=== PATIENT | male | born 1960 | race Caucasian/White ===

== ENCOUNTER → 2017-04-14 15:12 | Outpatient (CLI) | payer MEDICAID, SELFPAY ==
[2017-04-14 13:52] VITALS: BP 152/78; BMI 27.4
[2017-04-14 17:00] LABS: Anion Gap 9 (5-15); BUN 19 mg/dL (7-18); BUN/Creat Ratio 16.4 RATIO (10-20); Calcium,Total 8.6 mg/dL (8.5-10.1); Chloride 103 mmol/L (98-107); Creatinine, Serum 1.16 mg/dL (0.70-1.30); EST Glomerular Filtration Rate 69 mL/min (>60); Est Glom Filt Rate - Afr Amer 84 mL/min (>60); Glucose 238 mg/dL (74-106); Potassium 4.1 mmol/L (3.5-5.1); Sodium Level 140 mmol/L (136-145)
== END ==
PROVIDERS: Family Provider Internal Medicine; PCP Internal Medicine; Visit Provider Internal Medicine
DX: I10 Essential (primary) hypertension (principal)
CPT/HCPCS: 36415; 80048

== ENCOUNTER 2017-05-07 15:32 | Emergency (ER) | payer MEDICAID, SELFPAY ==
[2017-05-07 15:32] VITALS: BP 161/95; PULSE 122; RESP 16; TEMP 36.9; O2SAT 97; BMI 27.3
--- NOTE | 2017-05-07 16:54 | ED.DCSUM_ITS ---
- ER Visit Summary Date of Service: 05/07/17 Chief Complaint: Alcohol intoxication, once detox History of Present Illness: The patient is a 57 M who presents intoxicated. He states he has been drinking for the past week. He had a birthday earlier this week and started drinking that day and has not stopped. His girlfriend did not show up and that is why he started drinking. He is a previous alcoholic and has been sober for a couple of months but recently started drinking again. He states between last night and this morning he drank a bottle of vodka. He denies any withdrawal symptoms currently. Physical Examination: Vital signs reviewed. HEENT exam unremarkable. Heart is regular rate and rhythm without murmurs. Lungs are clear to auscultation. Abdomen is soft and nontender. Extremities reveal no edema. Skin exam normal. Neurologic exam normal. Patient is intoxicated but no other neurologic deficits Test Results: Laboratory studies unremarkable except for an alcohol level of 121 and glucose of 206 Emergency Department Course and Treatment: Patient states he has been here long enough and wants to go home. He does not want to wait for any counseling services or to be admitted for detox. He will go home and do it as an outpatient. He is not suicidal. I do not feel he needs to be pink slipped. He will follow-up Treatment Plan: [] Disposition: Discharge Impression: Alcohol intoxication This note was generated with [employer] dictation software. It may contain incorrect words, spelling, and punctuation that were not noted in review of the chart prior to signing ED Disposition - Plan for ED Patient: Chief Complaint: ETOH Intox Referrals: Elijah Plascencia MD [Primary Care Provider] -
[2017-05-07 17:35] LABS: Absolute Lymphocyte Count 2.03 X10^3/ul (0.83-4.51); Absolute Neutrophil Count 3.5 X10^3/uL (2.0-7.7); Basophil# 0.05 X10^3/uL; Basophil% 0.8 % (0-1); Eosinophils% 1.6 % (0-5); Hemoglobin 14.8 g/dl (13.0-16.5); Lymphocyte # 2.03 X10^3/ul (4.0); Mean Corp Hgb Conc 33.6 g/gl (32-36); Mean Corpuscular Hgb 28.5 pg (27.0-32.0); Mean Corpuscular Volume 84.8 fL (80-94); Mean Platelet Vol. 8.7 fl (6.2-12.0); Monocyte# 0.43 X10^3/uL; Neutrophil # 3.53 X10^3/uL (2.7-7.7); Neutrophil % 57.3 % (47-70); POSITIVE COUNT NO; POSITIVE DIFFERENTIAL NO; POSITIVE MORPHOLOGY NO; Platelet Count 196 K/mm3 (150-450); RBC Distribution Width CV 14.3 % (11.6-14.6); Red Blood Count 5.19 M/mm3 (4.6-6.2); White Blood Count 6.2 K/mm3 (4.4-11.0)
[2017-05-07 17:54] LABS: Anion Gap 13 (5-15); BUN 14 mg/dL (7-18); BUN/Creat Ratio 16.3 RATIO (10-20); Chloride 100 mmol/L (98-107); Creatinine, Serum 0.86 mg/dL (0.70-1.30); EST Glomerular Filtration Rate 98 mL/min (>60); Est Glom Filt Rate - Afr Amer 119 mL/min (>60); Estimated Creatinine Clearance 95.91 ml/min; Glucose 206 mg/dL (74-106); Potassium 4.4 mmol/L (3.5-5.1); Sodium Level 139 mmol/L (136-145)
[2017-05-07 18:14] LABS: Amphetamine Urine VISTA NEGATIVE (<1000 ng/mL); Barbiturate Urine VISTA NEGATIVE (< 200 ng/mL); Benzodiazepine Urine VISTA NEGATIVE (< 200 ng/mL); Cocaine Urine VISTA NEGATIVE (< 300 ng/mL); Ecstacy Urine VISTA NEGATIVE (< 500 ng/mL); Methadone Urine VISTA NEGATIVE (< 300 ng/mL); PCP Urine VISTA NEGATIVE (< 25 ng/mL); THC Urine VISTA NEGATIVE (< 50 ng/mL); Vista UDS pH Range 5
[2017-05-07 18:33] VITALS: BP 182/90; PULSE 87; RESP 20; O2SAT 100
--- NOTE | 2017-05-07 18:51 | NURSING ---
CRISIS NOTIFIED AND CECI WILL BE IN SHORTLY
--- NOTE | 2017-05-07 18:58 | ED.DEP ---
ED Disposition - Plan for ED Patient: Disposition: Home or Assisted Living Chief Complaint: ETOH Intox Instructions: ED Alcohol Intoxication Referrals: Elijah Plascencia MD [Primary Care Provider] -
[2017-05-07 19:05] VITALS: BP 181/94; PULSE 92; RESP 20; O2SAT 96
== END 2017-05-07 19:05 | disposition home or self-care (01) ==
PROVIDERS: Emergency Provider Emergency Medicine; Family Provider Internal Medicine; PCP Internal Medicine
DX: F10.229 Alcohol dependence with intoxication, unspecified (principal); Y90.6 Blood alcohol level of 120-199 mg/100 ml; E11.9 Type 2 diabetes mellitus without complications; I10 Essential (primary) hypertension; Z79.82 Long term (current) use of aspirin; Z79.4 Long term (current) use of insulin; Z79.899 Other long term (current) drug therapy; I25.2 Old myocardial infarction
CPT/HCPCS: 80048; 80307; 80320; 85025; 99282; G0480

== ENCOUNTER → 2017-10-16 13:14 | Outpatient (CLI) | payer MEDICAID, SELFPAY | PROVIDERS: Family Provider Internal Medicine; PCP Internal Medicine; Visit Provider Internal Medicine Cardiovascular Disease | DX: R07.9 Chest pain, unspecified (principal); I25.10 Atherosclerotic heart disease of native coronary artery without angina pectoris | CPT/HCPCS: 93017; 93350; J7030; Q9957; A4216; C8928 ==

== ENCOUNTER → 2017-10-20 11:39 | Outpatient (CLI) | payer MEDICAID, SELFPAY ==
[2017-10-20 12:28] LABS: Hematocrit 46.4 % (40-54); Hemoglobin 15.9 g/dl (13.0-16.5); Mean Corp Hgb Conc 34.3 g/gl (32-36); Mean Corpuscular Hgb 28.3 pg (27.0-32.0); Mean Corpuscular Volume 82.7 fL (80-94); Mean Platelet Vol. 8.8 fl (6.2-12.0); Platelet Count 270 K/mm3 (150-450); RBC Distribution Width CV 13.2 % (11.6-14.6); RBC Distribution Width SD 40.2 fl (35.1-43.9); Red Blood Count 5.61 M/mm3 (4.6-6.2); White Blood Count 8.2 K/mm3 (4.4-11.0)
[2017-10-20 12:33] LABS: Scan Indicated on CBC? Y/N NO
[2017-10-20 12:47] LABS: Anion Gap 10 (5-15); BUN 18 mg/dL (7-18); BUN/Creat Ratio 14.9 RATIO (10-20); Calcium,Total 9.3 mg/dL (8.5-10.1); Chloride 98 mmol/L (98-107); Cholesterol 182 mg/dL (200); Creatinine, Serum 1.21 mg/dL (0.70-1.30); EST Glomerular Filtration Rate 66 mL/min (>60); Est Glom Filt Rate - Afr Amer 80 mL/min (>60); Glucose 273 mg/dL (74-106); High Density Lipoprotein 78 mg/dL; Potassium 4.5 mmol/L (3.5-5.1); Sodium Level 135 mmol/L (136-145); Triglycerides 147 mg/dL; Very Low Density Lipoprotein 29 mg/dL (5-40)
[2017-10-20 12:51] LABS: Hemoglobin A1c 9.8 % (4.2-6.3)
[2017-10-20 13:23] LABS: Microalbumin:Creatinine Ratio 798.9 mg/g CRE (<30 mg/g CRE)
== END ==
PROVIDERS: Family Provider Internal Medicine; PCP Internal Medicine; Visit Provider Nurse Practitioner Family
DX: I10 Essential (primary) hypertension (principal); E11.65 Type 2 diabetes mellitus with hyperglycemia; E78.5 Hyperlipidemia, unspecified
CPT/HCPCS: 36415; 80048; 80061; 82043; 82570; 83036; 85027

== ENCOUNTER 2017-12-28 08:48 | Outpatient (RCR) | payer MEDICAID, SELFPAY | END 2018-01-03 23:59 | LOC: DC 08:48 | PROVIDERS: Family Provider Internal Medicine; PCP Internal Medicine; Visit Provider Podiatrist | DX: E11.42 Type 2 diabetes mellitus with diabetic polyneuropathy (principal); Z71.3 Dietary counseling and surveillance ==

== ENCOUNTER → 2018-04-23 08:32 | Outpatient (CLI) | payer MEDICAID, SELFPAY ==
[2018-04-13 14:23] VITALS: BMI 27.4
[2018-04-23 12:40] LABS: Absolute Neutrophil Count 4.8 X10^3/uL (2.0-7.7); Basophil# 0.02 X10^3/uL; Basophil% 0.3 % (0-1); Eosinophil# 0.01 X10^3/uL; Eosinophils% 0.1 % (0-5); Hematocrit 48.9 % (40-54); Hemoglobin 16.8 g/dl (13.0-16.5); Lymphocyte % 27.6 % (19-41); Mean Corp Hgb Conc 34.4 g/gl (32-36); Mean Corpuscular Hgb 29.5 pg (27.0-32.0); Mean Corpuscular Volume 85.9 fL (80-94); Mean Platelet Vol. 9.9 fl (6.2-12.0); Monocyte# 0.86 X10^3/uL; Monocyte% 10.8 % (0-10); Neutrophil # 4.84 X10^3/uL (2.7-7.7); Neutrophil % 60.7 % (47-70); Platelet Count 254 K/mm3 (150-450); RBC Distribution Width CV 14.4 % (11.6-14.6); RBC Distribution Width SD 45.2 fl (35.1-43.9); Red Blood Count 5.69 M/mm3 (4.6-6.2)
[2018-04-23 12:44] LABS: POSITIVE DIFFERENTIAL NO; POSITIVE MORPHOLOGY NO
[2018-04-23 12:52] LABS: ALB/GLOB Ratio 1.1 RATIO (0.9-2.4); AST(SGOT) 23 U/L (15-37); Alanine Aminotransfer ALT/SGPT 80 U/L (16-61); Alkaline Phosphatase 121 U/L (45-117); Anion Gap 11 (5-15); BUN 18 mg/dL (7-18); BUN/Creat Ratio 15.5 RATIO (10-20); Calcium,Total 9.2 mg/dL (8.5-10.1); Chloride 99 mmol/L (98-107); Creatinine, Serum 1.16 mg/dL (0.70-1.30); EST Glomerular Filtration Rate 69 mL/min (>60); Est Glom Filt Rate - Afr Amer 84 mL/min (>60); Globulin 3.8 g/dL (2.2-4.2); Glucose 296 mg/dL (74-106); Potassium 3.9 mmol/L (3.5-5.1); Protein, Total 7.8 g/dL (6.4-8.2); Sodium Level 136 mmol/L (136-145)
[2018-04-23 13:00] LABS: Cholesterol 119 mg/dL (200); High Density Lipoprotein 64 mg/dL; Triglycerides 100 mg/dL; Very Low Density Lipoprotein 20 mg/dL (5-40)
[2018-04-23 13:19] LABS: Microalbumin:Creatinine Ratio 272.8 mg/g CRE (<30 mg/g CRE)
[2018-04-23 13:25] LABS: Hemoglobin A1c 9.2 % (4.2-6.3)
== END ==
PROVIDERS: Nurse Practitioner Family; Family Provider Internal Medicine; PCP Internal Medicine; Visit Provider Internal Medicine
DX: E11.65 Type 2 diabetes mellitus with hyperglycemia (principal); I10 Essential (primary) hypertension; F10.10 Alcohol abuse, uncomplicated
CPT/HCPCS: 36415; 80053; 80061; 82043; 82570; 83036; 85025

== ENCOUNTER → 2018-11-30 16:06 | Outpatient (CLI) | payer MEDICAID, SELFPAY ==
[2018-11-30 15:29] VITALS: BMI 26.1
[2018-12-05 15:18] LABS: Testosterone, Free 6.81 ng/dL (5.00-21.00)
[2018-12-05 15:26] LABS: Testosterone, % Free 2.38 % (1.50-4.20); Testosterone, Total 286 ng/dL (264-916)
== END ==
PROVIDERS: Family Provider Internal Medicine; PCP Internal Medicine; Referring Provider Internal Medicine; Visit Provider Internal Medicine
DX: N52.9 Male erectile dysfunction, unspecified (principal)
CPT/HCPCS: 36415; 84402; 84403

== ENCOUNTER 2018-12-28 18:24 | Observation (INO) | payer MEDICAID, SELFPAY ==
[2018-11-30 15:29] VITALS: BMI 26.1
[2018-12-28] VITALS (10 sets, daily range): BP systolic 123–183; BP diastolic 66–102; PULSE 104–116; RESP 15–23; TEMP 36.9; O2SAT 93–98; BMI 26.6; BMI 26.4
--- NOTE | 2018-12-28 18:32 | EKG12_ITS ---
Test Reason : MENTAL HEALTH Blood Pressure : / mmHG Vent. Rate : 103 BPM Atrial Rate : 103 BPM P-R Int : 212 ms QRS Dur : 070 ms QT Int : 334 ms P-R-T Axes : 065 022 037 degrees QTc Int : 437 ms Sinus tachycardia with 1st degree A-V block Borderline ECG Confirmed by ANA MARIA CLARK, ALVERTO ([id number]), city editor GOLDIE REDMAN ([id number]) on 01/01/2019 11:27:43 AM Referred By: Alan Mandujano Confirmed By:ALVERTO RODGERS MD
--- NOTE | 2018-12-28 18:33 | ED.DCSUM_ITS ---
History of Present Illness Chief Complaint: Suicidal Informant: Patient, [employer] Design[employer] Limited by: Intoxicated Onset: Today Narrative: Patient is a 58-year-old male with history of insulin-dependent diabetes mellitus and alcohol abuse presenting with suicidal attempt. Per police report, patient was arguing with his ex- and she refused to get back with him. Patient then attempted to kill himself by taking an extra 80 units of his insulin 70/30. Patient states he normally takes as a sliding scale. He told EMS that he was going to take another 40 units as well. Patient was drinking heavily today. He states he had at least a 12 pack of beer. He denies any liquor or illicit drug use. Patient states he just wants to and be with his parents. He denies any physical complaints at this time. Patient states he does have a history of overdose by taking extra medications. Past Medical History - Allergies and Home Meds Allergies/Adverse Reactions: Allergies No Known Allergies Allergy (Verified 11/30/18 15:28) Past Medical History: - - Depression, insulin-dependent diabetes mellitus, erectile dysfunction, hypertension, coronary artery disease Smoking Status: Current every day smoker - Family History Maternal Family History: Family History (Last Reviewed 12/29/18 @ 00:41 by Alan Mandujano MD) Aunt Diabetes Father Alcoholism Aunt Diabetes Father Alcoholism Review of Systems All systems negative except as indicated Psych: Reports: Depression, Suicidal thoughts, Suicidal ideations Physical Exam Vital Signs/Narrative: Vital Signs Temp Pulse Resp BP Pulse Ox 12/28/18 18:27 98.4 F 104 H 15 158/78 H 98 Inital Vital Signs reviewed: Yes General: Well nourished, Well developed, No Acute Distress Head: Normocephalic, Atraumatic Eyes: Perrl, EOMI ENT: Moist mucous membranes, No rhinorrhea Neck: Supple, Nontender Cardiovascular: Regular rhythm, No murmurs, Tachycardia Respiratory: No distress, Chest nontender Abdomen: Soft, Nontender, Nondistended, Normal bowel sounds Back: Nontender, Normal Inspection Extremities: Nontender, No edema Skin: Normal color, No rash Neurological: Alert, Oriented x3, Cranial nerves II-XII grossly intact, Normal Strength, Normal Sensation, - - Mildly slurred speech, patient appears clinically intoxicated, no focal neurologic deficits Psychological: Depressed - Admits to suicide attempt by taking extra insulin, Tearful Diagnostic/Tx/Re-eval Laboratory Data 12/28/18 12/28/18 12/28/18 18:33 18:33 18:33 WBC 6.4 RBC 5.48 Hgb 16.0 Hct 47.1 MCV 85.9 MCH 29.2 MCHC 34.0 RDW Std Deviation 41.2 RDW Coeff of Kaye 13.3 Plt Count 331 MPV 8.1 Immature Gran % (Auto) 1.600 H Neut % (Auto) 43.0 L Lymph % (Auto) 45.7 H [place] % (Auto) 8.7 Eos % (Auto) 0.2 Baso % (Auto) 0.8 Absolute Neuts (auto) 2.8 Absolute Lymphs (auto) 2.93 Nucleated RBC % 0 Sodium 138 Potassium 3.6 Chloride 101 Carbon Dioxide 26.0 Anion Gap 11 BUN 10 Creatinine 0.98 Estim Creat Clear Calc 80.46 Est GFR (MDRD) Af Amer 101 Est GFR (MDRD) Non-Af 83 BUN/Creatinine Ratio 10.2 Glucose 213 H Calcium 9.5 Urine Color Urine Clarity Urine pH Ur Specific [place] Urine Protein Urine Glucose (UA) Urine Ketones Urine Occult Blood Urine Nitrite Urine Bilirubin Urine Urobilinogen Ur Leukocyte Esterase Urine RBC Urine WBC Ur Squamous Epith Cells Urine Bacteria Urine Mucus Urine Opiates Screen Urine Methadone Screen Ur Barbiturates Screen Ur Phencyclidine Scrn Ur Amphetamines Screen U Methamphetamin-MDMA U Benzodiazepines Scrn Urine Cocaine Screen U Cannabinoids Screen Ur Drug Screen Comment Ethyl Alcohol 231.0 POC Glucose 12/28/18 12/28/18 12/28/18 18:33 18:48 18:48 WBC RBC Hgb Hct MCV MCH MCHC RDW Std Deviation RDW Coeff of Kaye Plt Count MPV Immature Gran % (Auto) Neut % (Auto) Lymph % (Auto) [place] % (Auto) Eos % (Auto) Baso % (Auto) Absolute Neuts (auto) Absolute Lymphs (auto) Nucleated RBC % Sodium Potassium Chloride Carbon Dioxide Anion Gap BUN Creatinine Estim Creat Clear Calc Est GFR (MDRD) Af Amer Est GFR (MDRD) Non-Af BUN/Creatinine Ratio Glucose Calcium Urine Color Yellow Urine Clarity Clear Urine pH 5.0 Ur Specific [place] 1.015 Urine Protein 100 H Urine Glucose (UA) 250 H Urine Ketones Negative Urine Occult Blood Negative Urine Nitrite Negative Urine Bilirubin Negative Urine Urobilinogen Normal Ur Leukocyte Esterase Negative Urine RBC 0 SEEN Urine WBC 0 SEEN Ur Squamous Epith Cells 0 SEEN Urine Bacteria 0 SEEN Urine Mucus 0 SEEN Urine Opiates Screen NEGATIVE Urine Methadone Screen NEGATIVE Ur Barbiturates Screen POSITIVE H Ur Phencyclidine Scrn NEGATIVE Ur Amphetamines Screen NEGATIVE U Methamphetamin-MDMA NEGATIVE U Benzodiazepines Scrn NEGATIVE Urine Cocaine Screen NEGATIVE U Cannabinoids Screen NEGATIVE Ur Drug Screen Comment Ethyl Alcohol POC Glucose 209 H 12/28/18 20:09 WBC RBC Hgb Hct MCV MCH MCHC RDW Std Deviation RDW Coeff of Kaye Plt Count MPV Immature Gran % (Auto) Neut % (Auto) Lymph % (Auto) [place] % (Auto) Eos % (Auto) Baso % (Auto) Absolute Neuts (auto) Absolute Lymphs (auto) Nucleated RBC % Sodium Potassium Chloride Carbon Dioxide Anion Gap BUN Creatinine Estim Creat Clear Calc Est GFR (MDRD) Af Amer Est GFR (MDRD) Non-Af BUN/Creatinine Ratio Glucose Calcium Urine Color Urine Clarity Urine pH Ur Specific [place] Urine Protein Urine Glucose (UA) Urine Ketones Urine Occult Blood Urine Nitrite Urine Bilirubin Urine Urobilinogen Ur Leukocyte Esterase Urine RBC Urine WBC Ur Squamous Epith Cells Urine Bacteria Urine Mucus Urine Opiates Screen Urine Methadone Screen Ur Barbiturates Screen Ur Phencyclidine Scrn Ur Amphetamines Screen U Methamphetamin-MDMA U Benzodiazepines Scrn Urine Cocaine Screen U Cannabinoids Screen Ur Drug Screen Comment Ethyl Alcohol POC Glucose 139 H - Rhythm Strip Rhythm Strip: Sinus Tach Rate: 103 Ectopy: None - EKG Initial EKG Interpretation: Sinus Tachycardia, - - Sinus tachycardia at a rate of 103 First- degree AV block Normal intervals Normal ST segments Normal axis - Medical Decision Making Patient is evaluated for suicide attempt. Patient injected 80 units of insulin 70/30 prior to arrival. Patient is slightly hyperglycemic upon arrival. He was also drinking heavily tonight. Alcohol level is elevated. Patient repeatedly states that he wants to and be with his parents. Patient was pink slipped to the hospital by local police. Patient is given some IV fluids. Medical work-up is largely unremarkable. Because of the amount of insulin patient took, he will be admitted for further glucose monitoring. Patient was initially accepted to the PCU however repeat blood sugar shows that his blood glucose has dropped 100 points within an hour. Because of this, medicine request that he be admitted to the ICU and he is also started on D5 half-normal saline at 75 cc an hour. Patient does have an anxiety attack by the emergency room and does require 0.5 mg of IV Ativan. He is otherwise stable for the ICU at time of disposition. ED Disposition - Plan for ED Patient: Disposition: Acute Care Hospital [facility] Diagnosis: Overdose of insulin, Suicidal ideation, Alcohol abuse
[2018-12-28 18:45] LABS: Absolute Lymphocyte Count 2.93 X10^3/uL (0.83-4.51); Absolute Neutrophil Count 2.8 X10^3/uL (2.0-7.7); Basophil# 0.05 X10^3/uL; Basophil% 0.8 % (0-1); Eosinophil# 0.01 X10^3/uL; Eosinophils% 0.2 % (0-5); Hematocrit 47.1 % (40-54); Lymphocyte # 2.93 X10^3/ul (4.0); Lymphocyte % 45.7 % (19-41); Mean Corpuscular Hgb 29.2 pg (27.0-32.0); Mean Corpuscular Volume 85.9 fL (80-94); Mean Platelet Vol. 8.1 fl (6.2-12.0); Monocyte# 0.56 X10^3/uL; Monocyte% 8.7 % (0-10); NRBC Flagged by Analyzer 0 % (0-5); Neutrophil # 2.76 X10^3/uL (2.7-7.7); Platelet Count 331 K/mm3 (150-450); RBC Distribution Width CV 13.3 % (11.6-14.6); RBC Distribution Width SD 41.2 fl (35.1-43.9); Red Blood Count 5.48 M/mm3 (4.6-6.2); White Blood Count 6.4 K/mm3 (4.4-11.0)
[2018-12-28 18:55] LABS: Bacteria 0 SEEN /hpf (None Seen); Mucous, Urine 0 SEEN /hpf (<or=2+); Red Blood Cells-Urine 0 SEEN /hpf (0-5); Squamous Epithelial Cells - UA 0 SEEN /hpf (0-5); White Blood Cells 0 SEEN /hpf (0-5)
[2018-12-28 18:55] LABS: Anion Gap 11 (5-15); BUN 10 mg/dL (7-18); BUN/Creat Ratio 10.2 RATIO (10-20); Calcium,Total 9.5 mg/dL (8.5-10.1); Chloride 101 mmol/L (98-107); Creatinine, Serum 0.98 mg/dL (0.70-1.30); EST Glomerular Filtration Rate 83 mL/min (>60); Est Glom Filt Rate - Afr Amer 101 mL/min (>60); Estimated Creatinine Clearance 80.46 ml/min; Glucose 213 mg/dL (74-106); Potassium 3.6 mmol/L (3.5-5.1); Sodium Level 138 mmol/L (136-145)
[2018-12-28 19:13] LABS: Color, Urine Yellow (Yellow); Glucose, Dipstick 250 mg/dl (Normal); Ketone-Dipstick Negative (Negative); Leukocyte Esterase-Dipstick Negative /ul (Negative); Nitrite-Dipstick Negative (Negative); Occult Blood-Urine Negative /ul (Negative); Protein-Dipstick 100 mg/dl (Negative); Specific Gravity, Urine 1.015 (1.002-1.030); Urine Bilirubin Dipstick Negative (Negative); Urine Clarity Clear (Clear); Urine Urobilinogen Normal (Normal)
[2018-12-28 19:19] LABS: Amphetamine Urine VISTA NEGATIVE (<1000 ng/mL); Barbiturate Urine VISTA POSITIVE (< 200 ng/mL); Benzodiazepine Urine VISTA NEGATIVE (< 200 ng/mL); Cocaine Urine VISTA NEGATIVE (< 300 ng/mL); Ecstacy Urine VISTA NEGATIVE (< 500 ng/mL); Methadone Urine VISTA NEGATIVE (< 300 ng/mL); PCP Urine VISTA NEGATIVE (< 25 ng/mL); THC Urine VISTA NEGATIVE (< 50 ng/mL); Vista UDS pH Range 5
--- NOTE | 2018-12-28 19:51 | PCM.HP.STD ---
Problem List (1) Type 2 diabetes mellitus Status: Chronic (2) Hypertension Status: Chronic (3) Depression Status: Chronic (4) Suicidal ideation Status: Acute (5) Overdose of insulin Status: Acute (6) Suicide attempt Status: Acute History of Present Illness Date of Admission: 12/28/18 Chief Complaint: insulin overdose for suicidal attempt The patient is a 58 year old M with a significant history of alcoholism; depression; erectile dysfunction; hypertension who presented to emergency department with suicidal attempt. Patient took 80 units of his 70/30 insulin at one time in an attempt to kill himself.. Typically he takes 30 units twice daily of his 70/30 insulin.. He was about to take more insulin but was prevented from doing so. He attempted to commit suicide because his girlfriend was leaving him. He reported that he wants to and be with his parents were radiated. Also reported that one of the reasons why he wants to is that he has erectile dysfunction and is unable to afford treatment since his insurance will not pay. Also on the day of presentation patient drank about 8-9 beers. Patient is on alcoholic who came up from a detox facility at [place] a day before presentation. Reportedly from April 19, 2018 to September 20 he was at the [facility]. He reported that he has as sponsor who reportedly is trying to date his girlfriend; although the girlfriend is not interested. The patient is a 58 year old M with a significant history of alcoholism; depression; erectile dysfunction; ; hypertension who presented to emergency department with suicidal attempt from insulin overdose and also with excessive alcohol use. Suicidal attempt with insulin overdose. Initial blood glucose in the emergency department was 209. However his blood glucose daily declined to 114. Discussed emergency department doctor will start the patient on D5W at the emergency department; continued. Will check Accu-Chek every 1 hour. Crisis consult at the emergency department. Alcoholism with risk of withdrawal. At the emergency department patient was given Ativan. Will put patient on CIWA protocol with Ativan; multivitamin and thiamine. Counseled. Viral abuse Consult DVT prophylaxis Subcutaneous Lovenox. Past Medical History Past Medical History (Chronic Problems): Chronic Problems (Last Reviewed 12/29/18 @ 06:38 by Alan Mandujano MD) Type 2 diabetes mellitus (Chronic) Hypertension (Chronic) Non-ST elevation (NSTEMI) myocardial infarction (Chronic) Atherosclerosis of coronary artery of [place] heart without angina pectoris (Chronic) [facility] 09/2016 @ [facility] H/O right coronary artery stent placement (Chronic ~09/08/16) [facility] Erectile dysfunction (Chronic) Diabetes type 2, uncontrolled (Chronic) Depression (Chronic) Medical History: Medical History (Last Reviewed 12/29/18 @ 06:38 by Alan Mandujano MD) Fracture of wrist (Inactive) S62.109A Rt wrist Non-ST elevation (NSTEMI) myocardial infarction (Chronic) I21.4 Atherosclerosis of coronary artery of [place] heart without angina pectoris (Chronic) I25.10 [facility] 09/2016 @ [facility] Hypertension, uncontrolled (Inactive) I10 Erectile dysfunction (Chronic) N52.9 Diabetes type 2, uncontrolled (Chronic) E11.65 Depression (Chronic) F32.9 Alcoholism F10.20 Anxiety F41.9 Depression F32.9 Neuropathy G62.9 NSVT (nonsustained ventricular tachycardia) I47.2 Allergies No Known Allergies Allergy (Verified 11/30/18 15:28) Home Medications: Ambulatory Orders Medication Instructions Recorded aspirin 81 mg tablet,delayed 81 mg PO QDAY #90 tab 02/07/18 release tramadol 50 mg tablet 50 mg PO Q6H 04/04/18 hydrochlorothiazide 25 mg tablet 25 mg PO QDAY #90 tab 04/12/18 metformin 1,000 mg tablet 1,000 mg PO BIDCM #180 tab 04/12/18 metoprolol tartrate 25 mg tablet 25 mg PO BID #180 tab 04/12/18 fexofenadine 60 mg tablet 60 mg PO BID PRN #30 tab 07/12/18 venlafaxine ER 225 mg 225 mg PO QDAY #90 tab 07/13/18 tablet,extended release 24 hr insulin NPH-regular 70-30 U-100 See Rx Instructions SC BID #15 ml 08/28/18 insulin 100 unit/mL subcutaneous pen lisinopril 40 mg tablet 40 mg PO QDAY #90 tab 09/03/18 atorvastatin 40 mg tablet 40 mg PO QHS #90 tab 09/28/18 folic acid 1 mg tablet 1 mg PO QDAY #90 tab 09/28/18 gabapentin 100 mg capsule 200 mg PO DAILY #180 cap 09/28/18 thiamine HCl (vitamin B1) 100 mg 100 mg PO DAILY #90 tab 09/28/18 tablet blood sugar diagnostic strips See Dose Instructions .ROUTE 11/23/18 .MEDSUPPLY #150 ea blood-glucose meter See Dose Instructions .ROUTE 11/23/18 .MEDSUPPLY #1 ea buspirone 15 mg tablet 15 mg PO BID #60 tab 11/23/18 lancets 28 gauge See Dose Instructions .ROUTE 11/23/18 .MEDSUPPLY #200 ea pen needle, diabetic 31 gauge x See Rx Instructions .ROUTE 11/23/18/ .COMPLEX #100 each ticagrelor 90 mg tablet 90 mg PO BID #60 tab 11/23/18 mirtazapine 15 mg tablet 15 mg PO QHS #90 tab 12/21/18 Surgical History: Surgical History (Last Reviewed 12/29/18 @ 06:38 by Alan Mandujano MD) H/O right coronary artery stent placement (Chronic) Onset Date: ~09/08/16 Z95.5 [facility] @ [facility] History of left cataract extraction Z98.42 11/21/18 Psychiatric History: Anxiety, Depression Lives: Alone Smoking Status: Current every day smoker Tobacco Use: Cigarettes Drugs: Marijuana - *Family History Maternal Family History: Family History (Last Reviewed 12/29/18 @ 06:38 by Alan Mandujano MD) Aunt Diabetes Father Alcoholism Aunt Diabetes Father Alcoholism Review of Systems Constitutional: Denies: Chills, Fever, Weight Change HEENT: Denies: Head Aches, Sinus Congestion, Sinus Drainage Cardiovascular: Denies: Chest Pain, Palpitations Respiratory: Denies: Cough, Shortness of breath at rest, Sputum production Gastrointestinal: Denies: Abdominal Pain, Nausea, Vomiting Genitourinary: Denies: Dysuria Musculoskeletal: Denies: Joint Pain, Joint Tenderness Skin: Denies: Rash, Wounds Neurological: Denies: Numbness, Tingling, Focal weakness Psychiatric: Reports: Anxiety, Depression, Suicidal Ideations. Denies: Homicidal Ideations Hematologic/ Lymphatic: Denies: Easy Bruising, Easy Bleeding VTE Information - Inpt Only VTE Present on Admission: No VTE Mechan Device Prophylaxis: SCD's VTE Pharm Prophylaxis ordered?: Yes Patient Problems: Active and Suspected Problems (Last Reviewed 12/29/18 @ 06:38 by Alan Mandujano MD) Suicidal ideation (Acute) Overdose of insulin (Acute) Alcohol abuse (Acute) Suicide attempt (Acute) - Physical Exam Vitals/I&O's: Vital Signs Temp Pulse Resp BP Pulse Ox 98.4 F 104 H 15 158/78 H 98 12/28/18 18:27 12/28/18 18:27 12/28/18 18:27 12/28/18 18:27 12/28/18 18:27 Oxygen Delivery Method Room Air Weight: 79.379 kg Body Mass Index (BMI) 26.6 Finger Stick Blood Glucose 209 General: Alert, Oriented x3, Cooperative HEENT: Atraumatic, PERRLA, EOMI, Normocephalic Neck: Supple, No JVD, Negative Carotid Bruits Lungs: Clear to auscultation, Normal air movement Cardiovascular: Regular rate, No murmurs Abdomen: Bowel Sounds Present, Soft, Non Tender Extremities: No edema, Capillary Refill Less than 3 Seconds Skin: No rashes, No breakdown, - - Flushed Musculoskeletal: No Tenderness to Palpation of Joints or Extremities Neurological: Cranial nerves II-XII grossly intact Psych/Mental Status: - - [place] Laboratory Results 12/28/18 18:33: WBC 6.4, RBC 5.48, Hgb 16.0, Hct 47.1, MCV 85.9, MCH 29.2, MCHC 34.0, RDW Std Deviation 41.2, RDW Coeff of Kaye 13.3, Plt Count 331, MPV 8.1, Immature Gran % (Auto) 1.600 H, Neut % (Auto) 43.0 L, Lymph % (Auto) 45.7 H, [place] % (Auto) 8.7, Eos % (Auto) 0.2, Baso % (Auto) 0.8, Absolute Neuts (auto) 2.8, Absolute Lymphs (auto) 2.93, Nucleated RBC % 0 12/28/18 18:33: Sodium 138, Potassium 3.6, Chloride 101, Carbon Dioxide 26.0, Anion Gap 11, BUN 10, Creatinine 0.98, Estim Creat Clear Calc 80.46, Est GFR (MDRD) Af Amer 101, Est GFR (MDRD) Non-Af 83, BUN/Creatinine Ratio 10.2, Glucose 213 H, Calcium 9.5 12/28/18 18:33: Ethyl Alcohol 231.0 12/28/18 18:48: Urine Opiates Screen NEGATIVE, Urine Methadone Screen NEGATIVE, Ur Barbiturates Screen POSITIVE H, Ur Phencyclidine Scrn NEGATIVE, Ur Amphetamines Screen NEGATIVE, U Methamphetamin-MDMA NEGATIVE, U Benzodiazepines Scrn NEGATIVE, Urine Cocaine Screen NEGATIVE, U Cannabinoids Screen NEGATIVE, Ur Drug Screen Comment 12/28/18 18:48: Urine Color Yellow, Urine Clarity Clear, Urine pH 5.0, Ur Specific [place] 1.015, Urine Protein 100 H, Urine Glucose (UA) 250 H, Urine Ketones Negative, Urine Occult Blood Negative, Urine Nitrite Negative, Urine Bilirubin Negative, Urine Urobilinogen Normal, Ur Leukocyte Esterase Negative, Urine RBC 0 SEEN, Urine WBC 0 SEEN, Ur Squamous Epith Cells 0 SEEN, Urine Bacteria 0 SEEN, Urine Mucus 0 SEEN Current Medications Sodium Chloride () 1,000 mls @ 999 mls/hr IV .Q1H1M ONE Stop: 12/28/18 20:35 Assessment/Plan All Active Problems (Last Reviewed 12/29/18 @ 06:38 by Alan Mandujano MD) Suicidal ideation (Acute) Overdose of insulin (Acute) Alcohol abuse (Acute) Suicide attempt (Acute) The patient is a 58 year old M with a significant history of alcoholism; depression; erectile dysfunction; ; hypertension who presented to emergency department with suicidal attempt from insulin overdose and also with excessive alcohol use. Suicidal attempt with insulin overdose. Initial blood glucose in the emergency department was 209. However his blood glucose daily declined to 114. Discussed emergency department doctor will start the patient on D5W at the emergency department; continued. Later notified that patient's blood glucose dropped to 68 and was given D50. Infusion rate of D5W 0.2 NS was subsequently increased. Will check Accu-Chek every 1 hour. Crisis consult at the emergency department. Alcoholism with risk of withdrawal. At the emergency department patient was given Ativan. Will put patient on CIWA protocol with Ativan; multivitamin and thiamine. Counseled. Hypertension On presentation his blood pressure was not within goal Metoprolol and lisinopril continued Trend blood pressure and adjust blood pressure medication. DVT prophylaxis Subcutaneous Lovenox. Code Visit OBSV E&M: [id number] Initial observation care L3
[2018-12-28] MEDS: 0.9% Normal Saline 1,000 ML 999 ML IV (19:54)
[2018-12-28 20:16] LABS: Bedside Glucose 209 mg/dL (70-110)
[2018-12-28 20:16] LABS: Bedside Glucose 139 mg/dL (70-110)
[2018-12-28] MEDS: Dextrose 5%-0.2% NS 1,000 ML 75 ML IV (20:53)
--- NOTE | 2018-12-28 20:56 | ED.RN ---
PT STATED TO THIS NURSE, I DON'T WANT TO BE HERE ANYMORE. I DON'T KNOW WHY YOU WON'T JUST LET ME GO. I WANT TO GO AND BE WITH MY MOM AND DAD. MY DAD WHEN I WAS LITTLE AND MY MOM 3 YEARS AGO. I JUST WANT TO BE WITH THEM. THE PT IS TEARFUL BUT COOPERATIVE.
[2018-12-28] MEDS: LORazepam 2 MG/ML Syringe 0.5 MG IV (21:16)
[2018-12-28] MEDS: LORazepam 2 MG/ML Syringe IV (22:20)
[2018-12-28 22:30] LABS: Bedside Glucose 114 mg/dL (70-110)
[2018-12-29] VITALS (16 sets, daily range): BP systolic 112–155; BP diastolic 63–97; PULSE 81–118; RESP 15–21; TEMP 36.1–36.9; O2SAT 94–100
[2018-12-29 03:01] LABS: Bedside Glucose 68 mg/dL (70-110)
[2018-12-29] MEDS: Dextrose 50%-Water 25 GM/50 ML DISP.SYRIN IV (04:07)
[2018-12-29 04:15] LABS: Bedside Glucose 63 mg/dL (70-110)
[2018-12-29 04:30] LABS: Bedside Glucose 125 mg/dL (70-110)
[2018-12-29 05:15] LABS: Bedside Glucose 74 mg/dL (70-110)
[2018-12-29 06:10] LABS: Bedside Glucose 111 mg/dL (70-110)
[2018-12-29 07:10] LABS: Bedside Glucose 74 mg/dL (70-110)
--- NOTE | 2018-12-29 07:12 | PCM.CON.CC ---
Reason for Consult Date of Consultation: 12/29/18 Reason for Consultation: Suicide attempt History of Present Illness: The patient is a 58-year-old male, with a history as outlined below, who presented to the emergency department on December 28 following an intentional overdose of insulin. The patient apparently had gotten into an argument with his ex- and subsequently took 80 units of 70/30 insulin in an attempt to end his life. The patient is currently followed by Dr. Plascencia on an outpatient basis. He was last seen in the office of his primary care provider 1 month ago, at which time, the patient was noted to be high risk for obstructive sleep apnea, based upon a STOP-BANG score of 5. A split-night sleep study was subsequently ordered. The patient has a history of alcohol and tobacco abuse. He reports to me that he recently came out of alcohol rehab several days ago. He does report that he drank approximately 8 beers yesterday. In addition, he does report having taken medications in the past in an attempt to end his life, but is unable to tell me when he last attempted suicide. On presentation to the emergency department, the patient was noted to be afebrile and hemodynamically stable. He was maintaining appropriate oxygen saturations on room air. Laboratory evaluation revealed no evidence of a leukocytosis or anemia. Chemistry profile was largely unremarkable. Urinalysis was unrevealing. Toxicology screen was positive for barbiturates. Alcohol level was noted to be 231. Glucose was noted to be 209. The patient was subsequently started on dextrose containing supplemental IV fluids and admitted to the medical intensive care unit for further management. Overnight, the patient's blood glucose levels have remained stable on D5 normal saline at 100 mL's per hour. Past Medical History Past Medical History (Chronic Problems): Chronic Problems (Last Reviewed 12/29/18 @ 06:38 by Alan Mandujano MD) Type 2 diabetes mellitus (Chronic) Hypertension (Chronic) Non-ST elevation (NSTEMI) myocardial infarction (Chronic) Atherosclerosis of coronary artery of [place] heart without angina pectoris (Chronic) [facility] RCA 09/2016 @ [facility] H/O right coronary artery stent placement (Chronic ~09/08/16) [facility] @ [facility] Erectile dysfunction (Chronic) Diabetes type 2, uncontrolled (Chronic) Depression (Chronic) Medical History: Medical History (Last Reviewed 12/29/18 @ 06:38 by Alan Mandujano MD) Fracture of wrist (Inactive) S62.109A Rt wrist Non-ST elevation (NSTEMI) myocardial infarction (Chronic) I21.4 Atherosclerosis of coronary artery of [place] heart without angina pectoris (Chronic) I25.10 [facility] RCA 09/2016 @ [facility] Hypertension, uncontrolled (Inactive) I10 Erectile dysfunction (Chronic) N52.9 Diabetes type 2, uncontrolled (Chronic) E11.65 Depression (Chronic) F32.9 Alcoholism F10.20 Anxiety F41.9 Depression F32.9 Neuropathy G62.9 NSVT (nonsustained ventricular tachycardia) I47.2 Allergies No Known Allergies Allergy (Verified 11/30/18 15:28) Home Medications: Ambulatory Orders Medication Instructions Recorded aspirin 81 mg tablet,delayed 81 mg PO QDAY #90 tab 02/07/18 release tramadol 50 mg tablet 50 mg PO Q6H 04/04/18 hydrochlorothiazide 25 mg tablet 25 mg PO QDAY #90 tab 04/12/18 metformin 1,000 mg tablet 1,000 mg PO BIDCM #180 tab 04/12/18 metoprolol tartrate 25 mg tablet 25 mg PO BID #180 tab 04/12/18 fexofenadine 60 mg tablet 60 mg PO BID PRN #30 tab 07/12/18 venlafaxine ER 225 mg 225 mg PO QDAY #90 tab 07/13/18 tablet,extended release 24 hr insulin NPH-regular 70-30 U-100 See Rx Instructions SC BID #15 ml 08/28/18 insulin 100 unit/mL subcutaneous pen lisinopril 40 mg tablet 40 mg PO QDAY #90 tab 09/03/18 atorvastatin 40 mg tablet 40 mg PO QHS #90 tab 09/28/18 folic acid 1 mg tablet 1 mg PO QDAY #90 tab 09/28/18 gabapentin 100 mg capsule 200 mg PO DAILY #180 cap 09/28/18 thiamine HCl (vitamin B1) 100 mg 100 mg PO DAILY #90 tab 09/28/18 tablet blood sugar diagnostic strips See Dose Instructions .ROUTE 11/23/18 .MEDSUPPLY #150 ea blood-glucose meter See Dose Instructions .ROUTE 11/23/18 .MEDSUPPLY #1 ea buspirone 15 mg tablet 15 mg PO BID #60 tab 11/23/18 lancets 28 gauge See Dose Instructions .ROUTE 11/23/18 .MEDSUPPLY #200 ea pen needle, diabetic 31 gauge x See Rx Instructions .ROUTE 11/23/18 1/4 .COMPLEX #100 each ticagrelor 90 mg tablet 90 mg PO BID #60 tab 11/23/18 mirtazapine 15 mg tablet 15 mg PO QHS #90 tab 12/21/18 Surgical History: Surgical History (Last Reviewed 12/29/18 @ 06:38 by Alan Mandujano MD) H/O right coronary artery stent placement (Chronic) Onset Date: ~09/08/16 Z95.5 [facility] RCA @ [facility] History of left cataract extraction Z98.42 11/21/18 Psychiatric History: Anxiety, Depression Lives: Alone Smoking Status: Current every day smoker Tobacco Use: Cigarettes Drugs: Marijuana - *Family History Maternal Family History: Family History (Last Reviewed 12/29/18 @ 06:38 by Alan Mandujano MD) Aunt Diabetes Father Alcoholism Aunt Diabetes Father Alcoholism Review of Systems Constitutional: Denies: Chills, Fever, Weight Change HEENT: Denies: Head Aches, Sinus Congestion, Sinus Drainage Cardiovascular: Denies: Chest Pain, Palpitations Respiratory: Denies: Cough, Shortness of breath at rest, Sputum production Gastrointestinal: Denies: Abdominal Pain, Nausea, Vomiting Genitourinary: Denies: Dysuria Musculoskeletal: Denies: Joint Pain, Joint Tenderness Skin: Denies: Rash, Wounds Neurological: Denies: Numbness, Tingling, Focal weakness Psychiatric: Reports: Suicidal Ideations Hematologic/ Lymphatic: Denies: Easy Bruising, Easy Bleeding Objective: The patient's most recent lab work, culture data and imaging studies have all been personally reviewed. - Physical Exam Vitals/I&O's: Vital Signs Temp Pulse Resp BP Pulse Ox 97.0 F L 87 15 113/65 96 12/29/18 04:00 12/29/18 06:00 12/29/18 06:00 12/29/18 06:00 12/29/18 06:00 Oxygen Delivery Method Room Air Weight: 178 lb 12.718 oz Body Mass Index (BMI) 26.4 Finger Stick Blood Glucose 139 Intake and Output for Last 24 Hours 12/27/18 12/28/18 12/29/18 23:59 23:59 23:59 Intake Total 1000 / 1000 720 / 720 Output Total 800 / 800 Balance 1000 / 550 -80 / -80 General: Alert, Cooperative, No apparent distress HEENT: Atraumatic, PERRLA, Normocephalic Oral: No Gingival or Mucosal Lesions/ Ulcerations Neck: Supple, No Nodes, Trachea Midline Lungs: No rhonchi, No wheeze, No rales, Diminished Cardiovascular: Regular rate, Regular Rhythm, Normal S1, Normal S2 Abdomen: Bowel Sounds Present, Soft, Non Tender Extremities: No clubbing, No cyanosis, No edema Skin: No breakdown Musculoskeletal: No Tenderness to Palpation of Joints or Extremities Lymphatic: No Cervical, Supraclavicular, or Inguinal Adenopathy Neurological: Cranial nerves II-XII grossly intact, Neuro grossly intact Psych/Mental Status: Normal Affect, Appropriate Laboratory Results 12/28/18 18:33: WBC 6.4, RBC 5.48, Hgb 16.0, Hct 47.1, MCV 85.9, MCH 29.2, MCHC 34.0, RDW Std Deviation 41.2, RDW Coeff of Kaye 13.3, Plt Count 331, MPV 8.1, Immature Gran % (Auto) 1.600 H, Neut % (Auto) 43.0 L, Lymph % (Auto) 45.7 H, [place] % (Auto) 8.7, Eos % (Auto) 0.2, Baso % (Auto) 0.8, Absolute Neuts (auto) 2.8, Absolute Lymphs (auto) 2.93, Nucleated RBC % 0 12/28/18 18:33: Sodium 138, Potassium 3.6, Chloride 101, Carbon Dioxide 26.0, Anion Gap 11, BUN 10, Creatinine 0.98, Estim Creat Clear Calc 80.46, Est GFR (MDRD) Af Amer 101, Est GFR (MDRD) Non-Af 83, BUN/Creatinine Ratio 10.2, Glucose 213 H, Calcium 9.5 12/28/18 18:33: Ethyl Alcohol 231.0 12/28/18 18:33: POC Glucose 209 H 12/28/18 18:48: Urine Opiates Screen NEGATIVE, Urine Methadone Screen NEGATIVE, Ur Barbiturates Screen POSITIVE H, Ur Phencyclidine Scrn NEGATIVE, Ur Amphetamines Screen NEGATIVE, U Methamphetamin-MDMA NEGATIVE, U Benzodiazepines Scrn NEGATIVE, Urine Cocaine Screen NEGATIVE, U Cannabinoids Screen NEGATIVE, Ur Drug Screen Comment 12/28/18 18:48: Urine Color Yellow, Urine Clarity Clear, Urine pH 5.0, Ur Specific [place] 1.015, Urine Protein 100 H, Urine Glucose (UA) 250 H, Urine Ketones Negative, Urine Occult Blood Negative, Urine Nitrite Negative, Urine Bilirubin Negative, Urine Urobilinogen Normal, Ur Leukocyte Esterase Negative, Urine RBC 0 SEEN, Urine WBC 0 SEEN, Ur Squamous Epith Cells 0 SEEN, Urine Bacteria 0 SEEN, Urine Mucus 0 SEEN 12/28/18 20:09: POC Glucose 139 H 12/28/18 21:53: POC Glucose 114 H 12/29/18 02:56: POC Glucose 68 L 12/29/18 04:03: POC Glucose 63 L 12/29/18 04:25: POC Glucose 125 H 12/29/18 05:10: POC Glucose 74 12/29/18 06:06: POC Glucose 111 H 12/29/18 07:06: POC Glucose 74 Current Medications Acetaminophen (Tylenol) 650 mg PO Q6H PRN PRN PRN Reason: Pain Score 1-3/Temp > 100.7 F Dextrose (D50w Syringe) 0 gm IV X1 PRN; Protocol PRN Reason: Hypoglycemia Last Admin: 12/29/18 04:07 Dose: 12.5 gm Documented by: Folic Acid (Folic Acid) 1 mg PO DAILY@0800 [facility] Stop: 12/31/18 08:01 Glucagon () 1 mg IM .X1 PRN PRN Reason: Hypoglycemia Dextrose/Sodium Chloride () 1,000 mls @ 100 mls/hr IV .Q10H [facility] Stop: 12/29/18 16:39 Last Admin: 12/28/18 20:53 Dose: 75 mls/hr Documented by: Sodium Chloride () 250 mls @ 15 mls/hr IV .[id number] PRN PRN Reason: Saline Flush Lisinopril (Zestril) 40 mg PO DAILY [facility] Lorazepam (Ativan) 2 mg PO Q2H PRN PRN; Protocol PRN Reason: CIWA score > 8 but <15 Lorazepam (Ativan) 2 mg PO UD PRN; Protocol PRN Reason: CIWA score >/=15. Lorazepam (Ativan) 2 mg IV Q2H PRN PRN; Protocol PRN Reason: CIWA score > 8 but <15 Lorazepam (Ativan) 2 mg IV UD PRN; Protocol PRN Reason: CIWA score >/=15. Last Admin: 12/28/18 22:20 Dose: 2 mg Documented by: Metoprolol Tartrate (Lopressor (Beta Ana)) 25 mg PO BID [facility] Multivitamins/Minerals (Multivitamin With Minerals) 1 tablet PO DAILYCM [facility] Nutritional Formula (Lactose Free) (Glucerna Shake) 120 ml PO TIDCM [facility] Sodium Chloride () 10 - 40 ml IV UD PRN PRN Reason: SALINE FLUSH Thiamine HCl (Vitamin B1) 100 mg PO BIDCM [facility] Stop: 12/31/18 17:01 Assessment/Plan RECOMMENDATIONS: 1. Dextrose containing supplemental IV fluids can likely be discontinued. 2. Continue to monitor blood glucose levels every 4 hours. 3. Crisis evaluation. 4. Empiric BiPAP therapy can be utilized while the patient is admitted to the hospital while sleeping. 5. Recommend outpatient completion of split-night sleep study, as ordered by PCP. 6. As the patient has no current ICU or pulmonary needs, will sign off. IMPRESSIONS: 1. Intentional Overdose/Suicide Attempt The patient apparently took 80 units of 70/30 insulin in an attempt to overdose. It does not appear that the patient was ever significantly hypoglycemic. He has been maintained on dextrose containing supplemental IV fluids at a low rate overnight. His mentation and glucoses remain within normal limits. Fluids can likely be discontinued from my perspective. Recommend continuing to monitor blood glucose levels every 4 hours. The patient will require crisis evaluation. 2. History of Alcohol Dependency The patient does have a long-standing history of alcohol dependency with his last alcohol consumption occurring yesterday. Continue current supportive measures with CIWA protocol, thiamine and folate. If the patient is to remain admitted to the hospital, consider initiation of Librium taper. 3. Concern for sleep disordered breathing The patient's primary care provider recently placed an order for a split-night sleep study. The patient can be placed empirically on nocturnal BiPAP therapy while admitted to the hospital. Recommend completing outpatient diagnostic polysomnogram. This note was generated with QMedication software. It may contain incorrect words, spelling, and punctuation that were not noted in checking the note before signing. Code Visit Inpatient E&M: 67154 Init Hosp L3
[2018-12-29] MEDS: Dextrose 5%-0.2% NS 1,000 ML 100 ML IV (09:18)
[2018-12-29] MEDS: Metoprolol Tartrate 25 MG Tablet PO (09:39)
[2018-12-29] MEDS: Folic Acid 1 MG Tablet PO (09:39)
[2018-12-29] MEDS: Lisinopril 40 MG Tablet PO (09:40)
[2018-12-29] MEDS: Thiamine Hydrochloride 100 MG Tablet PO (10:53)
[2018-12-29] MEDS: Multivitamins,Ther W-Minerals Tablet 1 TABLET PO (10:53)
[2018-12-29] MEDS: LORazepam 2 MG/ML Syringe IV (12:01)
[2018-12-29 12:35] LABS: Bedside Glucose 213 mg/dL (70-110)
[2018-12-29] MEDS: ALPRAZolam 0.5 MG Tablet 1 MG PO (14:57)
--- NOTE | 2018-12-29 18:27 | DS.PCM_ITS ---
Discharge Date and Diagnosis Date of Admission: 12/28/18 Date of Discharge: 12/29/18 - Primary Discharge Diagnosis #1 suicide attempt with intentional insulin overdose #2 alcohol intoxication #3 chronic alcoholism #4 type 2 diabetes #5 coronary artery disease #6 major depression #7 recent barbiturate usage by prescription for alcohol detox - Secondary Discharge Diagnosis Chronic Problems (Last Reviewed 12/29/18 @ 06:38 by Alan Mandujano MD) Type 2 diabetes mellitus (Chronic) Hypertension (Chronic) Non-ST elevation (NSTEMI) myocardial infarction (Chronic) Atherosclerosis of coronary artery of [place] heart without angina pectoris (Chronic) [facility] RCA 09/2016 @ [facility] H/O right coronary artery stent placement (Chronic ~09/08/16) [facility] R[facility] @ [facility] Erectile dysfunction (Chronic) Diabetes type 2, uncontrolled (Chronic) Depression (Chronic) Hospital Course and Treatment Consultations 12/29/18 08:57 Consult: Mental Health/Crisis Routine Reason for consult?: Intentional insulin overdose Date Notified:: 12/29/18 Time notified:: 08:57 Operations: None Procedures: None Summary of Care Provided: The patient is a 58 year old M was seen in the emergency room at [facility] for evaluation after attempting a suicide attempt with an overdose of insulin. Patient an argument with his ex- and he took extra insulin and an attempt to kill himself. Patient had been drinking heavily that day, he recently underwent inpatient detox at a facility and had been placed on phenobarbital. Evaluation in the ER showed the patient not to be hypoglycemic, his blood alcohol level was elevated and he was positive for barbiturates on his tox screen. Patient was placed in observation status in ICU, blood sugars were monitored they did dip slightly but he was not in danger from the hypoglycemia. Patient was given oral benzodiazepines for anxiety, he was seen in consultation by crisis intervention and felt appropriate for transfer to a psych facility for inpatient treatment. Patient was pink slipped-he refused to go voluntarily. On 12/29/2018, patient was seen and examined: On examination he appeared in good health and spirits. Vital signs as documented. Skin warm and dry and without overt rashes. Neck without JVD. Lungs clear. Heart exam notable for regular rhythm, normal sounds and absence of murmurs, rubs or gallops. Abdomen unremarkable and without evidence of organomegaly, masses, or abdominal aortic enlargement. Extremities nonedematous. Neuro: Cranial nerves II through XII are grossly intact, no focal motor deficits were noted, sensation to light touch and pinprick intact. Psych: Patient is alert, he appears mildly anxious On 12/29/2018, patient was seen and examined and felt to be in stable condition for transfer to an inpatient psych facility for further care. - Physical Exam Vitals/I&O's: Vital Signs Temp Pulse Resp BP Pulse Ox 98.0 F 85 20 H 139/63 H 98 12/29/18 16:10 12/29/18 16:10 12/29/18 16:10 12/29/18 16:10 12/29/18 16:10 Oxygen Flow Rate (L/min) 2 Oxygen Delivery Method Room Air Weight: 81.1 kg Body Mass Index (BMI) 26.4 Finger Stick Blood Glucose 139 Intake and Output for Last 24 Hours 12/27/18 12/28/18 12/29/18 23:59 23:59 23:59 Intake Total 1000 / 1000 2216.67 / 2216.67 Output Total 800 / 800 Balance 1000 / 550 1416.67 / 1416.67 Laboratory Results 12/28/18 18:33: WBC 6.4, RBC 5.48, Hgb 16.0, Hct 47.1, MCV 85.9, MCH 29.2, MCHC 34.0, RDW Std Deviation 41.2, RDW Coeff of Kaye 13.3, Plt Count 331, MPV 8.1, Immature Gran % (Auto) 1.600 H, Neut % (Auto) 43.0 L, Lymph % (Auto) 45.7 H, [place] % (Auto) 8.7, Eos % (Auto) 0.2, Baso % (Auto) 0.8, Absolute Neuts (auto) 2.8, Absolute Lymphs (auto) 2.93, Nucleated RBC % 0 12/28/18 18:33: Sodium 138, Potassium 3.6, Chloride 101, Carbon Dioxide 26.0, Anion Gap 11, BUN 10, Creatinine 0.98, Estim Creat Clear Calc 80.46, Est GFR (MDRD) Af Amer 101, Est GFR (MDRD) Non-Af 83, BUN/Creatinine Ratio 10.2, Glucose 213 H, Calcium 9.5 12/28/18 18:33: Ethyl Alcohol 231.0 12/28/18 18:33: POC Glucose 209 H 12/28/18 18:48: Urine Opiates Screen NEGATIVE, Urine Methadone Screen NEGATIVE, Ur Barbiturates Screen POSITIVE H, Ur Phencyclidine Scrn NEGATIVE, Ur Amphetamines Screen NEGATIVE, U Methamphetamin-MDMA NEGATIVE, U Benzodiazepines Scrn NEGATIVE, Urine Cocaine Screen NEGATIVE, U Cannabinoids Screen NEGATIVE, Ur Drug Screen Comment 12/28/18 18:48: Urine Color Yellow, Urine Clarity Clear, Urine pH 5.0, Ur Specific [place] 1.015, Urine Protein 100 H, Urine Glucose (UA) 250 H, Urine Ketones Negative, Urine Occult Blood Negative, Urine Nitrite Negative, Urine Bilirubin Negative, Urine Urobilinogen Normal, Ur Leukocyte Esterase Negative, Urine RBC 0 SEEN, Urine WBC 0 SEEN, Ur Squamous Epith Cells 0 SEEN, Urine Bacteria 0 SEEN, Urine Mucus 0 SEEN 12/28/18 20:09: POC Glucose 139 H 12/28/18 21:53: POC Glucose 114 H 12/29/18 02:56: POC Glucose 68 L 12/29/18 04:03: POC Glucose 63 L 12/29/18 04:25: POC Glucose 125 H 12/29/18 05:10: POC Glucose 74 12/29/18 06:06: POC Glucose 111 H 12/29/18 07:06: POC Glucose 74 12/29/18 12:14: POC Glucose 213 H 12/29/18 13:43: Ethyl Alcohol 4.0 Home Medications: Medications to take at Discharge aspirin 81 mg tablet,delayed release 81 mg PO QDAY #90 tab 02/07/18 tramadol 50 mg tablet 50 mg PO Q6H 04/04/18 hydrochlorothiazide 25 mg tablet 25 mg PO QDAY #90 tab 04/12/18 metformin 1,000 mg tablet 1,000 mg PO BIDCM #180 tab 04/12/18 metoprolol tartrate 25 mg tablet 25 mg PO BID #180 tab 04/12/18 fexofenadine 60 mg tablet 60 mg PO BID PRN #30 tab 07/12/18 venlafaxine ER 225 mg tablet,extended release 24 hr 225 mg PO QDAY #90 tab 07/13/18 insulin NPH-regular 70-30 U-100 insulin 100 unit/mL subcutaneous pen See Rx Instructions SC BID #15 ml 08/28/18 lisinopril 40 mg tablet 40 mg PO QDAY #90 tab 09/03/18 atorvastatin 40 mg tablet 40 mg PO QHS #90 tab 09/28/18 folic acid 1 mg tablet 1 mg PO QDAY #90 tab 09/28/18 gabapentin 100 mg capsule 200 mg PO DAILY #180 cap 09/28/18 thiamine HCl (vitamin B1) 100 mg tablet 100 mg PO DAILY #90 tab 09/28/18 blood sugar diagnostic strips See Dose Instructions .ROUTE .MEDSUPPLY #150 ea 11/23/18 blood-glucose meter See Dose Instructions .ROUTE .MEDSUPPLY #1 ea 11/23/18 buspirone 15 mg tablet 15 mg PO BID #60 tab 11/23/18 lancets 28 gauge See Dose Instructions .ROUTE .MEDSUPPLY #200 ea 11/23/18 pen needle, diabetic 31 gauge x 1/4 See Rx Instructions .ROUTE .COMPLEX #100 each 11/23/18 ticagrelor 90 mg tablet 90 mg PO BID #60 tab 11/23/18 mirtazapine 15 mg tablet 15 mg PO QHS #90 tab 12/21/18 Primary Care Physician: Elijah Plascencia MD [Primary Care Provider] - Disposition: Psych Hospital or Unit Minutes spent on discharge:: 32 Patient Condition:: Stable Medical Necessity - Tobacco Use Smoking Status: Current every day smoker Tobacco Use: Cigarettes Meaningful Use Info Meaningful Use Diagnoses (Choose all that apply): None applicable Code Visit OBSV E&M: 57081 Observation care discharge
== END 2018-12-29 16:10 ==
LOC: ED 19:01 → ICU 22:35
PROVIDERS: Admitting Provider Hospitalist; Emergency Provider Emergency Medicine; Family Provider Internal Medicine; PCP Internal Medicine; Referring Provider Hospitalist; Visit Provider Internal Medicine
DX: F32.9 Major depressive disorder, single episode, unspecified (principal); T38.3X2A Poisoning by insulin and oral hypoglycemic [antidiabetic] drugs, intentional self-harm, initial encounter; Y92.9 Unspecified place or not applicable; E11.65 Type 2 diabetes mellitus with hyperglycemia; E11.40 Type 2 diabetes mellitus with diabetic neuropathy, unspecified; Y90.7 Blood alcohol level of 200-239 mg/100 ml; I25.10 Atherosclerotic heart disease of native coronary artery without angina pectoris; I10 Essential (primary) hypertension; I44.0 Atrioventricular block, first degree; F41.9 Anxiety disorder, unspecified; F10.229 Alcohol dependence with intoxication, unspecified; N52.9 Male erectile dysfunction, unspecified; I25.2 Old myocardial infarction; Z79.899 Other long term (current) drug therapy; Z79.82 Long term (current) use of aspirin; Z79.4 Long term (current) use of insulin; F17.210 Nicotine dependence, cigarettes, uncomplicated
CPT/HCPCS: 80048; 80307; 80320; 81001; 82962; 85025; 93005; 96361; 96374; 96375; 96376; 99218; 99285; J7030; A4216; G0378; G0480

== ENCOUNTER 2019-02-24 15:59 | Inpatient (IN) | payer MEDICARE, MEDICAID, SELFPAY ==
[2019-02-07 14:03] VITALS: BMI 24.6
[2019-02-24] VITALS (14 sets, daily range): BP systolic 97–174; BP diastolic 54–80; PULSE 99–116; RESP 17–24; TEMP 36.5–36.6; O2SAT 96–99; BMI 23.9; BMI 22.6; BMI 22.7
[2019-02-24] MEDS: Ondansetron 4 MG/2 ML Vial IV (16:29)
[2019-02-24] MEDS: 0.9% Normal Saline 1,000 ML 1000 ML IV (16:29)
[2019-02-24 16:38] LABS: Absolute Lymphocyte Count 0.75 X10^3/uL (0.83-4.51); Absolute Neutrophil Count 14.8 X10^3/uL (2.0-7.7); Basophil# 0.08 X10^3/uL; Basophil% 0.5 % (0-1); Hemoglobin 16.1 g/dL (13.0-16.5); Lymphocyte # 0.75 X10^3/ul (4.0); Lymphocyte % 4.5 % (19-41); Mean Corp Hgb Conc 34.3 g/dL (32-36); Mean Corpuscular Hgb 28.7 pg (27.0-32.0); Mean Corpuscular Volume 83.8 fL (80-94); Mean Platelet Vol. 9.3 fl (6.2-12.0); Monocyte# 0.96 X10^3/uL; Monocyte% 5.7 % (0-10); NRBC Flagged by Analyzer 0 % (0-5); Neutrophil # 14.84 X10^3/uL (2.7-7.7); Neutrophil % 88.9 % (47-70); POSITIVE MORPHOLOGY YES; Platelet Count 334 K/mm3 (150-450); RBC Distribution Width CV 13.8 % (11.6-14.6); RBC Distribution Width SD 42.1 fl (35.1-43.9); Red Blood Count 5.61 M/mm3 (4.6-6.2); White Blood Count 16.7 K/mm3 (4.4-11.0)
[2019-02-24 16:41] LABS: Differential Indicated SCAN CRITERIA MET
[2019-02-24 16:59] LABS: ALB/GLOB Ratio 1.1 RATIO (0.9-2.4); AST(SGOT) 7 U/L (15-37); Alanine Aminotransfer ALT/SGPT 21 U/L (16-61); Albumin, Serum 4.2 g/dL (3.2-5.0); Alkaline Phosphatase 170 U/L (45-117); Anion Gap 34 (5-15); BUN 38 mg/dL (7-18); Calcium,Total 9.6 mg/dL (8.5-10.1); Chloride 74 mmol/L (98-107); Creatinine, Serum 2.37 mg/dL (0.70-1.30); EST Glomerular Filtration Rate 30 mL/min (>60); Est Glom Filt Rate - Afr Amer 37 mL/min (>60); Estimated Creatinine Clearance 34.39 ml/min; Globulin 3.9 g/dL (2.2-4.2); Glucose 929 mg/dL (74-106); Potassium 4.3 mmol/L (3.5-5.1); Protein, Total 8.1 g/dL (6.4-8.2); Sodium Level 125 mmol/L (136-145)
[2019-02-24 17:08] LABS: Differential Comment SCANNED
--- NOTE | 2019-02-24 17:15 | ED.RN ---
glucose 929 acetone large and chloride [address] the lab. dr fuchs aware
--- NOTE | 2019-02-24 17:27 | ED.VISSUMM ---
- ER Visit Summary Date of Service: 02/24/19 Chief Complaint: Vomiting and diarrhea History of Present Illness: The patient is a [address] Plascencia. He reports that he has vomiting and diarrhea that began 2 days ago. He states that the day before that he ate shrimp and oysters at a restaurant. He denies any abdominal pain. He reports he is vomited 10-15 times. No blood in his emesis. Has had 4-5 episodes of diarrhea. No blood in his stools or black tarry stools. He is supposed to be on insulin and metformin reports he has not been taking this. Patient reports that he has had chills. He denies any fever, sore throat, chest pain, shortness of breath, or other complaints. Physical Examination: Vitals: Stable. Afebrile. General: Well-nourished and well-developed. Head: Normocephalic atraumatic. Neck: Supple, no lymphadenopathy. No JVD. Nontender. Cardiovascular: Tachycardic regular rhythm. No murmurs. Respiratory: No respiratory distress. Clear to auscultation bilaterally. Abdominal: Soft, nontender, nondistended, normal bowel sounds. No guarding, rebound, or peritoneal signs. Back: Nontender. Extremities: Nontender, no edema. Skin: Normal color, no rash. Neurologic: Alert and oriented ?3. Cranial nerves II through XII are intact. Normal strength and sensation. Psych: Normal affect. Test Results: CBC shows a white count of 16.7 with segmented neutrophils 89 lymphocytes of 5. Chem-7 shows a sodium of 125 which is corrected to 138 for a glucose of 929. Chloride is 74, CO2 is 17, BUN is 38, creatinine is 2.37. Baseline creatinine is 0.9. He does have large serum ketones. LFTs show an alk phos of 170 and AST of 7. Emergency Department Course and Treatment: Patient was given 2 L of normal saline. He was given Zofran IV, Pepcid IV, started on an insulin drip. He was given a GI cocktail p.o. He is resting more comfortably. Treatment Plan: The patient was discussed with Dr. Macdonald. He will be admitted to the hospital for further evaluation and treatment. Disposition: Admitted in improved condition. Impression: 1. Vomiting/diarrhea. 2. Acute kidney injury. 3. Hyperglycemia. 4. History of cgm-[id number]-hugskobmi diabetes mellitus. 5. Critical care time 33 minutes. This note was generated with Ansira dictation software. It may contain incorrect words, spelling, and punctuation that were not noted in review of the chart prior to signing ED Disposition - Plan for ED Patient: Referrals: Elijah Plascencia MD [Primary Care Provider] -
--- NOTE | 2019-02-24 17:28 | NURSING ---
ICU SEMENTI HYPERGLYCEMIA, ALEJANDRO
[2019-02-24] MEDS: Mag Hydrox/Al Hydrox/Simeth 30 ML UDC PO (17:32)
--- NOTE | 2019-02-24 17:32 | EKG12_ITS ---
Test Reason : HYPERGLYCEMIA Blood Pressure : / mmHG Vent. Rate : 108 BPM Atrial Rate : 108 BPM P-R Int : 198 ms QRS Dur : 074 ms QT Int : 316 ms P-R-T Axes : 075 054 057 degrees QTc Int : 423 ms Sinus tachycardia Otherwise normal ECG Confirmed by ANA MARIA CLARK, ALVERTO ([id number]), video effects editor VIRAJ COLE ([id number]) on 02/28/2019 8:50:26 AM Referred By: Emily Macdonald Confirmed By:ALVERTO RODGERS MD
--- NOTE | 2019-02-24 17:33 | NURSING ---
ICU 2
--- NOTE | 2019-02-24 17:55 | HP.PCM_ITS ---
Problem List (1) DKA, type 2 Status: Acute Qualifiers: Diabetes mellitus marine oil terminal superintendent insulin use: with marine oil terminal superintendent use Diabetes mellitus complication detail: without coma Qualified Code(s): E11.10 - Type 2 diabetes mellitus with ketoacidosis without coma; Z79.4 - terminal computer operator (current) use of insulin (2) Hyponatremia Status: Acute (3) Acute renal failure Status: Acute (4) Dehydration Status: Acute (5) GERD (gastroesophageal reflux disease) Status: Acute (6) Alcohol abuse, in remission Status: Chronic Comment: has not had a drink since Nov 2018 (7) Tobacco dependence Status: Chronic Comment: 1 PPD since 5-6 YOA (8) Stented coronary artery Status: Chronic Comment: RCA - 09/08/16 (9) Severe major depression Status: Chronic (10) Suicidal ideation Status: Resolved (11) Overdose of insulin Status: Resolved (12) Alcohol abuse Status: Resolved (13) Suicide attempt Status: Chronic Comment: December 2018 - insulin OD (14) Type 2 diabetes mellitus Status: Chronic Qualifiers: Diabetes mellitus marine oil terminal superintendent insulin use: with marine oil terminal superintendent use Diabetes mellitus complication status: with circulatory complication Diabetes mellitus complication detail: with other circulatory complications Qualified Code(s): E11.59 - Type 2 diabetes mellitus with other circulatory complications; Z79.4 - care home (current) use of insulin (15) Hypertension Status: Chronic Qualifiers: Hypertension type: essential hypertension Qualified Code(s): I10 - Essential (primary) hypertension (16) Anxiety Status: Chronic (17) Depression Status: Chronic Qualifiers: Depression Type: major depressive disorder (18) Neuropathy Status: Chronic (19) Non-ST elevation (NSTEMI) myocardial infarction Status: Resolved (20) Atherosclerosis of coronary artery of barrow heart without angina pectoris Status: Chronic Qualifiers: Coronary Disease-Associated Artery/Lesion type: barrow artery Qualified Code(s): I25.10 - Atherosclerotic heart disease of barrow coronary artery without angina pectoris Comment: WALLACE-Mid RCA 09/2016 @ [place] (21) Erectile dysfunction Status: Chronic (22) Diabetes type 2, uncontrolled Status: Chronic History of Present Illness Date of Admission: 02/24/19 Chief Complaint: Nausea and vomiting since 02/22/19 The patient is a 58 year old M with a past medical history of hypertension, diabetes mellitus type II/uncontrolled, coronary artery disease, WALLACE to RCA in September 2016 at [place], tobacco dependence, alcohol dependence and remission (no alcohol since November 2018), major depression, anxiety, neuropathy and ED who presented to the ED at [facility] on 02/24/19 c/o nausea and vomiting that started on 02/22/19. Vital signs at presentation to the emergency room were temperature 97.7, pulse rate 116, blood pressure 163/70, respiratory rate 20 and he was 99% saturated on room air. CBC was remarkable for an elevated white blood cell count at 16.7 with 89% neutrophils. Sodium was low at 125 and the chloride was 74. Serum bicarb is 17 with an elevated anion gap at 34. The BUN was 38 and the creatinine was elevated at 2.37, up from 0.98 in December 2018. Random blood sugar was 929. LFTs were unremarkable. Troponin was less than 0.015. Acetone level was large. He c/o epigastric burning but , denies CP or SOB. No dysuria and no diarrhea. No cough. He is being admitted to the ICU with a dx of DKA with ARF due to severe dehydration. HGBA1C in January was 11.5%. No obvious infection present. He does not appear toxic. Past Medical History Past Medical History (Chronic Problems): Chronic Problems (Last Reviewed 02/24/19 @ 18:13 by Emily Macdonald DO) Alcohol abuse, in remission (Chronic) has not had a drink since Nov 2018 Tobacco dependence (Chronic) 1 PPD since 5-6 YOA Stented coronary artery (Chronic) RCA - 09/08/16 Severe major depression (Chronic) Suicide attempt (Chronic) December 2018 - insulin OD Type 2 diabetes mellitus (Chronic) Hypertension (Chronic) Anxiety (Chronic) Depression (Chronic) Neuropathy (Chronic) Atherosclerosis of coronary artery of barrow heart without angina pectoris (Chronic) WALLACE-Mid RCA 09/2016 @ [place] Erectile dysfunction (Chronic) Diabetes type 2, uncontrolled (Chronic) Medical History: Medical History (Last Reviewed 02/24/19 @ 18:13 by Emily Macdonald DO) Suicide attempt (Resolved) T14.91XA Fracture of wrist (Inactive) S62.109A Rt wrist NSVT (nonsustained ventricular tachycardia) (Resolved) I47.2 Anxiety (Chronic) F41.9 Depression (Chronic) F32.9 Neuropathy (Chronic) G62.9 Atherosclerosis of coronary artery of barrow heart without angina pectoris (Chronic) I25.10 WALLACE-Mid RCA 09/2016 @ [place] Hypertension, uncontrolled (Inactive) I10 Erectile dysfunction (Chronic) N52.9 Diabetes type 2, uncontrolled (Chronic) E11.65 Non-ST elevation (NSTEMI) myocardial infarction (Resolved) I21.4 Allergies No Known Allergies Allergy (Verified 02/07/19 13:58) Home Medications: Ambulatory Orders Medication Instructions Recorded aspirin 81 mg tablet,delayed 81 mg PO QDAY #90 tab 02/07/18 release tramadol 50 mg tablet 50 mg PO Q6H 04/04/18 hydrochlorothiazide 25 mg tablet 25 mg PO QDAY #90 tab 04/12/18 metformin 1,000 mg tablet 1,000 mg PO BIDCM #180 tab 04/12/18 fexofenadine 60 mg tablet 60 mg PO BID PRN #30 tab 07/12/18 insulin NPH-regular 70-30 U-100 See Rx Instructions SC BID #15 ml 08/28/18 insulin 100 unit/mL subcutaneous pen atorvastatin 40 mg tablet 40 mg PO QHS #90 tab 09/28/18 folic acid 1 mg tablet 1 mg PO QDAY #90 tab 09/28/18 thiamine HCl (vitamin B1) 100 mg 100 mg PO DAILY #90 tab 09/28/18 tablet blood sugar diagnostic See Dose Instructions .ROUTE 11/23/18 .MEDSUPPLY #150 ea blood-glucose meter See Dose Instructions .ROUTE 11/23/18 .MEDSUPPLY #1 ea lancets 28 gauge See Dose Instructions .ROUTE 11/23/18 .MEDSUPPLY #200 ea pen needle, diabetic 31 gauge x See Rx Instructions .ROUTE 11/23/1803/09 .COMPLEX #100 ea venlafaxine 225 mg tablet,extended 225 mg PO QDAY #90 tab 01/30/19 release 24 hr buspirone 15 mg tablet 15 mg PO BID #60 tab 02/04/19 gabapentin 100 mg capsule 200 mg PO DAILY #180 cap 02/04/19 mirtazapine 15 mg tablet 15 mg PO QHS #90 tab 02/04/19 lisinopril 40 mg tablet 40 mg PO QDAY #90 tab 02/19/19 metoprolol tartrate 25 mg tablet 25 mg PO BID #180 tab 02/20/19 ticagrelor 90 mg tablet 90 mg PO BID #60 tab 02/20/19 Surgical History: Surgical History (Last Reviewed 02/24/19 @ 18:15 by Emily Macdonald DO) History of left cataract extraction Z98.42 11/21/18 H/O right coronary artery stent placement Onset Date: ~09/08/16 Z95.5 WALLACE-Mid RCA @ [place] Psychiatric History: Anxiety, Depression, Prior suicide attempt Lives: Alone Smoking Status: Current every day smoker - 1 PPD since 5-6 YOA Tobacco Use: Cigarettes Alcohol: None Drugs: None - *Family History Paternal Family History: Family History (Last Reviewed 02/24/19 @ 18:16 by Emily Macdonald DO) Aunt Diabetes Father Alcoholism Aunt Diabetes Father Alcoholism Review of Systems Constitutional: Reports: Anorexia, Malaise, Weakness. Denies: Chills, Fever, Weight Change HEENT: Denies: Ear Pain, Head Aches, Sinus Congestion, Sinus Drainage, Sore Throat Cardiovascular: Reports: Light Headedness. Denies: Chest Pain, Edema, Heaviness, Orthopnea, Palpitations, Paroxysmal Noc. Dyspnea, Syncope Respiratory: Denies: Cough, Shortness of Breath, Shortness of breath at rest, Shortness of breath upon exertion, Sputum production, Wheezing Gastrointestinal: Reports: Abdominal Pain - epigastric, Dyspepsia, Nausea, Vomiting. Denies: Diarrhea, Hematemesis, Hematochezia Genitourinary: Denies: Dysuria Musculoskeletal: Denies: Joint Pain, Joint Tenderness Skin: Denies: Jaundice, Rash, Wounds Neurological: Denies: Slurred speech, Confusion, Focal weakness, Numbness, Tingling, Seizures Psychiatric: Reports: Anxiety, Depression. Denies: Homicidal Ideations, Suicidal Ideations Endocrine: Denies: Hx of Thyroiditis Hematologic/ Lymphatic: Denies: Easy Bruising, Easy Bleeding, Hx of blood clot VTE Information - Inpt Only VTE Present on Admission: No VTE Mechan Device Prophylaxis: None VTE Pharm Prophylaxis ordered?: Yes Patient Problems: Active and Suspected Problems (Last Reviewed 02/24/19 @ 18:13 by Emily Macdonald DO) DKA, type 2 (Acute) Hyponatremia (Acute) Acute renal failure (Acute) Dehydration (Acute) GERD (gastroesophageal reflux disease) (Acute) - Physical Exam Vitals/I&O's: Vital Signs Temp Pulse Resp BP Pulse Ox 97.7 F L 109 H 20 H 151/74 H 99 02/24/19 16:00 02/24/19 17:42 02/24/19 17:42 02/24/19 17:42 02/24/19 17:42 Oxygen Delivery Method Room Air Weight: 162 lb 4.163 oz Body Mass Index (BMI) 23.9 Finger Stick Blood Glucose 139 General: Alert, Oriented x3, Cooperative, Well developed, Well nourished, - - smells strongly of vomit. Does not appear toxic. HEENT: Atraumatic, PERRLA, EOMI, Normocephalic Oral: Dry Mucosa Neck: Supple, No JVD, Negative Carotid Bruits, No Nodes, Trachea Midline Lungs: Clear to auscultation, Normal air movement, No rhonchi, No wheeze, No rales, - - He is not tachypneic, has no conversational dyspnea and there is no accessory muscle use. Cardiovascular: Regular Rhythm, Normal S1, Normal S2, No murmurs, No Ectopic Activity, No rub noted, No Gallop, Tachycardic Abdomen: Bowel Sounds Present, Soft, Non-Distended, Tender - In the midepigastric region with no guarding with palpation Extremities: No clubbing, No cyanosis, No edema, Capillary Refill Less than 3 Seconds, No Calf Tenderness, Peripheral Pulses Normal Skin: No rashes, No breakdown Musculoskeletal: No Tenderness to Palpation of Joints or Extremities Neurological: Cranial nerves II-XII grossly intact, Neuro grossly intact Psych/Mental Status: Normal Affect, Appropriate Laboratory Results 02/24/19 16:20: WBC 16.7 H, RBC 5.61, Hgb 16.1, Hct 47.0, MCV 83.8, MCH 28.7, MCHC 34.3, RDW Std Deviation 42.1, RDW Coeff of Kaye 13.8, Plt Count 334, MPV 9.3, Immature Gran % (Auto) 0.400, Neut % (Auto) 88.9 H, Lymph % (Auto) 4.5 L, [place] % (Auto) 5.7, Eos % (Auto) 0.0, Baso % (Auto) 0.5, Absolute Neuts (auto) 14.8 H, Absolute Lymphs (auto) 0.75 L, Nucleated RBC % 0, Differential Comment SCANNED 12/22/19 16:20: Sodium 125 L, Potassium 4.3, Chloride 74 L*, Carbon Dioxide 17.0 L, Anion Gap 34 H, BUN 38 H, Creatinine 2.37 H, Estim Creat Clear Calc 34.39, Est GFR (MDRD) Af Amer 37 L, Est GFR (MDRD) Non-Af 30 L, BUN/Creatinine Ratio 16.0, Glucose 929 H*, Calcium 9.6, Total Bilirubin 1.00, AST 7 L, ALT 21, Alkaline Phosphatase 170 H, Total Protein 8.1, Albumin 4.2, Globulin 3.9, Albumin/Globulin Ratio 1.1 02/24/19 16:20: Acetone Level LARGE H 02/24/19 16:20: Troponin I Pending Current Medications Dextrose (D50w Syringe) 0 gm IV X1 PRN; Protocol PRN Reason: Hypoglycemia Protocol Sodium Chloride () 1,000 mls @ 999 mls/hr IV .Q1H1M ONE Stop: 02/24/19 18:17 Insulin Human Lispro 100 unit/ (Sodium Chloride) 100 mls @ 7.36 mls/hr IV .[id number] NIMA; Protocol Assessment/Plan All Active Problems (Last Reviewed 02/24/19 @ 18:13 by Emily Macdonald DO) DKA, type 2 (Acute) Hyponatremia (Acute) Acute renal failure (Acute) Dehydration (Acute) GERD (gastroesophageal reflux disease) (Acute) Suicide attempt (Resolved) NSVT (nonsustained ventricular tachycardia) (Resolved) Alcohol abuse (Resolved) Non-ST elevation (NSTEMI) myocardial infarction (Resolved) Overdose of insulin (Resolved) Suicidal ideation (Resolved) Impressions 1. DKA with an AG of 34 vs acidosis due to ARF and starvation ketosis. 2. Acute renal failure secondary to dehydration 3. Hyponatremia/hypochloremia 4. Severe dehydration 5. Uncontrolled diabetes mellitus type 2 on long-term insulin 6. Leukocytosis secondary to stress with no obvious infection. Patient does not appear toxic. 7. major depression/HTN/diabetic neuropathy/alcohol dependence in remission/ tobacco dependence/CAD/WALLACE to the RCA in September 2016 at [place], hx of suicide attempt in December 2018 with OD of insulin Admitted to the ICU DKA protocol initiated MAG and Phos and Lipase ordered DVT prophylaxis with Heparin 5,000 units SC Q 12H GI prophylaxis with Pepcid 20 mg IV Q 12H Hold all oral meds until the nausea and vomiting resolves Restart ASA as soon as he is able to tolerate Recheck Lab in the AM Code Visit Inpatient E&M: 28031 Init Hosp L3
[2019-02-24] MEDS: Famotidine 200 MG/20 ML MDV 20 MG in 0.9% Normal Saline (Pres. free 8 ML 300 MG IV (18:09)
[2019-02-24] MEDS: 0.9% Normal Saline 1,000 ML 999 ML IV ×2 (18:50→20:07)
[2019-02-24 18:59] LABS: Lipase 111 U/L (73-393); Magnesium 2.7 mg/dL (1.6-2.6); Phosphorus 6.6 mg/dL (2.5-4.9)
[2019-02-24 19:14] LABS: Hemoglobin A1c 11.8 % (4.2-6.3)
[2019-02-24 19:31] LABS: Bedside Glucose > 500 mg/dL (70-110)
[2019-02-24] MEDS: Metoprolol Tartrate 5 MG/5 ML Vial IV (20:07)
[2019-02-24 20:11] LABS: Blood Gas Specimen Type VEN; O2 Delivery Device Room Air; SITE OTHER; VBG BASE EXCESS -4 mmol/L (-1.0-3.5); VBG Bicarbonate 21 mmol/L (22-26); VBG Oxygen Content 22 mmol/L (23-33); VBG PO2 53 mmHg (25-40); VBG SO2 86 % (50-70); VBG pH 7.38 (7.32-7.42)
[2019-02-24 20:17] LABS: Anion Gap 25 (5-15); BUN 38 mg/dL (7-18); BUN/Creat Ratio 18.4 RATIO (10-20); Calcium,Total 9.3 mg/dL (8.5-10.1); Chloride 92 mmol/L (98-107); Creatinine, Serum 2.06 mg/dL (0.70-1.30); EST Glomerular Filtration Rate 36 mL/min (>60); Est Glom Filt Rate - Afr Amer 43 mL/min (>60); Glucose 599 mg/dL (74-106); Potassium 3.5 mmol/L (3.5-5.1); Sodium Level 137 mmol/L (136-145)
[2019-02-24 20:41] LABS: Bedside Glucose 436 mg/dL (70-110)
[2019-02-24] MEDS: 0.9% Normal Saline 1,000 ML 500 ML IV (21:10)
[2019-02-24 21:16] LABS: Bedside Glucose 356 mg/dL (70-110)
[2019-02-24] MEDS: Heparin Injection (Vial) 5,000 UNIT/ML VIAL 5000 UNIT SC (22:14)
[2019-02-24 22:15] LABS: Bedside Glucose 311 mg/dL (70-110)
[2019-02-24 22:54] LABS: Bacteria 0 SEEN /hpf (None Seen); Mucous, Urine 0 SEEN /hpf (<or=2+); Red Blood Cells-Urine 0 SEEN /hpf (0-5); Squamous Epithelial Cells - UA 0 SEEN /hpf (0-5); White Blood Cells 0 SEEN /hpf (0-5)
[2019-02-24 23:01] LABS: Color, Urine Yellow (Yellow); Glucose, Dipstick 1000 mg/dl (Normal); Leukocyte Esterase-Dipstick Negative /ul (Negative); Nitrite-Dipstick Negative (Negative); Occult Blood-Urine Negative /ul (Negative); Protein-Dipstick 30 mg/dl (Negative); Urine Bilirubin Dipstick Negative (Negative); Urine Clarity Sl. Cloudy (Clear); Urine Urobilinogen Normal (Normal)
[2019-02-24 23:02] LABS: Ketone-Dipstick 150 mg/dl (Negative)
[2019-02-24 23:03] LABS: Urine Sodium 33 mmol/L (Not Establ.)
[2019-02-24] MEDS: 0.9% Normal Saline 1,000 ML 250 ML IV (23:07)
[2019-02-24 23:16] LABS: Bedside Glucose 270 mg/dL (70-110)
[2019-02-24 23:34] LABS: Anion Gap 13 (5-15); BUN 34 mg/dL (7-18); BUN/Creat Ratio 19.8 RATIO (10-20); Calcium,Total 8.8 mg/dL (8.5-10.1); Chloride 104 mmol/L (98-107); Creatinine, Serum 1.72 mg/dL (0.70-1.30); EST Glomerular Filtration Rate 44 mL/min (>60); Est Glom Filt Rate - Afr Amer 53 mL/min (>60); Estimated Creatinine Clearance 46.71 ml/min; Glucose 297 mg/dL (74-106); Potassium 3.5 mmol/L (3.5-5.1); Sodium Level 142 mmol/L (136-145)
[2019-02-25] VITALS (19 sets, daily range): BP systolic 117–156; BP diastolic 57–91; PULSE 68–105; RESP 9–23; TEMP 36.3–36.9; O2SAT 94–98
[2019-02-25] LABS: Bedside Glucose 232 mg/dL (70-110)
[2019-02-25] MEDS: Metoprolol Tartrate 5 MG/5 ML Vial IV ×4 (01:04→16:53)
[2019-02-25 01:11] LABS: Bedside Glucose 208 mg/dL (70-110)
[2019-02-25 01:56] LABS: Bedside Glucose 193 mg/dL (70-110)
[2019-02-25 03:35] LABS: Bedside Glucose 170 mg/dL (70-110)
[2019-02-25 03:40] LABS: Hematocrit 40.1 % (40-54); Hemoglobin 13.8 g/dL (13.0-16.5); Mean Corp Hgb Conc 34.4 g/dL (32-36); Mean Corpuscular Hgb 28.3 pg (27.0-32.0); Mean Corpuscular Volume 82.3 fL (80-94); Mean Platelet Vol. 9.3 fl (6.2-12.0); Platelet Count 258 K/mm3 (150-450); RBC Distribution Width CV 13.7 % (11.6-14.6); RBC Distribution Width SD 40.9 fl (35.1-43.9); Red Blood Count 4.87 M/mm3 (4.6-6.2); White Blood Count 13.9 K/mm3 (4.4-11.0)
[2019-02-25 03:43] LABS: Anion Gap 8 (5-15); BUN 26 mg/dL (7-18); BUN/Creat Ratio 16.6 RATIO (10-20); Calcium,Total 8.3 mg/dL (8.5-10.1); Chloride 104 mmol/L (98-107); Cholesterol 138 mg/dL (200); Creatinine, Serum 1.57 mg/dL (0.70-1.30); EST Glomerular Filtration Rate 49 mL/min (>60); Est Glom Filt Rate - Afr Amer 59 mL/min (>60); Estimated Creatinine Clearance 51.18 ml/min; Glucose 171 mg/dL (74-106); High Density Lipoprotein 82 mg/dL; Magnesium 2.3 mg/dL (1.6-2.6); Phosphorus 2.1 mg/dL (2.5-4.9); Potassium 3.5 mmol/L (3.5-5.1); Sodium Level 141 mmol/L (136-145); Triglycerides 112 mg/dL; Very Low Density Lipoprotein 22 mg/dL (5-40)
[2019-02-25] MEDS: Potassium Chloride 10mEq/100mL 10 MEQ/100 ML IV.SOLN. 100 MEQ IV BOLUS ×2 (04:40→05:45)
[2019-02-25] MEDS: Dext 5%-0.45% NS 1,000 ML 150 ML IV ×3 (04:41→10:35)
[2019-02-25 04:45] LABS: Bedside Glucose 94 mg/dL (70-110)
[2019-02-25 05:51] LABS: Bedside Glucose 87 mg/dL (70-110)
[2019-02-25 06:55] LABS: Bedside Glucose 105 mg/dL (70-110)
--- NOTE | 2019-02-25 08:52 | PCM.PN.HOSP ---
Patient Problems: Active and Suspected Problems (Last Reviewed 02/24/19 @ 18:13 by Emily Macdonald DO) DKA, type 2 (Acute) Hyponatremia (Acute) Acute renal failure (Acute) Dehydration (Acute) GERD (gastroesophageal reflux disease) (Acute) Reason for Visit: Follow-up on DKA. Subjective: Patient was seen and examined. He complains of epigastric discomfort and nausea. No vomiting or diarrhea. He states that he had some nausea vomiting diarrhea that lasted for 1 day and he was unable to take his medications for 3 days because he was not feeling well. No more diarrhea today. Vitals/I&O's: Vital Signs Temp Pulse Resp BP Pulse Ox 98.2 F 76 9 L 133/81 H 95 02/25/19 00:00 02/25/19 07:00 02/25/19 07:00 02/25/19 07:00 02/25/19 07:00 Oxygen Delivery Method Room Air Weight: 70.4 kg Body Mass Index (BMI) 22.6 Finger Stick Blood Glucose 104 Intake and Output for Last 24 Hours 02/23/19 02/24/19 02/25/19 23:59 23:59 23:59 Intake Total 4036.09 / 4036.09 2435.66 / 2435.66 Output Total 700 / 700 300 / 300 Balance 3336.09 / 3336.09 2135.66 / 2135.66 General: Alert, Oriented x3, Cooperative, - - Looks unwell, chronically ill, unkempt, not pale, not jaundiced HEENT: Atraumatic, PERRLA, EOMI, Normocephalic Oral: Dry Mucosa Neck: Supple Lungs: Clear to auscultation Cardiovascular: Regular rate, Regular Rhythm, Normal S1, Normal S2, No murmurs Abdomen: Bowel Sounds Present, Soft, Non-Distended, No Hepato-splenomegaly, Tender - epigastric region Extremities: No edema Skin: No rashes, No breakdown Musculoskeletal: No Tenderness to Palpation of Joints or Extremities Lymphatic: No Cervical, Supraclavicular, or Inguinal Adenopathy Neurological: Cranial nerves II-XII grossly intact, Neuro grossly intact Psych/Mental Status: Normal Affect, Appropriate Laboratory Results 02/24/19 16:20: WBC 16.7 H, RBC 5.61, Hgb 16.1, Hct 47.0, MCV 83.8, MCH 28.7, MCHC 34.3, RDW Std Deviation 42.1, RDW Coeff of Kaye 13.8, Plt Count 334, MPV 9.3, Immature Gran % (Auto) 0.400, Neut % (Auto) 88.9 H, Lymph % (Auto) 4.5 L, [place] % (Auto) 5.7, Eos % (Auto) 0.0, Baso % (Auto) 0.5, Absolute Neuts (auto) 14.8 H, Absolute Lymphs (auto) 0.75 L, Nucleated RBC % 0, Differential Comment SCANNED 02/24/19 16:20: Sodium 125 L, Potassium 4.3, Chloride 74 L*, Carbon Dioxide 17.0 L, Anion Gap 34 H, BUN 38 H, Creatinine 2.37 H, Estim Creat Clear Calc 34.39, Est GFR (MDRD) Af Amer 37 L, Est GFR (MDRD) Non-Af 30 L, BUN/Creatinine Ratio 16.0, Glucose 929 H*, Calcium 9.6, Total Bilirubin 1.00, AST 7 L, ALT 21, Alkaline Phosphatase 170 H, Total Protein 8.1, Albumin 4.2, Globulin 3.9, Albumin/Globulin Ratio 1.1 02/24/19 16:20: Acetone Level LARGE H 02/24/19 16:20: Troponin I < 0.015 02/24/19 16:20: Phosphorus 6.6 H, Magnesium 2.7 H, Lipase 111 02/24/19 16:20: Hemoglobin A1c 11.8 H 02/24/19 19:24: POC Glucose > 500 H* 02/24/19 19:45: Sodium 137, Potassium 3.5, Chloride 92 L, Carbon Dioxide 20.0 L, Anion Gap 25 H, BUN 38 H, Creatinine 2.06 H, Estim Creat Clear Calc 39.00, Est GFR (MDRD) Af Amer 43 L, Est GFR (MDRD) Non-Af 36 L, BUN/Creatinine Ratio 18.4, Glucose 599 H*, Calcium 9.3 02/24/19 20:06: Specimen Type MARIO, Sample Site OTHER, VBG pH 7.38, VBG pO2 53 H, VBG O2 Sat (Calc) 86 H, VBG O2 Content 22 L, VBG Base Excess -4 L, POC Mix VBG pCO2 Pt Tmp 35.0 L, O2 Delivery Device Room Air, Blood Gas Notified Whom HOSP 02/24/19 20:34: POC Glucose 436 H 02/24/19 21:09: POC Glucose 356 H 02/24/19 22:09: POC Glucose 311 H 02/24/19 22:45: Urine Creatinine 43.80 02/24/19 22:45: Urine Color Yellow, Urine Clarity Sl. Cloudy, Urine pH 5.0, Ur Specific [place] 1.020, Urine Protein 30 H, Urine Glucose (UA) 1000 H, Urine Ketones 150 H, Urine Occult Blood Negative, Urine Nitrite Negative, Urine Bilirubin Negative, Urine Urobilinogen Normal, Ur Leukocyte Esterase Negative, Urine RBC 0 SEEN, Urine WBC 0 SEEN, Ur Squamous Epith Cells 0 SEEN, Urine Bacteria 0 SEEN, Urine Mucus 0 SEEN 02/24/19 22:45: Ur Random Sodium 33 02/24/19 23:05: POC Glucose 270 H 02/24/19 23:10: Sodium 142, Potassium 3.5, Chloride 104, Carbon Dioxide 25.0, Anion Gap 13, BUN 34 H, Creatinine 1.72 H, Estim Creat Clear Calc 46.71, Est GFR (MDRD) Af Amer 53 L, Est GFR (MDRD) Non-Af 44 L, BUN/Creatinine Ratio 19.8, Glucose 297 H, Calcium 8.8 02/24/19 23:54: POC Glucose 232 H 02/25/19 01:02: POC Glucose 208 H 02/25/19 01:52: POC Glucose 193 H 02/25/19 02:54: POC Glucose 170 H 02/25/19 03:00: WBC 13.9 H, RBC 4.87, Hgb 13.8, Hct 40.1, MCV 82.3, MCH 28.3, MCHC 34.4, RDW Std Deviation 40.9, RDW Coeff of Kaye 13.7, Plt Count 258, MPV 9.3 02/25/19 03:00: Sodium 141, Potassium 3.5, Chloride 104, Carbon Dioxide 29.0, Anion Gap 8, BUN 26 H, Creatinine 1.57 H, Estim Creat Clear Calc 51.18, Est GFR (MDRD) Af Amer 59 L, Est GFR (MDRD) Non-Af 49 L, BUN/Creatinine Ratio 16.6, Glucose 171 H, Calcium 8.3 L, Phosphorus 2.1 L, Magnesium 2.3, Triglycerides 112, Cholesterol 138, LDL Cholesterol 34, VLDL Cholesterol 22, HDL Cholesterol 82 02/25/19 04:35: POC Glucose 94 02/25/19 05:43: POC Glucose 87 02/25/19 06:44: POC Glucose 105 Current Medications Albuterol Sulfate (Ventolin Aerosols) 2.5 mg INHALATION Q2H PRN PRN PRN Reason: SOB/Wheezing Bisacodyl (Dulcolax) 5 mg PO DAILY PRN PRN PRN Reason: Constipation Glucagon () 1 mg IM .X1 PRN PRN Reason: Hypoglycemia Heparin Sodium (Porcine) (Heparin Na) 5,000 unit SC Q12 [facility] Last Admin: 02/24/19 22:14 Dose: 5,000 unit Documented by: Famotidine 20 mg/ Sodium (Chloride) 10 mls @ 300 mls/hr IV DAILY NIMA Sodium Chloride () 250 mls @ 15 mls/hr IV .[id number] PRN PRN Reason: Saline Flush Sodium Chloride () 250 mls @ 15 mls/hr IV .[id number] PRN PRN Reason: Additional IVPB Infusion Dextrose (Dextrose 10%-Water) 250 mls @ 999 mls/hr IV .Q16M PRN; Protocol PRN Reason: HYPOGLYCEMIA Dextrose/Sodium Chloride () 1,000 mls @ 150 mls/hr IV .Q6H40M NIMA Last Infusion: 02/25/19 07:47 Dose: 150 mls/hr Documented by: Potassium Phosphate 30 mm/ (Sodium Chloride) 260 mls @ 42 mls/hr IV X1 ONE Stop: 02/25/19 12:30 Last Infusion: 02/25/19 07:47 Dose: 42 mls/hr Documented by: Insulin Glargine (Lantus (Bkc)) 15 units SC BID [facility] Last Admin: 02/25/19 06:48 Dose: 15 u Documented by: Insulin Human Lispro (Humalog Kwikpen (Bkc)) 0 unit SC ACHS [facility]; Protocol Last Admin: 02/25/19 07:23 Dose: Not Given Documented by: Metoprolol Tartrate (Lopressor (Beta Ana)) 5 mg IV Q6 [facility] Last Admin: 02/25/19 05:45 Dose: 5 mg Documented by: Morphine Sulfate () 2 mg IV Q3H PRN PRN PRN Reason: Pain Score 6-10/10 Nitroglycerin (Nitrostat) 0.4 mg SUBLINGUAL Q5M PRN PRN Reason: CARDIAC/CHEST PAIN Ondansetron HCl (Zofran) 4 mg IV Q8H PRN PRN PRN Reason: NAUSEA/VOMITING Prochlorperazine Edisylate (Compazine Iv) 5 mg IV Q4H PRN PRN PRN Reason: Breakthrough Nausea/Vomiting Sodium Chloride () 10 - 40 ml IV UD PRN PRN Reason: SALINE FLUSH STROKE Vital Signs/Narrative: Vital Signs Pulse Resp BP BP Pulse Ox 02/25/19 07:00 76 9 L 133/81 H 95 02/25/19 06:00 80 17 126/79 H 96 02/25/19 05:45 92 122/67 H 02/25/19 05:00 95 17 122/67 H 97 Medical Necessity - Tobacco Use Smoking Status: Current every day smoker - 1 PPD since 5-6 YOA Tobacco Use: Cigarettes Assessment/Plan All Active Problems (Last Reviewed 02/24/19 @ 18:13 by Emily Macdonald DO) DKA, type 2 (Acute) Hyponatremia (Acute) Acute renal failure (Acute) Dehydration (Acute) GERD (gastroesophageal reflux disease) (Acute) Suicide attempt (Resolved) NSVT (nonsustained ventricular tachycardia) (Resolved) Alcohol abuse (Resolved) Non-ST elevation (NSTEMI) myocardial infarction (Resolved) Overdose of insulin (Resolved) Suicidal ideation (Resolved) 58-year-old male with past medical history of type II DM, on insulin, hypertension, severe major depression, history of suicidal attempts comes in with acute nausea and vomiting. 1. Acute DKA secondary to medication noncompliance, anion gap is closed, Patient with uncontrolled diabetes, hyperglycemia, HbA1c is 11.8 Patient has been started on Lantus 15 units, with insulin sliding scale. Insulin drip shut off. We will continue to monitor on insulin, transfer to [facility] floor, BMP in a.m. Continue with D5 normal saline at 150 mils per hour for now until patient is really eating and IV fluids may be decreased or short of 2. Acute kidney injury, prerenal secondary to severe dehydration, Creatinine improved from 2.37 to 1.57 Will continue on IVF, repeat blood work in am 3. Leukocytosis, likely reactive, no signs of sepsis 4. Recent gastroenteritis, resolved. 5. Hyponatremia/hypochloremia secondary to dehydration/DKA, resolved 6. Hypophosphatemia, replaced, recheck in am 7. DVT PPx- Heparin SC 8. GI PPx - on famotidine Code Visit Inpatient E&M: 37954 Subs Hosp L2
--- NOTE | 2019-02-25 09:30 | CASEMGMT ---
SW reviewed chart and noted patient's history of Depression and suicide attempt on Dec. SW will check in with patient when able. Charito MELENDREZ MSW
[2019-02-25] MEDS: Famotidine 200 MG/20 ML MDV 20 MG in 0.9% Normal Saline (Pres. free 8 ML 300 MG IV ×2 (10:15→22:30)
[2019-02-25] MEDS: Heparin Injection (Vial) 5,000 UNIT/ML VIAL 5000 UNIT SC ×2 (10:15→22:11)
--- NOTE | 2019-02-25 10:20 | CASEMGMT ---
RN CM Assessment Introduced role of RN CM to patient, patient was resting and easily aroused. ? Patient is alert, oriented and able?to participate in RN CM Assessment. ?Patient appeared to be slightly ILIAMNA and needing questions spoken up and repeated, additionally closing eyes at times and needing re-asking of questions. Appeared slightly withdrawn to answering questions and answering in short responses. Care providers, pharmacy, and demographics verified. Presentation: N/V. H/o Diabetes, on Insulin Admit Dx: DKA, ARF, Hyponatremia, Intractable N/V Re-Admit: No. Was Admitted 12/28-12/29/18 for Insulin overdose-Suicidal Attempt, +Etoh. Dc'd to [facility] [place]. Barriers/Issues: Patient appears withdrawn to answering assessment questions. States transportation issues- tries to find a ride, has tried too use [facility] transport in the past but states that they are either late or don't show up and are not reliable therefore cannot count on them. This pattern chart writer provided alternative Transportation resources. Patient states has Insulin at home and denies any issues with medication, states has a Glucometer and strips at home. States PCP manages his diabetes and denies having an Double [employer]. PCP: Elijah Plascencia Specialists: None Preferred Pharmacy: [facility] Insurance: [facility] dual HMO, [facility] Rx Benefit:?Yes ?LNOK: Friend Yessica Diaz LW/HPOA: None and denies wanting to complete on this admission, given advanced directive information, made aware can return as an outpatient to complete with dept. Living Arrangements:? Lives alone in a ground level apartment, 2 steps to enter ADL?s: Independent with ambulation and ADLs Transportation: See above note DME: Glucometer, denies any other DME HHC: Past, cannot recall agency SNF: None Goal: Home and does not think will have any needs. Denies any concerns, issues, or questions with DC planning at this time. Aware CM remains available for any emerging needs. DC PLAN: Home with no anticipated needs identified at this time. MARY Alvarez
[2019-02-25] MEDS: Insulin Lispro 100 UNIT/ML INSULN.PEN SC ×3 (11:11→22:14)
[2019-02-25] MEDS: 0.9% Saline Lock 10 ML Syringe IV ×3 (11:12→22:29)
[2019-02-25] MEDS: 0.9% Normal Saline 1,000 ML 125 ML IV ×2 (11:20→18:31)
[2019-02-25 11:21] LABS: Bedside Glucose 307 mg/dL (70-110)
[2019-02-25 16:51] LABS: Bedside Glucose 249 mg/dL (70-110)
[2019-02-25] MEDS: Morphine 2 MG/ML Syringe IV (16:54)
--- NOTE | 2019-02-25 17:53 | CASEMGMT ---
Social Work Consult: History of depression, history of SI attempt in 2018 Informant: Self Referral Completed Chart review. Marital/Social History: Currently in a dating relationship with Yessica Diaz. Patient defined relationship as unsteady. Living Situation: Lives alone Support/Resources: [facility], , and Peer support through [facility]. Patient stating to have friends that patient checks in with daily. Education/Employment: Completed high school. Disability due to medical and mental health. Mental health Treatment/History: Patient stating to be diagnosed with depression, anxiety, and PTSD. Patient stating to have used counseling in the past through [facility] to manage mental health but to have had a bad experience with the counseling center. Patient stating to now manage mental health on own through support at . Patient stating to have had an inpatient psychiatric stay in 2018 at [facility]. Patient had a suicide attempt by overdosing on insulin. Substance Abuse Hx: Patient stating I am an alcoholic. Patient stating that last drink was in prior to admission to the psychiatric facility. Patient stating to have admitted self to [facility] for detox prior to of this year. Patient stating to have gone through the [facility] program at [facility] and to have been able to stay sober until when patient stated to have been unhappy and to have had life stressors. Patient stating to have returned to using alcohol and to have been down on self and this led to patient's suicidal thoughts and then attempt. Patient stating to smoke tobacco daily with intentions to quit. Patient denies any other current substance abuse. Patient stating that prior to the age of 31 that I used hard drugs. Risk to Self/Others: Patient stating to now have a positive outlook on life and denies any other suicidal thoughts since 2018. Assessment: Met with patient in room. Introduced self as well as social work role. Patient agreeable to meeting with this drug abuse social worker. Patient presenting with a positive and engaged affect. Patient stating that life is good. Patient stating to currently not be in any counseling and to attend for support. Patient recognizing the value of continuing with counseling to maintain patient mental health. This drug abuse social worker encouraging patient to set up continued counseling services. Patient verbally agreeing to this and stating intentions of setting up counseling with [facility] again. Patient stating also intention of following up with peer supporter that this was helpful. Active listening and support provided. Patient thanking this drug abuse social worker for support. Patient stating to be aware of crisis hotline if this would ever be needed in the future. PLAN: Discharge to home with continued support through AA and plan to follow up with [facility] for continued counseling services. Bebeto JULIAN, ANEESH
[2019-02-25 22:31] LABS: Bedside Glucose 293 mg/dL (70-110)
[2019-02-26] VITALS (12 sets, daily range): BP systolic 140–159; BP diastolic 75–92; PULSE 65–95; RESP 18; TEMP 36.5–36.8; O2SAT 98
[2019-02-26] MEDS: Metoprolol Tartrate 5 MG/5 ML Vial IV ×4 (00:27→17:13)
[2019-02-26] MEDS: 0.9% Saline Lock 10 ML Syringe IV ×3 (00:31→14:32)
[2019-02-26] MEDS: 0.9% Normal Saline 1,000 ML 125 ML IV ×3 (02:01→17:12)
[2019-02-26 05:54] LABS: Absolute Lymphocyte Count 1.54 X10^3/uL (0.83-4.51); Absolute Neutrophil Count 4.8 X10^3/uL (2.0-7.7); Basophil# 0.03 X10^3/uL; Basophil% 0.4 % (0-1); Eosinophil# 0.01 X10^3/uL; Eosinophils% 0.1 % (0-5); Hematocrit 37.8 % (40-54); Hemoglobin 12.4 g/dL (13.0-16.5); Lymphocyte # 1.54 X10^3/ul (4.0); Lymphocyte % 22.5 % (19-41); Mean Corp Hgb Conc 32.8 g/dL (32-36); Mean Corpuscular Hgb 28.2 pg (27.0-32.0); Mean Corpuscular Volume 85.9 fL (80-94); Mean Platelet Vol. 9.2 fl (6.2-12.0); Monocyte# 0.45 X10^3/uL; Monocyte% 6.6 % (0-10); NRBC Flagged by Analyzer 0 % (0-5); Neutrophil # 4.78 X10^3/uL (2.7-7.7); Platelet Count 171 K/mm3 (150-450); RBC Distribution Width CV 13.8 % (11.6-14.6); White Blood Count 6.8 K/mm3 (4.4-11.0)
[2019-02-26 06:04] LABS: ALB/GLOB Ratio 0.8 RATIO (0.9-2.4); AST(SGOT) 13 U/L (15-37); Alanine Aminotransfer ALT/SGPT 19 U/L (16-61); Albumin, Serum 2.7 g/dL (3.2-5.0); Alkaline Phosphatase 113 U/L (45-117); Anion Gap 5 (5-15); BUN 13 mg/dL (7-18); BUN/Creat Ratio 12.1 RATIO (10-20); Calcium,Total 7.9 mg/dL (8.5-10.1); Chloride 101 mmol/L (98-107); Creatinine, Serum 1.07 mg/dL (0.70-1.30); EST Glomerular Filtration Rate 76 mL/min (>60); Est Glom Filt Rate - Afr Amer 91 mL/min (>60); Estimated Creatinine Clearance 75.85 ml/min; Globulin 3.2 g/dL (2.2-4.2); Glucose 251 mg/dL (74-106); Phosphorus 1.7 mg/dL (2.5-4.9); Potassium 4.6 mmol/L (3.5-5.1); Protein, Total 5.9 g/dL (6.4-8.2); Sodium Level 136 mmol/L (136-145)
[2019-02-26 06:40] LABS: Bedside Glucose 249 mg/dL (70-110)
[2019-02-26] MEDS: Insulin Lispro 100 UNIT/ML INSULN.PEN SC ×4 (06:40→17:12)
[2019-02-26] MEDS: Heparin Injection (Vial) 5,000 UNIT/ML VIAL 5000 UNIT SC (09:11)
[2019-02-26] MEDS: Famotidine 200 MG/20 ML MDV 20 MG in 0.9% Normal Saline (Pres. free 8 ML 330 MG IV (09:11)
--- NOTE | 2019-02-26 12:47 | CASEMGMT ---
Addendum entered by Beto Wilde 02/26/19 13:18: Lantus and tips and scripts will cost $6.05. RN HARDEEP asked pt if he has $ to pay for insulin on dc. Pt became very angry and states I told them I don't have any money, and why are you bothering me. They told me they would be in at 2. (referring to rounds). MARIETTA MEIER attempted to explain to patient that RN HARDEEP is only asking if he had $ to pay for scripts. Pt became angry. Pharmacy cost for medications covered by staff, and retail pharmacy will deliver to patient's room. Original Note: MARIETTA MEIER Note: concerns re: pt's insulin. Pt states he does not know if it is covered. call to [facility]-pt had insulin filled there 6 months ago only, no other prescriptions filled since then. Pt states he uses [facility]. Attempted call to [facility], they are closed now until after . -Pt does not have current insurance card in the file, MARIETTA MEIER not able to verify prescriptions being filled. -Dr. Walker updated and is calling [facility] Retail pharmacy to escript insulin to [facility] Retail pharmacy to check Lantus coverage. Charles GRAHAMN RN ACM
[2019-02-26] MEDS: Na Biphos/Potassium Phosphate PACKET 1 PACKET PO ×2 (13:47→17:13)
[2019-02-26] MEDS: Ondansetron 4 MG/2 ML Vial IV (13:51)
[2019-02-26 13:55] LABS: Bedside Glucose 320 mg/dL (70-110)
--- NOTE | 2019-02-26 14:16 | CASEMGMT ---
RN CM Note: Intro role of CM to patient and discussed CCN referral. Pt is agreeable. Order for referral placed, and message left with Angel. Charles GRAHAMN RN ACM
[2019-02-26] MEDS: proCHLORPERazine 10 MG/2 ML Vial 5 MG IV (14:32)
--- NOTE | 2019-02-26 17:03 | DCINST_ITS ---
- Discharge Diagnoses Current Active Problems: Current Active and Chronic Problems (Last Reviewed 02/24/19 @ 18:15 by Emily Macdonald DO) DKA, type 2 (Acute) Hyponatremia (Acute) Acute renal failure (Acute) Dehydration (Acute) GERD (gastroesophageal reflux disease) (Acute) Alcohol abuse, in remission (Chronic) has not had a drink since Nov 2018 Tobacco dependence (Chronic) 1 PPD since 5-6 YOA Stented coronary artery (Chronic) RCA - 09/08/16 Reason(s) for Visit for Discharge Instructions: Acute DKA You will use the following diet at home:: Calorie/Carbohydrate Controlled (specify 1200, 1400, etc), Cardiac Your food should be the consistency of: Regular Your liquids should be the consistency of: Regular/Thin Discharge Activity: Return to Normal Activity Additional Instructions: Continue to take all your medications as prescribed. Continue to follow a low carb diet. Check your blood sugars 3 times a day. Follow-up with your primary care doctor within 1-2 weeks. You are strongly advised to follow-up with [facility], AA and peer support. Allergies/Adverse Reactions: Allergies No Known Allergies Allergy (Verified 02/07/19 13:58) Medications to take at Discharge Famotidine 20 mg PO BID #60 tab 02/26/19 Gabapentin [Neurontin] 200 mg PO DAILY #30 cap 02/26/19 Insulin Glargine [Lantus SoloStar Pen] 20 units SUBCUT BID #1 pen 02/26/19 Insulin Glargine [Lantus SoloStar Pen] 25 units SC BID pen 02/26/19 Lisinopril 40 mg PO QDAY #30 tab 02/26/19 Metoprolol Tartrate 25 mg PO BID #60 tab 02/26/19 Mirtazapine 15 mg PO QHS #30 tab 02/26/19 Ticagrelor [Brilinta] 90 mg PO BID #60 tab 02/26/19 Venlafaxine HCl [Venlafaxine HCl ER] 225 mg PO QDAY #30 tab 02/26/19 busPIRone [Buspar] 15 mg PO BID #60 tab 02/26/19 metFORMIN HCl [Glucophage] 1,000 mg PO BIDCM #60 tab 02/26/19 The following prescriptions were given: Ticagrelor [Brilinta] 90 mg PO BID #60 tab Transmission Status: Received by [facility] [place] - [id number] busPIRone [Buspar] 15 mg PO BID #60 tab Transmission Status: Received by [place] [id number] Famotidine 20 mg PO BID #60 tab Transmission Status: Received by [facility] metFORMIN HCl [Glucophage] 1,000 mg PO BIDCM #60 tab Transmission Status: Received by [facility] Insulin Glargine [Lantus SoloStar Pen] 20 units SUBCUT BID #1 pen Transmission Status: Received by [facility] Lisinopril 40 mg PO QDAY #30 tab Transmission Status: Received by [place] [id number] Metoprolol Tartrate 25 mg PO BID #60 tab Transmission Status: Received by [place] [address] Mirtazapine 15 mg PO QHS #30 tab Transmission Status: Received by [place] [address] Gabapentin [Neurontin] 200 mg PO DAILY #30 cap Transmission Status: Received by [place] [id number] Venlafaxine HCl [Venlafaxine HCl ER] 225 mg PO QDAY #30 tab Transmission Status: Received by [place] [id number] Primary Care Physician: Elijah Plascencia MD [Primary Care Provider] - Please follow up with your Primary Care Physician in: within 1-2 weeks Test Results: Test results from this visit will be discussed in further detail at your follow- up appointment, if applicable. Proposed Discharge Date: 02/26/19
--- NOTE | 2019-02-26 17:08 | PCM.DC.SUM ---
Discharge Date and Diagnosis - Problem List Patient Problems: Active and Suspected Problems (Last Reviewed 02/24/19 @ 18:13 by Emily Macdonald DO) DKA, type 2 (Acute) Hyponatremia (Acute) Acute renal failure (Acute) Dehydration (Acute) GERD (gastroesophageal reflux disease) (Acute) Date of Admission: 02/24/19 Date of Discharge: 02/26/19 - Primary Discharge Diagnosis Active and Suspected Problems (Last Reviewed 02/24/19 @ 18:13 by Emily Macdonald DO) DKA, type 2 (Acute) Acute renal failure (Acute) GERD (gastroesophageal reflux disease) Leucocytosis Hyponatremia Hypochloremia Hypophosphatemia - Secondary Discharge Diagnosis Chronic Problems (Last Reviewed 02/24/19 @ 18:13 by Emily Macdonald DO) Alcohol abuse, in remission (Chronic) has not had a drink since Nov 2018 Tobacco dependence (Chronic) 1 PPD since 5-6 YOA Stented coronary artery (Chronic) RCA - 09/08/16 Severe major depression (Chronic) Suicide attempt (Chronic) December 2018 - insulin OD Type 2 diabetes mellitus (Chronic) Hypertension (Chronic) Anxiety (Chronic) Depression (Chronic) Neuropathy (Chronic) Atherosclerosis of coronary artery of [place] heart without angina pectoris (Chronic) [facility] RCA 09/2016 @ [facility] Erectile dysfunction (Chronic) Diabetes type 2, uncontrolled (Chronic) Hospital Course and Treatment None Operations: None Procedures: None Summary of Care Provided: 58-year-old male with past medical history of type II DM, on insulin, hypertension, severe major depression, history of suicidal attempts comes in with acute nausea and vomiting. Patient has been managed as acute DKA secondary to medication noncompliance. His HbA1c 11.8. Was managed initially in ICU on insulin drip. His gap was subsequently closed. He was continued on Lantus. He had acute kidney injury secondary dehydration which improved with IV fluids. His creatinine was almost resolved at discharge. protective services case worker and case management team were consulted for medication assistance as patient gave inconsistent history about running out of his medications versus not taking his medications because he was not feeling well in the last few days. He got his medication refilled in the hospital. I am concerned that this patient is at high risk for readmissions on count of his persistent severe major depression and underlying psych. He was recently admitted a couple of months ago in a psych facility and discharged. He has history of noncompliance as well as suicidal attempts and last overdose on insulin in the last admission. Patient will be followed by the [facility] team. He had electrolyte imbalances which were replaced during this hospital stay. Patient Problems: Active and Suspected Problems (Last Reviewed 02/24/19 @ 18:13 by Emily Macdonald DO) DKA, type 2 (Acute) Hyponatremia (Acute) Acute renal failure (Acute) Dehydration (Acute) GERD (gastroesophageal reflux disease) (Acute) Subjective: The day of discharge, patient was seen and examined. He complains of feeling tired. He was seen by physical and patient had therapy and was able to walk with them with no complaints. Objective: Physical exam: General: Alert, Oriented x3, Cooperative, - - Looks unwell, chronically ill, unkempt, not pale, not jaundiced HEENT: Atraumatic, PERRLA, EOMI, Normocephalic Oral: Dry Mucosa Neck: Supple Lungs: Clear to auscultation Cardiovascular: Regular rate, Regular Rhythm, Normal S1, Normal S2, No murmurs Abdomen: Bowel Sounds Present, Soft, Non-Distended, No Hepato-splenomegaly, Tender - epigastric region Extremities: No edema Skin: No rashes, No breakdown Musculoskeletal: No Tenderness to Palpation of Joints or Extremities Lymphatic: No Cervical, Supraclavicular, or Inguinal Adenopathy Neurological: Cranial nerves II-XII grossly intact, Neuro grossly intact Psych/Mental Status: Flat Affect, Appropriate - Physical Exam Vitals/I&O's: Vital Signs Temp Pulse Resp BP Pulse Ox 97.7 F L 65 18 143/76 H 98 02/26/19 11:09 02/26/19 14:48 02/26/19 11:09 02/26/19 11:20 02/26/19 11:09 Oxygen Delivery Method Room Air Weight: 77.1 kg Body Mass Index (BMI) 22.6 Finger Stick Blood Glucose 104 Intake and Output for Last 24 Hours 02/24/19 02/25/19 02/26/19 23:59 23:59 23:59 Intake Total 4036.09 / 4036.09 4414.08 / 4714.08 2983.33 / 2983.33 Output Total 700 / 700 1350 / 1900 2049 Balance 3336.09 / 3336.09 3064.08 / 2814.08 933.33 / 933.33 Laboratory Results 02/25/19 22:09: POC Glucose 293 H 02/26/19 05:20: WBC 6.8, RBC 4.40 L, Hgb 12.4 L, Hct 37.8 L, MCV 85.9, MCH 28.2, MCHC 32.8, RDW Std Deviation 43.0, RDW Coeff of Kaye 13.8, Plt Count 171, MPV 9.2, Immature Gran % (Auto) 0.400, Neut % (Auto) 70.0, Lymph % (Auto) 22.5, [place] % (Auto) 6.6, Eos % (Auto) 0.1, Baso % (Auto) 0.4, Absolute Neuts (auto) 4.8, Absolute Lymphs (auto) 1.54, Nucleated RBC % 0 02/26/19 05:20: Sodium 136, Potassium 4.6, Chloride 101, Carbon Dioxide 30.0, Anion Gap 5, BUN 13, Creatinine 1.07, Estim Creat Clear Calc 75.85, Est GFR (MDRD) Af Amer 91, Est GFR (MDRD) Non-Af 76, BUN/Creatinine Ratio 12.1, Glucose 251 H, Calcium 7.9 L, Phosphorus 1.7 L, Total Bilirubin 0.50, AST 13 L, ALT 19, Alkaline Phosphatase 113, Total Protein 5.9 L, Albumin 2.7 L, Globulin 3.2, Albumin/Globulin Ratio 0.8 L 02/26/19 06:32: POC Glucose 249 H 02/26/19 11:19: POC Glucose 320 H Current Medications Albuterol Sulfate (Ventolin Aerosols) 2.5 mg INHALATION Q2H PRN PRN PRN Reason: SOB/Wheezing Bisacodyl (Dulcolax) 5 mg PO DAILY PRN PRN PRN Reason: Constipation Glucagon () 1 mg IM .X1 PRN PRN Reason: Hypoglycemia Heparin Sodium (Porcine) (Heparin Na) 5,000 unit SC Q12 NIMA Last Admin: 02/26/19 09:11 Dose: 5,000 unit Documented by: Sodium Chloride () 250 mls @ 15 mls/hr IV .[id number] PRN PRN Reason: Saline Flush Sodium Chloride () 250 mls @ 15 mls/hr IV .[id number] PRN PRN Reason: Additional IVPB Infusion Dextrose (Dextrose 10%-Water) 250 mls @ 999 mls/hr IV .Q16M PRN; Protocol PRN Reason: HYPOGLYCEMIA Famotidine 20 mg/ Sodium (Chloride) 10 mls @ 300 mls/hr IV BID [facility] Last Infusion: 02/26/19 09:42 Dose: Infused Documented by: Sodium Chloride () 1,000 mls @ 125 mls/hr IV .Q8H NIMA Last Admin: 02/26/19 09:11 Dose: 125 mls/hr Documented by: Insulin Glargine (Lantus (Bkc)) 25 units SC BID [facility] Insulin Human Lispro (Humalog Kwikpen (Bk)) 0 unit SC ACHS [facility]; Protocol Last Admin: 02/26/19 11:21 Dose: 6 units Documented by: Metoprolol Tartrate (Lopressor (Beta Ana)) 5 mg IV Q6 [facility] Last Admin: 02/26/19 11:20 Dose: 5 mg Documented by: Morphine Sulfate () 2 mg IV Q3H PRN PRN PRN Reason: Pain Score 6-10/10 Last Admin: 02/25/19 16:54 Dose: 2 mg Documented by: Nitroglycerin (Nitrostat) 0.4 mg SUBLINGUAL Q5M PRN PRN Reason: CARDIAC/CHEST PAIN Nutritional Formula (Lactose Free) (Glucerna Shake) 120 ml PO 4X/DAY [facility] Ondansetron HCl (Zofran) 4 mg IV Q8H PRN PRN PRN Reason: NAUSEA/VOMITING Last Admin: 02/26/19 13:51 Dose: 4 mg Documented by: Potassium Phos/Sodium Phos (Neutra-Phos Packet) 1 packet PO 4X/DAY [facility] Last Admin: 02/26/19 13:47 Dose: 1 packet Documented by: Prochlorperazine Edisylate (Compazine Iv) 5 mg IV Q4H PRN PRN PRN Reason: Breakthrough Nausea/Vomiting Last Admin: 02/26/19 14:32 Dose: 5 mg Documented by: Sodium Chloride () 10 - 40 ml IV UD PRN PRN Reason: SALINE FLUSH Last Admin: 02/26/19 14:32 Dose: 10 ml Documented by: Discharge Diet: Low fat/ Low Cholesterol, 2000 mg Sodium Diet, Carb Control Diet Discharge Activity: Return to Normal Activity Home Medications: Medications to take at Discharge Famotidine 20 mg PO BID #60 tab 02/26/19 Gabapentin [Neurontin] 200 mg PO DAILY #30 cap 02/26/19 Insulin Glargine [Lantus SoloStar Pen] 20 units SUBCUT BID #1 pen 02/26/19 Insulin Glargine [Lantus SoloStar Pen] 25 units SC BID pen 02/26/19 Lisinopril 40 mg PO QDAY #30 tab 02/26/19 Metoprolol Tartrate 25 mg PO BID #60 tab 02/26/19 Mirtazapine 15 mg PO QHS #30 tab 02/26/19 Ticagrelor [Brilinta] 90 mg PO BID #60 tab 02/26/19 Venlafaxine HCl [Venlafaxine HCl ER] 225 mg PO QDAY #30 tab 02/26/19 busPIRone [Buspar] 15 mg PO BID #60 tab 02/26/19 metFORMIN HCl [Glucophage] 1,000 mg PO BIDCM #60 tab 02/26/19 Following Prescrptions Were Given to Patient: Ticagrelor [Brilinta] 90 mg PO BID #60 tab Transmission Status: Received by [place] [id number] busPIRone [Buspar] 15 mg PO BID #60 tab Transmission Status: Received by [place] [address] Famotidine 20 mg PO BID #60 tab Transmission Status: Received by [facility] metFORMIN HCl [Glucophage] 1,000 mg PO BIDCM #60 tab Transmission Status: Received by [facility] Insulin Glargine [Lantus SoloStar Pen] 20 units SUBCUT BID #1 pen Transmission Status: Received by [facility] Lisinopril 40 mg PO QDAY #30 tab Transmission Status: Received by [place] [address] Metoprolol Tartrate 25 mg PO BID #60 tab Transmission Status: Received by [place] [address] Mirtazapine 15 mg PO QHS #30 tab Transmission Status: Received by [place] [address] Gabapentin [Neurontin] 200 mg PO DAILY #30 cap Transmission Status: Received by [place] [address] Venlafaxine HCl [Venlafaxine HCl ER] 225 mg PO QDAY #30 tab Transmission Status: [facility] [place] [facility] [id number] Primary Care Physician: Elijah Plascencia MD [Primary Care Provider] - Please follow up with your Primary Care Physician in: within 1-2 weeks Disposition: Home Minutes spent on discharge:: 40 Medical Necessity - Tobacco Use Smoking Status: Current every day smoker Tobacco Use: Cigarettes Meaningful Use Info Meaningful Use Diagnoses (Choose all that apply): None applicable Code Visit Inpatient E&M: 44812 Disch Hosp
[2019-02-26 18:51] LABS: Bedside Glucose 207 mg/dL (70-110)
--- NOTE | 2019-02-28 16:06 | CASEMGMT ---
MARIETTA MEIER F/U Phone Call LACE: 10 Strata: 3 Discharge date: 02/26/19 Call date: 02/28/19 Call time: [phone] Admission dx: DKA, hyponatremia, ARF, intractable N/V Pt states has been 'doing ok' since discharge. Pt states no questions regarding discharge instructions/medications at this time. Pt states 'I have been doing everything like I am supposed to.' Pt states has F/U appts scheduled and plans to keep them. Pt states no suggestions for [facility] at this time and states 'everything was alright all in all.' Pt voices no further questions/concerns/needs at this time. SStaten MARIETTA MEIER
--- NOTE | 2019-03-04 09:23 | CCN.REFER ---
No answer or vm after multiple phone calls. CCN to continue to reach out over the next week.
--- NOTE | 2019-03-11 10:13 | CCN.REFER ---
Multiple voicemails left on patient's line with no returned call. T/C to patient's friend Jaun Zora w/ no returned call. CCN referral will be placed on hold if and when patient returns call.
== END 2019-02-26 18:50 | disposition home or self-care (01) | DRG 638 ==
LOC: ED 17:06 → ICU 18:37 → PCU 02-25 11:02
PROVIDERS: Admitting Provider Internal Medicine; Emergency Provider Emergency Medicine; Family Provider Internal Medicine; PCP Internal Medicine; Referring Provider Internal Medicine; Visit Provider Internal Medicine
DX: E11.10 Type 2 diabetes mellitus with ketoacidosis without coma (principal); N17.9 Acute kidney failure, unspecified; E87.1 Hypo-osmolality and hyponatremia; F32.2 Major depressive disorder, single episode, severe without psychotic features; I10 Essential (primary) hypertension; I25.10 Atherosclerotic heart disease of native coronary artery without angina pectoris; E87.8 Other disorders of electrolyte and fluid balance, not elsewhere classified; E86.0 Dehydration; E11.40 Type 2 diabetes mellitus with diabetic neuropathy, unspecified; F10.21 Alcohol dependence, in remission; Z79.4 Long term (current) use of insulin; Z91.5 Personal history of self-harm; F17.210 Nicotine dependence, cigarettes, uncomplicated; Z95.5 Presence of coronary angioplasty implant and graft; E83.39 Other disorders of phosphorus metabolism; K21.9 Gastro-esophageal reflux disease without esophagitis; D72.829 Elevated white blood cell count, unspecified; F41.9 Anxiety disorder, unspecified; N52.9 Male erectile dysfunction, unspecified; Z91.14 Patient's other noncompliance with medication regimen
CPT/HCPCS: 36415; 80048; 80053; 80061; 81001; 82009; 82570; 82803; 82962; 83036; 83690; 83735; 84100; 84300; 84484; 85025; 85027; 93005; 97162; 97802; 99251; 99285; J7030; J7050; A4216; G0463; J2405; J3490; J7799

== ENCOUNTER 2019-04-02 20:06 | Emergency (ER) | payer MEDICARE, MEDICAID, SELFPAY ==
[2019-02-24 18:15] VITALS: BMI 22.6
[2019-04-02 20:06] VITALS: BP 150/84; PULSE 120; RESP 22; TEMP 36.1; O2SAT 100; BMI 22.8
--- NOTE | 2019-04-02 20:33 | EKG12_ITS ---
Test Reason : MHC Blood Pressure : / mmHG Vent. Rate : 092 BPM Atrial Rate : 092 BPM P-R Int : 216 ms QRS Dur : 078 ms QT Int : 378 ms P-R-T Axes : 061 041 064 degrees QTc Int : 467 ms Sinus rhythm with 1st degree A-V block Otherwise normal ECG Confirmed by MARYAN LOPEZ ([id number]), photography editor KESHIA BLANCO ([id number]) on 04/04/2019 10:33:00 AM Referred By: KARAN Confirmed By:MARYAN LOPEZ
--- NOTE | 2019-04-02 20:33 | ED.VISSUMM ---
- ER Visit Summary Date of Service: 04/02/19 Chief Complaint: Suicidal ideation History of Present Illness: The patient is a [address] Plascencia. Patient is uncooperative, but has told multiple people that he does not want to be alive. He is also told people that he has been drinking for the past 2 days. He reports that he has been suicidal since his mom 5 years ago. He will not state whether this has gotten worse lately. He just reports I do not want to be alive. He is not cooperative with any further history or review of systems. Physical Examination: Vitals: Stable. Afebrile. General: Well-nourished and well-developed. Head: Normocephalic atraumatic. Neck: Supple, no lymphadenopathy. No JVD. Nontender. Cardiovascular: Regular rate and rhythm. No murmurs. Respiratory: No respiratory distress. Clear to auscultation bilaterally. Abdominal: Soft, nontender, nondistended, normal bowel sounds. No guarding, rebound, or peritoneal signs. Back: Nontender. Extremities: Nontender, no edema. Skin: Normal color, no rash. Neurologic: Alert and oriented ?3. Cranial nerves II through XII are intact. Normal strength and sensation. Mental status exam: Patient appears their stated age. Good posture and grooming. Good eye contact. Normal rate, volume, and latency of speech. No homicidal ideation. No auditory or visual hallucinations. Flow of thought is logical. Insight and judgment is fair.. Test Results: EKG is sinus at 92 with no acute changes. CBC shows a hemoglobin of 17.0. Chem-7 shows a glucose of 308. He has a normal anion gap and bicarb. Talk screen shows marijuana. Blood alcohol level is 274. Emergency Department Course and Treatment: Patient had an IV placed. He was given a liter normal saline. He was given Geodon IM as he is aggressive with staff. He would not stay in bed. He was given Haldol and Benadryl IV. He is now resting more comfortably. Treatment Plan: Patient will be turned over to the care of the oncoming doctor. He will need a repeat alcohol level at 6 AM. He will also need to be seen by the counseling center. Disposition: Pending Impression: 1. Suicidal ideation. 2. Alcohol intoxication. This note was generated with [employer] dictation software. It may contain incorrect words, spelling, and punctuation that were not noted in review of the chart prior to signing ED Disposition - Plan for ED Patient: Referrals: Elijah Plascencia MD [Primary Care Provider] -
[2019-04-02 20:46] LABS: Bedside Glucose 323 mg/dL (70-110)
[2019-04-02] MEDS: Ziprasidone IM 20 MG/ML VIAL IM (21:00)
[2019-04-02] MEDS: 0.9% Normal Saline 1,000 ML 1000 ML IV (21:02)
[2019-04-02 21:06] LABS: Amphetamine Urine VISTA NEGATIVE (<1000 ng/mL); Barbiturate Urine VISTA NEGATIVE (< 200 ng/mL); Benzodiazepine Urine VISTA NEGATIVE (< 200 ng/mL); Cocaine Urine VISTA NEGATIVE (< 300 ng/mL); Ecstacy Urine VISTA NEGATIVE (< 500 ng/mL); Methadone Urine VISTA NEGATIVE (< 300 ng/mL); PCP Urine VISTA NEGATIVE (< 25 ng/mL); THC Urine VISTA POSITIVE (< 50 ng/mL); Vista UDS pH Range 6
--- NOTE | 2019-04-02 21:08 | ED.RN ---
pt has hearing aid in right ear. states the left is broken. pt talked with police mechanical supervisor, very angry at police. calm and cooperative with nursing staff.
[2019-04-02 21:14] LABS: Absolute Lymphocyte Count 2.48 X10^3/uL (0.83-4.51); Absolute Neutrophil Count 3.7 X10^3/uL (2.0-7.7); Basophil# 0.05 X10^3/uL; Basophil% 0.7 % (0-1); Eosinophil# 0.03 X10^3/uL; Eosinophils% 0.4 % (0-5); Hematocrit 50.9 % (40-54); Lymphocyte # 2.48 X10^3/ul (4.0); Mean Corp Hgb Conc 33.4 g/dL (32-36); Mean Corpuscular Hgb 28.1 pg (27.0-32.0); Mean Corpuscular Volume 84.1 fL (80-94); Monocyte# 0.44 X10^3/uL; Monocyte% 6.6 % (0-10); NRBC Flagged by Analyzer 0 % (0-5); Neutrophil # 3.67 X10^3/uL (2.7-7.7); Neutrophil % 54.7 % (47-70); Platelet Count 270 K/mm3 (150-450); RBC Distribution Width CV 13.8 % (11.6-14.6); RBC Distribution Width SD 41.5 fl (35.1-43.9); Red Blood Count 6.05 M/mm3 (4.6-6.2); White Blood Count 6.7 K/mm3 (4.4-11.0)
--- NOTE | 2019-04-02 21:47 | ED.RN ---
pt wanting to get his clothes on and go home. RNs x 2 and lalita bush MD to bedside. More medication ordered.
[2019-04-02] MEDS: DiphenhydrAMINE 50 MG/ML Syringe 25 MG IV ×2 (21:48→22:23)
[2019-04-02] MEDS: Haloperidol Lactate 5 MG/ML Vial 2 MG IV (21:48)
[2019-04-02 21:52] LABS: Anion Gap 11 (5-15); BUN 7 mg/dL (7-18); BUN/Creat Ratio 6.5 RATIO (10-20); Calcium,Total 8.8 mg/dL (8.5-10.1); Chloride 105 mmol/L (98-107); Creatinine, Serum 1.07 mg/dL (0.70-1.30); EST Glomerular Filtration Rate 76 mL/min (>60); Est Glom Filt Rate - Afr Amer 91 mL/min (>60); Estimated Creatinine Clearance 75.75 ml/min; Glucose 308 mg/dL (74-106); Potassium 4.5 mmol/L (3.5-5.1); Sodium Level 138 mmol/L (136-145)
[2019-04-02 22:21] VITALS: RESP 16
--- NOTE | 2019-04-02 22:23 | ED.RN ---
PT GETTING OUT OF BED. PT STATES I'M LEAVING. THIS NURSE AND DR SAMUELS EXPLAINED TO THE PT THAT HE IS PINK SLIPPED AND HE IS NOT PERMITTED TO LEAVE. PT ASSISTED BACK INTO BED.
[2019-04-02] MEDS: Haloperidol Lactate 5 MG/ML Vial 3 MG IV (22:24)
[2019-04-02 23:03] VITALS: RESP 18
--- NOTE | 2019-04-02 23:18 | ED.RN ---
PT C/O STERNAL CHEST PAIN. DR SAMUELS NOTIFIED. EKG ORDERED. MEDICATION ORDERED
--- NOTE | 2019-04-02 23:22 | EKG12_ITS ---
Test Reason : CP Blood Pressure : / mmHG Vent. Rate : 109 BPM Atrial Rate : 109 BPM P-R Int : 210 ms QRS Dur : 068 ms QT Int : 322 ms P-R-T Axes : 076 054 069 degrees QTc Int : 433 ms Sinus tachycardia with 1st degree A-V block Otherwise normal ECG Confirmed by MARYAN LOPEZ ([id number]), editorial project manager KESHIA BLANCO ([id number]) on 04/04/2019 10:34:24 AM Referred By: KARNA Confirmed By:MARYAN LOPEZ
[2019-04-02 23:34] VITALS: BP 198/102; PULSE 107; RESP 22; O2SAT 98
[2019-04-02] MEDS: LORazepam 2 MG/ML Syringe IV (23:35)
[2019-04-02] MEDS: metFORMIN HCl 1,000 MG Tablet 1000 MG PO (23:44)
[2019-04-02] MEDS: busPIRone 15 MG TABLET PO (23:44)
[2019-04-02] MEDS: Mirtazapine 15 MG Tablet PO (23:44)
[2019-04-03] VITALS (12 sets, daily range): BP systolic 144–169; BP diastolic 68–100; PULSE 83–103; RESP 15–22; O2SAT 96–98
[2019-04-03] MEDS: TICAGRELOR 90 MG TABLET PO ×2 (00:01→11:18)
--- NOTE | 2019-04-03 03:39 | ED.RN ---
SEE DOWNTIME DOCUMENTATION FROM [id number]
[2019-04-03 07:01] LABS: Alcohol, Blood (Medical)-Serum < 3.0 mg/dL
--- NOTE | 2019-04-03 08:52 | ED.RN ---
CALLED CRISIS AND SOMEONE WILL BE OVER SOON TO EVALUATE PT. PER RAVI
--- NOTE | 2019-04-03 10:00 | ED.RN ---
[facility]ISIS REFERRAL TO [facility]
[2019-04-03] MEDS: Lisinopril 40 MG Tablet PO (10:59)
[2019-04-03] MEDS: metFORMIN HCl 1,000 MG Tablet 1000 MG PO (10:59)
[2019-04-03] MEDS: Venlafaxine XR 75 MG Capsule 225 MG PO (11:00)
[2019-04-03] MEDS: Metoprolol Tartrate 25 MG Tablet PO (11:00)
[2019-04-03] MEDS: busPIRone 15 MG TABLET PO (11:00)
[2019-04-03] MEDS: Gabapentin 100 MG Capsule 200 MG PO (11:00)
[2019-04-03] MEDS: Famotidine 20 MG Tablet PO (11:18)
[2019-04-03] MEDS: LORazepam 2 MG/ML Syringe 1 MG IV (11:25)
--- NOTE | 2019-04-03 13:52 | ED.RN ---
ACCEPTANCE AT [facility], REPORT CALLED TO MARIETTA SAINI BY THIS NURSE. AWAITING TRANSPORTATION AT THIS TIME. PT UPDATED WITH PLAN TO TRANSFER. PT CONVEYS UNDERSTANDING AND DENIES FURTHER NEEDS AT THIS TIME.
== END 2019-04-03 16:01 ==
PROVIDERS: Emergency Medicine; Emergency Provider Emergency Medicine; PCP Internal Medicine
DX: R45.851 Suicidal ideations (principal); F10.129 Alcohol abuse with intoxication, unspecified; Y90.8 Blood alcohol level of 240 mg/100 ml or more; E11.9 Type 2 diabetes mellitus without complications; I10 Essential (primary) hypertension; K21.9 Gastro-esophageal reflux disease without esophagitis; F32.9 Major depressive disorder, single episode, unspecified; F41.9 Anxiety disorder, unspecified; Z72.0 Tobacco use; Z79.02 Long term (current) use of antithrombotics/antiplatelets; Z79.4 Long term (current) use of insulin; Z79.899 Other long term (current) drug therapy; Z95.5 Presence of coronary angioplasty implant and graft
CPT/HCPCS: 36415; 80048; 80307; 80320; 82962; 85025; 93005; 96361; 96372; 96374; 96375; 96376; 99285; J7030; A4216; G0480; J3486

== ENCOUNTER 2019-04-14 10:19 | Inpatient (IN) | payer MEDICARE, MEDICAID, SELFPAY ==
[2019-04-14] VITALS (16 sets, daily range): BP systolic 154–202; BP diastolic 71–94; PULSE 94–129; RESP 10–22; TEMP 36.9–37; O2SAT 96–100; BMI 23.3; BMI 22.6
--- NOTE | 2019-04-14 10:35 | EKG12_ITS ---
Test Reason : ETOH Blood Pressure : / mmHG Vent. Rate : 117 BPM Atrial Rate : 117 BPM P-R Int : 184 ms QRS Dur : 072 ms QT Int : 328 ms P-R-T Axes : 072 053 064 degrees QTc Int : 457 ms Sinus tachycardia Otherwise normal ECG Confirmed by ANA MARIA CLARK, ALVERTO ([id number]), manuscript editor KESHIA BLANCO ([id number]) on 04/16/2019 8:02:14 AM Referred By: BIPIN Confirmed By:ALVERTO RODGERS MD
[2019-04-14 10:58] LABS: Absolute Lymphocyte Count 1.94 X10^3/uL (0.83-4.51); Absolute Neutrophil Count 7.5 X10^3/uL (2.0-7.7); Basophil# 0.07 X10^3/uL; Basophil% 0.7 % (0-1); Eosinophil# 0.01 X10^3/uL; Eosinophils% 0.1 % (0-5); Hematocrit 48.9 % (40-54); Hemoglobin 16.3 g/dL (13.0-16.5); Lymphocyte # 1.94 X10^3/ul (4.0); Lymphocyte % 18.7 % (19-41); Mean Corp Hgb Conc 33.3 g/dL (32-36); Mean Corpuscular Hgb 28.4 pg (27.0-32.0); Mean Corpuscular Volume 85.2 fL (80-94); Mean Platelet Vol. 8.3 fl (6.2-12.0); Monocyte# 0.81 X10^3/uL; Monocyte% 7.8 % (0-10); NRBC Flagged by Analyzer 0 % (0-5); Neutrophil % 72.2 % (47-70); Platelet Count 357 K/mm3 (150-450); RBC Distribution Width CV 13.7 % (11.6-14.6); RBC Distribution Width SD 42.3 fl (35.1-43.9); Red Blood Count 5.74 M/mm3 (4.6-6.2); White Blood Count 10.4 K/mm3 (4.4-11.0)
[2019-04-14 11:07] LABS: International Normalized Ratio 0.9; Prothrombin Time (Protime)PT. 12.1 SECONDS (11.7-14.9)
--- NOTE | 2019-04-14 11:07 | ED.VIS.GEN ---
History of Present Illness Chief Complaint: ETOH Intox Detail of Chief Complaint: I am an alcoholic and I need help Informant: Patient Limited by: - - Patient needs redirected. Concern he is going through withdrawal Onset: Month(s) Context: Sudden Onset Timing: Intermittent, Waxes and wanes Quality: Tachycardia, jitters, not feeling well. Location: Generalized Current Severity: Moderate Maximum Severity: Severe Worsened by: Abstinence Relieved by: Can of beer this morning Associated Symptoms: Jitteriness, palpitations, nausea, not feeling well pallor to fingers Narrative: Is a middle-age male with history of tobacco use, alcoholism. He states he drinks approximately 1 pint of vodka a day. He is been to a detox program twice. The most recent was April 2018 to August 2018. Prior to that he was seen at [facility]. He denies dark-colored urine or light-colored stool. He denies black or maroon-colored stool. He does report orthostatic symptoms. He states he feels uneasy. He does report palpitations and nausea. He denies vomiting. He states he does not feel well. He denies headache. He denies visual, ocular auditory symptoms. No trouble speech or swallowing. He denies chest pressure or heaviness. He denies shortness of breath. He denies abdominal pain. He does report weight loss. He states he has had his fingers turn white in the cold. He denies history of autoimmune disorder. Prior similar symptoms: Yes Recent Illness/Hospitalization: No - Past Medical History (1) Acute renal failure Status: Acute (2) GERD (gastroesophageal reflux disease) Status: Acute (3) Anxiety Status: Chronic (4) Atherosclerosis of coronary artery of [place] heart without angina pectoris Status: Chronic Comment: [facility]2016 @ [place] (5) Hypertension Status: Chronic (6) Neuropathy Status: Chronic (7) Severe major depression Status: Chronic (8) Type 2 diabetes mellitus Status: Chronic (9) NSVT (nonsustained ventricular tachycardia) Status: Resolved (10) Suicide attempt Status: Resolved Past Medical History - Allergies and Home Meds Allergies/Adverse Reactions: Allergies No Known Allergies Allergy (Verified 04/14/19 10:21) Primary Care Physician: Elijah Plascencia MD [Primary Care Provider] - Prior records reviewed: Yes - Did admission to psychiatric facility Lives: Alone Smoking Status: Current every day smoker Alcohol: Heavy Drugs: Marijuana - Occasionally Review of Systems General: Reports: Malaise, Weight loss. Denies: Chills, Fever, Subjective, Sweats Eyes: Denies: Visual changes - bilaterally, Blurred Vision - bilaterally Cardiovascular: Reports: Palpitations, Heart racing. Denies: Chest pain Respiratory: Reports: Dyspnea. Denies: Cough, Sputum, Dyspnea on exertion Gastrointestinal: Reports: Nausea. Denies: Abdominal pain, Vomiting, Diarrhea, Melena, Hematochezia Genitourinary: Denies: Dysuria, Hematuria, Frequency Musculoskeletal: Denies: Myalgias, Arthralgias, Neck pain, Back pain, Swelling, Extremity Pain, -, - Skin: Denies: Rash, Wounds Neurological: Reports: Weakness. Denies: Headache, Parasthesia Psych: Reports: Depression, Anxiety. Denies: Suicidal thoughts, Suicidal ideations Endocrine: Denies: Polyuria, Polydipsia Hematologic: Denies: Easy bruising, Easy bleeding Allergy: Denies: Uticaria, Swelling of the mouth, Swelling of the tongue Physical Exam Vital Signs/Narrative: Vital Signs Temp Pulse Resp BP Pulse Ox 04/14/19 10:20 98.5 F 129 H 18 202/79 H 99 Inital Vital Signs reviewed: Yes General: Well nourished, Well developed, Acute Distress, - - Skin appears jaundiced. He has mottling of his skin with delayed capillary refill. He does not look well. Head: Normocephalic, Atraumatic. Negative for: Trauma, Tenderness Eyes: Perrl, EOMI, Scleral icterus. Negative for: Pale conjunctiva ENT: No rhinorrhea, TM's clear. Negative for: Nasal congestion, Sinus tenderness Neck: Supple, Nontender, No lymphadenopathy, No JVD Cardiovascular: Regular rhythm, No murmurs, Normal S1, Normal S2, Tachycardia Respiratory: No distress, CTA bilaterally, Chest nontender Abdomen: Soft, Nontender, Nondistended, Normal bowel sounds, No masses Rectal: Deferred Back: Negative for: Nontender, Normal Inspection Extremities: Nontender, No edema. Negative for: Tenderness Skin: No rash - Lenticular rash. Pallor to digits. Coolness to extremities with delayed capillary refill, Jaundice, No Trauma. Negative for: Normal color, Pallor, Trauma Neurological: Alert, Oriented x3, Cranial nerves II-XII grossly intact, Normal Strength, Normal Sensation. Negative for: Normal DTR - Patient is hyperreflexic with 3-4 beats of clonus at the ankle. There is no Babinski sign. Gait was not assessed. Psychological: Depressed Diagnostic/Tx/Re-eval Laboratory Results 04/14/19 04/14/19 04/14/19 10:50 10:50 10:50 WBC 10.4 RBC 5.74 Hgb 16.3 Hct 48.9 MCV 85.2 MCH 28.4 MCHC 33.3 RDW Std Deviation 42.3 RDW Coeff of Kaye 13.7 Plt Count 357 MPV 8.3 Immature Gran % (Auto) 0.500 Neut % (Auto) 72.2 H Lymph % (Auto) 18.7 L [place] % (Auto) 7.8 Eos % (Auto) 0.1 Baso % (Auto) 0.7 Absolute Neuts (auto) 7.5 Absolute Lymphs (auto) 1.94 Nucleated RBC % 0 PT 12.1 INR 0.9 Sodium 134 L Potassium 4.0 Chloride 92 L Carbon Dioxide 20.0 L Anion Gap 22 H BUN 14 Creatinine 1.16 Estim Creat Clear Calc 70.26 Est GFR (MDRD) Af Amer 83 Est GFR (MDRD) Non-Af 69 BUN/Creatinine Ratio 12.1 Glucose 290 H Lactic Acid Calcium 9.1 Total Bilirubin 0.40 AST 32 ALT 40 Alkaline Phosphatase 121 H Total Protein 7.8 Albumin 4.1 Globulin 3.7 Albumin/Globulin Ratio 1.1 Ethyl Alcohol 04/14/19 04/14/19 10:50 10:50 WBC RBC Hgb Hct MCV MCH MCHC RDW Std Deviation RDW Coeff of Kaye Plt Count MPV Immature Gran % (Auto) Neut % (Auto) Lymph % (Auto) [place] % (Auto) Eos % (Auto) Baso % (Auto) Absolute Neuts (auto) Absolute Lymphs (auto) Nucleated RBC % PT INR Sodium Potassium Chloride Carbon Dioxide Anion Gap BUN Creatinine Estim Creat Clear Calc Est GFR (MDRD) Af Amer Est GFR (MDRD) Non-Af BUN/Creatinine Ratio Glucose Lactic Acid 13.4 H* Calcium Total Bilirubin AST ALT Alkaline Phosphatase Total Protein Albumin Globulin Albumin/Globulin Ratio Ethyl Alcohol 166.0 Lactate is markedly elevated. Patient is not on metformin. This may be secondary to alcoholism and or diabetes. Patient did improve after IV phenobarb. He is still tachycardic. Will page hospitalist for admission. Alcohol level is 166. Legally he is intoxicated. Clinically he is not intoxicated. Suspect he has a much higher level based on the amount of alcohol he he admits to consuming, 1/5 of vodka per day. INR is normal which indicates normal liver function. - Medical Decision Making With pallor to digits and concern patient may have rainouts phenomena. With delayed capillary refill lenticular rash concern patient is not perfusing well. Since he is tachycardic hyperreflexic concerned he has symptoms of alcohol withdrawal. He does give symptoms of improvement after consuming 1 can of beer. He states he drank only 1 cane because at all he has left in his house. He is presently on disability for psychiatric reasons. He states he is not compliant with his psychiatric meds. As previously documented he was recently admitted for depression. - Critical Care Time Critical care time (excluding procedures): 30-74 minutes - Patient has a markedly elevated lactate level which has a poor prognosis. Clinically he was in shock and at time of presentation with poor perfusion and lenticular rash. He did improve after IV phenobarb. Since he is still tachycardic will administer another dose of phenobarbital., Discussing w/Patient &/or Family/Adult Basic Education Instructor, Discussing w/Consultants, Arranging Admission or Transfer ED Disposition - Plan for ED Patient: Disposition: Acute Care Hospital [facility] Diagnosis: Alcohol withdrawal seizure with complication, Lactic acidosis, Sinus tachycardia by electrocardiography, Hyperglycemia due to type 1 diabetes mellitus Referrals: Elijha Plascencia MD [Primary Care Provider] -
[2019-04-14 11:13] LABS: ALB/GLOB Ratio 1.1 RATIO (0.9-2.4); AST(SGOT) 32 U/L (15-37); Alanine Aminotransfer ALT/SGPT 40 U/L (16-61); Albumin, Serum 4.1 g/dL (3.2-5.0); Alkaline Phosphatase 121 U/L (45-117); Anion Gap 22 (5-15); BUN 14 mg/dL (7-18); BUN/Creat Ratio 12.1 RATIO (10-20); Calcium,Total 9.1 mg/dL (8.5-10.1); Chloride 92 mmol/L (98-107); Creatinine, Serum 1.16 mg/dL (0.70-1.30); EST Glomerular Filtration Rate 69 mL/min (>60); Est Glom Filt Rate - Afr Amer 83 mL/min (>60); Estimated Creatinine Clearance 70.26 ml/min; Globulin 3.7 g/dL (2.2-4.2); Glucose 290 mg/dL (74-106); Protein, Total 7.8 g/dL (6.4-8.2); Sodium Level 134 mmol/L (136-145)
[2019-04-14] MEDS: Phenobarbital Sodium 130 MG/ML Vial 100 MG IV ×2 (11:28→13:26)
[2019-04-14 11:29] LABS: Lactic Acid 13.4 mmol/L (0.4-1.9)
--- NOTE | 2019-04-14 12:57 | NURSING ---
PCU ALCOHOL WITHDRAWAL, LACTIC ACIDOSIS TAYLOR
--- NOTE | 2019-04-14 13:50 | HP.PCM_ITS ---
History of Present Illness Date of Admission: 04/14/19 Chief Complaint: Alcohol withdrawal The patient is a 58 year old M with a PMH as below presents to the hospital to undergo detox. He has been an alcoholic for quite a few years and last April was in a rehab facility. He states that he normally drinks about 1/5 of vodka every day and this morning he woke up and was shaking and had a can of beer, but decided to come in for withdrawal-like symptoms and to undergo alcohol detox. He denies any fevers or chills. He has not been around anybody sick. He denies any shortness of breath or chest pain. He states that aside from the alcohol withdrawal symptoms, he feels fine. In the ER he was found to be tachycardic with an elevated blood pressure and a mean arterial pressure of 120. His lactic acid was elevated to 13.4 which is likely a false elevation secondary to no significant cause and his bicarb was normal at 20. No signs of infection anywhere, there is no IV fluids given in the ER but he was given 2 doses of phenobarbital and admitted for detox. He states it is been about a week since he is taken any of his diabetic medications, and he has not been eating or drinking very well. Past Medical History Past Medical History (Chronic Problems): Chronic Problems (Last Reviewed 02/24/19 @ 18:13 by Emily Macdonald DO) Alcohol abuse, in remission (Chronic) has not had a drink since Nov 2018 Tobacco dependence (Chronic) 1 PPD since 5-6 YOA Stented coronary artery (Chronic) RCA - 09/08/16 Severe major depression (Chronic) Suicide attempt (Chronic) December 2018 - insulin OD Type 2 diabetes mellitus (Chronic) Hypertension (Chronic) Anxiety (Chronic) Depression (Chronic) Neuropathy (Chronic) Atherosclerosis of coronary artery of [place] heart without angina pectoris (Chronic) [facility] 09/2016 @ [place] Erectile dysfunction (Chronic) Diabetes type 2, uncontrolled (Chronic) Medical History: Medical History (Last Reviewed 02/24/19 @ 18:13 by Emily Macdonald DO) Suicide attempt (Resolved) T14.91XA Fracture of wrist (Inactive) S62.109A Rt wrist NSVT (nonsustained ventricular tachycardia) (Resolved) I47.2 Anxiety (Chronic) F41.9 Depression (Chronic) F32.9 Neuropathy (Chronic) G62.9 Atherosclerosis of coronary artery of [place] heart without angina pectoris (Chronic) I25.10 [facility] 09/2016 @ [place] Hypertension, uncontrolled (Inactive) I10 Erectile dysfunction (Chronic) N52.9 Diabetes type 2, uncontrolled (Chronic) E11.65 Non-ST elevation (NSTEMI) myocardial infarction (Resolved) I21.4 Allergies No Known Allergies Allergy (Verified 04/14/19 10:21) Home Medications: Ambulatory Orders Medication Instructions Recorded Famotidine 20 mg PO BID #60 tab 02/26/19 Gabapentin [Neurontin] 200 mg PO DAILY #30 cap 02/26/19 Insulin Glargine [Lantus SoloStar 20 units SUBCUT BID #1 pen 02/26/19 Pen] Insulin Glargine [Lantus SoloStar 25 units SUBCUT BID pen 02/26/19 Pen] Lisinopril 40 mg PO QDAY #30 tab 02/26/19 Metoprolol Tartrate 25 mg PO BID #60 tab 02/26/19 Mirtazapine 15 mg PO QHS #30 tab 02/26/19 Ticagrelor [Brilinta] 90 mg PO BID #60 tab 02/26/19 Venlafaxine HCl [Venlafaxine HCl 225 mg PO QDAY #30 tab 02/26/19 ER] busPIRone [Buspar] 15 mg PO BID #60 tab 02/26/19 atorvastatin 40 mg tablet 40 mg PO QHS #90 tab 04/02/19 folic acid 1 mg tablet 1 mg PO DAILY #90 tab 04/02/19 insulin NPH-regular 70-30 U-100 See Rx Instructions SC .COMPLEX 04/02/19 insulin 100 unit/mL subcutaneous #15 ml pen metformin 1,000 mg tablet 1,000 mg PO BIDCM #60 tab 04/04/19 thiamine HCl (vitamin B1) 100 mg 100 mg PO DAILY #90 tab 04/04/19 tablet Surgical History: Surgical History (Last Reviewed 02/24/19 @ 18:15 by Emily Macdonald DO) History of left cataract extraction Z98.42 11/21/18 H/O right coronary artery stent placement Onset Date: ~09/08/16 Z95.5 [facility] @ [place] Psychiatric History: Anxiety, Depression, Prior suicide attempt Lives: Alone Smoking Status: Current every day smoker Tobacco Use: Cigarettes Alcohol: Heavy Drugs: Marijuana - Occasionally Review of Systems Constitutional: Reports: Malaise. Denies: Chills, Fever HEENT: Denies: Head Aches, Sinus Congestion, Sinus Drainage Cardiovascular: Reports: Palpitations. Denies: Chest Pain Respiratory: Denies: Cough, Shortness of breath at rest, Sputum production Gastrointestinal: Denies: Abdominal Pain, Nausea, Vomiting Genitourinary: Denies: Dysuria Musculoskeletal: Denies: Joint Pain, Joint Tenderness Skin: Denies: Rash, Wounds Neurological: Reports: Tremor. Denies: Focal weakness, Numbness, Tingling Psychiatric: Reports: Anxiety. Denies: Depression Hematologic/ Lymphatic: Denies: Easy Bruising, Easy Bleeding VTE Information - Inpt Only VTE Present on Admission: No Patient Problems: Active and Suspected Problems (Last Reviewed 02/24/19 @ 18:13 by Emily Macdonald DO) Alcohol withdrawal seizure with complication (Acute) Lactic acidosis (Acute) Sinus tachycardia by electrocardiography (Acute) Hyperglycemia due to type 1 diabetes mellitus (Acute) - Physical Exam Vitals/I&O's: Vital Signs Temp Pulse Resp BP Pulse Ox 98.5 F 120 H 20 H 168/75 H 96 04/14/19 10:20 04/14/19 13:05 04/14/19 13:05 04/14/19 13:05 04/14/19 13:05 Oxygen Delivery Method Room Air Weight: 153 lb 3.54 oz Body Mass Index (BMI) 22.6 Finger Stick Blood Glucose 324 General: Alert, Oriented x3, Cooperative, - - Appears anxious HEENT: Atraumatic, PERRLA, EOMI, Normocephalic Oral: Dry Mucosa Neck: Supple, No JVD Lungs: Clear to auscultation, Normal air movement, No rhonchi, No wheeze, No rales Cardiovascular: Regular Rhythm, Normal S1, Normal S2, No murmurs, Tachycardic Abdomen: Soft, Non Tender, Non-Distended, No Hepato-splenomegaly Extremities: No edema, Capillary Refill Less than 3 Seconds, - - Extremities are warm to the touch Skin: No rashes, No breakdown Neurological: Neuro grossly intact, Sensory exam intact to light touch and pain Psych/Mental Status: Anxious, Restless Laboratory Results 04/14/19 10:50: WBC 10.4, RBC 5.74, Hgb 16.3, Hct 48.9, MCV 85.2, MCH 28.4, MCHC 33.3, RDW Std Deviation 42.3, RDW Coeff of Kaye 13.7, Plt Count 357, MPV 8.3, Immature Gran % (Auto) 0.500, Neut % (Auto) 72.2 H, Lymph % (Auto) 18.7 L, [place] % (Auto) 7.8, Eos % (Auto) 0.1, Baso % (Auto) 0.7, Absolute Neuts (auto) 7.5, Absolute Lymphs (auto) 1.94, Nucleated RBC % 0 04/14/19 10:50: PT 12.1, INR 0.9 04/14/19 10:50: Sodium 134 L, Potassium 4.0, Chloride 92 L, Carbon Dioxide 20.0 L, Anion Gap 22 H, BUN 14, Creatinine 1.16, Estim Creat Clear Calc 70.26, Est GFR (MDRD) Af Amer 83, Est GFR (MDRD) Non-Af 69, BUN/Creatinine Ratio 12.1, Glucose 290 H, Calcium 9.1, Total Bilirubin 0.40, AST 32, ALT 40, Alkaline Phosphatase 121 H, Total Protein 7.8, Albumin 4.1, Globulin 3.7, Albumin/Globulin Ratio 1.1 04/14/19 10:50: Ethyl Alcohol 166.0 04/14/19 10:50: Lactic Acid 13.4 H* Current Medications Chlordiazepoxide (Librium) 0 mg PO UD NIMA; Taper Stop: 04/17/19 15:14 Dextrose (D50w Syringe) 0 gm IV X1 PRN; Protocol PRN Reason: Hypoglycemia Dicyclomine HCl (Bentyl) 20 mg PO Q6H PRN PRN PRN Reason: abdominal discomfort Enoxaparin Sodium (Lovenox) 40 mg SC DAILY [facility] Folic Acid (Folic Acid) 1 mg PO DAILY NIMA Stop: 04/17/19 08:01 Glucagon () 1 mg IM .X1 PRN PRN Reason: Hypoglycemia Hydroxyzine Pamoate (Vistaril Pamoate Capsule) 50 mg PO Q6H PRN PRN PRN Reason: Mild Anxiety (score 1/3) Sodium Chloride () 1,000 mls @ 150 mls/hr IV .Q6H40M NIMA Insulin Human Lispro (Humalog [place] (Bkc)) 0 unit SC ACHS NIMA; Protocol Lorazepam (Ativan) 2 mg IV Q2H PRN PRN PRN Reason: Severe Anxiety Lorazepam (Ativan) 2 mg IV X1 PRN PRN Reason: Seizure Methocarbamol (Methocarbamol) 750 mg PO Q6H PRN PRN PRN Reason: Muscle Aches Multivitamins (Multivitamin) 1 tablet PO DAILYCM NIMA Ondansetron HCl (Zofran) 4 mg IV Q8H PRN PRN PRN Reason: NAUSEA/VOMITING Thiamine HCl (Vitamin B1) 100 mg PO DAILYCM [facility] Stop: 04/17/19 08:01 Assessment/Plan All Active Problems (Last Reviewed 02/24/19 @ 18:13 by Emily Macdonald DO) DKA, type 2 (Acute) Hyponatremia (Acute) Acute renal failure (Acute) Dehydration (Acute) GERD (gastroesophageal reflux disease) (Acute) Alcohol withdrawal seizure with complication (Acute) Lactic acidosis (Acute) Sinus tachycardia by electrocardiography (Acute) Hyperglycemia due to type 1 diabetes mellitus (Acute) Suicide attempt (Resolved) NSVT (nonsustained ventricular tachycardia) (Resolved) Alcohol abuse (Resolved) Non-ST elevation (NSTEMI) myocardial infarction (Resolved) Overdose of insulin (Resolved) Suicidal ideation (Resolved) 1. Alcohol withdrawal/anxiety/depression -We will continue with Ativan as well as Librium -We will continue with alcohol withdrawal protocol -We will have a low threshold for transfer to the ICU on a Precedex drip -Continue with his BuSpar, Remeron, Effexor -Alcohol level on admission was 166, and there is no jaundice since his total bilirubin is only 0.4 2. Metabolic anion gap acidosis/lactic acidosis -His lactic acid is 13.4, there is no signs of infection and he is not having a fever -He has no sirs criteria and given the fact that he is alert and oriented and his bicarb is 20 I feel like his lactic acid is falsely elevated -We will still place him on IV fluids given the fact that he has not had anything to eat or drink and his blood sugar is 290 -We will continue to monitor however at the moment I feel like these readings are false readings 3. DM 2 -States that he has not taken anything in over a week, will hold his metformin -We will continue him on sliding scale insulin as well as his home long-acting insulin 4. CAD status post stents/HTN/HLD -We will continue with his lisinopril, metoprolol, Brilinta, Lipitor -Blood pressure is elevated but this is likely secondary to the agitation and the fact that he has not taken any of his meds for a while, therefore we will manage this with Ativan and restarting his home meds DVT: Lovenox Code Visit Inpatient E&M: 10395 Init Hosp L3
[2019-04-14] MEDS: 0.9% Normal Saline 1,000 ML 150 ML IV ×2 (14:10→19:39)
[2019-04-14] MEDS: LORazepam 2 MG/ML Syringe IV ×2 (14:12→16:47)
[2019-04-14] MEDS: chlordiazePOXIDE 25 MG Capsule PO ×2 (14:12→19:38)
[2019-04-14 14:55] LABS: Reflex Lactate? Y
[2019-04-14 14:56] LABS: Bedside Glucose 234 mg/dL (70-110)
[2019-04-14] MEDS: Insulin Lispro 100 UNIT/ML INSULN.PEN SC ×3 (15:03→21:10)
[2019-04-14] MEDS: 0.9% Saline Lock 10 ML Syringe IV (15:04)
[2019-04-14 15:58] LABS: Lactic Acid 4.5 mmol/L (0.4-1.9)
[2019-04-14 16:56] LABS: Bedside Glucose 309 mg/dL (70-110)
[2019-04-14 21:21] LABS: Bedside Glucose 282 mg/dL (70-110)
--- NOTE | 2019-04-14 22:17 | NURSING ---
Pt is cooperative at this time. No reports of hallucinations. C/O not being able to sleep. Nurse has entered room numerous times, and pt resting in bed with eyes closed with snoring respirations. Becomes alert to verbal stimulus but readily closes eyes and starts snoring respirations when not being addressed.
[2019-04-15] VITALS (15 sets, daily range): BP systolic 138–162; BP diastolic 61–90; PULSE 88–93; RESP 15–22; TEMP 36.1–36.8; O2SAT 96–100
[2019-04-15] MEDS: chlordiazePOXIDE 25 MG Capsule PO ×4 (01:57→23:00)
[2019-04-15] MEDS: 0.9% Normal Saline 1,000 ML 150 ML IV ×2 (01:58→08:35)
--- NOTE | 2019-04-15 05:16 | NURSING ---
Pt has decreased through night in CIWA score. Has been cooperative and A&Ox3. Pt status down graded from Stepdown to Tele pt, per general science teacher Angie.
[2019-04-15 06:00] LABS: Absolute Neutrophil Count 5.6 X10^3/uL (2.0-7.7); Basophil# 0.04 X10^3/uL; Basophil% 0.5 % (0-1); Eosinophil# 0.02 X10^3/uL; Eosinophils% 0.2 % (0-5); Hematocrit 44.1 % (40-54); Hemoglobin 14.8 g/dL (13.0-16.5); Lymphocyte % 22.9 % (19-41); Mean Corp Hgb Conc 33.6 g/dL (32-36); Mean Corpuscular Hgb 28.6 pg (27.0-32.0); Mean Corpuscular Volume 85.3 fL (80-94); Mean Platelet Vol. 8.3 fl (6.2-12.0); Monocyte# 0.69 X10^3/uL; Monocyte% 8.3 % (0-10); NRBC Flagged by Analyzer 0 % (0-5); Neutrophil % 67.7 % (47-70); Platelet Count 227 K/mm3 (150-450); RBC Distribution Width CV 13.3 % (11.6-14.6); RBC Distribution Width SD 41.5 fl (35.1-43.9); Red Blood Count 5.17 M/mm3 (4.6-6.2); White Blood Count 8.3 K/mm3 (4.4-11.0)
[2019-04-15] MEDS: Methocarbamol 750 MG Tablet PO ×3 (06:05→19:21)
[2019-04-15 06:13] LABS: Anion Gap 5 (5-15); BUN 13 mg/dL (7-18); BUN/Creat Ratio 17.1 RATIO (10-20); Calcium,Total 8.2 mg/dL (8.5-10.1); Chloride 100 mmol/L (98-107); Creatinine, Serum 0.76 mg/dL (0.70-1.30); EST Glomerular Filtration Rate 112 mL/min (>60); Est Glom Filt Rate - Afr Amer 135 mL/min (>60); Estimated Creatinine Clearance 105.42 ml/min; Glucose 147 mg/dL (74-106); Potassium 3.6 mmol/L (3.5-5.1); Sodium Level 135 mmol/L (136-145)
[2019-04-15] MEDS: Insulin Lispro 100 UNIT/ML INSULN.PEN SC ×4 (08:39→22:55)
[2019-04-15] MEDS: Folic Acid 1 MG Tablet PO (08:40)
[2019-04-15] MEDS: Multivitamins,Therapeutic Tablet 1 TABLET PO (08:41)
[2019-04-15] MEDS: Thiamine Hydrochloride 100 MG Tablet PO (08:41)
[2019-04-15] MEDS: Enoxaparin 40 MG/0.4 ML Syringe SC (08:41)
[2019-04-15 08:56] LABS: Bedside Glucose 305 mg/dL (70-110)
[2019-04-15] MEDS: hydrOXYzine PAM 25 MG Capsule 50 MG PO ×2 (09:43→20:21)
--- NOTE | 2019-04-15 10:29 | CASEMGMT ---
SW will talk with patient once he is awake and feeling better. He is currently going through alcohol withdrawal. He was just given medicine for anxiety. SW will follow to discuss patient's plan at d/c. Charito JULIAN
--- NOTE | 2019-04-15 11:16 | PN_ITS ---
Patient Problems: Active and Suspected Problems (Last Reviewed 02/24/19 @ 18:13 by Emily Macdonald DO) Alcohol withdrawal seizure with complication (Acute) Lactic acidosis (Acute) Sinus tachycardia by electrocardiography (Acute) Hyperglycemia due to type 1 diabetes mellitus (Acute) Subjective: Complains of having some anxiety as well as tremors. He is little bit sleepy today. Vitals/I&O's: Vital Signs Temp Pulse Resp BP Pulse Ox 97.8 F 88 16 145/78 H 97 04/15/19 09:30 04/15/19 10:48 04/15/19 09:30 04/15/19 09:30 04/15/19 09:30 Oxygen Delivery Method Room Air Weight: 153 lb 3.54 oz Body Mass Index (BMI) 22.6 Finger Stick Blood Glucose 324 Intake and Output for Last 24 Hours 04/13/19 04/14/19 04/15/19 23:59 23:59 23:59 Intake Total 2147.5 / 2147.5 1665.0 / 1665.0 Output Total 875 / 875 850 / 850 Balance 1272.5 / 1272.5 815.0 / 815.0 General: Alert, Oriented x3, Cooperative, - - Appears anxious HEENT: Atraumatic, PERRLA, EOMI, Normocephalic Oral: Dry Mucosa Neck: Supple, No JVD Lungs: Clear to auscultation, Normal air movement, No rhonchi, No wheeze, No rales Cardiovascular: Regular Rhythm, Normal S1, Normal S2, No murmurs, Tachycardic Abdomen: Soft, Non Tender, Non-Distended, No Hepato-splenomegaly Extremities: No edema, Capillary Refill Less than 3 Seconds, - - Extremities are warm to the touch Skin: No rashes, No breakdown Neurological: Neuro grossly intact, Sensory exam intact to light touch and pain Psych/Mental Status: Anxious, Restless Laboratory Results 04/14/19 10:50: Ethyl Alcohol 166.0 04/14/19 10:50: Lactic Acid 13.4 H* 04/14/19 14:50: POC Glucose 234 H 04/14/19 14:55: Lactic Acid 4.5 H* 04/14/19 16:42: POC Glucose 309 H 04/14/19 21:09: POC Glucose 282 H 04/15/19 05:30: WBC 8.3, RBC 5.17, Hgb 14.8, Hct 44.1, MCV 85.3, MCH 28.6, MCHC 33.6, RDW Std Deviation 41.5, RDW Coeff of Kaye 13.3, Plt Count 227, MPV 8.3, Immature Gran % (Auto) 0.400, Neut % (Auto) 67.7, Lymph % (Auto) 22.9, [place] % (Auto) 8.3, Eos % (Auto) 0.2, Baso % (Auto) 0.5, Absolute Neuts (auto) 5.6, Absolute Lymphs (auto) 1.90, Nucleated RBC % 0 04/15/19 05:30: Sodium 135 L, Potassium 3.6, Chloride 100, Carbon Dioxide 30.0, Anion Gap 5, BUN 13, Creatinine 0.76, Estim Creat Clear Calc 105.42, Est GFR (MDRD) Af Amer 135, Est GFR (MDRD) Non-Af 112, BUN/Creatinine Ratio 17.1, Glucose 147 H, Calcium 8.2 L 04/15/19 08:30: POC Glucose 305 H Current Medications Chlordiazepoxide (Librium) 50 mg PO Q8H [facility]; Taper Stop: 04/17/19 15:59 Last Admin: 04/15/19 08:40 Dose: 50 mg Documented by: Dicyclomine HCl (Bentyl) 20 mg PO Q6H PRN PRN PRN Reason: abdominal discomfort Enoxaparin Sodium (Lovenox) 40 mg SC DAILY [facility] Last Admin: 04/15/19 08:41 Dose: 40 mg Documented by: Folic Acid (Folic Acid) 1 [facility] Stop: 04/17/19 08:01 Last Admin: 04/15/19 08:40 Dose: 1 mg Documented by: Glucagon () 1 mg IM .X1 PRN PRN Reason: Hypoglycemia Hydroxyzine Pamoate (Vistaril Pamoate Capsule) 50 mg PO Q6H PRN PRN PRN Reason: Mild Anxiety (score 1/3) Last Admin: 04/15/19 09:43 Dose: 50 mg Documented by: Sodium Chloride () 1,000 mls @ 150 mls/hr IV .Q6H40M [facility] Last Admin: 04/15/19 08:35 Dose: 150 mls/hr Documented by: Dextrose (Dextrose 10%-Water) 250 mls @ 999 mls/hr IV .Q16M PRN; Protocol PRN Reason: HYPOGLYCEMIA Insulin Glargine (Lantus (Bk)) 15 units SC BID [facility] Last Admin: 04/15/19 08:33 Dose: 15 units Documented by: Insulin Human Lispro (Humalog Kwikpen (Bk)) 0 unit SC ACHS [facility]; Protocol Last Admin: 04/15/19 08:39 Dose: 6 units Documented by: Lorazepam (Ativan) 2 mg IV Q2H PRN PRN PRN Reason: Severe Anxiety Last Admin: 04/14/19 16:47 Dose: 2 mg Documented by: Lorazepam (Ativan) 2 mg IV X1 PRN PRN Reason: Seizure Methocarbamol (Methocarbamol) 750 mg PO Q6H PRN PRN PRN Reason: Muscle Aches Last Admin: 04/15/19 06:05 Dose: 750 mg Documented by: Multivitamins (Multivitamin) 1 tablet PO DAILY[facility] Last Admin: 04/15/19 08:41 Dose: 1 tablet Documented by: Nutritional Formula (Lactose Free) (Ensure Enlive) 120 ml PO TID [facility] Last Admin: 04/15/19 05:28 Dose: 120 ml Documented by: Ondansetron HCl (Zofran) 4 mg IV Q8H PRN PRN PRN Reason: NAUSEA/VOMITING Sodium Chloride () 10 - 40 ml IV UD PRN PRN Reason: SALINE FLUSH Last Admin: 04/14/19 15:04 Dose: 10 ml Documented by: Thiamine HCl (Vitamin B1) 100 mg PO DAILY[facility] Stop: 04/17/19 08:01 Last Admin: 04/15/19 08:41 Dose: 100 mg Documented by: STROKE Vital Signs/Narrative: Vital Signs Temp Pulse Resp BP Pulse Ox 04/15/19 10:48 88 04/15/19 09:30 97.8 F 89 16 145/78 H 97 04/15/19 07:18 92 Medical Necessity - Tobacco Use Smoking Status: Current every day smoker Tobacco Use: Cigarettes Assessment/Plan All Active Problems (Last Reviewed 02/24/19 @ 18:13 by Emily Macdonald DO) DKA, type 2 (Acute) Hyponatremia (Acute) Acute renal failure (Acute) Dehydration (Acute) GERD (gastroesophageal reflux disease) (Acute) Alcohol withdrawal seizure with complication (Acute) Lactic acidosis (Acute) Sinus tachycardia by electrocardiography (Acute) Hyperglycemia due to type 1 diabetes mellitus (Acute) Suicide attempt (Resolved) NSVT (nonsustained ventricular tachycardia) (Resolved) Alcohol abuse (Resolved) Non-ST elevation (NSTEMI) myocardial infarction (Resolved) Overdose of insulin (Resolved) Suicidal ideation (Resolved) 1. Alcohol withdrawal/anxiety/depression -We will continue with Ativan as well as Librium -We will continue with alcohol withdrawal protocol -We will have a low threshold for transfer to the ICU on a Precedex drip -Continue with his BuSpar, Remeron, Effexor -Alcohol level on admission was 166, and there is no jaundice since his total bilirubin is only 0.4 2. Metabolic anion gap acidosis/lactic acidosis -His lactic acid is 13.4 on admission however decreased to 4.5 and his anion gap completely resolved -He has no sirs criteria and given the fact that he is alert and oriented and his bicarb is 20 I feel like his lactic acid is falsely elevated -We will still place him on IV fluids given the fact that he has not had anything to eat or drink and his blood sugar is 29 on admission -His lactic acidosis and his metabolic anion gap I think were falsely elevated and not real, could be secondary to having a prolonged tourniquet during blood draws. 3. DM 2 -States that he has not taken anything in over a week, will hold his metformin -We will continue him on sliding scale insulin as well as his home long-acting insulin 4. CAD status post stents/HTN/HLD -We will continue with his lisinopril, metoprolol, Brilinta, Lipitor -Blood pressure is elevated but this is likely secondary to the agitation and the fact that he has not taken any of his meds for a while, therefore we will manage this with Ativan and restarting his home meds DVT: Lovenox Code Visit Inpatient E&M: 56654 Subs Hosp L2
[2019-04-15 11:20] LABS: Bedside Glucose 176 mg/dL (70-110)
--- NOTE | 2019-04-15 12:07 | CASEMGMT ---
Addendum entered by Charito Adames 04/15/19 12:21: SW did call the technology solutions architect and he will come talk with patient. Charito JULIAN Original Note: SW spoke with patient, introduced self and role at [facility]. Patient was sitting up in bed eating his lunch. He was okay with talking to SW. Patient said he can't quit drinking. SW asked abou this supports and he said he doesn't have any. He hasn't been going to AA meetings, because he has been drinking. He said he was in [facility] a couple of weeks ago as he felt suicidal. SW asked him if he felt suicidal or homicidal now and he said, No. He said he just feels scared and all alone. SW told him he is in a safe place right now. SW asked if he would like the technology solutions architect to come and say a prayer with him and he said he would like that. SW asked him if he would like SW to call [facility] to make an appt for him. He said he did not know. SW asked him if he would like SW to check back tomorrow regarding what he would like to do at d/c. He said he would like SW to check back. SW to follow. Charito JULIAN
--- NOTE | 2019-04-15 14:52 | CHAPLAIN ---
Type of Pastoral Visit _x__ Initial Visit ___ Follow-up Visit ___ On-call Visit ___ General Patient Visit ___ Spiritual Assessment ___ Family Conference ___ Bereavement ___ Rapid Response ___ Code Blue ___ Other (describe below) Pastoral Care Referral From _x__ Patient ___ Family _x__ Nurse ___ Physician _x__ Thrill Performer ___ Electric Transfer Operator ___ Other (describe below) Sacrament/Intervention _x__ Active listening ___ Anointing ___ Evangelical ___ Bereavement ___ Communion ___ Eloise exploration ___ ___ Life review _x__ Prayer ___ Reconciliation ___ Sacrament of Sick ___ Supportive presence ___ Wedding ___ Other (describe below) Pastoral Comments patient desired for spiritual support from surface plate inspector; pt however kept falling asleep; offer made to return another time which was acceptable to pt
[2019-04-15 16:10] LABS: Bedside Glucose 210 mg/dL (70-110)
--- NOTE | 2019-04-15 16:15 | NURSING ---
This RN taking over care at this time
--- NOTE | 2019-04-15 17:00 | CHAPLAIN ---
Type of Pastoral Visit ___ Initial Visit _x__ Follow-up Visit ___ On-call Visit ___ General Patient Visit ___ Spiritual Assessment ___ Family Conference ___ Bereavement ___ Rapid Response ___ Code Blue ___ Other (describe below) Pastoral Care Referral From _x__ Patient ___ Family ___ Nurse ___ Physician ___ Irradiated Fuel Handler ___ Special Events Manager ___ Other (describe below) Sacrament/Intervention _x__ Active listening ___ Anointing ___ Amish ___ Bereavement ___ Communion _x__ Eloise exploration ___ _x__ Life review _x__ Prayer ___ Reconciliation ___ Sacrament of Sick _x__ Supportive presence ___ Wedding ___ Other (describe below) Pastoral Comments on this second visit of the day the patient was alert and able to focus; pt was sharing much about his life history and his fears about his future; pt is seeking spiritual support and intervention; pt and clerical grader discuss biblical understanding and forgiveness; pt states that he had attempted suicide two weeks ago but that today I want to live more than ever; upon further questioning pt states that he does not have any suicidal thoughts and has no plans for suicide attempts at this time; pt says that he has no family and my only sister disowned me a long time ago and that a girlfriend is off and on; pt says that he sits alone in his apartment all day; pt is open to alcohol support groups and eloise based groups for recovery
[2019-04-15] MEDS: 0.9% Normal Saline 1,000 ML 100 ML IV (17:18)
[2019-04-15 23:11] LABS: Bedside Glucose 197 mg/dL (70-110)
[2019-04-16] VITALS (11 sets, daily range): BP systolic 131–151; BP diastolic 62–84; PULSE 75–90; RESP 16–18; TEMP 36.3–36.8; O2SAT 96–99
[2019-04-16] MEDS: 0.9% Normal Saline 1,000 ML 100 ML IV ×3 (03:46→23:18)
[2019-04-16] MEDS: hydrOXYzine PAM 25 MG Capsule 50 MG PO ×2 (03:53→13:19)
[2019-04-16] MEDS: Insulin Lispro 100 UNIT/ML INSULN.PEN SC ×3 (06:42→16:58)
--- NOTE | 2019-04-16 06:47 | NURSING ---
pt request to be d/c today. Pt stated he can do this at home. Pt is willing to wait to see md today before leaving
[2019-04-16 06:50] LABS: Bedside Glucose 231 mg/dL (70-110)
[2019-04-16 07:16] LABS: Bedside Glucose 237 mg/dL (70-110)
[2019-04-16 07:16] LABS: Bedside Glucose 214 mg/dL (70-110)
[2019-04-16] MEDS: chlordiazePOXIDE 25 MG Capsule PO ×2 (08:38→16:58)
[2019-04-16] MEDS: Multivitamins,Therapeutic Tablet 1 TABLET PO (10:03)
[2019-04-16] MEDS: Folic Acid 1 MG Tablet PO (10:03)
[2019-04-16] MEDS: Enoxaparin 40 MG/0.4 ML Syringe SC (10:03)
[2019-04-16] MEDS: TICAGRELOR 90 MG TABLET PO ×2 (10:05→21:36)
[2019-04-16] MEDS: Lisinopril 40 MG Tablet PO (10:05)
[2019-04-16] MEDS: Metoprolol Tartrate 25 MG Tablet PO ×2 (10:05→21:39)
[2019-04-16] MEDS: Thiamine Hydrochloride 100 MG Tablet PO (10:05)
--- NOTE | 2019-04-16 10:47 | PN_ITS ---
Patient Problems: Active and Suspected Problems (Last Reviewed 02/24/19 @ 18:13 by Emily Macdonald DO) Alcohol withdrawal seizure with complication (Acute) Lactic acidosis (Acute) Sinus tachycardia by electrocardiography (Acute) Hyperglycemia due to type 1 diabetes mellitus (Acute) Subjective: So that he was sweating a lot last night, still with some anxiety and tremors, CIWA this morning around 8 AM was 7 Vitals/I&O's: Vital Signs Temp Pulse Resp BP Pulse Ox 98 F 90 16 137/65 H 96 04/16/19 09:40 04/16/19 10:05 04/16/19 09:40 04/16/19 09:40 04/16/19 09:40 Oxygen Delivery Method Room Air Weight: 153 lb 3.54 oz Body Mass Index (BMI) 22.6 Finger Stick Blood Glucose 324 Intake and Output for Last 24 Hours 04/14/19 04/15/19 04/16/19 23:59 23:59 23:59 Intake Total 2147.5 / 2147.5 4618.33 / 4618.33 1240 / 1240 Output Total 875 / 875 2450 / 2450 Balance 1272.5 / 1272.5 2168.33 / 2168.33 1240 / 1240 General: Alert, Oriented x3, Cooperative, - - Appears anxious HEENT: Atraumatic, PERRLA, EOMI, Normocephalic Oral: Moist Mucosa Neck: Supple, No JVD Lungs: Clear to auscultation, Normal air movement, No rhonchi, No wheeze, No rales Cardiovascular: Regular Rate and Rhythm, Normal S1, Normal S2, No murmurs Abdomen: Soft, Non Tender, Non-Distended, No Hepato-splenomegaly Extremities: No edema, Capillary Refill Less than 3 Seconds, - - Extremities are warm to the touch Skin: No rashes, No breakdown Neurological: Neuro grossly intact, Sensory exam intact to light touch and pain Psych/Mental Status: Anxious, Restless Laboratory Results 04/15/19 06:28: POC Glucose 237 H 04/15/19 06:29: POC Glucose 214 H 04/15/19 11:14: POC Glucose 176 H 04/15/19 15:48: POC Glucose 210 H 04/15/19 22:54: POC Glucose 197 H 04/16/19 06:41: POC Glucose 231 H Current Medications Atorvastatin Calcium (Lipitor) 40 mg PO QHS [facility] Buspirone HCl (Buspar) 15 mg PO BID [facility] Chlordiazepoxide (Librium) 50 mg PO Q8H [facility]; Taper Stop: 04/17/19 15:59 Last Admin: 04/16/19 08:38 Dose: 50 mg Documented by: Dicyclomine HCl (Bentyl) 20 mg PO Q6H PRN PRN PRN Reason: abdominal discomfort Enoxaparin Sodium (Lovenox) 40 mg SC DAILY [facility] Last Admin: 04/16/19 10:03 Dose: 40 mg Documented by: Folic Acid (Folic Acid) [facility] Stop: 04/17/19 08:01 Last Admin: 04/16/19 10:03 Dose: 1 mg Documented by: Glucagon () 1 mg IM .X1 PRN PRN Reason: Hypoglycemia Hydroxyzine Pamoate (Vistaril Pamoate Capsule) 50 mg PO Q6H PRN PRN PRN Reason: Mild Anxiety (score 1/3) Last Admin: 04/16/19 03:53 Dose: 50 mg Documented by: Sodium Chloride () 1,000 mls @ 100 mls/hr IV .Q10H [facility] Last Admin: 04/16/19 03:46 Dose: 100 mls/hr Documented by: Dextrose (Dextrose 10%-Water) 250 mls @ 999 mls/hr IV .Q16M PRN; Protocol PRN Reason: HYPOGLYCEMIA Insulin Human Lispro (Humalog Kwikpen (Bkc)) 0 unit SC ACHS [facility]; Protocol Last Admin: 04/16/19 06:42 Dose: 4 units Documented by: Insulin Lispro Protam/Lispro Human (Humalog Mix 75-25 Kwikpen (Bkc)) 20 unit SC BREAKFAST [facility] Insulin Lispro Protam/Lispro Human (Humalog Mix 75-25 Kwikpen (Bkc)) 25 unit SC DINNER [facility] Lisinopril (Zestril) 40 mg PO DAILY [facility] Last Admin: 04/16/19 10:05 Dose: 40 mg Documented by: Lorazepam (Ativan) 2 mg IV Q2H PRN PRN PRN Reason: Severe Anxiety Last Admin: 04/14/19 16:47 Dose: 2 mg Documented by: Lorazepam (Ativan) 2 mg IV X1 PRN PRN Reason: Seizure Methocarbamol (Methocarbamol) 750 mg PO Q6H PRN PRN PRN Reason: Muscle Aches Last Admin: 04/15/19 19:21 Dose: 750 mg Documented by: Metoprolol Tartrate (Lopressor (Beta Ana)) 25 mg PO BID [facility] Last Admin: 04/16/19 10:05 Dose: 25 mg Documented by: Mirtazapine (Remeron) 15 mg PO QHS [facility] Multivitamins (Multivitamin) [facility] Last Admin: 04/16/19 10:03 Dose: 1 tablet Documented by: Nutritional Formula (Lactose Free) (Ensure Enlive) 120 ml PO TID [facility] Last Admin: 04/16/19 06:38 Dose: 120 ml Documented by: Ondansetron HCl (Zofran) 4 mg IV Q8H PRN PRN PRN Reason: NAUSEA/VOMITING Sodium Chloride () 10 - 40 ml IV UD PRN PRN Reason: SALINE FLUSH Last Admin: 04/14/19 15:04 Dose: 10 ml Documented by: Thiamine HCl (Vitamin B1) [facility] Stop: 04/17/19 08:01 Last Admin: 04/16/19 10:05 Dose: 100 mg Documented by: Ticagrelor (Brilinta) 90 mg PO BID [facility] Last Admin: 04/16/19 10:05 Dose: 90 mg Documented by: Venlafaxine HCl (Effexor Xr) 225 mg PO DAILY [facility] STROKE Vital Signs/Narrative: Vital Signs Temp Pulse Resp BP Pulse Ox 04/16/19 10:05 90 04/16/19 09:40 98 F 90 16 137/65 H 96 04/16/19 06:59 85 Medical Necessity - Tobacco Use Smoking Status: Current every day smoker Tobacco Use: Cigarettes Assessment/Plan All Active Problems (Last Reviewed 02/24/19 @ 18:13 by Emily Macdonald DO) DKA, type 2 (Acute) Hyponatremia (Acute) Acute renal failure (Acute) Dehydration (Acute) GERD (gastroesophageal reflux disease) (Acute) Alcohol withdrawal seizure with complication (Acute) Lactic acidosis (Acute) Sinus tachycardia by electrocardiography (Acute) Hyperglycemia due to type 1 diabetes mellitus (Acute) Suicide attempt (Resolved) NSVT (nonsustained ventricular tachycardia) (Resolved) Alcohol abuse (Resolved) Non-ST elevation (NSTEMI) myocardial infarction (Resolved) Overdose of insulin (Resolved) Suicidal ideation (Resolved) 1. Alcohol withdrawal/anxiety/depression -We will continue with Ativan as well as Librium -We will continue with alcohol withdrawal protocol -We will have a low threshold for transfer to the ICU on a Precedex drip -Continue with his BuSpar, Remeron, Effexor -Alcohol level on admission was 166, and there is no jaundice since his total bilirubin is only 0.4 2. Metabolic anion gap acidosis/lactic acidosis-resolved -His lactic acid is 13.4 on admission however decreased to 4.5 and his anion gap completely resolved -He has no sirs criteria and given the fact that he is alert and oriented and his bicarb is 20 I feel like his lactic acid is falsely elevated -We will still place him on IV fluids given the fact that he has not had anything to eat or drink and his blood sugar is 29 on admission -His lactic acidosis and his metabolic anion gap I think were falsely elevated and not real, could be secondary to having a prolonged tourniquet during blood draws. 3. DM 2 -States that he has not taken anything in over a week, will hold his metformin -Continue with sliding scale insulin and resume his home insulin dosing 4. CAD status post stents/HTN/HLD -We will continue with his lisinopril, metoprolol, Brilinta, Lipitor -Blood pressure is elevated but this is likely secondary to the agitation and the fact that he has not taken any of his meds for a while, therefore we will manage this with Ativan and restarting his home meds DVT: Lovenox Code Visit Inpatient E&M: 99485 Subs Hosp L2
[2019-04-16] MEDS: Venlafaxine XR 75 MG Capsule 225 MG PO (10:48)
[2019-04-16] MEDS: busPIRone 15 MG TABLET PO ×2 (10:48→21:37)
[2019-04-16 11:46] LABS: Bedside Glucose 305 mg/dL (70-110)
--- NOTE | 2019-04-16 13:32 | CASEMGMT ---
SW spoke with patient and asked if he has decided what he would like to do at d/c for treatment. He said he plans on going home. SW asked if he would like SW to make an appt for him at [facility]. He said that would be fine. SW called [facility] and patient's counselor is Josefa Guy. WILLY scheduled an appt for patient with Josefa for 04-18 at 11am. SW will write this down and give it to patient. Plan: Home with follow up appt at [facility] with his counselor Josefa Guy. Charito MELENDREZ MSW
--- NOTE | 2019-04-16 16:28 | CHAPLAIN ---
Type of Pastoral Visit ___ Initial Visit _x__ Follow-up Visit ___ On-call Visit ___ General Patient Visit ___ Spiritual Assessment ___ Family Conference ___ Bereavement ___ Rapid Response ___ Code Blue ___ Other (describe below) Pastoral Care Referral From _x__ Patient ___ Family _x__ Nurse ___ Physician ___ Granite Setter ___ Head Of Acquisitions ___ Other (describe below) Sacrament/Intervention _x__ Active listening ___ Anointing ___ Presybeterian ___ Bereavement ___ Communion _x__ Eloise exploration ___ _x__ Life review _x__ Prayer ___ Reconciliation ___ Sacrament of Sick _x__ Supportive presence ___ Wedding ___ Other (describe below) Pastoral Comments a good visit with more life history shared with insights into spiritual matters; pt seeks support for sobriety; pt desires spiritual help to overcome his fears
[2019-04-16] MEDS: Insulin Human 75/25 Kwickpen 25 UNIT SC (17:01)
[2019-04-16 17:26] LABS: Bedside Glucose 217 mg/dL (70-110)
[2019-04-16 20:46] LABS: Bedside Glucose 47 mg/dL (70-110)
[2019-04-16 20:46] LABS: Bedside Glucose 70 mg/dL (70-110)
[2019-04-16] MEDS: Atorvastatin Calcium 40 MG Tablet PO (21:38)
[2019-04-16] MEDS: Mirtazapine 15 MG Tablet PO (21:39)
[2019-04-16 22:06] LABS: Bedside Glucose 149 mg/dL (70-110)
[2019-04-16 23:00] LABS: Bedside Glucose 192 mg/dL (70-110)
[2019-04-17] MEDS: Methocarbamol 750 MG Tablet PO (00:41)
[2019-04-17] MEDS: hydrOXYzine PAM 25 MG Capsule 50 MG PO (00:41)
[2019-04-17 03:00] VITALS: BP 137/84; PULSE 76; RESP 16; TEMP 36.8; O2SAT 96
[2019-04-17] MEDS: chlordiazePOXIDE 25 MG Capsule PO (03:54)
[2019-04-17] MEDS: Insulin Lispro 100 UNIT/ML INSULN.PEN SC (06:30)
[2019-04-17 06:41] LABS: Bedside Glucose 198 mg/dL (70-110)
[2019-04-17 07:00] VITALS: PULSE 69
[2019-04-17] MEDS: Folic Acid 1 MG Tablet PO (08:57)
[2019-04-17] MEDS: Multivitamins,Therapeutic Tablet 1 TABLET PO (08:57)
[2019-04-17] MEDS: Thiamine Hydrochloride 100 MG Tablet PO (08:57)
[2019-04-17] MEDS: 0.9% Normal Saline 1,000 ML 100 ML IV (08:59)
[2019-04-17 09:00] VITALS: BP 159/85; PULSE 72; RESP 18; TEMP 36.2; O2SAT 99
[2019-04-17] MEDS: TICAGRELOR 90 MG TABLET PO (09:05)
[2019-04-17] MEDS: Venlafaxine XR 75 MG Capsule 225 MG PO (09:07)
[2019-04-17] MEDS: busPIRone 15 MG TABLET PO (09:07)
[2019-04-17 09:08] VITALS: BP 159/85; PULSE 69
[2019-04-17] MEDS: Metoprolol Tartrate 25 MG Tablet PO (09:08)
[2019-04-17] MEDS: Lisinopril 40 MG Tablet PO (09:12)
[2019-04-17] MEDS: Enoxaparin 40 MG/0.4 ML Syringe SC (09:14)
[2019-04-17] MEDS: Insulin Human 75/25 Kwickpen 20 UNIT SC (10:21)
--- NOTE | 2019-04-17 11:00 | DCINST_ITS ---
- Discharge Diagnoses Current Active Problems: Current Active and Chronic Problems (Last Reviewed 02/24/19 @ 18:13 by Emily Macdonlad DO) Alcohol withdrawal seizure with complication (Acute) Lactic acidosis (Acute) Sinus tachycardia by electrocardiography (Acute) Hyperglycemia due to type 1 diabetes mellitus (Acute) You will use the following diet at home:: Cardiac Your food should be the consistency of: Regular Your liquids should be the consistency of: Regular/Thin Discharge Activity: Return to Normal Activity Call your doctor if you observe: Fever of 101 or Higher, Shortness of breath, Dizziness, Fainting spells, Swelling in the ankles, Chest pain Allergies/Adverse Reactions: Allergies No Known Allergies Allergy (Verified 04/14/19 10:21) Medications to take at Discharge Atorvastatin Calcium [Lipitor] 40 mg PO QHS 04/15/19 Folic Acid 1 mg PO DAILY 04/15/19 Gabapentin [Neurontin] 200 mg PO DAILY 04/15/19 Insulin NPH Hum/Reg Insulin Hm [Humulin 70-30 Vial] 20 unit SQ BREAKFAST 04/15/19 Insulin NPH Hum/Reg Insulin Hm [Humulin 70-30 Vial] 25 unit SQ DINNER 04/15/19 Lisinopril 40 mg PO QDAY 04/15/19 Metformin HCl 1,000 mg PO BIDCM 04/15/19 Metoprolol Tartrate 25 mg PO BID 04/15/19 Mirtazapine 15 mg PO QHS 04/15/19 Thiamine HCl [Vitamin B-1] 100 mg PO DAILY 04/15/19 Ticagrelor [Brilinta] 90 mg PO BID 04/15/19 Venlafaxine HCl [Venlafaxine HCl ER] 225 mg PO QDAY 04/15/19 busPIRone [Buspar] 15 mg PO BID 04/15/19 Primary Care Physician: Elijah Plascencia MD [Primary Care Provider] - Please follow up with your Primary Care Physician in: 3-5 days Test Results: Test results from this visit will be discussed in further detail at your follow- up appointment, if applicable. Please Follow Up With: Elijah Plascencia MD Please Follow Up With: [facility] When: Tomorrow
--- NOTE | 2019-04-17 11:11 | PHA.DC.MR ---
Pharmacy Service has performed discharge medication reconciliation for this patient. The patient's discharge medication list was reviewed for discrepancies and discrepancies were resolved. Home Medications Atorvastatin Calcium [Lipitor] 40 mg PO QHS 04/15/19 Folic Acid 1 mg PO DAILY 04/15/19 Gabapentin [Neurontin] 200 mg PO DAILY 04/15/19 Insulin NPH Hum/Reg Insulin Hm [Humulin 70-30 Vial] 20 unit SQ BREAKFAST 04/15/19 Insulin NPH Hum/Reg Insulin Hm [Humulin 70-30 Vial] 25 unit SQ DINNER 04/15/19 Lisinopril 40 mg PO QDAY 04/15/19 Metformin HCl 1,000 mg PO BIDCM 04/15/19 Metoprolol Tartrate 25 mg PO BID 04/15/19 Mirtazapine 15 mg PO QHS 04/15/19 Thiamine HCl [Vitamin B-1] 100 mg PO DAILY 04/15/19 Ticagrelor [Brilinta] 90 mg PO BID 04/15/19 Venlafaxine HCl [Venlafaxine HCl ER] 225 mg PO QDAY 04/15/19 busPIRone [Buspar] 15 mg PO BID 04/15/19
[2019-04-17 11:24] VITALS: BP 159/85; PULSE 72; RESP 18; TEMP 36.2; O2SAT 99
[2019-04-17 12:01] LABS: Bedside Glucose 215 mg/dL (70-110)
--- NOTE | 2019-04-17 13:28 | DS.PCM_ITS ---
Discharge Date and Diagnosis Date of Admission: 04/14/19 Date of Discharge: 04/17/19 - Secondary Discharge Diagnosis Chronic Problems (Last Reviewed 02/24/19 @ 18:13 by Emily Macdonald DO) Alcohol abuse, in remission (Chronic) has not had a drink since Nov 2018 Tobacco dependence (Chronic) 1 PPD since 5-6 YOA Stented coronary artery (Chronic) RCA - 09/08/16 Severe major depression (Chronic) Suicide attempt (Chronic) December 2018 - insulin OD Type 2 diabetes mellitus (Chronic) Hypertension (Chronic) Anxiety (Chronic) Depression (Chronic) Neuropathy (Chronic) Atherosclerosis of coronary artery of [place] heart without angina pectoris (Chronic) [facility] RCA 09/2016 @ [place] Erectile dysfunction (Chronic) Diabetes type 2, uncontrolled (Chronic) Hospital Course and Treatment Imaging Results: None Consults: None Operations: None Procedures: None Summary of Care Provided: Per HPI: The patient is a 58 year old M with a PMH as below presents to the hospital to undergo detox. He has been an alcoholic for quite a few years and last April was in a rehab facility. He states that he normally drinks about 1/5 of vodka every day and this morning he woke up and was shaking and had a can of beer, but decided to come in for withdrawal-like symptoms and to undergo alcohol detox. He denies any fevers or chills. He has not been around anybody sick. He denies any shortness of breath or chest pain. He states that aside from the alcohol withdrawal symptoms, he feels fine. In the ER he was found to be tachycardic with an elevated blood pressure and a mean arterial pressure of 120. His lactic acid was elevated to 13.4 which is likely a false elevation secondary to no significant cause and his bicarb was normal at 20. No signs of infection anywhere, there is no IV fluids given in the ER but he was given 2 doses of phenobarbital and admitted for detox. He states it is been about a week since he is taken any of his diabetic medications, and he has not been eating or drinking very well. Hospital Course: 1. Alcohol withdrawal/anxiety/[id number]-old male who underwent detox about a year ago presents once again wanting to undergo detox. He had an alcohol level of 166 at admission. He was started on the alcohol withdrawal pro tocol and seem to tolerate it pretty well. Today he said that he felt better and he wanted to get out of here. He says he was up the street from [facility] and will be able to go there on his own. He does have an appointment I think for tomorrow. He at the time of his admission did not know what medications he took therefore pharmacy was contacted and he was restarted on his BuSpar, Remeron, and Effexor. I discussed discharge planning with him, he expressed understanding of the risks and benefits of going home and demanded to go home today. 2. Metabolic anion gap acidosis/lactic acidosis-on admission his lactic acid was 13.4 however his bicarb was 20 and he had almost complete resolution of his numbers by the next day with some IV fluid administration. I believe that these labs were in error as a possibility that the tourniquet was left on too long when they are obtaining his lab work. I do recommend that he follow-up with his primary care doctor in 3 to 5 days. 3. CAD status post stent/HTN/HLD-this morning he was irritated about of the food choices that he had available to him, I tried to explain to him that he has a history of stents and that is why he was given turkey george instead of regular george however he said that he was in a child and that he could choose whatever he wanted to eat. I reminded him that he has to be on medications to prevent another heart attack at the very least to prevent the necessity of another stent. He was on lisinopril, metoprolol, Brilinta, Lipitor, all of which were continued during this admission. He stated that he has been taking it about a week prior to admission. I explained to him that it is necessary to take all medications as prescribed by his doctors. 4. His other medical diagnoses were evaluated and his home medications were continued where appropriate - Physical Exam Vitals/I&O's: Vital Signs Temp Pulse Resp BP Pulse Ox 97.2 F L 72 18 159/85 H 99 04/17/19 11:24 04/17/19 11:24 04/17/19 11:24 04/17/19 11:24 04/17/19 11:24 Oxygen Delivery Method Room Air Weight: 153 lb 3.54 oz Body Mass Index (BMI) 22.6 Finger Stick Blood Glucose 324 Intake and Output for Last 24 Hours 04/15/19 04/16/19 04/17/19 23:59 23:59 23:59 Intake Total 4618.33 / 4618.33 4173.33 / 4713.33 2548.33 / 2548.33 Output Total 2450 / 2450 1475 / 1835 1660 / 1660 Balance 2168.33 / 2168.33 2698.33 / 2878.33 888.33 / 888.33 General: Alert, Oriented x3, Cooperative, - - Appears anxious HEENT: Atraumatic, PERRLA, EOMI, Normocephalic Oral: Moist Mucosa Neck: Supple, No JVD Lungs: Clear to auscultation, Normal air movement, No rhonchi, No wheeze, No rales Cardiovascular: Regular Rate and Rhythm, Normal S1, Normal S2, No murmurs Abdomen: Soft, Non Tender, Non-Distended, No Hepato-splenomegaly Extremities: No edema, Capillary Refill Less than 3 Seconds, - - Extremities are warm to the touch Skin: No rashes, No breakdown Neurological: Neuro grossly intact, Sensory exam intact to light touch and pain Psych/Mental Status: Anxious, Restless Laboratory Results 04/16/19 16:53: POC Glucose 217 H 04/16/19 20:18: POC Glucose 47 L 04/16/19 20:43: POC Glucose 70 04/16/19 21:35: POC Glucose 149 H 04/16/19 22:33: POC Glucose 192 H 04/17/19 06:28: POC Glucose 198 H 04/17/19 09:04: POC Glucose 215 H Discharge Activity: Return to Normal Activity Call your doctor if you observe: Fever of 101 or Higher, Shortness of breath, Dizziness, Fainting spells, Swelling in the ankles, Chest pain Home Medications: Medications to take at Discharge Atorvastatin Calcium [Lipitor] 40 mg PO QHS 04/15/19 Folic Acid 1 mg PO DAILY 04/15/19 Gabapentin [Neurontin] 200 mg PO DAILY 04/15/19 Insulin NPH Hum/Reg Insulin Hm [Humulin 70-30 Vial] 20 unit SQ BREAKFAST 04/15/19 Insulin NPH Hum/Reg Insulin Hm [Humulin 70-30 Vial] 25 unit SQ DINNER 04/15/19 Lisinopril 40 mg PO QDAY 04/15/19 Metformin HCl 1,000 mg PO BIDCM 04/15/19 Metoprolol Tartrate 25 mg PO BID 04/15/19 Mirtazapine 15 mg PO QHS 04/15/19 Thiamine HCl [Vitamin B-1] 100 mg PO DAILY 04/15/19 Ticagrelor [Brilinta] 90 mg PO BID 04/15/19 Venlafaxine HCl [Venlafaxine HCl ER] 225 mg PO QDAY 04/15/19 busPIRone [Buspar] 15 mg PO BID 04/15/19 Primary Care Physician: Elijah Plascencia MD [Primary Care Provider] - Please follow up with your Primary Care Physician in: 3-5 days Please Follow Up With: Elijah Plascencia MD Please Follow Up With: [facility] When: Tomorrow Disposition: Home Minutes spent on discharge:: 35 Patient Condition:: Stable Medical Necessity - Tobacco Use Smoking Status: Current every day smoker Tobacco Use: Cigarettes Meaningful Use Info Meaningful Use Diagnoses (Choose all that apply): None applicable Code Visit Inpatient E&M: 73896 Disch Hosp
--- NOTE | 2019-04-18 16:27 | CASEMGMT ---
[facility] CM Discharge Follow-Up Phone Call. Lace: 13 Strata: 3 Discharge Date: 04/17/19 Adm Dx: ETOW w/d Attempted discharge follow-up phone call. No answer and message came on stating VM is full--unable to leave message. Daryl GRAHAMN [facility] CM
== END 2019-04-17 11:51 | disposition home or self-care (01) | DRG 897 ==
LOC: ED 12:21 → PCU 13:22
PROVIDERS: Admitting Provider Family Medicine; Emergency Provider Emergency Medicine; PCP Internal Medicine; Visit Provider Family Medicine
DX: F10.239 Alcohol dependence with withdrawal, unspecified (principal); Y90.6 Blood alcohol level of 120-199 mg/100 ml; E87.2 Acidosis; I25.10 Atherosclerotic heart disease of native coronary artery without angina pectoris; E11.40 Type 2 diabetes mellitus with diabetic neuropathy, unspecified; I10 Essential (primary) hypertension; E78.5 Hyperlipidemia, unspecified; K21.9 Gastro-esophageal reflux disease without esophagitis; F32.9 Major depressive disorder, single episode, unspecified; F41.9 Anxiety disorder, unspecified; F17.210 Nicotine dependence, cigarettes, uncomplicated; Z79.4 Long term (current) use of insulin; Z79.02 Long term (current) use of antithrombotics/antiplatelets; Z79.899 Other long term (current) drug therapy; I25.2 Old myocardial infarction; Z95.5 Presence of coronary angioplasty implant and graft
CPT/HCPCS: 36415; 80048; 80053; 80320; 82962; 83605; 85025; 85610; 93005; 97802; 99285; 99406; J7030; A4216; G0480

== ENCOUNTER 2019-05-07 08:57 | Emergency (ER) | payer MEDICARE, MEDICAID, SELFPAY ==
[2019-04-14 13:46] VITALS: BMI 22.6
[2019-05-07 08:58] VITALS: BP 188/84; PULSE 117; RESP 20; TEMP 36.8; O2SAT 100; BMI 24.1
--- NOTE | 2019-05-07 09:26 | ED.DCSUM_ITS ---
- ER Visit Summary Date of Service: 05/07/19 Chief Complaint: Alcohol intoxication History of Present Illness: The patient is a 59 M who presents with alcohol intoxication for the past 5 days. Patient states he was recently discharged from an alcohol treatment center and went home and started drinking again. Patient states he drinks half a gallon of 42 proof vodka daily. Patient states he cannot stop drinking. Patient denies any suicidal or homicidal ideations. Patient does admit to using marijuana and methamphetamine. Physical Examination: Vital signs are stable except for a slightly elevated blood pressure 188/84 and a mild tachycardia of 117. Patient is afebrile. Florence ent is in no acute distress. Patient is intoxicated. Oral mucosa is pink and moist. Neck is supple. Trachea is midline. There is no JVD. Heart was regular and tachycardic. Lungs are clear and equal bilaterally. Abdomen is soft. Bowel sounds are normal. There is no tenderness. Cranial nerves II through XII are intact. There are no focal motor or sensory deficits noted. Test Results: CBC showed a mild leukocytosis of 11.6 and a mild thrombocytosis of 468. Comprehensive metabolic profile showed a slightly elevated anion gap of 17 but was otherwise within normal limits. Alk phos was slightly elevated at 188. Urine tox was positive for barbiturates, benzodiazepines, and cannabinoids. Serum alcohol level was 155. Emergency Department Course and Treatment: Initially, the patient was requesting detox. I discussed with the hospitalist the possibility of admission. Since the patient is not in active withdrawal at this time we will observe the patient in the emergency department. After a few minutes of observation in the emergency department the patient change his mind and wants to go home. Patient was instructed to follow-up with his primary care physician as well as his detox program. Patient is understandable of the plan. Disposition: Discharge home Impression: 1. Alcohol intoxication This note was generated with [employer] software. It may contain incorrect words, spelling, and punctuation that were not noted in review of the chart prior to signing ED Disposition - Plan for ED Patient: Disposition: Home or Assisted Living Diagnosis: Alcohol intoxication Instructions: Alcohol Intoxication, Alcohol Abuse Referrals: Elijah Plascencia MD [Primary Care Provider] - 3-5 Days
[2019-05-07 09:40] LABS: Absolute Lymphocyte Count 3.12 X10^3/uL (0.83-4.51); Absolute Neutrophil Count 7.5 X10^3/uL (2.0-7.7); Basophil# 0.09 X10^3/uL; Basophil% 0.8 % (0-1); Eosinophil# 0.03 X10^3/uL; Eosinophils% 0.3 % (0-5); Hematocrit 44.4 % (40-54); Hemoglobin 15.6 g/dL (13.0-16.5); Lymphocyte # 3.12 X10^3/ul (4.0); Lymphocyte % 26.8 % (19-41); Mean Corp Hgb Conc 35.1 g/dL (32-36); Mean Corpuscular Hgb 30.3 pg (27.0-32.0); Mean Corpuscular Volume 86.2 fL (80-94); Mean Platelet Vol. 8.2 fl (6.2-12.0); Monocyte# 0.82 X10^3/uL; NRBC Flagged by Analyzer 0 % (0-5); Neutrophil # 7.49 X10^3/uL (2.7-7.7); Neutrophil % 64.3 % (47-70); Platelet Count 468 K/mm3 (150-450); RBC Distribution Width CV 14.6 % (11.6-14.6); RBC Distribution Width SD 44.9 fl (35.1-43.9); Red Blood Count 5.15 M/mm3 (4.6-6.2); White Blood Count 11.6 K/mm3 (4.4-11.0)
[2019-05-07 09:55] LABS: ALB/GLOB Ratio 0.8 RATIO (0.9-2.4); AST(SGOT) 26 U/L (15-37); Alanine Aminotransfer ALT/SGPT 32 U/L (16-61); Albumin, Serum 3.7 g/dL (3.2-5.0); Alkaline Phosphatase 188 U/L (45-117); Anion Gap 17 (5-15); BUN 15 mg/dL (7-18); BUN/Creat Ratio 13.8 RATIO (10-20); Calcium,Total 8.9 mg/dL (8.5-10.1); Chloride 98 mmol/L (98-107); Creatinine, Serum 1.09 mg/dL (0.70-1.30); EST Glomerular Filtration Rate 74 mL/min (>60); Est Glom Filt Rate - Afr Amer 89 mL/min (>60); Estimated Creatinine Clearance 73.87 ml/min; Globulin 4.6 g/dL (2.2-4.2); Glucose 195 mg/dL (74-106); Potassium 3.7 mmol/L (3.5-5.1); Protein, Total 8.3 g/dL (6.4-8.2); Sodium Level 136 mmol/L (136-145)
[2019-05-07 09:57] LABS: Amphetamine Urine VISTA NEGATIVE (<1000 ng/mL); Barbiturate Urine VISTA POSITIVE (< 200 ng/mL); Benzodiazepine Urine VISTA POSITIVE (< 200 ng/mL); Cocaine Urine VISTA NEGATIVE (< 300 ng/mL); Ecstacy Urine VISTA NEGATIVE (< 500 ng/mL); Methadone Urine VISTA NEGATIVE (< 300 ng/mL); PCP Urine VISTA NEGATIVE (< 25 ng/mL); THC Urine VISTA POSITIVE (< 50 ng/mL); Vista UDS pH Range 6
[2019-05-07 11:13] VITALS: BP 186/89; PULSE 108; RESP 18; O2SAT 99
[2019-05-07 12:22] VITALS: PULSE 118; RESP 18; O2SAT 99
== END 2019-05-07 12:23 | disposition home or self-care (01) ==
PROVIDERS: Emergency Provider Emergency Medicine; PCP Internal Medicine
DX: F10.129 Alcohol abuse with intoxication, unspecified (principal); Y90.6 Blood alcohol level of 120-199 mg/100 ml; R74.8 Abnormal levels of other serum enzymes; E11.9 Type 2 diabetes mellitus without complications; R03.0 Elevated blood-pressure reading, without diagnosis of hypertension; R00.0 Tachycardia, unspecified; Z72.0 Tobacco use; Z79.02 Long term (current) use of antithrombotics/antiplatelets; Z79.4 Long term (current) use of insulin; Z79.899 Other long term (current) drug therapy; Z95.5 Presence of coronary angioplasty implant and graft
CPT/HCPCS: 80053; 80307; 80320; 85025; 99285; J7030; A4216; G0480

== ENCOUNTER 2019-05-08 18:12 | Inpatient (IN) | payer MEDICARE, MEDICAID, SELFPAY ==
[2019-05-07 08:58] VITALS: BMI 24.1
[2019-05-08] VITALS (8 sets, daily range): BP systolic 156–161; BP diastolic 90–103; PULSE 114–115; RESP 16–18; TEMP 36.1–36.9; O2SAT 97–100; BMI 22.8; BMI 23.5
--- NOTE | 2019-05-08 19:34 | EKG12_ITS ---
Test Reason : SUBSTANCE ABUSE Blood Pressure : / mmHG Vent. Rate : 105 BPM Atrial Rate : 105 BPM P-R Int : 190 ms QRS Dur : 070 ms QT Int : 336 ms P-R-T Axes : 071 041 049 degrees QTc Int : 444 ms Sinus tachycardia Possible Left atrial enlargement Borderline ECG Confirmed by JARON CLARK, WESTLEY ([id number]), non linear editor GOLDIE REDMAN ([id number]) on 05/10/2019 8:09:45 AM Referred By: ABRIL Confirmed By:MENA SALMERON MD
[2019-05-08] MEDS: 0.9% Normal Saline 1,000 ML 1000 ML IV (19:40)
[2019-05-08 19:55] LABS: Absolute Lymphocyte Count 3.03 X10^3/uL (0.83-4.51); Basophil# 0.12 X10^3/uL; Basophil% 1.2 % (0-1); Eosinophil# 0.04 X10^3/uL; Eosinophils% 0.4 % (0-5); Hematocrit 47.7 % (40-54); Hemoglobin 15.8 g/dL (13.0-16.5); Lymphocyte # 3.03 X10^3/ul (4.0); Lymphocyte % 30.1 % (19-41); Mean Corp Hgb Conc 33.1 g/dL (32-36); Mean Corpuscular Hgb 27.8 pg (27.0-32.0); Mean Corpuscular Volume 83.8 fL (80-94); Monocyte# 0.85 X10^3/uL; Monocyte% 8.4 % (0-10); NRBC Flagged by Analyzer 0 % (0-5); Neutrophil # 5.97 X10^3/uL (2.7-7.7); Neutrophil % 59.3 % (47-70); Platelet Count 457 K/mm3 (150-450); RBC Distribution Width CV 14.7 % (11.6-14.6); RBC Distribution Width SD 44.5 fl (35.1-43.9); Red Blood Count 5.69 M/mm3 (4.6-6.2); White Blood Count 10.1 K/mm3 (4.4-11.0)
[2019-05-08 20:16] LABS: Amphetamine Urine VISTA NEGATIVE (<1000 ng/mL); Barbiturate Urine VISTA POSITIVE (< 200 ng/mL); Benzodiazepine Urine VISTA POSITIVE (< 200 ng/mL); Cocaine Urine VISTA NEGATIVE (< 300 ng/mL); Ecstacy Urine VISTA NEGATIVE (< 500 ng/mL); Methadone Urine VISTA NEGATIVE (< 300 ng/mL); PCP Urine VISTA NEGATIVE (< 25 ng/mL); THC Urine VISTA POSITIVE (< 50 ng/mL); Vista UDS pH Range 7
[2019-05-08 20:18] LABS: ALB/GLOB Ratio 0.8 RATIO (0.9-2.4); AST(SGOT) 26 U/L (15-37); Alanine Aminotransfer ALT/SGPT 33 U/L (16-61); Albumin, Serum 3.6 g/dL (3.2-5.0); Alkaline Phosphatase 213 U/L (45-117); Anion Gap 9 (5-15); BUN 8 mg/dL (7-18); BUN/Creat Ratio 8.7 RATIO (10-20); Calcium,Total 8.7 mg/dL (8.5-10.1); Chloride 101 mmol/L (98-107); Creatinine, Serum 0.92 mg/dL (0.70-1.30); EST Glomerular Filtration Rate 90 mL/min (>60); Est Glom Filt Rate - Afr Amer 109 mL/min (>60); Estimated Creatinine Clearance 87.03 ml/min; Globulin 4.7 g/dL (2.2-4.2); Glucose 263 mg/dL (74-106); Potassium 3.7 mmol/L (3.5-5.1); Protein, Total 8.3 g/dL (6.4-8.2); Sodium Level 138 mmol/L (136-145)
--- NOTE | 2019-05-08 21:48 | ED.RN ---
PT was walking out into lobby holding his IV bag looking for Taylor. Staff members followed after PT and he was redirected back to his room. Pt c/o chest pain, aware.
--- NOTE | 2019-05-08 22:13 | HP.PCM_ITS ---
Problem List (1) Alcohol abuse Status: Acute (2) GERD (gastroesophageal reflux disease) Status: Chronic (3) Tobacco dependence Status: Chronic Comment: 1 PPD since 5-6 YOA (4) Stented coronary artery Status: Chronic Comment: RCA - 09/08/16 (5) Sinus tachycardia by electrocardiography Status: Acute (6) Severe major depression Status: Chronic (7) Suicide attempt Status: Chronic Comment: December 2018 - insulin OD (8) Hypertension Status: Chronic Qualifiers: (9) Anxiety Status: Chronic (10) Depression Status: Chronic (11) Neuropathy Status: Chronic (12) Atherosclerosis of coronary artery of [place] heart without angina pectoris Status: Chronic Qualifiers: Comment: [facility] 09/2016 @ [place] (13) Erectile dysfunction Status: Chronic (14) Diabetes Status: Chronic (15) Diabetes Status: Inactive History of Present Illness Date of Admission: 05/08/19 Chief Complaint: detox The patient is a 59 year old M with a significant history of tobacco abuse; diabetes mellitus; CAD status post stent; hypertension; depression and anxiety disorder; alcoholism who presented to emergency department for detoxification from alcohol. Patient drinks about half a gallon of 42 proof vodka per day. Last time he drank was about 3 hours prior to presentation. He presents with a staff from [facility] to facilitate admission. Patient reports anxiety. The last time that he was admitted for detoxification was 5 days ago. He was admitted at [facility] where he was treated with barbiturates. Reportedly barbiturates was effective. Past Medical History Past Medical History (Chronic Problems): Chronic Problems (Last Reviewed 05/08/19 @ 22:[address] Alan Mandujano MD) GERD (gastroesophageal reflux disease) (Chronic) Tobacco dependence (Chronic) 1 PPD since 5-6 YOA Stented coronary artery (Chronic) RCA - 09/08/16 Diabetes (Chronic) Severe major depression (Chronic) Suicide attempt (Chronic) December 2018 - insulin OD Hypertension (Chronic) Anxiety (Chronic) Depression (Chronic) Neuropathy (Chronic) Atherosclerosis of coronary artery of [place] heart without angina pectoris (Chronic) [facility] RCA 09/2016 @ [place] Erectile dysfunction (Chronic) Medical History: Medical History (Last Reviewed 05/08/19 @ 22:[address] Alan Mandujano MD) Suicide attempt (Resolved) T14.91XA Fracture of wrist (Inactive) S62.109A Rt wrist NSVT (nonsustained ventricular tachycardia) (Resolved) I47.2 Anxiety (Chronic) F41.9 Depression (Chronic) F32.9 Neuropathy (Chronic) G62.9 Atherosclerosis of coronary artery of [place] heart without angina pectoris (Chronic) I25.10 [facility] RCA 09/2016 @ [place] Hypertension, uncontrolled (Inactive) I10 Erectile dysfunction (Chronic) N52.9 Diabetes type 2, uncontrolled (Inactive) E11.65 Non-ST elevation (NSTEMI) myocardial infarction (Resolved) I21.4 Allergies No Known Allergies Allergy (Verified 05/07/19 09:05) Home Medications: Ambulatory Orders Medication Instructions Recorded Atorvastatin Calcium [Lipitor] 40 mg PO QHS 04/15/19 Folic Acid 1 mg PO DAILY 04/15/19 Gabapentin [Neurontin] 200 mg PO DAILY 04/15/19 Insulin NPH Hum/Reg Insulin Hm 20 unit SQ BREAKFAST 04/15/19 [Humulin 70-30 Vial] Insulin NPH Hum/Reg Insulin Hm 25 unit SQ DINNER 04/15/19 [Humulin 70-30 Vial] Lisinopril 40 mg PO QDAY 04/15/19 Metformin HCl 1,000 mg PO BIDCM 04/15/19 Metoprolol Tartrate 25 mg PO BID 04/15/19 Mirtazapine 15 mg PO QHS 04/15/19 Thiamine HCl [Vitamin B-1] 100 mg PO DAILY 04/15/19 Ticagrelor [Brilinta] 90 mg PO BID 04/15/19 Venlafaxine HCl [Venlafaxine HCl 225 mg PO QDAY 04/15/19 ER] busPIRone [Buspar] 15 mg PO BID 04/15/19 Surgical History: Surgical History (Last Reviewed 05/08/19 @ 22:[address] Alan Mandujano MD) History of left cataract extraction Z98.42 11/21/18 H/O right coronary artery stent placement Onset Date: ~09/08/16 Z95.5 [facility] RCA @ [place] Psychiatric History: Anxiety, Depression, Prior suicide attempt Lives: Alone Smoking Status: Current every day smoker Tobacco Use: Cigarettes Alcohol: Heavy Drugs: Marijuana Review of Systems Constitutional: Denies: Chills, Fever, Weight Change HEENT: Denies: Head Aches, Sinus Congestion, Sinus Drainage Cardiovascular: Reports: Chest Pain. Denies: Palpitations Respiratory: Denies: Cough, Shortness of breath at rest, Sputum production Gastrointestinal: Denies: Abdominal Pain, Nausea, Vomiting Genitourinary: Denies: Dysuria Musculoskeletal: Denies: Joint Pain, Joint Tenderness Skin: Denies: Rash, Wounds Neurological: Denies: Numbness, Tingling, Focal weakness Psychiatric: Reports: Anxiety, Depression Hematologic/ Lymphatic: Denies: Easy Bruising, Easy Bleeding VTE Information - Inpt Only VTE Present on Admission: No VTE Mechan Device Prophylaxis: None VTE Pharm Prophylaxis ordered?: Yes Patient Problems: Active and Suspected Problems Alcohol abuse (Acute) - Physical Exam Vitals/I&O's: Vital Signs Temp Pulse Resp BP Pulse Ox 97 F L 114 H 16 159/103 H 100 05/08/19 19:11 05/08/19 19:11 05/08/19 19:11 05/08/19 19:11 05/08/19 19:11 Weight: 70.307 kg Body Mass Index (BMI) 22.8 Finger Stick Blood Glucose 324 General: Alert, Oriented x3, Cooperative HEENT: Atraumatic, PERRLA, EOMI, Normocephalic Neck: Supple, No JVD, Negative Carotid Bruits Lungs: Clear to auscultation, No rhonchi, No wheeze, No rales, Diminished Cardiovascular: Regular Rhythm, Normal S1, Normal S2, No murmurs, Tachycardic Abdomen: Bowel Sounds Present, Soft, Non Tender Extremities: No edema, Capillary Refill Less than 3 Seconds Skin: No rashes, No breakdown Musculoskeletal: No Tenderness to Palpation of Joints or Extremities Neurological: Cranial nerves II-XII grossly intact, - - Tremors Psych/Mental Status: Anxious Laboratory Results 05/08/19 19:40: Urine Opiates Screen NEGATIVE, Urine Methadone Screen NEGATIVE, Ur Barbiturates Screen POSITIVE H, Ur Phencyclidine Scrn NEGATIVE, Ur Amphetamines Screen NEGATIVE, U Methamphetamin-MDMA NEGATIVE, U Benzodiazepines Scrn POSITIVE H, Urine Cocaine Screen NEGATIVE, U Cannabinoids Screen POSITIVE H , Ur Drug Screen Comment 05/08/19 19:42: WBC 10.1, RBC 5.69, Hgb 15.8, Hct 47.7, MCV 83.8, MCH 27.8, MCHC 33.1 D, RDW Std Deviation 44.5 H, RDW Coeff of Kaye 14.7 H, Plt Count 457 H, MPV 8.0, Immature Gran % (Auto) 0.600, Neut % (Auto) 59.3, Lymph % (Auto) 30.1, [place] % (Auto) 8.4, Eos % (Auto) 0.4, Baso % (Auto) 1.2 H, Absolute Neuts (auto) 6.0, Absolute Lymphs (auto) 3.03, Nucleated RBC % 0 05/08/19 19:42: Sodium 138, Potassium 3.7, Chloride 101, Carbon Dioxide 28.0, Anion Gap 9, BUN 8, Creatinine 0.92, Estim Creat Clear Calc 87.03, Est GFR (MDRD) Af Amer 109, Est GFR (MDRD) Non-Af 90, BUN/Creatinine Ratio 8.7 L, Glucose 263 H, Calcium 8.7, Total Bilirubin 0.20, AST 26, ALT 33, Alkaline Phosphatase 213 H, Troponin I < 0.015, Total Protein 8.3 H, Albumin 3.6, Globulin 4.7 H, Albumin/Globulin Ratio 0.8 L 05/08/19 19:42: Ethyl Alcohol 343.0 H* Assessment/Plan All Active Problems (Last Reviewed 05/08/19 @ 22:[address] Alan Mandujano MD) Sinus tachycardia by electrocardiography (Acute) Alcohol abuse (Acute) Suicide attempt (Resolved) NSVT (nonsustained ventricular tachycardia) (Resolved) Alcohol abuse (Resolved) Non-ST elevation (NSTEMI) myocardial infarction (Resolved) Overdose of insulin (Resolved) Suicidal ideation (Resolved) The patient is a 59 year old M with a significant history of tobacco abuse; diabetes mellitus; CAD status post stent; hypertension; depression and anxiety disorder; alcoholism who presented to emergency department for detoxification from alcohol. Alcohol dependence Urine drug screen was positive for barbiturates; benzodiazepine; and cannabinoids. Alcohol level was 343. We will start patient on Librium taper. Other supportive medication include methocarbamol; dicyclomine; and hydroxyzine. Continue home thiamine and folic acid. Metoprolol continued Counselled Tobacco abuse Declined nicotine patch Counseled Hypertension On presentation blood pressure was not within goal Metoprolol and lisinopril continued Trend blood pressure and adjust blood pressure medication. CAD status post stent Aspirin and Brilinta continued. Metoprolol and lisinopril continued. High intensity Lipitor continued Diabetes mellitus with hyperglycemia and neuropathy On home NPH 70-30. The last time that he took his medications including insulin was when he was hospitalized at [facility]. Resume basal insulin at a lesser dose. Accu-Chek QA CHS with correction scale insulin ordered. Depression and anxiety Mirtazapine and venlafaxine continued Buspirone continued Insomnia Mirtazapine continued DVT prophylaxis Subcutaneous Lovenox Code Visit Inpatient E&M: 86066 Init Hosp L3
--- NOTE | 2019-05-08 22:14 | CM.ED ---
Social Work Consult: Substance Abuse Informant: Nursing staff Patient stating to want to detox from alcohol. Several peer supports from [facility] are present and supportive of patient. Josefa from updated on patient being admitted and need for assessment, voicemail was left for Jennifer. Bebeto JULIAN, ANEESH
[2019-05-08 23:01] LABS: Bedside Glucose 225 mg/dL (70-110)
--- NOTE | 2019-05-08 23:11 | ED.DCSUM_ITS ---
- ER Visit Summary Date of Service: 05/08/19 Chief Complaint: Need detox History of Present Illness: The patient is a [address] Plascencia. Reports that he drinks half a gallon of vodka a day and his last drink was an hour and a half ago. He reports that I need to get off it. Patient went through detox last month, but began drinking again shortly after this. He was in a care home house last year and was clean for 9 months. He began drinking again approximately month after he was released from there. Patient also reports that he has started to smoke methamphetamine and I like marijuana. Physical Examination: Vitals: Stable. Afebrile. General: Well-nourished and well-developed. Head: Normocephalic atraumatic. Neck: Supple, no lymphadenopathy. No JVD. Nontender. Cardiovascular: Regular rate and rhythm. No murmurs. Respiratory: No respiratory distress. Clear to auscultation bilaterally. Abdominal: Soft, nontender, nondistended, normal bowel sounds. No guarding, rebound, or peritoneal signs. Back: Nontender. Extremities: Nontender, no edema. Skin: Normal color, no rash. Neurologic: Alert and oriented ?3. Cranial nerves II through XII are intact. Normal strength and sensation. Psych: Normal affect. Test Results: EKG is sinus tach at [address] changes. Troponin is negative. Talk screen shows an alcohol of 343, barbiturates, benzodiazepines, and marijuana. LFTs marked for total protein of 8.311 4.7. Alk phos is 213. 7 shows a glucose 263. CBC shows platelets of 457. Emergency Department Course and Treatment: Patient was given a liter of normal saline while emergency department. He is resting comfortably. Treatment Plan: The patient was discussed with Dr. Mandujano. He will be admitted to the hospital for further evaluation and treatment. He did present with a worker from [facility] who spoke with the nurse at [facility] who spoke with Dr. Padron. Disposition: Admitted in stable condition. Impression: 1. Alcohol abuse. This note was generated with [employer] software. It may contain incorrect words, spelling, and punctuation that were not noted in review of the chart prior to signing ED Disposition - Plan for ED Patient: Disposition: Acute Care Hospital [facility]
[2019-05-08] MEDS: 0.9% Saline Lock 10 ML Syringe IV (23:15)
[2019-05-08] MEDS: busPIRone 15 MG TABLET PO (23:15)
[2019-05-08] MEDS: Atorvastatin Calcium 40 MG Tablet PO (23:16)
[2019-05-08] MEDS: TICAGRELOR 90 MG TABLET PO (23:16)
[2019-05-08] MEDS: Metoprolol Tartrate 25 MG Tablet PO (23:17)
[2019-05-08] MEDS: chlordiazePOXIDE 25 MG Capsule 50 MG PO (23:25)
[2019-05-08] MEDS: hydrOXYzine PAM 25 MG Capsule 50 MG PO (23:25)
[2019-05-08] MEDS: Mirtazapine 15 MG Tablet PO (23:25)
[2019-05-08] MEDS: Insulin Lispro 100 UNIT/ML INSULN.PEN SC (23:26)
[2019-05-08] MEDS: Insulin Human 75/25 Kwickpen 20 UNIT SC (23:27)
[2019-05-09] VITALS (8 sets, daily range): BP systolic 132–167; BP diastolic 59–89; PULSE 84–101; RESP 16–20; TEMP 36.4–37.3; O2SAT 96–100
[2019-05-09] MEDS: 0.9% Saline Lock 10 ML Syringe IV ×5 (00:11→12:39)
[2019-05-09] MEDS: LORazepam 2 MG/ML Syringe 1 MG IV ×4 (00:11→12:39)
[2019-05-09] MEDS: chlordiazePOXIDE 25 MG Capsule 50 MG PO (04:54)
[2019-05-09] MEDS: Ondansetron 4 MG/2 ML Vial IV (06:45)
[2019-05-09 06:46] LABS: Bedside Glucose 48 mg/dL (70-110)
[2019-05-09 07:01] LABS: Bedside Glucose 70 mg/dL (70-110)
[2019-05-09 07:12] LABS: Glucose 58 mg/dL (74-106)
--- NOTE | 2019-05-09 07:26 | PN_ITS ---
Patient Problems: Active and Suspected Problems Alcohol abuse (Acute) Reason for Visit: Follow-up for alcohol withdrawal Subjective: Patient was seen and examined. He states that he is not doing well. He feels shaky. Denies any chest pain or dizziness or palpitations. Vitals/I&O's: Vital Signs Temp Pulse Resp BP Pulse Ox 97.5 F L 84 18 158/78 H 97 05/09/19 06:26 05/09/19 06:26 05/09/19 06:26 05/09/19 06:26 05/09/19 06:26 Oxygen Delivery Method Room Air Weight: 72.2 kg Body Mass Index (BMI) 23.5 Finger Stick Blood Glucose 324 Intake and Output for Last 24 Hours 05/07/19 05/08/19 05/09/19 23:59 23:59 23:59 Intake Total 999 1370 / 1370 Balance 999 1370 / 1370 General: Alert, Oriented x3, Cooperative, - - appears anxious, shaky HEENT: Atraumatic, PERRLA, EOMI, Normocephalic Oral: Moist Mucosa Neck: Supple Lungs: Clear to auscultation, Normal air movement Cardiovascular: Regular rate, Regular Rhythm, Normal S1, Normal S2, No murmurs Abdomen: Bowel Sounds Present, Soft, Non Tender, Non-Distended, No Hepato- splenomegaly Extremities: No edema Skin: No rashes, No breakdown Musculoskeletal: No Tenderness to Palpation of Joints or Extremities Lymphatic: No Cervical, Supraclavicular, or Inguinal Adenopathy Neurological: Cranial nerves II-XII grossly intact, Neuro grossly intact Psych/Mental Status: Normal Affect, Appropriate Laboratory Results 05/08/19 19:40: Urine Opiates Screen NEGATIVE, Urine Methadone Screen NEGATIVE, Ur Barbiturates Screen POSITIVE H, Ur Phencyclidine Scrn NEGATIVE, Ur Amphetamines Screen NEGATIVE, U Methamphetamin-MDMA NEGATIVE, U Benzodiazepines Scrn POSITIVE H, Urine Cocaine Screen NEGATIVE, U Cannabinoids Screen POSITIVE H , Ur Drug Screen Comment 05/08/19 19:42: WBC 10.1, RBC 5.69, Hgb 15.8, Hct 47.7, MCV 83.8, MCH 27.8, MCHC 33.1 D, RDW Std Deviation 44.5 H, RDW Coeff of Kaye 14.7 H, Plt Count 457 H, MPV 8.0, Immature Gran % (Auto) 0.600, Neut % (Auto) 59.3, Lymph % (Auto) 30.1, [place] % (Auto) 8.4, Eos % (Auto) 0.4, Baso % (Auto) 1.2 H, Absolute Neuts (auto) 6.0, Absolute Lymphs (auto) 3.03, Nucleated RBC % 0 05/08/19 19:42: Sodium 138, Potassium 3.7, Chloride 101, Carbon Dioxide 28.0, Anion Gap 9, BUN 8, Creatinine 0.92, Estim Creat Clear Calc 87.03, Est GFR (MDRD) Af Amer 109, Est GFR (MDRD) Non-Af 90, BUN/Creatinine Ratio 8.7 L, Glucose 263 H, Calcium 8.7, Total Bilirubin 0.20, AST 26, ALT 33, Alkaline Phosphatase 213 H, Troponin I < 0.015, Total Protein 8.3 H, Albumin 3.6, Globulin 4.7 H, Albumin/Globulin Ratio 0.8 L 05/08/19 19:42: Ethyl Alcohol 343.0 H* 05/08/19 22:54: POC Glucose 225 H 05/09/19 06:29: POC Glucose 48 L 05/09/19 06:50: Glucose 58 L 05/09/19 06:51: POC Glucose 70 Current Medications Atorvastatin Calcium (Lipitor) 40 mg PO QHS [facility] Last Admin: 05/08/19 23:16 Dose: 40 mg Documented by: Buspirone HCl (Buspar) 15 mg PO BID [facility] Last Admin: 05/08/19 23:15 Dose: 15 mg Documented by: Chlordiazepoxide (Librium) 50 mg PO Q6H [facility]; Taper Stop: 05/12/19 00:59 Last Admin: 05/09/19 04:54 Dose: 50 mg Documented by: Dicyclomine HCl (Bentyl) 20 mg PO Q6H PRN PRN PRN Reason: abdominal discomfort Enoxaparin Sodium (Lovenox) 40 mg SC DAILY [facility] Folic Acid (Folic Acid) 1 mg PO DAILYCM [facility] Gabapentin (Neurontin) 200 mg PO DAILYCM [facility] Glucagon () 1 mg IM .X1 PRN PRN Reason: Hypoglycemia Hydroxyzine Pamoate (Vistaril Pamoate Capsule) 50 mg PO Q6H PRN PRN PRN Reason: Mild Anxiety (score 1/3) Last Admin: 05/08/19 23:25 Dose: 50 mg Documented by: Dextrose (Dextrose 10%-Water) 250 mls @ 999 mls/hr IV .Q16M PRN; Protocol PRN Reason: HYPOGLYCEMIA Insulin Human Lispro (Humalog Kwikpen (Bkc)) 0 unit SC ACHS [facility]; Protocol Last Admin: 05/09/19 06:36 Dose: Not Given Documented by: Insulin Lispro Protam/Lispro Human (Humalog Mix 75-25 Kwikpen (Bkc)) 16 unit SC BREAKFAST [facility] Insulin Lispro Protam/Lispro Human (Humalog Mix 75-25 Kwikpen (Bk)) 20 unit SC DINNER [facility] Last Admin: 05/08/19 23:27 Dose: 20 u Documented by: Lisinopril (Zestril) 40 mg PO DAILY [facility] Lorazepam (Ativan) 2 mg IV X1 PRN PRN Reason: Seizure Lorazepam (Ativan) 1 mg IV Q2H PRN PRN PRN Reason: withdrawal symptoms Last Admin: 05/09/19 06:37 Dose: 1 mg Documented by: [facility] Methocarbamol (Methocarbamol) 750 mg PO Q6H PRN PRN PRN Reason: Muscle Aches Metoprolol Tartrate (Lopressor (Beta Ana)) 25 mg PO BID [facility] Last Admin: 05/08/19 23:17 Dose: 25 mg Documented by: Mirtazapine (Remeron) 15 mg PO QHS [facility] Last Admin: 05/08/19 23:25 Dose: 15 mg Documented by: Multivitamins ([facility]ivitamin) [facility] Ondansetron HCl (Zofran) 4 mg IV Q8H PRN PRN PRN Reason: NAUSEA/VOMITING Last Admin: 05/09/19 06:45 Dose: 4 mg Documented by: Sodium Chloride () 10 - 40 ml IV UD PRN PRN Reason: SALINE FLUSH Last Admin: 05/09/19 06:45 Dose: 10 ml Documented by: Thiamine HCl (Vitamin B1) [facility] Stop: 05/11/19 08:01 Ticagrelor (Brilinta) 90 mg PO BID [facility] Last Admin: 05/08/19 23:16 Dose: 90 mg Documented by: Venlafaxine HCl (Effexor Xr) 225 mg PO DAILY [facility] Vital Signs/Narrative: Vital Signs Temp Pulse Resp BP Pulse Ox 05/09/19 06:26 97.5 F L 84 18 158/78 H 97 Medical Necessity - Tobacco Use Smoking Status: Current every day smoker Tobacco Use: Cigarettes Assessment/Plan All Active Problems (Last Reviewed 05/08/19 @ 22:[address] Alan Mandujano MD) Sinus tachycardia by electrocardiography (Acute) Alcohol abuse (Acute) Suicide attempt (Resolved) NSVT (nonsustained ventricular tachycardia) (Resolved) Alcohol abuse (Resolved) Non-ST elevation (NSTEMI) myocardial infarction (Resolved) Overdose of insulin (Resolved) Suicidal ideation (Resolved) 1. Acute alcohol withdrawal, in a known chronic alcohol use disorder, CIWA persistently elevated,>12 On Librium taper, will switch to Ativan taper, continue on Thiamine, folic, multivitamins Continue on seizure precaution 2. Nicotine dependency, will start on nicotine patch and gum prn 3. Hypertension, uncontrolled, controlled on Lisinopril, increase metoprolol 50mg BID 4. Type 2 DM, BS are controlled, on metformin and insulin, will continue with blood glucose checks with ISS. 5. CAD s/p stent, continue on statin, tigagrelor 6. Anxiety/depression, on Buspar, Effexor 7. DVT PPx- Lovenox SC Inpatient E&M: 78901 Subs Hosp L2
[2019-05-09] MEDS: Thiamine Hydrochloride 100 MG Tablet PO (09:16)
[2019-05-09] MEDS: TICAGRELOR 90 MG TABLET PO ×2 (09:17→20:46)
[2019-05-09] MEDS: Metoprolol Tartrate 25 MG Tablet PO (09:17)
[2019-05-09] MEDS: Lisinopril 40 MG Tablet PO (09:17)
[2019-05-09] MEDS: Venlafaxine XR 75 MG Capsule 225 MG PO (09:17)
[2019-05-09] MEDS: Gabapentin 100 MG Capsule 200 MG PO (09:17)
[2019-05-09] MEDS: Folic Acid 1 MG Tablet PO (09:18)
[2019-05-09] MEDS: busPIRone 15 MG TABLET PO ×2 (09:18→20:46)
[2019-05-09] MEDS: Multivitamins,Therapeutic Tablet 1 TABLET PO (09:19)
[2019-05-09] MEDS: Enoxaparin 40 MG/0.4 ML Syringe SC (09:19)
[2019-05-09] MEDS: Insulin Human 75/25 Kwickpen 16 UNIT SC (09:20)
[2019-05-09] MEDS: metFORMIN HCl 1,000 MG Tablet 1000 MG PO ×2 (09:22→16:53)
--- NOTE | 2019-05-09 09:34 | ADDICTION ---
This typewriter mechanic met with patient to collaborate discharge planning. Patient reports desire to engage in Residential treatment with [facility]. This typewriter mechanic obtained client's H&P and will provide this medical information to [facility] medical staff for approval to engage in Residential Treatment. This typewriter mechanic updated hospital social media sr strategy manager on client's d/c plan and will continue to work with client and hospital staff to provide an easy transition for patient.
[2019-05-09 12:50] LABS: Bedside Glucose 61 mg/dL (70-110)
[2019-05-09] MEDS: LORazepam 1 MG Tablet PO ×3 (12:55→20:44)
[2019-05-09 13:00] LABS: Bedside Glucose 71 mg/dL (70-110)
--- NOTE | 2019-05-09 13:24 | CASEMGMT ---
Social Work Note WILLY received call from Josefa at [facility] stating due to pt's recent suicidal ideations, [facility] is not able to accept pt. Josefa states she called crisis to complete psychiatric evaluation for pt but crisis informed Josefa that SW at [facility] are able to complete evaluations now. WILLY informed Josefa that SW are able to do so but crisis is still assisting and also informed Josefa that pt has to have active suicidal thoughts and pt came in for ETOH withdrawal, not suicidal thoughts. Josefa states she will look for dual diagnosis facilities for pt and can provide information to this worker. SW in to speak with pt. WILLY introduced self and role at [facility]. Pt was sleeping when this worker entered the room but woke up when this worker entered the room. Pt confirms that he spoke with Josefa at [facility] this morning and would like to go to residential at [facility]. WILLY informed pt that per Josefa due to pt's past history of suicidal ideations, [facility] is not able to accept pt. WILLY completed [place]-Suicide Severity Rating Scale with pt. Pt denied any current suicidal thoughts/plans/ideations. Pt states that his last suicidal thought was in December 2018 and pt was placed at [facility]. Pt denied any plan at that time, states he just had the suicidal thoughts. Pt states that he has very limited support but states that the peer supports for [facility] have been helpful. Pt states that he has been to [facility] and [facility] before. Pt states I don't want to , I want to live. WILLY explored different options for pt including residential treatment outside of [place], IOP and outpatient counseling. Pt states that he doesn't wnat to go outside for [place] and if he can't get into residential treatment at [place] he doesn't want to do residential. Pt is agreeable to outpatient counseling through [facility]. WILLY placed a call to Josefa at [facility] and left message informing Josefa that pt is not currently suicidal and denied any suicidal thoughts/plans/ideations at this time and asked for [facility] to reconsider taking pt into [facility]. WILLY updated Josefa that pt states if he can't do residential in [place] he doesn't want residential and will just do outpatient therapy at [facility]. WILLY received message from Josefa Light stating she spoke with RN for residential. Per RN pt has to be 6 months without suicide attempt/threat before pt is able to be accepted into residential. Josefa states she does plan on coming back to [facility] tomorrow to speak with pt. Leandra Silvestre BUSINESS TEAM LEADER, INSIDE SALES ASSOCIATE
--- NOTE | 2019-05-09 14:51 | CHAPLAIN ---
patient is sleeping; left a calling card
[2019-05-09] MEDS: Insulin Human 75/25 Kwickpen 20 UNIT SC (16:55)
[2019-05-09] MEDS: Insulin Lispro 100 UNIT/ML INSULN.PEN SC (16:55)
[2019-05-09 17:16] LABS: Bedside Glucose 229 mg/dL (70-110)
[2019-05-09] MEDS: Mirtazapine 15 MG Tablet PO (20:46)
[2019-05-09] MEDS: Atorvastatin Calcium 40 MG Tablet PO (20:47)
[2019-05-09] MEDS: Metoprolol Tartrate 50 MG Tablet PO (20:47)
[2019-05-09 20:55] LABS: Bedside Glucose 85 mg/dL (70-110)
[2019-05-09 20:55] LABS: Bedside Glucose 46 mg/dL (70-110)
[2019-05-10] VITALS (8 sets, daily range): BP systolic 145–168; BP diastolic 78–98; PULSE 73–87; RESP 18; TEMP 36.4–36.9; O2SAT 96–99
[2019-05-10] MEDS: LORazepam 1 MG Tablet PO ×5 (00:46→20:29)
[2019-05-10 00:56] LABS: Bedside Glucose 108 mg/dL (70-110)
--- NOTE | 2019-05-10 07:19 | PCM.PN.HOSP ---
Patient Problems: Active and Suspected Problems Alcohol abuse (Acute) Reason for Visit: Follow-up for alcohol withdrawal Subjective: Patient was seen and examined. He feels better. His CIWA is better at 5/6 since he was switched to Ativan. He feels depressed because he was denied inpatient detox with [facility]. He otherwise denies chest pain, dizziness, SOB Objective: Physical exam: General: Alert, Oriented x3, Cooperative, - - appears anxious, shaky HEENT: Atraumatic, PERRLA, EOMI, Normocephalic Oral: Moist Mucosa Neck: Supple Lungs: Clear to auscultation, Normal air movement Cardiovascular: Regular rate, Regular Rhythm, Normal S1, Normal S2, No murmurs Abdomen: Bowel Sounds Present, Soft, Non Tender, Non-Distended, No Hepato-splenomegaly Extremities: No edema Skin: No rashes, No breakdown Musculoskeletal: No Tenderness to Palpation of Joints or Extremities Lymphatic: No Cervical, Supraclavicular, or Inguinal Adenopathy Neurological: Cranial nerves II-XII grossly intact, Neuro grossly intact Psych/Mental Status: Normal Affect, Appropriate Vitals/I&O's: Vital Signs Temp Pulse Resp BP Pulse Ox 97.8 F 77 18 145/93 H 99 05/10/19 04:53 05/10/19 04:53 05/10/19 04:53 05/10/19 04:53 05/10/19 04:53 Oxygen Delivery Method Room Air Weight: 72.2 kg Body Mass Index (BMI) 23.5 Finger Stick Blood Glucose 324 Intake and Output for Last 24 Hours 05/08/19 05/09/19 05/10/19 23:59 23:59 23:59 Intake Total 999 2090 / 2560 520 / 520 Output Total 275 / 275 Balance 999 1815 / 2285 520 / 520 Laboratory Results 05/09/19 12:39: POC Glucose 61 L 05/09/19 12:54: POC Glucose 71 05/09/19 16:54: POC Glucose 229 H 05/09/19 20:24: POC Glucose 46 L 05/09/19 20:43: POC Glucose 85 05/10/19 00:50: POC Glucose 108 Current Medications Atorvastatin Calcium (Lipitor) 40 mg PO QHS [facility] Last Admin: 05/09/19 20:47 Dose: 40 mg Documented by: Buspirone HCl (Buspar) 15 mg PO BID [facility] Last Admin: 05/09/19 20:46 Dose: 15 mg Documented by: Dicyclomine HCl (Bentyl) 20 mg PO Q6H PRN PRN PRN Reason: abdominal discomfort Enoxaparin Sodium (Lovenox) 40 mg SC DAILY [facility] Last Admin: 05/09/19 09:19 Dose: 40 mg Documented by: [facility] ([facility] Acid) [facility] Last Admin: 05/09/19 09:18 Dose: 1 mg Documented by: Gabapentin (Neurontin) [facility] Last Admin: 05/09/19 09:17 Dose: 200 mg Documented by: Glucagon () 1 mg IM .X1 PRN PRN Reason: Hypoglycemia Hydroxyzine Pamoate (Vistaril Pamoate Capsule) 50 mg PO Q6H PRN PRN PRN Reason: Mild Anxiety (score 1/3) Last Admin: 05/08/19 23:25 Dose: 50 mg Documented by: Dextrose (Dextrose 10%-Water) 250 mls @ 999 mls/hr IV .Q16M PRN; Protocol PRN Reason: HYPOGLYCEMIA Insulin Human Lispro (Humalog Kwikpen (Bkc)) 0 unit SC ACHS [facility]; Protocol Last Admin: 05/09/19 20:48 Dose: Not Given Documented by: Insulin Lispro Protam/Lispro Human (Humalog Mix 75-25 Kwikpen (Bkc)) 16 unit SC BREAKFAST [facility] Last Admin: 05/09/19 09:20 Dose: 16 u Documented by: Insulin Lispro Protam/Lispro Human (Humalog Mix 75-25 Kwikpen (Bk)) 20 unit SC DINNER [facility] Last Admin: 05/09/19 16:55 Dose: 20 u Documented by: Lisinopril (Zestril) 40 mg PO DAILY [facility] Last Admin: 05/09/19 09:17 Dose: 40 mg Documented by: Lorazepam (Ativan) 2 mg IV X1 PRN PRN Reason: Seizure Lorazepam (Ativan) 1 mg IV Q2H PRN PRN PRN Reason: withdrawal symptoms Last Admin: 05/09/19 12:39 Dose: 1 mg Documented by: Lorazepam (Ativan) 1 mg PO Q4H [facility]; Taper Stop: 05/12/19 17:29 Last Admin: 05/10/19 04:50 Dose: 1 mg Documented by: Metformin HCl (Glucophage) [facility] Last Admin: 05/09/19 16:53 Dose: 1,000 mg Documented by: Methocarbamol (Methocarbamol) 750 mg PO Q6H PRN PRN PRN Reason: Muscle Aches Metoprolol Tartrate (Lopressor (Beta Ana)) 50 mg PO BID [facility] Last Admin: 05/09/19 20:47 Dose: 50 mg Documented by: Mirtazapine (Remeron) 15 mg PO QHS [facility] Last Admin: 05/09/19 20:46 Dose: 15 mg Documented by: Multivitamins (Multivitamin) [facility] tablet [facility] Last Admin: 05/09/19 09:19 Dose: 1 tablet Documented by: Nicotine (Nicoderm Cq (Pbkc)) 21 mg TRANSDERM. DAILY [facility] Nicotine Polacrilex ([place] Nicotine (Bkc)) 2 mg PO Q2H PRN PRN PRN Reason: Nicotine Craving Ondansetron HCl (Zofran) 4 mg IV Q8H PRN PRN PRN Reason: NAUSEA/VOMITING Last Admin: 05/09/19 06:45 Dose: 4 mg Documented by: Sodium Chloride () 10 - 40 ml IV UD PRN PRN Reason: SALINE FLUSH Last Admin: 05/09/19 12:39 Dose: 10 ml Documented by: Thiamine HCl (Vitamin B1) [facility] Stop: 05/11/19 08:01 Last Admin: 05/09/19 09:16 Dose: 100 mg Documented by: Ticagrelor (Brilinta) 90 mg PO BID [facility] Last Admin: 05/09/19 20:46 Dose: 90 mg Documented by: Venlafaxine HCl (Effexor Xr) 225 mg PO DAILY [facility] Last Admin: 05/09/19 09:17 Dose: 225 mg Documented by: [facility] Vital Signs/Narrative: Vital Signs Temp Pulse Resp BP Pulse Ox 05/10/19 04:53 97.8 F 77 18 145/93 H 99 Medical Necessity - Tobacco Use Smoking Status: Current every day smoker Tobacco Use: Cigarettes Assessment/Plan All Active Problems (Last Reviewed 05/08/19 @ 22:[address] Alan Mandujano MD) Sinus tachycardia by electrocardiography (Acute) Alcohol abuse (Acute) Suicide attempt (Resolved) NSVT (nonsustained ventricular tachycardia) (Resolved) Alcohol abuse (Resolved) Non-ST elevation (NSTEMI) myocardial infarction (Resolved) Overdose of insulin (Resolved) Suicidal ideation (Resolved) 1. Acute alcohol withdrawal, in a known chronic alcohol use disorder, CIWA improving On Ativan taper, continue on Thiamine, folic, multivitamins Continue on seizure precaution 2. Nicotine dependency, on nicotine patch and gum prn 3. Hypertension, fairly uncontrolled, controlled on Lisinopril, increase metoprolol to 100mg BID 4. Type 2 DM, BS are controlled, on metformin and insulin, will continue with blood glucose checks with ISS. 5. CAD s/p stent, continue on statin, tigagrelor 6. Anxiety/depression, on Buspar, Effexor 7. DVT PPx- Lovenox SC Inpatient E&M: 99324 Subs Hosp L2
[2019-05-10] MEDS: Venlafaxine XR 75 MG Capsule 225 MG PO (08:29)
[2019-05-10] MEDS: Lisinopril 40 MG Tablet PO (08:29)
[2019-05-10] MEDS: metFORMIN HCl 1,000 MG Tablet 1000 MG PO ×2 (08:29→16:21)
[2019-05-10] MEDS: busPIRone 15 MG TABLET PO ×2 (08:29→21:58)
[2019-05-10] MEDS: Gabapentin 100 MG Capsule 200 MG PO (08:29)
[2019-05-10] MEDS: Multivitamins,Therapeutic Tablet 1 TABLET PO (08:30)
[2019-05-10] MEDS: Metoprolol Tartrate 50 MG Tablet PO (08:30)
[2019-05-10] MEDS: Thiamine Hydrochloride 100 MG Tablet PO (08:30)
[2019-05-10] MEDS: TICAGRELOR 90 MG TABLET PO ×2 (08:30→21:58)
[2019-05-10] MEDS: Folic Acid 1 MG Tablet PO (08:30)
[2019-05-10] MEDS: Enoxaparin 40 MG/0.4 ML Syringe SC (08:31)
[2019-05-10] MEDS: Insulin Human 75/25 Kwickpen 16 UNIT SC (08:31)
[2019-05-10 08:40] LABS: Bedside Glucose 86 mg/dL (70-110)
--- NOTE | 2019-05-10 09:12 | ADDICTION ---
This automobile service writer met with patient to discuss ongoing care following discharge from hospital withdrawal management. This automobile service writer informed patient that he will not be able to engage with [facility]idential ([facility]) based on recent suicidal ideation per [facility] nurse and residential intake team. This automobile service writer explained reasoning why he was denied to patient. Patient reported that he understood although believes that it's because someone doesn't like me. This automobile service writer offered to assist patient with engaging with other dual diagnosis facilities- patient refused stating I'll just take my chances at home. This automobile service writer encouraged patient to reconsider engaging in dual diagnosis residential treatment at outside facility but he continued to refuse. This automobile service writer asked client if he is interested in engaging in outpatient services with [facility]. Patient noted that he will think about it when I get out of here. This automobile service writer will follow up with patient next week following his discharge from hospital to attempt to continue to engage in ongoing treatment.
[2019-05-10] MEDS: Insulin Lispro 100 UNIT/ML INSULN.PEN SC ×2 (11:17→16:15)
[2019-05-10 11:20] LABS: Bedside Glucose 176 mg/dL (70-110)
--- NOTE | 2019-05-10 13:54 | CASEMGMT ---
Addendum entered by Leandra Silvestre 05/10/19 16:05: WILLY back in to speak with pt. SW reviewed resources that were provided to pt with pt. Pt states interest in [facility]. SW placed a call to [facility] and they do not accept [facility]. SW back in to speak with pt. SW continued to review list. Pt agreeable to referral being sent to [facility]. SW faxed referral to [facility], wrote on fax coversheet to call pt regarding referral. Original Note: Social Work Note SW met with pt to continue to discuss discharge plans. Pt states I really wanted to go to [facility]. SW offered support to pt and informed pt that there are different places pt could go but pt needs to be agreeable to do so. Pt states I will just go home. WILLY asked pt if he had alcohol in the home and if he is going to be able to stay sober and pt states well if I didn't have alcohol in the home, I could just go to the store to get some. Pt states I will go home and stay sober as long as I can and then go back to drinking. SW informed pt that he is at [facility] for medical stabilization to get the alcohol out of his system and to get linked up with discharge plans to assist pt keeping him sober. WILLY informed pt that if he plans on just going home and drinking, going through the medical stabilization would've been for nothing and pt would have to start the process all over again. Pt states he has nobody that he could stay with for support and again states he will return home. WILLY informed pt that this worker can provide him with resource and he can review resources and look at agencies and this worker can call places if he gives this worker permission to do so. Pt agreeable to taking resources, didn't give this worker permission to call anywhere for pt. WILLY encouraged pt to review resources, to use [facility] supports [facility] and to follow up with Josefa through [facility] at discharge. Pt states understanding. SW provided pt with resources. Leandra Silvestre LUNCHROOM WORKER, ABSTRACT SEARCHER
[2019-05-10] MEDS: Insulin Human 75/25 Kwickpen 20 UNIT SC (16:16)
[2019-05-10 16:20] LABS: Bedside Glucose 210 mg/dL (70-110)
[2019-05-10] MEDS: hydrOXYzine PAM 25 MG Capsule 50 MG PO (16:24)
--- NOTE | 2019-05-10 16:51 | CHAPLAIN ---
patient is sleeping; made two attempts to visit pt today
[2019-05-10] MEDS: Dicyclomine 10 MG Capsule 20 MG PO (20:31)
[2019-05-10] MEDS: Mirtazapine 15 MG Tablet PO (21:58)
[2019-05-10] MEDS: Atorvastatin Calcium 40 MG Tablet PO (21:58)
[2019-05-10] MEDS: Metoprolol Tartrate 100 MG Tablet PO (21:59)
[2019-05-10 22:25] LABS: Bedside Glucose 154 mg/dL (70-110)
[2019-05-10 22:25] LABS: Bedside Glucose 77 mg/dL (70-110)
[2019-05-11] VITALS (8 sets, daily range): BP systolic 137–165; BP diastolic 75–87; PULSE 72–95; RESP 18–20; TEMP 36.4–37.1; O2SAT 96–99
[2019-05-11] MEDS: LORazepam 1 MG Tablet PO ×2 (02:42→15:30)
[2019-05-11 06:32] LABS: Absolute Lymphocyte Count 2.37 X10^3/uL (0.83-4.51); Basophil# 0.04 X10^3/uL; Basophil% 0.5 % (0-1); Eosinophil# 0.04 X10^3/uL; Eosinophils% 0.5 % (0-5); Hematocrit 43.4 % (40-54); Hemoglobin 14.5 g/dL (13.0-16.5); Lymphocyte # 2.37 X10^3/ul (4.0); Mean Corp Hgb Conc 33.4 g/dL (32-36); Mean Corpuscular Hgb 28.4 pg (27.0-32.0); Mean Corpuscular Volume 84.9 fL (80-94); Mean Platelet Vol. 8.5 fl (6.2-12.0); Monocyte% 5.1 % (0-10); NRBC Flagged by Analyzer 0 % (0-5); Neutrophil # 4.99 X10^3/uL (2.7-7.7); Neutrophil % 63.1 % (47-70); Platelet Count 259 K/mm3 (150-450); RBC Distribution Width CV 13.5 % (11.6-14.6); RBC Distribution Width SD 41.5 fl (35.1-43.9); Red Blood Count 5.11 M/mm3 (4.6-6.2); White Blood Count 7.9 K/mm3 (4.4-11.0)
[2019-05-11 06:58] LABS: ALB/GLOB Ratio 0.8 RATIO (0.9-2.4); AST(SGOT) 23 U/L (15-37); Alanine Aminotransfer ALT/SGPT 33 U/L (16-61); Alkaline Phosphatase 191 U/L (45-117); Anion Gap 7 (5-15); BUN 14 mg/dL (7-18); BUN/Creat Ratio 19.9 RATIO (10-20); Calcium,Total 8.5 mg/dL (8.5-10.1); Chloride 98 mmol/L (98-107); EST Glomerular Filtration Rate 123 mL/min (>60); Est Glom Filt Rate - Afr Amer 149 mL/min (>60); Estimated Creatinine Clearance 115.03 ml/min; Globulin 3.9 g/dL (2.2-4.2); Glucose 135 mg/dL (74-106); Potassium 3.9 mmol/L (3.5-5.1); Protein, Total 6.9 g/dL (6.4-8.2); Sodium Level 133 mmol/L (136-145)
[2019-05-11] MEDS: Gabapentin 100 MG Capsule 200 MG PO (09:26)
[2019-05-11] MEDS: metFORMIN HCl 1,000 MG Tablet 1000 MG PO ×2 (09:26→17:48)
[2019-05-11] MEDS: Multivitamins,Therapeutic Tablet 1 TABLET PO (09:27)
[2019-05-11] MEDS: Venlafaxine XR 75 MG Capsule 225 MG PO (09:27)
[2019-05-11] MEDS: busPIRone 15 MG TABLET PO ×2 (09:27→22:20)
[2019-05-11] MEDS: TICAGRELOR 90 MG TABLET PO ×2 (09:27→22:20)
[2019-05-11] MEDS: Metoprolol Tartrate 100 MG Tablet PO ×2 (09:28→22:20)
[2019-05-11] MEDS: Enoxaparin 40 MG/0.4 ML Syringe SC (09:28)
[2019-05-11] MEDS: Folic Acid 1 MG Tablet PO (09:29)
[2019-05-11] MEDS: Lisinopril 40 MG Tablet PO (09:29)
[2019-05-11] MEDS: Thiamine Hydrochloride 100 MG Tablet PO (09:29)
[2019-05-11] MEDS: Insulin Lispro 100 UNIT/ML INSULN.PEN SC ×2 (09:37→17:50)
[2019-05-11] MEDS: Insulin Human 75/25 Kwickpen 16 UNIT SC (09:38)
--- NOTE | 2019-05-11 09:44 | NURSING ---
Pt very drowsy. Would wake up but fall back to sleep until this nurse turned bright light on and told him to drink his pop. Pt set up breakfast and started to eat. Seems agitated that this nurse awakened him. Will wait to give scheduled ATivan to see if pt falls back to sleep after he eats.
--- NOTE | 2019-05-11 10:30 | PN_ITS ---
Patient Problems: Active and Suspected Problems Alcohol abuse (Acute) Reason for Visit: Follow-up for alcohol withdrawal Subjective: Patient was seen and examined. No acute events overnight. His CIWA has improved, currently 6. His Ativan held this am on account of lethargy. Objective: Physical exam: General: Alert, Oriented x3, Cooperative HEENT: Atraumatic, PERRLA, EOMI, Normocephalic Oral: Moist Mucosa Neck: Supple Lungs: Clear to auscultation, Normal air movement Cardiovascular: Regular rate, Regular Rhythm, Normal S1, Normal S2, No murmurs Abdomen: Bowel Sounds Present, Soft, Non Tender, Non-Distended, No Hepato- splenomegaly Extremities: No edema Skin: No rashes, No breakdown Musculoskeletal: No Tenderness to Palpation of Joints or Extremities Lymphatic: No Cervical, Supraclavicular, or Inguinal Adenopathy Neurological: Cranial nerves II-XII grossly intact, Neuro grossly intact Psych/Mental Status: Normal Affect, Appropriate Vitals/I&O's: Vital Signs Temp Pulse Resp BP Pulse Ox 98.7 F 84 20 H 161/87 H 99 05/11/19 09:23 05/11/19 09:28 05/11/19 09:23 05/11/19 09:23 05/11/19 09:23 Oxygen Delivery Method Room Air Weight: 72.2 kg Body Mass Index (BMI) 23.5 Finger Stick Blood Glucose 324 Intake and Output for Last 24 Hours 05/09/19 05/10/19 05/11/19 23:59 23:59 23:59 Intake Total 2090 / 2560 1240 / 1240 Output Total 275 / 275 600 / 900 300 / 300 Balance 1815 / 2285 640 / 340 -300 / -300 Laboratory Results 05/10/19 11:15: POC Glucose 176 H 05/10/19 16:13: POC Glucose 210 H 05/10/19 21:53: POC Glucose 77 05/10/19 22:19: POC Glucose 154 H 05/11/19 05:34: WBC 7.9, RBC 5.11, Hgb 14.5, Hct 43.4, MCV 84.9, MCH 28.4, MCHC 33.4, RDW Std Deviation 41.5, RDW Coeff of Kaye 13.5, Plt Count 259, MPV 8.5, Immature Gran % (Auto) 0.800, Neut % (Auto) 63.1, Lymph % (Auto) 30.0, [place] % (Auto) 5.1, Eos % (Auto) 0.5, Baso % (Auto) 0.5, Absolute Neuts (auto) 5.0, Absolute Lymphs (auto) 2.37, Nucleated RBC % 0 05/11/19 05:34: Sodium 133 L, Potassium 3.9, Chloride 98, Carbon Dioxide 28.0, Anion Gap 7, BUN 14, Creatinine 0.70, Estim Creat Clear Calc 115.03, Est GFR (MDRD) Af Amer 149, Est GFR (MDRD) Non-Af 123, BUN/Creatinine Ratio 19.9, Glucose 135 H, Calcium 8.5, Total Bilirubin 0.60, AST 23, ALT 33, Alkaline Phosphatase 191 H, Total Protein 6.9, Albumin 3.0 L, Globulin 3.9, Albumin/Globulin Ratio 0.8 L Current Medications Atorvastatin Calcium (Lipitor) 40 mg PO QHS [facility] Last Admin: 05/10/19 21:58 Dose: 40 mg Documented by: Buspirone HCl (Buspar) 15 mg PO BID [facility] Last Admin: 05/11/19 09:27 Dose: 15 mg Documented by: Dicyclomine HCl (Bentyl) 20 mg PO Q6H PRN PRN PRN Reason: abdominal discomfort Last Admin: 05/10/19 20:31 Dose: 20 mg Documented by: Enoxaparin Sodium (Lovenox) 40 mg SC DAILY [facility] Last Admin: 05/11/19 09:28 Dose: 40 mg Documented by: [facility] ([facility]) [facility] Last Admin: 05/11/19 09:29 Dose: 1 mg Documented by: Gabapentin (Neurontin) [facility] Last Admin: 05/11/19 09:26 Dose: 200 mg Documented by: Glucagon () 1 mg IM .X1 PRN PRN Reason: Hypoglycemia Hydroxyzine Pamoate (Vistaril Pamoate Capsule) 50 mg PO Q6H PRN PRN PRN Reason: Mild Anxiety (score 1/3) Last Admin: 05/10/19 16:24 Dose: 50 mg Documented by: Dextrose (Dextrose 10%-Water) 250 mls @ 999 mls/hr IV .Q16M PRN; Protocol PRN Reason: HYPOGLYCEMIA Insulin Human Lispro (Humalog Kwikpen ([facility])) 0 unit SC ACHS [facility]; Protocol Last Admin: 05/11/19 09:37 Dose: 2 u Documented by: Insulin Lispro Protam/Lispro Human (Humalog Mix 75-25 Kwikpen ([facility])) 16 unit SC BREAKFAST [facility] Last Admin: 05/11/19 09:38 Dose: 16 u Documented by: Insulin Lispro Protam/Lispro Human (Humalog Mix 75-25 Kwikpen ([facility])) 20 unit SC DINNER [facility] Last Admin: 05/10/19 16:16 Dose: 20 u Documented by: Lisinopril (Zestril) 40 mg PO DAILY [facility] Last Admin: 05/11/19 09:29 Dose: 40 mg Documented by: Lorazepam (Ativan) 2 mg IV X1 PRN PRN Reason: Seizure Lorazepam (Ativan) 1 mg IV Q2H PRN PRN PRN Reason: withdrawal symptoms Last Admin: 05/09/19 12:39 Dose: 1 mg Documented by: Lorazepam (Ativan) 1 mg PO Q8H [facility]; Taper Stop: 05/12/19 17:29 Last Admin: 05/11/19 02:42 Dose: 1 mg Documented by: Metformin [facility] (Glucophage) [facility] Last Admin: 05/11/19 09:26 Dose: 1,000 mg Documented by: Methocarbamol (Methocarbamol) 750 mg PO Q6H PRN PRN PRN Reason: Muscle Aches Metoprolol Tartrate (Lopressor (Beta Ana)) 100 mg PO BID [facility] Last Admin: 05/11/19 09:28 Dose: 100 mg Documented by: Mirtazapine (Remeron) 15 mg PO QHS [facility] Last Admin: 05/10/19 21:58 Dose: 15 mg Documented by: Multivitamins (Multivitamin) [facility] Last Admin: 05/11/19 09:27 Dose: 1 tablet Documented by: Nicotine (Nicoderm Cq ([facility])) 21 mg TRANSDERM. DAILY [facility] Last Admin: 05/11/19 09:28 Dose: 21 mg Documented by: Nicotine Polacrilex (Rugby Nicotine (Bk)) 2 mg PO Q2H PRN PRN PRN Reason: Nicotine Craving Ondansetron HCl (Zofran) 4 mg IV Q8H PRN PRN PRN Reason: NAUSEA/VOMITING Last Admin: 05/09/19 06:45 Dose: 4 mg Documented by: Sodium Chloride () 10 - 40 ml IV UD PRN PRN Reason: SALINE FLUSH Last Admin: 05/09/19 12:39 Dose: 10 ml Documented by: Ticagrelor (Brilinta) 90 mg PO BID [facility] Last Admin: 05/11/19 09:27 Dose: 90 mg Documented by: Venlafaxine HCl (Effexor Xr) 225 mg PO DAILY [facility] Last Admin: 05/11/19 09:27 Dose: 225 mg Documented by: STROKE Vital Signs/Narrative: Vital Signs Temp Pulse Resp BP Pulse Ox 05/11/19 09:28 84 05/11/19 09:23 98.7 F 84 20 H 161/87 H 99 Medical Necessity - Tobacco Use Smoking Status: Current every day smoker Tobacco Use: Cigarettes Assessment/Plan All Active Problems (Last Reviewed 05/08/19 @ 22:[address] lAan Mandujano MD) Sinus tachycardia by electrocardiography (Acute) Alcohol abuse (Acute) Suicide attempt (Resolved) NSVT (nonsustained ventricular tachycardia) (Resolved) Alcohol abuse (Resolved) Non-ST elevation (NSTEMI) myocardial infarction (Resolved) Overdose of insulin (Resolved) Suicidal ideation (Resolved) 1. Acute alcohol withdrawal, in a known chronic alcohol use disorder, CIWA improving On Ativan taper, continue on Thiamine, folic, multivitamins Continue on seizure precaution Social work is working on discharge to inpatient drug rehab facility. 2. Nicotine dependency, on nicotine patch and gum prn 3. Hypertension, fairly uncontrolled, continue on Lisinopril 40mg daily, metoprolol 100mg po bid, Add amlodipine 5mg daily, monitor vitals closely 4. Type 2 DM, BS are controlled, on metformin and insulin, will continue with blood glucose checks with ISS. 5. CAD s/p stent, continue on statin, tigagrelor 6. Anxiety/depression, on Buspar, Effexor 7. DVT PPx- Lovenox SC 8. Disposition: Pending a drug rehab place being ready; social worker aide working on discharge planning. Likely early next week. Inpatient E&M: 24685 Subs Hosp L2
[2019-05-11 12:31] LABS: Bedside Glucose 151 mg/dL (70-110)
[2019-05-11] MEDS: amLODIPine 5 MG Tablet PO (13:27)
[2019-05-11 13:41] LABS: Bedside Glucose 58 mg/dL (70-110)
[2019-05-11 14:56] LABS: Bedside Glucose 103 mg/dL (70-110)
[2019-05-11] MEDS: 0.9% Saline Lock 10 ML Syringe IV (15:31)
[2019-05-11] MEDS: Insulin Human 75/25 Kwickpen 20 UNIT SC (17:54)
[2019-05-11 18:00] LABS: Bedside Glucose 229 mg/dL (70-110)
[2019-05-11 21:20] LABS: Bedside Glucose 76 mg/dL (70-110)
[2019-05-11] MEDS: Atorvastatin Calcium 40 MG Tablet PO (22:20)
[2019-05-11 22:31] LABS: Bedside Glucose 103 mg/dL (70-110)
[2019-05-11] MEDS: Mirtazapine 15 MG Tablet PO (22:59)
[2019-05-12] MEDS: LORazepam 1 MG Tablet PO ×3 (00:32→16:58)
[2019-05-12 05:10] VITALS: BP 145/95; PULSE 72; RESP 16; TEMP 36.9; O2SAT 97
[2019-05-12] MEDS: Insulin Lispro 100 UNIT/ML INSULN.PEN SC ×2 (06:45→22:39)
[2019-05-12 06:51] LABS: Bedside Glucose 179 mg/dL (70-110)
[2019-05-12] MEDS: Folic Acid 1 MG Tablet PO (10:39)
[2019-05-12] MEDS: TICAGRELOR 90 MG TABLET PO ×2 (10:39→22:37)
[2019-05-12] MEDS: metFORMIN HCl 1,000 MG Tablet 1000 MG PO (10:40)
[2019-05-12] MEDS: Multivitamins,Therapeutic Tablet 1 TABLET PO (10:40)
[2019-05-12] MEDS: Venlafaxine XR 75 MG Capsule 225 MG PO (10:40)
[2019-05-12] MEDS: Enoxaparin 40 MG/0.4 ML Syringe SC (10:41)
[2019-05-12] MEDS: Gabapentin 100 MG Capsule 200 MG PO (10:42)
[2019-05-12] MEDS: Insulin Human 75/25 Kwickpen 16 UNIT SC (10:43)
[2019-05-12] MEDS: busPIRone 15 MG TABLET PO ×2 (10:43→22:37)
[2019-05-12 13:06] LABS: Bedside Glucose 166 mg/dL (70-110)
[2019-05-12 13:10] LABS: Bedside Glucose 109 mg/dL (70-110)
--- NOTE | 2019-05-12 13:28 | NURSING ---
Pt been awake in room for awhile. pt states he is very anxious. My anxiety is threw the roof. This nurse and him talked about his anxiety and why he may be experiencing so much. We talked about what he could do at home to help with the anxiety besides drink. Thats what I'm afraid of, that I'm going to go home and drink. Ativan po given.
--- NOTE | 2019-05-12 16:22 | PCM.PN.HOSP ---
Patient Problems: Active and Suspected Problems Alcohol abuse (Acute) Vitals/I&O's: Vital Signs Temp Pulse Resp BP Pulse Ox 98.5 F 72 16 145/95 H 97 05/12/19 05:10 05/12/19 05:10 05/12/19 05:10 05/12/19 05:10 05/12/19 05:10 Oxygen Delivery Method Room Air Weight: 72.2 kg Body Mass Index (BMI) 23.5 Finger Stick Blood Glucose 324 Intake and Output for Last 24 Hours 05/10/19 05/11/19 05/13/19 23:59 23:59 00:59 Intake Total 1240 / 1240 1080 / 1080 440 / 440 Output Total 600 / 900 800 / 800 750 / 750 Balance 640 / 340 280 / 280 -310 / -310 General: Alert, Oriented x3, Cooperative, No apparent distress, Well developed, Well nourished Lungs: No rhonchi, No rales, Wheezes - few scattered Cardiovascular: Regular rate, Regular Rhythm, Normal S1, Normal S2, No murmurs, No Ectopic Activity, No rub noted, No Gallop Abdomen: Bowel Sounds Present, Soft, Non Tender, Non-Distended, No hernias noted Extremities: No clubbing, No cyanosis, No edema Psych/Mental Status: Flat Affect, Depressed, - - tearful during exam Laboratory Results 05/11/19 17:46: POC Glucose 229 H 05/11/19 21:15: POC Glucose 76 05/11/19 22:12: POC Glucose 103 05/12/19 06:43: POC Glucose 179 H 05/12/19 10:37: POC Glucose 166 H 05/12/19 13:04: POC Glucose 109 Current Medications Amlodipine Besylate (Norvasc) 5 mg PO DAILY [facility] Last Admin: 05/12/19 10:41 Dose: Not Given Documented by: Atorvastatin Calcium (Lipitor) 40 mg PO QHS [facility] Last Admin: 05/11/19 22:20 Dose: 40 mg Documented by: Buspirone HCl (Buspar) 15 mg PO BID [facility] Last Admin: 05/12/19 10:43 Dose: 15 mg Documented by: Dicyclomine HCl (Bentyl) 20 mg PO Q6H PRN PRN PRN Reason: abdominal discomfort Last Admin: 05/10/19 20:31 Dose: 20 mg Documented by: Enoxaparin Sodium (Lovenox) 40 mg SC DAILY [facility] Last Admin: 05/12/19 10:41 Dose: 40 mg Documented by: [facility]) [facility] Last Admin: 05/12/19 10:39 Dose: 1 mg Documented by: Gabapentin (Neurontin) [facility] Last Admin: 05/12/19 10:42 Dose: 200 mg Documented by: Glucagon () 1 mg IM .X1 PRN PRN Reason: Hypoglycemia Hydroxyzine Pamoate (Vistaril Pamoate Capsule) 50 mg PO Q6H PRN PRN PRN Reason: Mild Anxiety (score 1/3) Last Admin: 05/10/19 16:24 Dose: 50 mg Documented by: Dextrose (Dextrose 10%-Water) 250 mls @ 999 mls/hr IV .Q16M PRN; Protocol PRN Reason: HYPOGLYCEMIA Insulin Human Lispro (Humalog Kwikpen ([facility])) 0 unit SC ACHS [facility]; Protocol Last Admin: 05/12/19 13:07 Dose: Not Given Documented by: Insulin Lispro Protam/Lispro Human (Humalog Mix 75-25 Kwikpen ([facility])) 16 unit SC BREAKFAST [facility] Last Admin: 05/12/19 10:43 Dose: 16 u Documented by: Insulin Lispro Protam/Lispro Human (Humalog Mix 75-25 Kwikpen ([facility])) 20 unit SC DINNER [facility] Last Admin: 05/11/19 17:54 Dose: 20 u Documented by: Lisinopril (Zestril) 40 mg PO DAILY [facility] Last Admin: 05/12/19 10:41 Dose: Not Given Documented by: Lorazepam (Ativan) 2 mg IV X1 PRN PRN Reason: Seizure Lorazepam (Ativan) 1 mg IV Q2H PRN PRN PRN Reason: withdrawal symptoms Last Admin: 05/09/19 12:39 Dose: 1 mg Documented by: Lorazepam (Ativan) 1 mg PO Q8H [facility]; Taper Stop: 05/12/19 17:29 Last Admin: 05/12/19 13:09 Dose: 1 mg Documented by: Metformin [facility] (Glucophage) [facility] Last Admin: 05/12/19 10:40 Dose: 1,000 mg Documented by: Methocarbamol (Methocarbamol) 750 mg PO Q6H PRN PRN PRN Reason: Muscle Aches Metoprolol Tartrate (Lopressor (Beta Ana)) 100 mg PO BID [facility] Last Admin: 05/12/19 10:41 Dose: Not Given Documented by: Mirtazapine (Remeron) 15 mg PO QHS [facility] Last Admin: 05/11/19 22:59 Dose: 15 mg Documented by: Multivitamins (Multivitamin) [facility] Last Admin: 05/12/19 10:40 Dose: 1 tablet Documented by: Nicotine (Nicoderm Cq ([facility])) 21 mg TRANSDERM. DAILY [facility] Last Admin: 05/12/19 10:47 Dose: Not Given Documented by: Nicotine Polacrilex (Rugby Nicotine (Bkc)) 2 mg PO Q2H PRN PRN PRN Reason: Nicotine Craving Ondansetron HCl (Zofran) 4 mg IV Q8H PRN PRN PRN Reason: NAUSEA/VOMITING Last Admin: 05/09/19 06:45 Dose: 4 mg Documented by: Sodium Chloride () 10 - 40 ml IV UD PRN PRN Reason: SALINE FLUSH Last Admin: 05/11/19 15:31 Dose: 10 ml Documented by: Ticagrelor (Brilinta) 90 mg PO BID [facility] Last Admin: 05/12/19 10:39 Dose: 90 mg Documented by: Venlafaxine HCl (Effexor Xr) 225 mg PO DAILY [facility] Last Admin: 05/12/19 10:40 Dose: 225 mg Documented by: Medical Necessity - Tobacco Use Smoking Status: Current every day smoker Tobacco Use: Cigarettes Assessment/Plan All Active Problems (Last Reviewed 05/08/19 @ 22:[address] Alan Mandujano MD) Sinus tachycardia by electrocardiography (Acute) Alcohol abuse (Acute) Suicide attempt (Resolved) NSVT (nonsustained ventricular tachycardia) (Resolved) Alcohol abuse (Resolved) Non-ST elevation (NSTEMI) myocardial infarction (Resolved) Overdose of insulin (Resolved) Suicidal ideation (Resolved) Acute EtOH Withdrawal -has chronic EtOH use d/o -Ativan taper -Thiamine and Folate -MVI -Inpt drug rehab 05/12? Nicotine dependence -nicotine patch and gum HTN/HPL -slight elevation -on Lisinopril 40 mg daily/metoprolol 100 mg BID -Amlodipine added 5 mg 05/10 -if remains elevated 05/12 will increase to 10 mg -statin DM-2 BGT controlled -cont Metformin and insulin CAD with h/o PCI -Continue Brilinta and Statin Anxiety/Depression -Cont Buspar and Effexor DVT Prophylaxis -lovenox
[2019-05-12] MEDS: Lisinopril 40 MG Tablet PO (17:13)
[2019-05-12] MEDS: amLODIPine 5 MG Tablet PO (17:13)
[2019-05-12 17:15] LABS: Bedside Glucose 58 mg/dL (70-110)
[2019-05-12] MEDS: 0.9% Saline Lock 10 ML Syringe IV ×2 (17:15→18:37)
[2019-05-12 17:21] VITALS: BP 161/92; PULSE 93; RESP 20; TEMP 36.6; O2SAT 98
--- NOTE | 2019-05-12 17:54 | NURSING ---
Pt states the Ativan did not help at all. Also c.o Rt shoulder pain. Nothing for pain. Offered Kpad. Was agreeable to see if I could get some Tylenol for him.
[2019-05-12 17:56] LABS: Bedside Glucose 139 mg/dL (70-110)
[2019-05-12] MEDS: LORazepam 2 MG/ML Syringe 1 MG IV (18:37)
[2019-05-12] MEDS: Phenobarbital 20 MG/5 ML UDC 60 MG PO (20:01)
[2019-05-12 20:17] VITALS: BP 155/90; PULSE 96; RESP 18; TEMP 37; O2SAT 97
[2019-05-12 22:36] VITALS: BP 164/85; PULSE 87
[2019-05-12] MEDS: Metoprolol Tartrate 100 MG Tablet PO (22:36)
[2019-05-12] MEDS: Atorvastatin Calcium 40 MG Tablet PO (22:36)
[2019-05-12] MEDS: Mirtazapine 15 MG Tablet PO (22:37)
[2019-05-12 22:50] LABS: Bedside Glucose 177 mg/dL (70-110)
[2019-05-13] VITALS (7 sets, daily range): BP systolic 133–157; BP diastolic 72–92; PULSE 68–91; RESP 16–18; TEMP 36.3–36.6; O2SAT 99–100
[2019-05-13] MEDS: Mag Hydrox/Al Hydrox/Simeth 30 ML UDC PO (00:45)
[2019-05-13] MEDS: Phenobarbital 20 MG/5 ML UDC 60 MG PO ×4 (01:35→19:06)
[2019-05-13] MEDS: 0.9% Saline Lock 10 ML Syringe IV (06:43)
[2019-05-13 06:50] LABS: Bedside Glucose 131 mg/dL (70-110)
--- NOTE | 2019-05-13 09:51 | ADDICTION ---
Patient was asleep upon this specification writer's arrival to room. This specification writer was able to rouse patient enough to discuss discharge plans. Patient shared that he would be willing to consider engaging in services with other agency following discharge from hospital. Patient identified [facility] as a potential treatment facility he would consider. This specification writer will inform hospital foster care social worker about this conversation. This specification writer will update client's chart at [facility].
--- NOTE | 2019-05-13 09:56 | PN_ITS ---
Patient Problems: Active and Suspected Problems Alcohol abuse (Acute) Subjective: Feeling much better today. Less internal anxiety and tremor. Pt asking if any of his medication could contribute to ED. States that he has been on viagra in the past and was able to achieve and erection but was unable to orgasm. Vitals/I&O's: Vital Signs Temp Pulse Resp BP Pulse Ox 97.7 F L 78 16 141/85 H 99 05/13/19 06:42 05/13/19 06:42 05/13/19 06:42 05/13/19 06:42 05/13/19 06:42 Oxygen Delivery Method Room Air Weight: 72.2 kg Body Mass Index (BMI) 23.5 Finger Stick Blood Glucose 324 Intake and Output for Last 24 Hours 05/11/19 05/12/19 05/13/19 22:59 23:59 23:59 Intake Total Output Total Balance General: Alert, Oriented x3, Cooperative, No apparent distress, Well developed, Well nourished HEENT: Atraumatic, PERRLA, EOMI, Normocephalic, EAC Clear Oral: Moist Mucosa, No Gingival or Mucosal Lesions/ Ulcerations, - - poor dentition, mallampati 2 Neck: Supple, No JVD, Negative Carotid Bruits, Negative Hepatojugular Reflux, No Nodes, No Nuchal Rigidity, Trachea Midline, Thyroid Normal Size and Texture Lungs: Clear to auscultation, Normal air movement, No rhonchi, No wheeze, No rales Cardiovascular: Regular rate, Regular Rhythm, Normal S1, Normal S2, No murmurs, No Ectopic Activity, No rub noted, No Gallop Abdomen: Bowel Sounds Present, Soft, Non Tender, Non-Distended, No Hepato- splenomegaly, No hernias noted Extremities: No clubbing, No cyanosis, No edema Skin: No rashes, No breakdown Musculoskeletal: No Tenderness to Palpation of Joints or Extremities, No Muscle Wasting Lymphatic: No Cervical, Supraclavicular, or Inguinal Adenopathy Neurological: Cranial nerves II-XII grossly intact, Deep Tendon Reflexes 2+/4 and Symmetrical, Neuro grossly intact, Motor Exam 5/5 strength throughout Psych/Mental Status: Anxious - much improved in last 24 hrs, Depressed - better today, - - A&O x 3 Laboratory Results 05/12/19 10:37: POC Glucose 166 H 05/12/19 13:04: POC Glucose 109 05/12/19 17:07: POC Glucose 58 L 05/12/19 17:49: POC Glucose 139 H 05/12/19 22:36: POC Glucose 177 H 05/13/19 06:33: POC Glucose 131 H Current Medications Al Hydroxide/Mg Hydroxide (Mylanta Ii) 30 ml PO Q6H PRN PRN PRN Reason: INDIGESTION Last Admin: 05/13/19 00:45 Dose: 30 ml Documented by: Amlodipine Besylate (Norvasc) 5 mg PO DAILY [facility] Last Admin: 05/12/19 17:13 Dose: 5 mg Documented by: Atorvastatin Calcium (Lipitor) 40 mg PO QHS [facility] Last Admin: 05/12/19 22:36 Dose: 40 mg Documented by: Buspirone HCl (Buspar) 15 mg PO BID [facility] Last Admin: 05/12/19 22:37 Dose: 15 mg Documented by: Dicyclomine HCl (Bentyl) 20 mg PO Q6H PRN PRN PRN Reason: abdominal discomfort Last Admin: 05/10/19 20:31 Dose: 20 mg Documented by: Enoxaparin Sodium (Lovenox) 40 mg SC DAILY [facility] Last Admin: 05/12/19 10:41 Dose: 40 mg Documented by: Folic [facility] ([facility] Acid) [facility] Last Admin: 05/12/19 10:39 Dose: 1 mg Documented by: Gabapentin (Neurontin) [facility] Last Admin: 05/12/19 10:42 Dose: 200 mg Documented by: Glucagon () 1 mg IM .X1 PRN PRN Reason: Hypoglycemia Hydroxyzine Pamoate (Vistaril Pamoate Capsule) 50 mg PO Q6H PRN PRN PRN Reason: Mild Anxiety (score 1/3) Last Admin: 05/10/19 16:24 Dose: 50 mg Documented by: Dextrose (Dextrose 10%-Water) 250 mls @ 999 mls/hr IV .Q16M PRN; Protocol PRN Reason: HYPOGLYCEMIA Insulin Human Lispro (Humalog Kwikpen (Bk)) 0 unit SC ACHS [facility]; Protocol Last Admin: 05/13/19 06:34 Dose: Not Given Documented by: Insulin Lispro Protam/Lispro Human (Humalog Mix 75-25 Kwikpen ([facility])) 16 unit SC BREAKFAST [facility] Last Admin: 05/12/19 10:43 Dose: 16 u Documented by: Insulin Lispro Protam/Lispro Human (Humalog Mix 75-25 Kwikpen ([facility])) 20 unit SC DINNER [facility] Last Admin: 05/12/19 17:07 Dose: Not Given Documented by: Lisinopril (Zestril) 40 mg PO DAILY [facility] Last Admin: 05/12/19 17:13 Dose: 40 mg Documented by: Lorazepam (Ativan) 2 mg IV X1 PRN PRN Reason: Seizure Lorazepam (Ativan) 1 mg IV Q2H PRN PRN PRN Reason: withdrawal symptoms Last Admin: 05/09/19 12:39 Dose: 1 mg Documented by: Metformin HCl (Glucophage) [facility] Last Admin: 05/12/19 17:07 Dose: Not Given Documented by: Methocarbamol (Methocarbamol) 750 mg PO Q6H PRN PRN PRN Reason: Muscle Aches Metoprolol Tartrate (Lopressor (Beta Ana)) 100 mg PO BID [facility] Last Admin: 05/12/19 22:36 Dose: 100 mg Documented by: Mirtazapine (Remeron) 15 mg PO QHS [facility] Last Admin: 05/12/19 22:37 Dose: 15 mg Documented by: Multivitamins (Multivitamin) [facility] Last Admin: 05/12/19 10:40 Dose: 1 tablet Documented by: Nicotine (Nicoderm Cq ([facility])) 21 mg TRANSDERM. DAILY [facility] Last Admin: 05/12/19 10:47 Dose: Not Given Documented by: Nicotine Polacrilex (Rugby Nicotine ([facility])) 2 mg PO Q2H PRN PRN PRN Reason: Nicotine Craving Ondansetron HCl (Zofran) 4 mg IV Q8H PRN PRN PRN Reason: NAUSEA/VOMITING Last Admin: 05/09/19 06:45 Dose: 4 mg Documented by: Phenobarbital (Phenobarbital) 60 mg PO Q6H [facility] Last Admin: 05/13/19 06:50 Dose: 60 mg Documented by: Sodium Chloride () 10 - 40 ml IV UD PRN PRN Reason: SALINE FLUSH Last Admin: 05/13/19 06:43 Dose: 10 ml Documented by: Ticagrelor (Brilinta) 90 mg PO BID [facility] Last Admin: 05/12/19 22:37 Dose: 90 mg Documented by: Venlafaxine HCl (Effexor Xr) 225 mg PO DAILY [facility] Last Admin: 05/12/19 10:40 Dose: 225 mg Documented by: STROKE Vital Signs/Narrative: Vital Signs Temp Pulse Resp BP Pulse Ox 05/13/19 06:42 97.7 F L 78 16 141/85 H 99 Medical Necessity - Tobacco Use Smoking Status: Current every day smoker Tobacco Use: Cigarettes Assessment/Plan All Active Problems (Last Reviewed 05/08/19 @ 22:[address] Alan Mandujano MD) Sinus tachycardia by electrocardiography (Acute) Alcohol abuse (Acute) Suicide attempt (Resolved) NSVT (nonsustained ventricular tachycardia) (Resolved) Alcohol abuse (Resolved) Non-ST elevation (NSTEMI) myocardial infarction (Resolved) Overdose of insulin (Resolved) Suicidal ideation (Resolved) Acute EtOH Withdrawal -has chronic EtOH use d/o -Ativan taper was not working and pt was having sig tremor and internal anxiety which I think he has at baseline and it is part of the reason he drinks -Phenobarb added 60 q 6 last pm and this has helped tremendously -taper to q 8 tomorrow if remains stable -Thiamine and Folate -MVI -Inpt drug rehab at d/c if able to find a place accepting--> d/w SW Nicotine dependence -nicotine patch and gum HTN/HPL -BP still elevated -on Lisinopril 40 mg daily/metoprolol 100 mg BID -Amlodipine added 5 mg 05/10 -increase to 10 mg as BP still higher than I would like to se -statin DM-2 -BGT controlled -cont Metformin and insulin CAD with h/o PCI -Continue Brilinta and Statin Anxiety/Depression -Cont Buspar and Effexor ED -pt asking if there are any meds that may make this worse (BB and Effexor could) -States viagra helped but states that he never orgasmed -I also d/w him that EtOH can suppress his ability to have an erection and that avoidance may help as well DVT Prophylaxis -lovenox [id number]
[2019-05-13] MEDS: metFORMIN HCl 1,000 MG Tablet 1000 MG PO ×2 (10:13→17:06)
[2019-05-13] MEDS: Gabapentin 100 MG Capsule 200 MG PO (10:13)
[2019-05-13] MEDS: Multivitamins,Therapeutic Tablet 1 TABLET PO (10:14)
[2019-05-13] MEDS: Metoprolol Tartrate 100 MG Tablet PO ×2 (10:14→22:09)
[2019-05-13] MEDS: Venlafaxine XR 75 MG Capsule 225 MG PO (10:14)
[2019-05-13] MEDS: Folic Acid 1 MG Tablet PO (10:14)
[2019-05-13] MEDS: Insulin Human 75/25 Kwickpen 16 UNIT SC (10:15)
[2019-05-13] MEDS: TICAGRELOR 90 MG TABLET PO ×2 (10:15→22:10)
[2019-05-13] MEDS: Enoxaparin 40 MG/0.4 ML Syringe SC (10:15)
[2019-05-13] MEDS: busPIRone 15 MG TABLET PO ×2 (10:16→22:09)
[2019-05-13] MEDS: Lisinopril 40 MG Tablet PO (10:16)
[2019-05-13 10:25] LABS: Bedside Glucose 196 mg/dL (70-110)
[2019-05-13 12:55] LABS: Bedside Glucose 117 mg/dL (70-110)
--- NOTE | 2019-05-13 14:03 | CASEMGMT ---
Addendum entered by Leandra Silvestre 05/13/19 14:45: SW back in to speak with pt. Pt awake now. SW updated pt that this worker called [facility] and they don't have any beds available at this time. SW spoke with pt regarding [facility] in [place], [place]. Pt agreeable to this worker called [facility]. SW placed a call to [facility] and left message for intake counselor Barb. SW waiting for call back. SW updated pt that other agencies include [facility] in [place], [facility] in [place] and [facility] in [place]. Pt again states to try [facility] first as it is closer to pt's home. Other facilities not able to provide residential treatment include: [facility] Original Note: Social Work Note SW attempted to speak with pt regarding discharge plans. Pt sleeping when this worker entered the room. SW said pt's name three times and pt didn't wake up. SW placed a call to [facility] and spoke with Isma. Per Isma he has no beds available for residential at this time. SW reviewed list of Alcohol and Substance Abuse programs. [facility]: Doesn't accept medicaid [facility]: Must be resident of [facility]: Doesn't accept medicaid [facility]: Pt must be [facility] resident [facility]: No beds available in residential [facility]: Pt not accepted into residential program [facility]: Accepts Commercial insurances only [facility]: Doesn't accept medicaid [facility] for [facility]: Only accept pt's with Medicaid that are 18-21 or 65 and older. SW will attempt to meet with pt again and see if pt is able to wake up to continue to discuss discharge plans with this worker. SW to continue to follow. Leandra Silvestre DATA PROCESSING CONTROL CLERK, ENERGY ENGINEER
--- NOTE | 2019-05-13 15:48 | CHAPLAIN ---
Type of Pastoral Visit _x__ Initial Visit ___ Follow-up Visit ___ On-call Visit ___ General Patient Visit ___ Spiritual Assessment ___ Family Conference ___ Bereavement ___ Rapid Response ___ Code Blue ___ Other (describe below) Pastoral Care Referral From _x__ Patient ___ Family ___ Nurse ___ Physician ___ Mammal Control Agent ___ [place] ___ Other (describe below) Sacrament/Intervention _x__ Active listening ___ Anointing ___ Protestant ___ Bereavement ___ Communion _x__ Eloise exploration ___ ___ Life review _x__ Prayer ___ Reconciliation ___ Sacrament of Sick _x__ Supportive presence ___ Wedding ___ Other (describe below) Pastoral Comments this patient has been seen before by this home designer in previous admission; pt remembers home designer and is willing to discuss his situation and spiritual concerns in addition to finding a sober house per patient; pt has spiritual questions and states he would prefer going to a eloise based house/treatment center; this home designer will return to deliver a list of eloise based programs and sober houses to consider
[2019-05-13] MEDS: Insulin Human 75/25 Kwickpen 20 UNIT SC (17:06)
[2019-05-13 17:11] LABS: Bedside Glucose 108 mg/dL (70-110)
[2019-05-13] MEDS: hydrOXYzine PAM 25 MG Capsule 50 MG PO (20:36)
--- NOTE | 2019-05-13 22:00 | NURSING ---
FSBS 58, pt feeling cool and shaky. Snack of orange juice and frozen fruit ice given per pt request.
[2019-05-13] MEDS: Mirtazapine 15 MG Tablet PO (22:09)
[2019-05-13] MEDS: Atorvastatin Calcium 40 MG Tablet PO (22:09)
[2019-05-13 22:15] LABS: Bedside Glucose 58 mg/dL (70-110)
[2019-05-13 22:56] LABS: Bedside Glucose 307 mg/dL (70-110)
[2019-05-14] VITALS (10 sets, daily range): BP systolic 114–154; BP diastolic 72–81; PULSE 71–93; RESP 14–20; TEMP 36.3–36.6; O2SAT 93–100
[2019-05-14] MEDS: Phenobarbital 20 MG/5 ML UDC 60 MG PO ×3 (01:46→13:50)
[2019-05-14] MEDS: Ondansetron 4 MG/2 ML Vial IV (06:38)
[2019-05-14] MEDS: 0.9% Saline Lock 10 ML Syringe IV ×2 (06:38→22:18)
[2019-05-14] MEDS: Lisinopril 40 MG Tablet PO (08:29)
[2019-05-14] MEDS: busPIRone 15 MG TABLET PO ×2 (08:30→22:14)
[2019-05-14] MEDS: amLODIPine 10 MG Tablet PO (08:30)
[2019-05-14] MEDS: Folic Acid 1 MG Tablet PO (08:30)
[2019-05-14] MEDS: Metoprolol Tartrate 100 MG Tablet PO ×2 (08:30→22:15)
[2019-05-14] MEDS: Multivitamins,Therapeutic Tablet 1 TABLET PO (08:30)
[2019-05-14] MEDS: Gabapentin 100 MG Capsule 200 MG PO (08:30)
[2019-05-14] MEDS: metFORMIN HCl 1,000 MG Tablet 1000 MG PO ×2 (08:30→17:10)
[2019-05-14] MEDS: Venlafaxine XR 75 MG Capsule 225 MG PO (08:30)
[2019-05-14] MEDS: TICAGRELOR 90 MG TABLET PO ×2 (08:30→22:14)
[2019-05-14] MEDS: Enoxaparin 40 MG/0.4 ML Syringe SC (08:31)
[2019-05-14 08:40] LABS: Bedside Glucose 108 mg/dL (70-110)
[2019-05-14] MEDS: Insulin Human 75/25 Kwickpen 8 UNIT SC (10:33)
--- NOTE | 2019-05-14 10:47 | CASEMGMT ---
Addendum entered by Leandra Silvestre 05/14/19 15:16: SW called [facility] and spoke with intake. [facility] does take pt's insurance. Intake states pt will need to call [facility] and complete 10-15 pre-screen to determine if pt is eligible for residential. If pt is eligible for residential, SW will fax clinicals to [facility] ([phone].) SW reviewed [facility]. Pt will need to call leader of Sober House to determine eligibility and if the sober house has any availability. SW in to speak with pt and provided pt with [facility] and [facility] numbers and informed pt that he will need to call himself to complete pre-screen and determine if pt is eligible for residential/sober house. Pt states understanding, states will call to complete pre-screen assessments. SW encouraged pt to call today. Addendum entered by Leandra Silvestre 05/14/19 13:52: SW hasn't received call from [facility] at this time. SW in to speak with pt. SW updated pt that [facility] hasn't returned this worker's call and this worker needs to start looking at additional places. SW informed pt that this worker can try a couple places in [place] ([facility], [facility]) or can try [facility] in [place] or [facility] in [place]. Pt gave this worker permission to call [facility] and [facility] but states he doesn't want to go any places in [place] or [place] as it is too far away from home. SW informed pt that this worker is running out of options for pt and this worker can't guarantee that this worker can find a place for him and he may need to go home with outpatient at [facility], [facility]. Pt states understanding. SW to call [facility] and [facility] today Original Note: Social Work Note SW placed a call to [facility] and left message again regarding bed availability and if they accept medicaid. SW waiting for call back. Leandra Silvestre LATEX THREAD MACHINE OPERATOR, SUPERVISOR FINISHING
[2019-05-14] MEDS: hydrOXYzine PAM 25 MG Capsule 50 MG PO ×2 (13:55→22:28)
[2019-05-14 14:11] LABS: Bedside Glucose 114 mg/dL (70-110)
[2019-05-14 14:11] LABS: Bedside Glucose 66 mg/dL (70-110)
--- NOTE | 2019-05-14 16:14 | CHAPLAIN ---
Type of Pastoral Visit ___ Initial Visit _x__ Follow-up Visit ___ On-call Visit ___ General Patient Visit ___ Spiritual Assessment ___ Family Conference ___ Bereavement ___ Rapid Response ___ Code Blue ___ Other (describe below) Pastoral Care Referral From _x__ Patient ___ Family ___ Nurse ___ Physician ___ Sustainability Coordinator ___ Contact Center Rep ___ Other (describe below) Sacrament/Intervention _x__ Active listening ___ Anointing ___ Evangelical ___ Bereavement ___ Communion ___ Eloise exploration ___ ___ Life review _x__ Prayer ___ Reconciliation ___ Sacrament of Sick _x__ Supportive presence ___ Wedding ___ Other (describe below) Pastoral Comments patient has made arrangement for sober house that is eloise based; pt admits to having some fear and anxiety about going into an unfamiliar setting and leaving his home; talked through some of those thoughts and fears and had prayer with pt as he welcomed that
[2019-05-14] MEDS: Insulin Lispro 100 UNIT/ML INSULN.PEN SC (17:11)
[2019-05-14] MEDS: Insulin Human 75/25 Kwickpen 10 UNIT SC (17:12)
[2019-05-14 17:21] LABS: Bedside Glucose 175 mg/dL (70-110)
--- NOTE | 2019-05-14 17:38 | PCM.PN.HOSP ---
Patient Problems: Active and Suspected Problems Alcohol abuse (Acute) Subjective: States he is nervous about leaving for a rehab facility. BGT were low and I made some insulin adjustments this am and has been better. Vitals/I&O's: Vital Signs Temp Pulse Resp BP Pulse Ox 97.9 F 83 16 120/72 97 05/14/19 16:14 05/14/19 16:14 05/14/19 16:14 05/14/19 16:14 05/14/19 16:14 Oxygen Delivery Method Room Air Weight: 72.2 kg Body Mass Index (BMI) 23.5 Finger Stick Blood Glucose 324 Intake and Output for Last 24 Hours 05/12/19 05/13/19 05/14/19 23:59 23:59 23:59 Intake Total 980 / 980 1000 / 1000 Output Total 200 / 200 1000 / 1000 Balance 780 / 780 0 / 0 General: Alert, Oriented x3, Cooperative, No apparent distress, Well developed, Well nourished, - - sitting up in bed and watching TV Lungs: Clear to auscultation, Normal air movement, No rhonchi, No wheeze, No rales Cardiovascular: Regular rate, Regular Rhythm, Normal S1, Normal S2, No murmurs, No Ectopic Activity Abdomen: Bowel Sounds Present, Soft, Non Tender, Non-Distended, Passing Flatus, No hernias noted Extremities: No clubbing, No cyanosis, No edema, Capillary Refill Less than 3 Seconds Neurological: - - no tremor Psych/Mental Status: Normal Affect, Appropriate, Alert and oriented to time, place, person, mood and affect Laboratory Results 05/13/19 22:00: POC Glucose 58 L 05/13/19 22:49: POC Glucose 307 H 05/14/19 08:24: POC Glucose 108 05/14/19 13:41: POC Glucose 66 L 05/14/19 14:06: POC Glucose 114 H 05/14/19 17:07: POC Glucose 175 H Current Medications Al Hydroxide/Mg Hydroxide (Mylanta Ii) 30 ml PO Q6H PRN PRN PRN Reason: INDIGESTION Last Admin: 05/13/19 00:45 Dose: 30 ml Documented by: Amlodipine Besylate (Norvasc) 10 mg PO DAILY [facility] Last Admin: 05/14/19 08:30 Dose: 10 mg Documented by: Atorvastatin Calcium (Lipitor) 40 mg PO QHS [facility] Last Admin: 05/13/19 22:09 Dose: 40 mg Documented by: Buspirone HCl (Buspar) 15 mg PO BID [facility] Last Admin: 05/14/19 08:30 Dose: 15 mg Documented by: Dicyclomine HCl (Bentyl) 20 mg PO Q6H PRN PRN PRN Reason: abdominal discomfort Last Admin: 05/10/19 20:31 Dose: 20 mg Documented by: Enoxaparin Sodium (Lovenox) 40 mg SC DAILY [facility] Last Admin: 05/14/19 08:31 Dose: 40 mg Documented by: Folic Acid (Folic Acid) [facility] Last Admin: 05/14/19 08:30 Dose: 1 mg Documented by: Gabapentin (Neurontin) 200 [facility] Last Admin: 05/14/19 08:30 Dose: 200 mg Documented by: Glucagon () 1 mg IM .X1 PRN PRN Reason: Hypoglycemia Hydroxyzine Pamoate (Vistaril Pamoate Capsule) 50 mg PO Q6H PRN PRN PRN Reason: Mild Anxiety (score 1/3) Last Admin: 05/14/19 13:55 Dose: 50 mg Documented by: Dextrose (Dextrose 10%-Water) 250 mls @ 999 mls/hr IV .Q16M PRN; Protocol PRN Reason: HYPOGLYCEMIA Insulin Human Lispro (Humalog Kwikpen (Bkc)) 0 unit SC [facility]; Protocol Last Admin: 05/14/19 17:11 Dose: 2 u Documented by: Insulin Lispro Protam/Lispro Human (Humalog Mix 75-25 Kwikpen (Bk)) 10 unit SC [facility] Last Admin: 05/14/19 17:12 Dose: 10 u Documented by: Lisinopril (Zestril) 40 mg PO DAILY [facility] Last Admin: 05/14/19 08:29 Dose: 40 mg Documented by: Lorazepam (Ativan) 2 mg IV X1 PRN PRN Reason: Seizure Lorazepam (Ativan) 1 mg IV Q2H PRN PRN PRN Reason: withdrawal symptoms Last Admin: 05/09/19 12:39 Dose: 1 mg Documented by: Metformin HCl (Glucophage) 1,000 mg [facility] Last Admin: 05/14/19 17:10 Dose: 1,000 mg Documented by: Methocarbamol (Methocarbamol) 750 mg PO Q6H PRN PRN PRN Reason: Muscle Aches Metoprolol Tartrate (Lopressor (Beta Ana)) 100 mg PO BID [facility] Last Admin: 05/14/19 08:30 Dose: 100 mg Documented by: Mirtazapine (Remeron) 15 mg PO QHS [facility] Last Admin: 05/13/19 22:09 Dose: 15 mg Documented by: Multivitamins (Multivitamin) 1 tablet [facility] Last Admin: 05/14/19 08:30 Dose: 1 tablet Documented by: Nicotine (Nicoderm Cq (Pbkc)) 21 mg TRANSDERM. DAILY [facility] Last Admin: 05/14/19 08:31 Dose: Not Given Documented by: Nicotine Polacrilex (Rugby Nicotine (Bkc)) 2 mg PO Q2H PRN PRN PRN Reason: Nicotine Craving Ondansetron HCl (Zofran) 4 mg IV Q8H PRN PRN PRN Reason: NAUSEA/VOMITING Last Admin: 05/14/19 06:38 Dose: 4 mg Documented by: Phenobarbital (Phenobarbital) 64.8 mg PO BID [facility] Sodium Chloride () 10 - 40 ml IV UD PRN PRN Reason: SALINE FLUSH Last Admin: 05/14/19 06:38 Dose: 10 ml Documented by: Ticagrelor (Brilinta) 90 mg PO BID [facility] Last Admin: 05/14/19 08:30 Dose: 90 mg Documented by: Venlafaxine HCl (Effexor Xr) 225 mg PO DAILY [facility] Last Admin: 05/14/19 08:30 Dose: 225 mg Documented by: STROKE Vital Signs/Narrative: Vital Signs Temp Pulse Resp BP Pulse Ox 05/14/19 16:14 97.9 F 83 16 120/72 97 05/14/19 16:10 97.9 F 83 16 120/72 97 Medical Necessity - Tobacco Use Smoking Status: Current every day smoker Tobacco Use: Cigarettes Assessment/Plan All Active Problems (Last Reviewed 05/08/19 @ 22:[address] Alan Mandujano MD) Sinus tachycardia by electrocardiography (Acute) Alcohol abuse (Acute) Suicide attempt (Resolved) NSVT (nonsustained ventricular tachycardia) (Resolved) Alcohol abuse (Resolved) Non-ST elevation (NSTEMI) myocardial infarction (Resolved) Overdose of insulin (Resolved) Suicidal ideation (Resolved) Acute EtOH Withdrawal -has chronic EtOH use d/o -Ativan taper was not working and pt was having sig tremor and internal anxiety which I think he has at baseline and it is part of the reason he drinks -Phenobarb weaned to 64.5 PO BID today -continue taper -Thiamine and Folate -MVI -Inpt drug rehab at d/c if able to find a place accepting--> d/w Nicotine dependence -nicotine patch and gum HTN/HPL -BP much better with change in meds -on Lisinopril 40 mg daily/metoprolol 100 mg BID/Amlodipine added 5mg on 05/12 -statin DM-2 -BGT controlled -cont Metformin and insulin CAD with h/o PCI -Continue Brilinta and Statin Anxiety/Depression -Cont Buspar and Effexor ED -pt asked if there are any meds that may make this worse (BB and Effexor could) -States viagra helped but states that he never orgasmed -I also d/w him that EtOH can suppress his ability to have an erection and that avoidance may help as well [facility] E&M: 96476 Subs Hosp L2
[2019-05-14] MEDS: Mirtazapine 15 MG Tablet PO (22:14)
[2019-05-14] MEDS: Atorvastatin Calcium 40 MG Tablet PO (22:14)
[2019-05-14] MEDS: Phenobarbital 32.4 MG Tablet 64.8 MG PO (22:14)
[2019-05-14] MEDS: LORazepam 2 MG/ML Syringe 1 MG IV (22:37)
[2019-05-14 23:55] LABS: Bedside Glucose 131 mg/dL (70-110)
[2019-05-15 05:55] VITALS: BP 132/78; PULSE 71; RESP 16; TEMP 36.3; O2SAT 98
[2019-05-15 07:05] LABS: Bedside Glucose 135 mg/dL (70-110)
[2019-05-15 08:00] VITALS: BP 115/70; PULSE 72; RESP 16; TEMP 36.2; O2SAT 96
[2019-05-15] MEDS: Venlafaxine XR 75 MG Capsule 225 MG PO (09:37)
[2019-05-15] MEDS: TICAGRELOR 90 MG TABLET PO (09:38)
[2019-05-15] MEDS: Gabapentin 100 MG Capsule 200 MG PO (09:38)
[2019-05-15] MEDS: metFORMIN HCl 1,000 MG Tablet 1000 MG PO (09:38)
[2019-05-15] MEDS: busPIRone 15 MG TABLET PO (09:38)
[2019-05-15 09:39] VITALS: PULSE 72
[2019-05-15] MEDS: amLODIPine 10 MG Tablet PO (09:39)
[2019-05-15] MEDS: Metoprolol Tartrate 100 MG Tablet PO (09:39)
[2019-05-15] MEDS: Lisinopril 40 MG Tablet PO (09:39)
[2019-05-15] MEDS: Multivitamins,Therapeutic Tablet 1 TABLET PO (09:39)
[2019-05-15] MEDS: Enoxaparin 40 MG/0.4 ML Syringe SC (09:39)
[2019-05-15] MEDS: Folic Acid 1 MG Tablet PO (09:39)
[2019-05-15] MEDS: Insulin Human 75/25 Kwickpen 10 UNIT SC (09:40)
[2019-05-15] MEDS: Phenobarbital 32.4 MG Tablet 64.8 MG PO (09:42)
--- NOTE | 2019-05-15 10:39 | PCM.DC.SUM ---
Discharge Date and Diagnosis - Problem List Patient Problems: Active and Suspected Problems Alcohol abuse (Acute) Date of Admission: 05/08/19 Date of Discharge: 05/15/19 - Primary Discharge Diagnosis Active and Suspected Problems Alcohol abuse (Acute) - Secondary Discharge Diagnosis Chronic Problems (Last Reviewed 05/08/19 @ 22:[address] Alan Mandujano MD) GERD (gastroesophageal reflux disease) (Chronic) Tobacco dependence (Chronic) 1 PPD since 5-6 YOA Stented coronary artery (Chronic) RCA - 09/08/16 Diabetes (Chronic) Severe major depression (Chronic) Suicide attempt (Chronic) December 2018 - insulin OD Hypertension (Chronic) Anxiety (Chronic) Depression (Chronic) Neuropathy (Chronic) Atherosclerosis of coronary artery of [place] heart without angina pectoris (Chronic) [place]-Mid RCA 09/2016 @ [place] Erectile dysfunction (Chronic) Hospital Course and Treatment NONE Operations: None Procedures: None Summary of Care Provided: Mr Garvey is a 59 year old M with a significant history of tobacco abuse; diabetes mellitus; CAD status post stent; hypertension; depression and anxiety disorder; alcoholism who presented to ED on 05/08/2019 for detoxification from alcohol. He states that drinks about half a gallon of 42 proof vodka per day. His last drink was about 3 hours prior to presentation. He presented with a staff from [facility] to facilitate admission. He was last admitted for detoxification was 5 days prior to admission at [facility]; where he was treated with barbiturates. EtOH level on admission was 343 and he was started on a benzo taper with Librium which was unfortunately not all that effective. On Monday he was switched phenobarb and this was tapered. His intial plan was to be admitted to an inpt facility and was accepted for an admission date of 05/15 but unfortunately he has now decided to f/u as an outpt and continue with AA. I suspect this will be difficult for him as he doesn't have a robust support system. His chronic medical issues were treated during his detox and BP remained elevated and he was therefore started on Norvasc and this was titrated up to 10 mg daily. BP at dc was much better. He was dc in stable condition. Patient Problems: Active and Suspected Problems Alcohol abuse (Acute) Subjective: Lying in bed sleeping. Awakens easily and tells me he has decided to not do inpt rehab becasue he is homesick. He will f/u with outpt 180 and AA. - Physical Exam Vitals/I&O's: Vital Signs Temp Pulse Resp BP Pulse Ox 97.2 F L 72 16 115/70 96 05/15/19 08:00 05/15/19 09:39 05/15/19 08:00 05/15/19 08:00 05/15/19 08:00 Oxygen Delivery Method Room Air Weight: 72.2 kg Body Mass Index (BMI) 23.5 Finger Stick Blood Glucose 324 Intake and Output for Last 24 Hours 05/13/19 05/14/19 05/15/19 23:59 23:59 23:59 Intake Total 980 / 980 1000 / 1000 500 / 500 Output Total 200 / 200 1000 / 1000 725 / 725 Balance 780 / 780 0 / 0 -225 / -225 General: Alert, Oriented x3, Cooperative, No apparent distress, Well developed, Well nourished Oral: Moist Mucosa, No Gingival or Mucosal Lesions/ Ulcerations Lungs: Clear to auscultation, No rhonchi, No wheeze, No rales, Diminished Cardiovascular: Regular rate, Regular Rhythm, Normal S1, Normal S2, No murmurs, No Ectopic Activity, No rub noted, No Gallop Abdomen: Bowel Sounds Present, Soft, Non Tender, Non-Distended, No Hepato-splenomegaly, No hernias noted Extremities: No clubbing, No cyanosis, No edema, Capillary Refill Less than 3 Seconds Neurological: Cranial nerves II-XII grossly intact, Deep Tendon Reflexes 2+/4 and Symmetrical, Neuro grossly intact, Motor Exam 5/5 strength throughout, - - no tremor Psych/Mental Status: Anxious, Flat Affect, Depressed, - - A&O x3 Laboratory Results 05/14/19 13:41: POC Glucose 66 L 05/14/19 14:06: POC Glucose 114 H 05/14/19 17:07: POC Glucose 175 H 05/14/19 22:47: POC Glucose 131 H 05/15/19 06:10: POC Glucose 135 H Current Medications Al Hydroxide/Mg Hydroxide (Mylanta Ii) 30 ml PO Q6H PRN PRN PRN Reason: INDIGESTION Last Admin: 05/13/19 00:45 Dose: 30 ml Documented by: Amlodipine Besylate (Norvasc) 10 mg PO DAILY [facility] Last Admin: 05/15/19 09:39 Dose: 10 mg Documented by: Atorvastatin Calcium (Lipitor) 40 mg PO QHS [facility] Last Admin: 05/14/19 22:14 Dose: 40 mg Documented by: Buspirone HCl (Buspar) 15 mg PO BID [facility] Last Admin: 05/15/19 09:38 Dose: 15 mg Documented by: Dicyclomine HCl (Bentyl) 20 mg PO Q6H PRN PRN PRN Reason: abdominal discomfort Last Admin: 05/10/19 20:31 Dose: 20 mg Documented by: Enoxaparin Sodium (Lovenox) 40 mg SC DAILY [facility] Last Admin: 05/15/19 09:39 Dose: 40 mg Documented by: Folic Acid (Folic Acid) [facility] Last Admin: 05/15/19 09:39 Dose: 1 mg Documented by: Gabapentin (Neurontin) 200 mg PO [facility] Last Admin: 05/15/19 09:38 Dose: 200 mg Documented by: Glucagon () 1 mg IM .X1 PRN PRN Reason: Hypoglycemia Hydroxyzine Pamoate (Vistaril Pamoate Capsule) 50 mg PO Q6H PRN PRN PRN Reason: Mild Anxiety (score 1/3) Last Admin: 05/14/19 22:28 Dose: 50 mg Documented by: Dextrose (Dextrose 10%-Water) 250 mls @ 999 mls/hr IV .Q16M PRN; Protocol PRN Reason: HYPOGLYCEMIA Insulin Human Lispro (Humalog Kwikpen (Bkc)) 0 unit SC [facility]; Protocol Last Admin: 05/15/19 06:34 Dose: Not Given Documented by: Insulin Lispro Protam/Lispro Human (Humalog Mix 75-25 Kwikpen (Bkc)) 10 unit SC [facility] Last Admin: 05/15/19 09:40 Dose: 10 u Documented by: Lisinopril (Zestril) 40 mg PO DAILY [facility] Last Admin: 05/15/19 09:39 Dose: 40 mg Documented by: Lorazepam (Ativan) 2 mg IV X1 PRN PRN Reason: Seizure Lorazepam (Ativan) 1 mg IV Q2H PRN PRN PRN Reason: withdrawal symptoms Last Admin: 05/14/19 22:37 Dose: 1 mg Documented by: Metformin HCl (Glucophage) 1,000 mg PO [facility] Last Admin: 05/15/19 09:38 Dose: 1,000 mg Documented by: Methocarbamol (Methocarbamol) 750 mg PO Q6H PRN PRN PRN Reason: Muscle Aches Metoprolol Tartrate (Lopressor (Beta Ana)) 100 mg PO BID [facility] Last Admin: 05/15/19 09:39 Dose: 100 mg Documented by: Mirtazapine (Remeron) 15 mg PO QHS [facility] Last Admin: 05/14/19 22:14 Dose: 15 mg Documented by: Multivitamins (Multivitamin) 1 tablet PO [facility] Last Admin: 05/15/19 09:39 Dose: 1 tablet Documented by: Nicotine (Nicoderm Cq (Pbkc)) 21 mg TRANSDERM. DAILY [facility] Last Admin: 05/15/19 09:38 Dose: Not Given Documented by: Nicotine Polacrilex (Rugby Nicotine (Bkc)) 2 mg PO Q2H PRN PRN PRN Reason: Nicotine Craving Ondansetron HCl (Zofran) 4 mg IV Q8H PRN PRN PRN Reason: NAUSEA/VOMITING Last Admin: 05/14/19 06:38 Dose: 4 mg Documented by: Phenobarbital (Phenobarbital) 64.8 mg PO BID [facility] Last Admin: 05/15/19 09:42 Dose: 64.8 mg Documented by: Sodium Chloride () 10 - 40 ml IV UD PRN PRN Reason: SALINE FLUSH Last Admin: 05/14/19 22:18 Dose: 10 ml Documented by: Ticagrelor (Brilinta) 90 mg PO BID [facility] Last Admin: 05/15/19 09:38 Dose: 90 mg Documented by: Venlafaxine HCl (Effexor Xr) 225 mg PO DAILY [facility] Last Admin: 05/15/19 09:37 Dose: 225 mg Documented by: Home Medications: Medications to take at Discharge RX: Atorvastatin Calcium [Lipitor] 40 mg PO QHS 04/15/19 RX: Folic Acid 1 mg PO DAILY 04/15/19 RX: Gabapentin [Neurontin] 200 mg PO DAILY 04/15/19 RX: Insulin NPH Hum/Reg Insulin Hm [Humulin 70-30 Vial] 20 unit SQ BREAKFAST 04/15/19 RX: Insulin NPH Hum/Reg Insulin Hm [Humulin 70-30 Vial] 25 unit SQ DINNER 04/15/19 RX: Lisinopril 40 mg PO QDAY 04/15/19 RX: Metformin HCl 1,000 mg PO BIDCM 04/15/19 RX: Metoprolol Tartrate 25 mg PO BID 04/15/19 RX: Mirtazapine 15 mg PO QHS 04/15/19 RX: Ticagrelor [Brilinta] 90 mg PO BID 04/15/19 RX: Venlafaxine HCl [Venlafaxine HCl ER] 225 mg PO QDAY 04/15/19 RX: busPIRone [Buspar] 15 mg PO BID 04/15/19 RX: Amlodipine [Norvasc] 10 mg PO DAILY #30 tab 05/15/19 Following Prescrptions Were Given to Patient: RX: Amlodipine [Norvasc] 10 mg PO DAILY #30 tab Transmission Status: Pending to [facility] [place] - [id number] Primary Care Physician: Elijah Plascencia MD [Primary Care Provider] - Medical Necessity - Tobacco Use Smoking Status: Current every day smoker Tobacco Use: Cigarettes Meaningful Use Info Meaningful Use Diagnoses (Choose all that apply): None applicable Inpatient E&M: 59708 [facility] H[facility]
--- NOTE | 2019-05-15 10:50 | PCM.DC ---
- Discharge Diagnoses Current Active Problems: Current Active and Chronic Problems (Last Reviewed 05/08/19 @ 22:[address] Alan Mandujano MD) Alcohol abuse (Acute) Diabetes (Chronic) You will use the following diet at home:: Calorie/Carbohydrate Controlled (specify 1200, 1400, etc), Cardiac Your food should be the consistency of: Regular Your liquids should be the consistency of: Regular/Thin Discharge Activity: Return to Normal Activity, No Restrictions Allergies/Adverse Reactions: Allergies No Known Allergies Allergy (Verified 05/07/19 09:05) Medications to take at Discharge RX: Atorvastatin Calcium [Lipitor] 40 mg PO QHS 04/15/19 RX: Folic Acid 1 mg PO DAILY 04/15/19 RX: Gabapentin [Neurontin] 200 mg PO DAILY 04/15/19 RX: Insulin NPH Hum/Reg Insulin Hm [Humulin 70-30 Vial] 20 unit SQ BREAKFAST 04/15/19 RX: Insulin NPH Hum/Reg Insulin Hm [Humulin 70-30 Vial] 25 unit SQ DINNER 04/15/19 RX: Lisinopril 40 mg PO QDAY 04/15/19 RX: Metformin HCl 1,000 mg PO BIDCM 04/15/19 RX: Metoprolol Tartrate 25 mg PO BID 04/15/19 RX: Mirtazapine 15 mg PO QHS 04/15/19 RX: Ticagrelor [Brilinta] 90 mg PO BID 04/15/19 RX: Venlafaxine HCl [Venlafaxine HCl ER] 225 mg PO QDAY 04/15/19 RX: busPIRone [Buspar] 15 mg PO BID 04/15/19 RX: Amlodipine [Norvasc] 10 mg PO DAILY #30 tab 05/15/19 The following prescriptions were given: RX: Amlodipine [Norvasc] 10 mg PO DAILY #30 tab Transmission Status: Pending to [facility] [place] - [id number] Primary Care Physician: Elijah Plascencia MD [Primary Care Provider] - Please follow up with your Primary Care Physician in: 1 week Test Results: Test results from this visit will be discussed in further detail at your follow-up appointment, if applicable. Please Follow Up With: AA Please Follow Up With: 180
--- NOTE | 2019-05-15 10:54 | CASEMGMT ---
Addendum entered by Leandra Silvestre 05/15/19 13:07: SW back in to speak with pt. Pt confirms that he is discharging home today and will follow up as an outpatient with [facility] and also do AA meetings. Pt states I have a fear of alcohol now, I don't want to drink anymore. SW asked pt about sober house. Pt states I am just really homesick right now and I want to go home. Pt states the sober house is three months and he doesn't want to be away from home that long. SW educated pt on benefits of being away from his home environment and how being away for three months could be beneficial for him. Pt states if I need more help I will reach out to the sober house. Pt confirms that he still has resources that this worker provided him including the number for the sober house. Pt states he plans on going straight to [facility] today when he is discharged. Pt denied additional needs or concerns at this time. Plan: Home with follow up at [facility] and AA meetings Original Note: Social Work Note SW reviewed handoff communications, pt had plan to go to [facility] tomorrow. Physician updated this worker that now pt states he will be returning home and following up as an outpatient for IOP and attending AA meetings. SW attempted to meet with pt, pt soundly sleeping didn't wake up when this worker entered the room. Leandra Silvestre BEAN SNIPPER, RESTORATIVE AIDE
[2019-05-15] MEDS: Insulin Lispro 100 UNIT/ML INSULN.PEN SC (11:07)
[2019-05-15 11:30] LABS: Bedside Glucose 230 mg/dL (70-110)
[2019-05-15 11:31] VITALS: BP 129/84; PULSE 77; RESP 16; TEMP 36.4; O2SAT 96
--- NOTE | 2019-05-15 12:04 | ADDICTION ---
This check writer visited with patient in his room. He was oriented x4 and engaged appropriately throughout meeting. Patient informed this check writer that he is real homesick and is going home today following d/c from hospital. This check writer was informed by hospital social services analyst that he had a bed with [facility] in sober housing, however, has refused to engage. This check writer encouraged patient to engage with [facility] but he was resistant and refused this service. He reports that he is discharging to his home and will follow up for outpatient services and will attend AA meetings.
== END 2019-05-15 13:25 | disposition home or self-care (01) | DRG 897 ==
LOC: ED 19:41 → MS3 22:11
PROVIDERS: Internal Medicine; Admitting Provider Hospitalist; Emergency Provider Emergency Medicine; PCP Internal Medicine; Visit Provider Internal Medicine
DX: F10.239 Alcohol dependence with withdrawal, unspecified (principal); F32.2 Major depressive disorder, single episode, severe without psychotic features; I25.10 Atherosclerotic heart disease of native coronary artery without angina pectoris; E11.65 Type 2 diabetes mellitus with hyperglycemia; E11.40 Type 2 diabetes mellitus with diabetic neuropathy, unspecified; Y90.8 Blood alcohol level of 240 mg/100 ml or more; K21.9 Gastro-esophageal reflux disease without esophagitis; I10 Essential (primary) hypertension; F41.9 Anxiety disorder, unspecified; F17.210 Nicotine dependence, cigarettes, uncomplicated; Z79.4 Long term (current) use of insulin; Z79.02 Long term (current) use of antithrombotics/antiplatelets; Z79.899 Other long term (current) drug therapy; Z91.5 Personal history of self-harm; Z95.5 Presence of coronary angioplasty implant and graft
CPT/HCPCS: 36415; 80053; 80307; 80320; 82947; 82962; 84484; 85025; 93005; 99285; 99406; J7030; A4216; G0480; J2405

== ENCOUNTER 2019-05-17 08:01 | Emergency (ER) | payer MEDICARE, SELFPAY ==
[2019-05-08 22:45] VITALS: BMI 23.5
[2019-05-17 08:02] VITALS: BP 116/72; PULSE 133; RESP 27; TEMP 36.5; O2SAT 100; BMI 22.8
--- NOTE | 2019-05-17 08:16 | RAD_ITS ---
STUDY: X-RAY CHEST REASON FOR EXAM: Male, 59 years old. Chest pain TECHNIQUE: Single AP portable view of the chest. COMPARISON: None. FINDINGS: EKG electrodes are seen. The lungs are clear and expanded. There is no demonstrated pleural abnormality. Normal size heart. Normal mediastinum and nataliya. Normal visualized pulmonary arteries. Normal visualized aortic arch and descending thoracic aorta. Normal visualized thoracic spine. Normal visualized ribs, clavicles, and shoulders. There is no demonstrated abnormality of the visualized soft tissue structures of the upper abdomen. RAD/Chest 1 View (Portable) IMPRESSION: Normal x-ray examination of the chest. Electronically Signed: Johnnie Prieto, at 9:37 EDT , Service support ,
--- NOTE | 2019-05-17 08:16 | EKG12_ITS ---
Test Reason : Blood Pressure : / mmHG Vent. Rate : 129 BPM Atrial Rate : 129 BPM P-R Int : 152 ms QRS Dur : 072 ms QT Int : 320 ms P-R-T Axes : 084 003 071 degrees QTc Int : 468 ms Sinus tachycardia with occasional Premature ventricular complexes Possible Inferior infarct , age undetermined Abnormal ECG Confirmed by JARON CLARK, WESTLEY ([id number]), editor in chief KESHIA BLANCO ([id number]) on 05/20/2019 1:43:32 PM Referred By: ADILENE Confirmed By:MENA SALMERON MD
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
[2019-05-17] MEDS: LORazepam 2 MG/ML Syringe 1 MG IV (08:31)
[2019-05-17 08:33] LABS: Absolute Lymphocyte Count 1.83 X10^3/uL (0.83-4.51); Absolute Neutrophil Count 7.4 X10^3/uL (2.0-7.7); Basophil# 0.03 X10^3/uL; Basophil% 0.3 % (0-1); Hematocrit 43.2 % (40-54); Hemoglobin 15.3 g/dL (13.0-16.5); Lymphocyte # 1.83 X10^3/ul (4.0); Lymphocyte % 17.2 % (19-41); Mean Corp Hgb Conc 35.4 g/dL (32-36); Mean Corpuscular Hgb 28.6 pg (27.0-32.0); Mean Corpuscular Volume 80.7 fL (80-94); Mean Platelet Vol. 8.6 fl (6.2-12.0); Monocyte# 1.33 X10^3/uL; Monocyte% 12.5 % (0-10); NRBC Flagged by Analyzer 0 % (0-5); Neutrophil # 7.37 X10^3/uL (2.7-7.7); Neutrophil % 69.2 % (47-70); POSITIVE MORPHOLOGY YES; Platelet Count 389 K/mm3 (150-450); RBC Distribution Width SD 40.6 fl (35.1-43.9); Red Blood Count 5.35 M/mm3 (4.6-6.2); White Blood Count 10.7 K/mm3 (4.4-11.0)
[2019-05-17 08:34] LABS: Differential Indicated SCAN CRITERIA MET
[2019-05-17 08:44] LABS: Anion Gap 27 (5-15); BUN 52 mg/dL (7-18); BUN/Creat Ratio 29.9 RATIO (10-20); Calcium,Total 9.5 mg/dL (8.5-10.1); Chloride 81 mmol/L (98-107); Creatinine, Serum 1.74 mg/dL (0.70-1.30); EST Glomerular Filtration Rate 43 mL/min (>60); Est Glom Filt Rate - Afr Amer 52 mL/min (>60); Estimated Creatinine Clearance 46.02 ml/min; Glucose 266 mg/dL (74-106); Potassium 3.8 mmol/L (3.5-5.1); Sodium Level 130 mmol/L (136-145)
[2019-05-17] MEDS: 0.9% Normal Saline 1,000 ML 999 ML IV ×2 (08:53→08:54)
[2019-05-17 09:31] VITALS: BP 147/75; PULSE 112; RESP 20; O2SAT 99
[2019-05-17 09:36] LABS: Differential Comment SCANNED
[2019-05-17 10:56] VITALS: BP 139/79; PULSE 110; RESP 17
[2019-05-17] MEDS: LORazepam 2 MG/ML Syringe IV (11:00)
[2019-05-17 12:11] VITALS: BP 165/73; PULSE 107; RESP 17; O2SAT 93
[2019-05-17 12:56] VITALS: BP 185/87; PULSE 105; RESP 17; O2SAT 94
--- NOTE | 2019-05-17 12:57 | ED.RN ---
IV DC'ED, CATHETER INTACT, SMALL GAUZE DRESSING PLACED. PATIENT MADE AWARE THAT [facility] WILL BE HERE TO PICK HIM UP AT 1330. PT AMBULATES OUT OF ROOM WITHOUT DIFFICULTY.
== END 2019-05-17 12:57 | disposition home or self-care (01) ==
PROVIDERS: Emergency Provider Emergency Medicine; PCP Internal Medicine
DX: R07.9 Chest pain, unspecified (principal); F41.0 Panic disorder [episodic paroxysmal anxiety]; F10.20 Alcohol dependence, uncomplicated; E86.0 Dehydration; R06.82 Tachypnea, not elsewhere classified; R00.0 Tachycardia, unspecified; I25.10 Atherosclerotic heart disease of native coronary artery without angina pectoris; Z79.4 Long term (current) use of insulin; Z79.899 Other long term (current) drug therapy; F17.200 Nicotine dependence, unspecified, uncomplicated; Z95.5 Presence of coronary angioplasty implant and graft
CPT/HCPCS: 36415; 71045; 80048; 80320; 84484; 85025; 93005; 96361; 96374; 96376; 99285; J7030; A4216; G0480

== ENCOUNTER 2019-05-21 15:37 | Emergency (ER) | payer MEDICARE, SELFPAY ==
[2019-05-21 15:38] VITALS: BP 158/97; PULSE 110; RESP 19; TEMP 36.7; O2SAT 95; BMI 23.4
--- NOTE | 2019-05-21 15:46 | ED.VISSUMM ---
- ER Visit Summary Date of Service: 05/21/19 Chief Complaint: Anxiety History of Present Illness: The patient is a 59 M who called 911 because he was having anxiety. He thinks that someone is in his home. He was drinking today, last drink at 2:30 PM. Denies any suicidal or homicidal thoughts. He has prior visits for similar symptoms. Denying any other complaints. Physical Examination: Afebrile and vital signs unremarkable except for heart rate of 110. Alert and oriented. Agitated. Denies suicidal or homicidal thoughts. Heart tachycardic. No respiratory distress. Skin appears normal. Test Results: CBC, BMP, alcohol pending. Emergency Department Course and Treatment: Patient treated with Ativan while awaiting results. CBC and metabolic panel unremarkable. Alcohol level 264. On reevaluation, patient is resting comfortably. Patient will be observed in the ED until clinically sober. Pending reevaluation, he may be discharged. Treatment Plan: As above Disposition: Discharge when clinically sober Impression: Alcohol intoxication This note was generated with [employer] dictation software. It may contain incorrect words, spelling, and punctuation that were not noted in review of the chart prior to signing ED Disposition - Plan for ED Patient: Referrals: Elijah Plascencia MD [Primary Care Provider] -
[2019-05-21] MEDS: LORazepam 2 MG/ML Syringe 1 MG IM (15:57)
[2019-05-21 16:08] LABS: Absolute Lymphocyte Count 2.53 X10^3/uL (0.83-4.51); Absolute Neutrophil Count 4.4 X10^3/uL (2.0-7.7); Basophil# 0.13 X10^3/uL; Basophil% 1.7 % (0-1); Eosinophils% 1.3 % (0-5); Hematocrit 43.8 % (40-54); Hemoglobin 14.8 g/dL (13.0-16.5); Lymphocyte # 2.53 X10^3/ul (4.0); Lymphocyte % 32.9 % (19-41); Mean Corp Hgb Conc 33.8 g/dL (32-36); Mean Corpuscular Hgb 28.6 pg (27.0-32.0); Mean Corpuscular Volume 84.6 fL (80-94); Mean Platelet Vol. 8.1 fl (6.2-12.0); Monocyte# 0.46 X10^3/uL; NRBC Flagged by Analyzer 0 % (0-5); Neutrophil # 4.42 X10^3/uL (2.7-7.7); Neutrophil % 57.6 % (47-70); Platelet Count 342 K/mm3 (150-450); RBC Distribution Width CV 13.8 % (11.6-14.6); RBC Distribution Width SD 42.7 fl (35.1-43.9); Red Blood Count 5.18 M/mm3 (4.6-6.2); White Blood Count 7.7 K/mm3 (4.4-11.0)
[2019-05-21 16:21] LABS: BUN 13 mg/dL (7-18); Creatinine, Serum 0.89 mg/dL (0.70-1.30); Estimated Creatinine Clearance 90.47 ml/min; Glucose 191 mg/dL (74-106)
[2019-05-21 16:22] LABS: Anion Gap 15 (5-15); BUN/Creat Ratio 14.6 RATIO (10-20); Chloride 96 mmol/L (98-107); EST Glomerular Filtration Rate 93 mL/min (>60); Est Glom Filt Rate - Afr Amer 113 mL/min (>60); Potassium 3.7 mmol/L (3.5-5.1); Sodium Level 137 mmol/L (136-145)
--- NOTE | 2019-05-21 16:43 | ED.DEP ---
ED Disposition - Plan for ED Patient: Instructions: Alcoholism: How to be Part of the Solution Referrals: Elijah Plascencia MD [Primary Care Provider] -
[2019-05-21 18:07] VITALS: BP 147/97; PULSE 101; RESP 18; O2SAT 99
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
== END 2019-05-21 19:45 | disposition home or self-care (01) ==
PROVIDERS: Emergency Provider Emergency Medicine; PCP Internal Medicine
DX: F10.129 Alcohol abuse with intoxication, unspecified (principal); Y90.8 Blood alcohol level of 240 mg/100 ml or more; I25.10 Atherosclerotic heart disease of native coronary artery without angina pectoris; I10 Essential (primary) hypertension; E11.9 Type 2 diabetes mellitus without complications; F32.9 Major depressive disorder, single episode, unspecified; F12.90 Cannabis use, unspecified, uncomplicated; F11.90 Opioid use, unspecified, uncomplicated; Z79.4 Long term (current) use of insulin; Z79.02 Long term (current) use of antithrombotics/antiplatelets; Z72.0 Tobacco use; Z79.899 Other long term (current) drug therapy
CPT/HCPCS: 36415; 80048; 80320; 85025; 96372; 99285; G0480

== ENCOUNTER 2019-06-02 03:57 | Inpatient (IN) | payer MEDICARE, SELFPAY ==
[2019-06-02] VITALS (15 sets, daily range): BP systolic 139–180; BP diastolic 67–96; PULSE 82–116; RESP 16–20; TEMP 35.8–37; O2SAT 96–100; BMI 23.1; BMI 22.9; BMI 23.0
--- NOTE | 2019-06-02 04:09 | EKG12_ITS ---
Test Reason : PALPITATIONS Blood Pressure : / mmHG Vent. Rate : 116 BPM Atrial Rate : 116 BPM P-R Int : 182 ms QRS Dur : 070 ms QT Int : 322 ms P-R-T Axes : 074 053 066 degrees QTc Int : 447 ms Sinus tachycardia Otherwise normal ECG Confirmed by ANA MARIA CLARK, ALVERTO ([id number]), medical transcription editor VIRAJ COLE ([id number]) on 06/03/2019 1:36:10 PM Referred By: MARLENA Confirmed By:ALVERTO RODGERS MD
[2019-06-02] MEDS: 0.9% Normal Saline 1,000 ML 1000 ML IV (04:17)
[2019-06-02] MEDS: LORazepam 2 MG/ML Syringe 1 MG IV ×2 (04:17→05:45)
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
[2019-06-02 04:32] LABS: Absolute Lymphocyte Count 1.63 X10^3/uL (0.83-4.51); Absolute Neutrophil Count 4.4 X10^3/uL (2.0-7.7); Basophil# 0.07 X10^3/uL; Eosinophils% 5.5 % (0-5); Hematocrit 38.6 % (40-54); Hemoglobin 13.4 g/dL (13.0-16.5); Lymphocyte # 1.63 X10^3/ul (4.0); Lymphocyte % 22.3 % (19-41); Mean Corp Hgb Conc 34.7 g/dL (32-36); Mean Corpuscular Hgb 29.1 pg (27.0-32.0); Mean Corpuscular Volume 83.9 fL (80-94); Mean Platelet Vol. 8.1 fl (6.2-12.0); Monocyte# 0.76 X10^3/uL; Monocyte% 10.4 % (0-10); NRBC Flagged by Analyzer 0 % (0-5); Neutrophil # 4.38 X10^3/uL (2.7-7.7); Neutrophil % 59.8 % (47-70); Platelet Count 264 K/mm3 (150-450); RBC Distribution Width CV 15.3 % (11.6-14.6); RBC Distribution Width SD 44.9 fl (35.1-43.9); White Blood Count 7.3 K/mm3 (4.4-11.0)
[2019-06-02 04:41] LABS: ALB/GLOB Ratio 0.9 RATIO (0.9-2.4); AST(SGOT) 73 U/L (15-37); Alanine Aminotransfer ALT/SGPT 151 U/L (16-61); Albumin, Serum 3.5 g/dL (3.2-5.0); Alkaline Phosphatase 165 U/L (45-117); Anion Gap 22 (5-15); BUN 16 mg/dL (7-18); BUN/Creat Ratio 14.3 RATIO (10-20); Calcium,Total 9.1 mg/dL (8.5-10.1); Chloride 94 mmol/L (98-107); Creatinine, Serum 1.12 mg/dL (0.70-1.30); EST Glomerular Filtration Rate 72 mL/min (>60); Est Glom Filt Rate - Afr Amer 87 mL/min (>60); Estimated Creatinine Clearance 71.89 ml/min; Globulin 3.8 g/dL (2.2-4.2); Glucose 327 mg/dL (74-106); Potassium 3.9 mmol/L (3.5-5.1); Protein, Total 7.3 g/dL (6.4-8.2); Sodium Level 137 mmol/L (136-145)
[2019-06-02 04:45] LABS: Amphetamine Urine VISTA NEGATIVE (<1000 ng/mL); Barbiturate Urine VISTA POSITIVE (< 200 ng/mL); Benzodiazepine Urine VISTA NEGATIVE (< 200 ng/mL); Cocaine Urine VISTA NEGATIVE (< 300 ng/mL); Ecstacy Urine VISTA NEGATIVE (< 500 ng/mL); Methadone Urine VISTA NEGATIVE (< 300 ng/mL); PCP Urine VISTA NEGATIVE (< 25 ng/mL); THC Urine VISTA POSITIVE (< 50 ng/mL); Vista UDS pH Range 6
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
[2019-06-02] MEDS: Ondansetron 8 MG Tablet PO (07:09)
[2019-06-02] MEDS: Phenobarbital 32.4 MG Tablet 97.2 MG PO ×4 (07:09→19:01)
[2019-06-02] MEDS: hydrOXYzine PAM 25 MG Capsule 50 MG PO (07:09)
[2019-06-02] MEDS: 0.9% Saline Lock 10 ML Syringe IV ×3 (07:14→21:13)
[2019-06-02] MEDS: Lactated Ringers 1,000 ML 100 ML IV (07:14)
[2019-06-02 07:25] LABS: Bedside Glucose 255 mg/dL (70-110)
[2019-06-02] MEDS: Insulin Lispro 100 UNIT/ML INSULN.PEN SC ×2 (07:25→17:10)
[2019-06-02 07:38] LABS: Lipase 107 U/L (73-393); Magnesium 1.3 mg/dL (1.6-2.6)
[2019-06-02] MEDS: Enoxaparin 40 MG/0.4 ML Syringe SC (09:34)
[2019-06-02] MEDS: Lisinopril 40 MG Tablet PO (09:34)
[2019-06-02] MEDS: Gabapentin 100 MG Capsule 200 MG PO (09:35)
[2019-06-02] MEDS: Metoprolol Tartrate 25 MG Tablet PO ×2 (09:35→22:16)
[2019-06-02] MEDS: amLODIPine 10 MG Tablet PO (09:35)
[2019-06-02] MEDS: TICAGRELOR 90 MG TABLET PO ×2 (09:35→21:29)
[2019-06-02] MEDS: busPIRone 15 MG TABLET PO ×2 (09:35→21:30)
[2019-06-02] MEDS: Folic Acid 1 MG Tablet PO (09:36)
[2019-06-02] MEDS: Aspirin E.C. 81 MG Tablet PO (09:36)
[2019-06-02] MEDS: Insulin Human 75/25 Kwickpen 20 UNIT SC (09:36)
[2019-06-02] MEDS: Thiamine Hydrochloride 100 MG Tablet PO (09:36)
[2019-06-02] MEDS: Venlafaxine HCl 75 MG Tablet 225 MG PO (09:40)
[2019-06-02 10:18] LABS: Bacteria 0 SEEN /hpf (None Seen); Mucous, Urine 0 SEEN /hpf (<or=2+); Squamous Epithelial Cells - UA 0 SEEN /hpf (0-5); White Blood Cells 0 SEEN /hpf (0-5)
[2019-06-02 10:23] LABS: Color, Urine Yellow (Yellow); Glucose, Dipstick 1000 mg/dl (Normal); Ketone-Dipstick 50 mg/dl (Negative); Leukocyte Esterase-Dipstick Negative /ul (Negative); Nitrite-Dipstick Negative (Negative); Occult Blood-Urine 10 /ul (Negative); Protein-Dipstick 30 mg/dl (Negative); Urine Bilirubin Dipstick Negative (Negative); Urine Clarity Clear (Clear); Urine Urobilinogen Normal (Normal)
[2019-06-02 10:40] LABS: Red Blood Cells-Urine 0-5 SEEN /hpf (0-5)
--- NOTE | 2019-06-02 10:52 | PCM.HOSP.N ---
Hospitalist Note Patient was seen and examined briefly today, he is eating breakfast and he has no complaints of any tremor, shakiness, or abdominal discomfort. Patient stated that he called 180 early this morning about getting into an alcohol detox program, patient has been through many admissions for alcohol detox here. For now, we will continue to give the patient phenobarbital for alcohol withdrawal symptoms and monitor patient. Patient's blood sugars are poorly controlled-he stated to this examiner that he does not take his blood sugars due to the fact he has been drinking. I told him that this is unacceptable. This examiner has doubts on how genuine the patient is concerning his wish to quit drinking.
[2019-06-02 12:11] LABS: Bedside Glucose 83 mg/dL (70-110)
[2019-06-02] MEDS: Glucerna Shake 120 ML LIQUID PO ×2 (13:11→17:15)
[2019-06-02] MEDS: oxyCODONE 5 MG Tablet PO (15:48)
[2019-06-02] MEDS: Insulin Human 75/25 Kwickpen 25 UNIT SC (17:11)
[2019-06-02 17:20] LABS: Bedside Glucose 160 mg/dL (70-110)
--- NOTE | 2019-06-02 17:30 | ADDICTION ---
This aligner typewriter spoke with patient last night prior to his admit to [facility]. Patient informed this aligner typewriter that he has been actively using alcohol. This aligner typewriter encouraged patient to engage in medical withdrawal management services to ensure safety. During the prior conversation, patient shared that he wanted to go to a residential facility for AoD treatment. This aligner typewriter presented to [facility] today to see patient and to begin discharge planning. He was asleep upon this writers arrival and did not rouse easily. Patient shared that he is no longer sure if he wants to engage in residential treatment. This aligner typewriter will provide treatment options to patient at next visit.
[2019-06-02] MEDS: Dextrose 50%-Water 25 GM/50 ML DISP.SYRIN IV ×3 (20:15→22:54)
--- NOTE | 2019-06-02 20:26 | RAD_ITS ---
STUDY: X-RAY CHEST REASON FOR EXAM: Male, 59 years old. UNRESPONSIVENESS, LOW BLOOD SUGAR TECHNIQUE: Single AP portable view of the chest. COMPARISON: Prior study of 05/17/2019 FINDINGS: The lungs are clear and expanded. There is no demonstrated pleural abnormality. Normal size heart. Normal mediastinum and nataliya. Normal visualized pulmonary arteries. Normal visualized aortic arch and descending thoracic aorta. Normal visualized thoracic spine. Normal visualized ribs, clavicles, and shoulders. There is no demonstrated abnormality of the visualized soft tissue structures of the upper abdomen. RAD/Chest 1 View (Portable) IMPRESSION: Normal x-ray examination of the chest. Electronically Signed: Juan Francisco Collins MD at 20:59 EDT , Service support ,
--- NOTE | 2019-06-02 20:26 | EKG12_ITS ---
Test Reason : RAPID RESP Blood Pressure : / mmHG Vent. Rate : 085 BPM Atrial Rate : 085 BPM P-R Int : 204 ms QRS Dur : 078 ms QT Int : 386 ms P-R-T Axes : 057 040 073 degrees QTc Int : 459 ms Normal sinus rhythm Normal ECG When compared with ECG of 02-JUN-2019 04:28, MANUAL COMPARISON REQUIRED, DATA IS UNCONFIRMED Confirmed by ANA MARIA CLARK, ALVERTO ([id number]), purchasing expeditor GOLDIE REDMAN ([id number]) on 06/04/2019 9:29:43 AM Referred By: DR SIU Confirmed By:ALVERTO RODGERS MD
--- NOTE | 2019-06-02 20:30 | PCM.RRT.NO ---
Rapid Response Note Rapid response was called for patient unconscious and unresponsive. Fingerstick shows glucose 13. 1 ampoule of D50 was given and then blood sugar went to 225 and then repeat 193. Patient vitals blood pressure 157/70, heart rate 83/min, sinus respiratory rate 24 pulse ox 96% on 2 L of oxygen. After D50, patient woke up but is still groggy, confused and disoriented. Earlier, patient was admitted for acute alcohol withdrawal syndrome on phenobarbital protocol. On exam Air entry diminished in bilateral lung bases. Oropharyngeal airways clear although patient was snoring during unresponsive state. Heart S1-S2 regular. Patient is transferred to ICU. IV fluid D5 half NS at 100 mils per hour. Labs BMP, magnesium, phosphorus, lactic acid, troponin ordered. EKG and chest x-ray portable ordered. Hold phenobarbitone, venlafaxine, mirtazapine, insulin 75/25. Phenergan changed to 12.5 mg p.o. q. 6 hourly as needed for nausea and vomiting and hold for altered mental status/sedation. Sliding scale Humalog insulin changed to low medium sliding scale. Monitor closely in ICU intake output, mental status, airway. Patient Problems: Active and Suspected Problems (Last Reviewed 05/08/19 @ 22:[address] Alan Mandujano MD) Acute hyperactive alcohol withdrawal delirium (Acute) - Physical Exam Vitals/I&O's: Vital Signs Temp Pulse Resp BP Pulse Ox 98.0 F 95 18 139/67 H 97 06/02/19 18:58 06/02/19 18:58 06/02/19 18:58 06/02/19 18:58 06/02/19 18:58 Oxygen Delivery Method Room Air Weight: 155 lb 6.814 oz Body Mass Index (BMI) 22.9 Finger Stick Blood Glucose 324 Intake and Output for Last 24 Hours 05/31/19 06/01/19 06/02/19 23:59 23:59 23:59 Intake Total 2836.67 / 2836.67 Output Total 1250 / 1250 Balance 1586.67 / 1586.67 Laboratory Results 06/02/19 04:10: WBC 7.3, RBC 4.60, Hgb 13.4, Hct 38.6 L, MCV 83.9, MCH 29.1, MCHC 34.7, RDW Std Deviation 44.9 H, RDW Coeff of Kaye 15.3 H, Plt Count 264, MPV 8.1, Immature Gran % (Auto) 1.000 H, Neut % (Auto) 59.8, Lymph % (Auto) 22.3, [place] % (Auto) 10.4 H, Eos % (Auto) 5.5 H, Baso % (Auto) 1.0, Absolute Neuts (auto) 4.4, Absolute Lymphs (auto) 1.63, Nucleated RBC % 0 06/02/19 04:10: Sodium 137, Potassium 3.9, Chloride 94 L, Carbon Dioxide 21.0, Anion Gap 22 H, BUN 16, Creatinine 1.12, Estim Creat Clear Calc 71.89, Est GFR (MDRD) Af Amer 87, Est GFR (MDRD) Non-Af 72, BUN/Creatinine Ratio 14.3, Glucose 327 H, Calcium 9.1, Total Bilirubin 0.40, AST 73 H, ALT 151 H, Alkaline Phosphatase 165 H, Troponin I < 0.015, Total Protein 7.3, Albumin 3.5, Globulin 3.8, Albumin/Globulin Ratio 0.9 06/02/19 04:10: Ethyl Alcohol 208.0 06/02/19 04:10: Urine Opiates Screen NEGATIVE, Urine Methadone Screen NEGATIVE, Ur Barbiturates Screen POSITIVE H, Ur Phencyclidine Scrn NEGATIVE, Ur Amphetamines Screen NEGATIVE, U Methamphetamin-MDMA NEGATIVE, U Benzodiazepines Scrn NEGATIVE, Urine Cocaine Screen NEGATIVE, U Cannabinoids Screen POSITIVE H, Ur Drug Screen Comment 06/02/19 04:10: Magnesium 1.3 L, Lipase 107 06/02/19 07:18: POC Glucose 255 H 06/02/19 10:00: Urine Color Yellow, Urine Clarity Clear, Urine pH 7.0, Ur Specific [place] 1.010, Urine Protein 30 H, Urine Glucose (UA) 1000 H, Urine Ketones 50 H, Urine Occult Blood 10 H, Urine Nitrite Negative, Urine Bilirubin Negative, Urine Urobilinogen Normal, Ur Leukocyte Esterase Negative, Urine RBC 0-5 SEEN, Urine WBC 0 SEEN, Ur Squamous Epith Cells 0 SEEN, Urine Bacteria 0 SEEN, Urine Mucus 0 SEEN 06/02/19 11:37: POC Glucose 83 06/02/19 17:07: POC Glucose 160 H Current Medications Amlodipine Besylate (Norvasc) 10 mg PO DAILY [facility] Last Admin: 06/02/19 09:35 Dose: 10 mg Documented by: Aspirin (Ecotrin) 81 mg PO DAILY@0800 [facility] Last Admin: 06/02/19 09:36 Dose: 81 mg Documented by: Atorvastatin Calcium (Lipitor) 40 mg PO QHS [facility] Buspirone HCl (Buspar) 15 mg PO BID [facility] Last Admin: 06/02/19 09:35 Dose: 15 mg Documented by: Dextrose (D50w Syringe) 0 gm IV X1 PRN; Protocol PRN Reason: Hypoglycemia Dicyclomine HCl (Bentyl) 20 mg PO Q6H PRN PRN PRN Reason: abdominal discomfort Enoxaparin Sodium (Lovenox) 40 mg SC DAILY [facility] Last Admin: 06/02/19 09:34 Dose: 40 mg Documented by: Folic Acid (Folic Acid) 1 mg PO DAILYCM [facility] Last Admin: 06/02/19 09:36 Dose: 1 mg Documented by: Gabapentin (Neurontin) 200 mg PO DAILY [facility] Last Admin: 06/02/19 09:35 Dose: 200 mg Documented by: Glucagon () 1 mg IM .X1 PRN PRN Reason: Hypoglycemia Dextrose/Sodium Chloride () 1,000 mls @ 100 mls/hr IV .Q10H [facility] Insulin Human Lispro (Humalog Kwikpen (Bkc)) 0 unit SC ACHS [facility]; Protocol Last Admin: 06/02/19 17:10 Dose: 2 u Documented by: Insulin Lispro Protam/Lispro Human (Humalog Mix 75-25 Kwikpen (Bkc)) 20 unit SC BREAKFAST [facility] Last Admin: 06/02/19 09:36 Dose: 20 u Documented by: Insulin Lispro Protam/Lispro Human (Humalog Mix 75-25 Kwikpen (Bkc)) 25 unit SC DINNER [facility] Last Admin: 06/02/19 17:11 Dose: 25 u Documented by: Lisinopril (Zestril) 40 mg PO DAILY [facility] Last Admin: 06/02/19 09:34 Dose: 40 mg Documented by: Loperamide HCl (Imodium) 2 mg PO Q4H PRN PRN PRN Reason: LOOSE STOOLS Metoprolol Tartrate (Lopressor (Beta Ana)) 25 mg PO BID [facility] Last Admin: 06/02/19 09:35 Dose: 25 mg Documented by: Mirtazapine (Remeron) 15 mg PO QHS [facility] Nicotine (Nicoderm Cq (Pbkc)) 21 mg TRANSDERM. DAILY [facility] Last Admin: 06/02/19 09:36 Dose: Not Given Documented by: Nitroglycerin (Nitrostat) 0.4 mg SUBLINGUAL Q5M PRN PRN Reason: CARDIAC/CHEST PAIN Nutritional Formula (Lactose Free) (Glucerna Shake) 120 ml PO TIDCM [facility] Last Admin: 06/02/19 17:15 Dose: 120 ml Documented by: Ondansetron HCl (Zofran) 8 mg PO Q8H PRN PRN PRN Reason: NAUSEA Last Admin: 06/02/19 07:09 Dose: 8 mg Documented by: Oxycodone HCl (Oxyir) 5 mg PO Q4H PRN PRN PRN Reason: Pain Score 4-5/10 Last Admin: 06/02/19 15:48 Dose: 5 mg Documented by: Phenobarbital (Phenobarbital) 97.2 mg PO Q4H [facility]; Taper Stop: 06/06/19 11:59 Last Admin: 06/02/19 19:01 Dose: 97.2 mg Documented by: Promethazine HCl (Phenergan Tablet) 25 mg PO Q8H PRN PRN PRN Reason: NAUSEA Sodium Chloride () 10 - 40 ml IV UD PRN PRN Reason: SALINE FLUSH Last Admin: 06/02/19 07:14 Dose: 10 ml Documented by: [facility]) [facility] Last Admin: 06/02/19 09:36 Dose: 100 mg Documented by: Ticagrelor (Brilinta) 90 mg PO BID [facility] Last Admin: 06/02/19 09:35 Dose: 90 mg Documented by: Venlafaxine HCl (Effexor) 225 mg PO DAILY [facility] Last Admin: 06/02/19 09:40 Dose: 225 mg Documented by: Assessment/Plan All Active Problems (Last Reviewed 05/08/19 @ 22:[address] Alan Mandujano MD) Sinus tachycardia by electrocardiography (Acute) Alcohol abuse (Acute) Acute hyperactive alcohol withdrawal delirium (Acute) Suicide attempt (Resolved) NSVT (nonsustained ventricular tachycardia) (Resolved) Alcohol abuse (Resolved) Non-ST elevation (NSTEMI) myocardial infarction (Resolved) Overdose of insulin (Resolved) Suicidal ideation (Resolved)
[2019-06-02] MEDS: Dext 5%-0.45% NS 1,000 ML 100 ML IV (20:35)
[2019-06-02 20:41] LABS: Bedside Glucose 140 mg/dL (70-110)
--- NOTE | 2019-06-02 20:44 | NURSING ---
Per ARCHITECTURAL INTERN bed alarm was sounding, patient was unable to wake up with stimulus. This RN was called to the bedside and found the patient unresponsive, sweaty, and snoring. warehouse order selector called to bedside and rapid response called overhead.
[2019-06-02 20:53] LABS: Anion Gap 8 (5-15); BUN 14 mg/dL (7-18); BUN/Creat Ratio 15.2 RATIO (10-20); Calcium,Total 8.7 mg/dL (8.5-10.1); Chloride 97 mmol/L (98-107); Creatinine, Serum 0.92 mg/dL (0.70-1.30); EST Glomerular Filtration Rate 89 mL/min (>60); Est Glom Filt Rate - Afr Amer 108 mL/min (>60); Estimated Creatinine Clearance 87.27 ml/min; Glucose 156 mg/dL (74-106); Potassium 3.1 mmol/L (3.5-5.1); Sodium Level 136 mmol/L (136-145)
[2019-06-02 20:55] LABS: Phosphorus 3.4 mg/dL (2.5-4.9)
[2019-06-02 20:59] LABS: Lactic Acid 1.7 mmol/L (0.4-1.9)
[2019-06-02] MEDS: Magnesium Sulfate 4gm/100mL 4 GM/100 ML IV.SOLN. IV (21:14)
[2019-06-02] MEDS: Potassium Chloride 10mEq/100mL 10 MEQ/100 ML IV.SOLN. 100 MEQ IV BOLUS ×3 (21:14→23:14)
[2019-06-02] MEDS: Atorvastatin Calcium 40 MG Tablet PO (21:29)
--- NOTE | 2019-06-02 22:08 | NURSING ---
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
[2019-06-02 22:21] LABS: Bedside Glucose 62 mg/dL (70-110)
[2019-06-02] MEDS: Dextrose 10%-Water 250 ML 50 ML IV (22:25)
[2019-06-02 23:01] LABS: Bedside Glucose 40 mg/dL (70-110)
[2019-06-02 23:21] LABS: Bedside Glucose 151 mg/dL (70-110)
[2019-06-03] VITALS (14 sets, daily range): BP systolic 129–152; BP diastolic 61–91; PULSE 84–94; RESP 12–20; TEMP 36.4–37; O2SAT 96–100
[2019-06-03] MEDS: Potassium Chloride 10mEq/100mL 10 MEQ/100 ML IV.SOLN. 100 MEQ IV BOLUS (00:12)
--- NOTE | 2019-06-03 00:32 | NURSING ---
Pt A+O to person and place, needs oriented to time of day only. Reviewed Code status w/pt as per 's request; pt does not wish to be intubated or placed on a machine in the event he stops breathing. Also discussed chest compressions, cardio-shocking, and emergency medicines, pt simply states if I , I . Please don't do anything to stop it. Clarified w/pt that he wishes us to cont to treat him for hypoglycemia and responded yes.
[2019-06-03 00:36] LABS: Bedside Glucose 92 mg/dL (70-110)
--- NOTE | 2019-06-03 01:01 | PCM.HOSP.N ---
Hospitalist Note MOLST/advanced directive/living will: Patient is awake, alert and oriented x3 to make decision on advanced directive/end-of-life care. As per the nursing staff, earlier he signed DNR CC arrest but when I explained about procedures involved with different options including full code, DNR CC arrest and DNR CC; he changed his mind to full code. Patient does want artificial life support including intubation, tube feed, ventilator and/chest compression, central venous catheter, vasopressor and DC shock if needed. Full code. Total time spent in [id number] encounter in discussion of advanced directive 16 minutes. Procedures: [id number] Advncd Care Plan 30 Min
--- NOTE | 2019-06-03 01:05 | NURSING ---
at bedside, reviewed code status again; pt states I've had some time to think about it and it's ok to do what you need to do to keep me alive for now. confirmed that pt is ok w/receiving intubation/ventilation, CPR, medicines and defibrillation.
[2019-06-03 01:06] LABS: Bedside Glucose 146 mg/dL (70-110)
[2019-06-03 02:11] LABS: Bedside Glucose 131 mg/dL (70-110)
[2019-06-03] MEDS: Dextrose 10%-Water 250 ML 50 ML IV (03:00)
[2019-06-03 03:01] LABS: Bedside Glucose 90 mg/dL (70-110)
[2019-06-03 04:16] LABS: Bedside Glucose 59 mg/dL (70-110)
--- NOTE | 2019-06-03 04:19 | NURSING ---
Pt's BS 59, pt alert and oriented; given 4oz OJ, alexandra crackers w/peanut butter, and a carton of milk. Pt tomasz eating well and expressed confusion as to why the BS keeps dropping. Pt informed that his liver is responsible for glucose storage and release when needed, but it's very sick from the alcohol abuse so the liver is not doing its job.
[2019-06-03 05:26] LABS: Bedside Glucose 113 mg/dL (70-110)
[2019-06-03 05:28] LABS: Absolute Lymphocyte Count 1.26 X10^3/uL (0.83-4.51); Absolute Neutrophil Count 4.9 X10^3/uL (2.0-7.7); Basophil# 0.04 X10^3/uL; Basophil% 0.6 % (0-1); Eosinophil# 0.02 X10^3/uL; Eosinophils% 0.3 % (0-5); Hematocrit 40.5 % (40-54); Hemoglobin 13.9 g/dL (13.0-16.5); Lymphocyte # 1.26 X10^3/ul (4.0); Lymphocyte % 17.5 % (19-41); Mean Corp Hgb Conc 34.3 g/dL (32-36); Mean Corpuscular Hgb 29.2 pg (27.0-32.0); Mean Corpuscular Volume 85.1 fL (80-94); Mean Platelet Vol. 8.1 fl (6.2-12.0); Monocyte# 0.98 X10^3/uL; Monocyte% 13.6 % (0-10); NRBC Flagged by Analyzer 0 % (0-5); Neutrophil # 4.87 X10^3/uL (2.7-7.7); Neutrophil % 67.4 % (47-70); Platelet Count 226 K/mm3 (150-450); RBC Distribution Width CV 14.3 % (11.6-14.6); RBC Distribution Width SD 43.7 fl (35.1-43.9); Red Blood Count 4.76 M/mm3 (4.6-6.2); White Blood Count 7.2 K/mm3 (4.4-11.0)
[2019-06-03 05:40] LABS: Anion Gap 7 (5-15); BUN 8 mg/dL (7-18); BUN/Creat Ratio 11.9 RATIO (10-20); Calcium,Total 8.1 mg/dL (8.5-10.1); Chloride 94 mmol/L (98-107); Creatinine, Serum 0.67 mg/dL (0.70-1.30); EST Glomerular Filtration Rate 130 mL/min (>60); Est Glom Filt Rate - Afr Amer 157 mL/min (>60); Estimated Creatinine Clearance 119.84 ml/min; Glucose 117 mg/dL (74-106); Potassium 3.4 mmol/L (3.5-5.1); Sodium Level 132 mmol/L (136-145)
[2019-06-03 05:58] LABS: Thyroid Stim Hormone (TSH) 1.64 uIU/mL (0.358-3.74)
[2019-06-03 06:21] LABS: Bedside Glucose 108 mg/dL (70-110)
[2019-06-03 07:11] LABS: Bedside Glucose 83 mg/dL (70-110)
[2019-06-03] MEDS: Dextrose 10%-Water 250 ML 100 ML IV (07:45)
[2019-06-03 09:05] LABS: Bedside Glucose 90 mg/dL (70-110)
[2019-06-03 09:05] LABS: Bedside Glucose 205 mg/dL (70-110)
[2019-06-03] MEDS: Aspirin E.C. 81 MG Tablet PO (09:25)
[2019-06-03] MEDS: Gabapentin 100 MG Capsule 200 MG PO (09:25)
[2019-06-03] MEDS: Folic Acid 1 MG Tablet PO (09:25)
[2019-06-03] MEDS: Lisinopril 40 MG Tablet PO (09:26)
[2019-06-03] MEDS: amLODIPine 10 MG Tablet PO (09:26)
[2019-06-03] MEDS: Enoxaparin 40 MG/0.4 ML Syringe SC (09:26)
[2019-06-03] MEDS: Thiamine Hydrochloride 100 MG Tablet PO (09:26)
[2019-06-03] MEDS: TICAGRELOR 90 MG TABLET PO ×2 (09:26→21:50)
[2019-06-03] MEDS: LORazepam 1 MG Tablet 2 MG PO ×2 (10:43→14:03)
[2019-06-03 10:45] LABS: Bedside Glucose 130 mg/dL (70-110)
[2019-06-03] MEDS: Glucerna Shake 120 ML LIQUID PO ×2 (12:40→17:30)
--- NOTE | 2019-06-03 12:41 | NURSING ---
pt ate 100% of lunch tray. resting in bed now with snoring resp and eyes closed.
[2019-06-03 13:31] LABS: Bedside Glucose 156 mg/dL (70-110)
--- NOTE | 2019-06-03 14:18 | ADDICTION ---
This property underwriter met with patient in his room. He was not oriented to place/time but was able to communicate with this long term care social worker briefly. Patient stated that I'm on a lot of Ativan. It's the first relief I've got. This property underwriter intended to continue with discharge planning to [facility], however, patient's nurse informed this property underwriter that he is insulin dependent. [facility] does not accept insulin dependent patients at this time. This property underwriter will research available resources for client and will provide resources to patient and hospital long term care social worker, if needed.
[2019-06-03 15:11] LABS: Bedside Glucose 13 mg/dL (70-110)
[2019-06-03 15:11] LABS: Bedside Glucose 80 mg/dL (70-110)
[2019-06-03 15:11] LABS: Bedside Glucose 193 mg/dL (70-110)
[2019-06-03 15:11] LABS: Bedside Glucose 227 mg/dL (70-110)
[2019-06-03] MEDS: Insulin Lispro 100 UNIT/ML INSULN.PEN SC ×2 (16:05→21:49)
[2019-06-03 16:10] LABS: Bedside Glucose 226 mg/dL (70-110)
[2019-06-03] MEDS: Atorvastatin Calcium 40 MG Tablet PO (21:50)
[2019-06-03 22:00] LABS: Bedside Glucose 297 mg/dL (70-110)
[2019-06-04] MEDS: LORazepam 1 MG Tablet PO ×2 (01:55→10:04)
[2019-06-04 02:01] LABS: Bedside Glucose 129 mg/dL (70-110)
[2019-06-04 02:09] VITALS: BP 142/80; PULSE 92; RESP 18; TEMP 36.6; O2SAT 97
[2019-06-04] MEDS: Insulin Lispro 100 UNIT/ML INSULN.PEN SC ×4 (06:29→21:08)
[2019-06-04 06:31] LABS: Bedside Glucose 199 mg/dL (70-110)
--- NOTE | 2019-06-04 07:55 | CASEMGMT ---
[facility] CM Readmission Note Previous Admission: 05/07-05/15/2019 Diagnosis: ETOH Dependence DC Disposition: Home w/outpt f/u for ETOH abuse Current Admission Presentation: ETOH abuse/withdrawal Pt presented to ER with altered mental status/confusion/disorientation. Pt seen by 180 social organization professor. Pt admitted to actively using alcohol after discharge. On ETOH withdrawal protocol. Pt is insulin dependent, stated to physician he has not taken blood sugars @ home due to drinking. [facility] SW will assist with dc planning. MARILU STEWARD RN ACM
[2019-06-04 08:10] VITALS: BP 149/85; PULSE 97; RESP 18; TEMP 36.6; O2SAT 99
[2019-06-04] MEDS: TICAGRELOR 90 MG TABLET PO ×2 (08:13→21:09)
[2019-06-04] MEDS: Gabapentin 100 MG Capsule 200 MG PO (08:13)
[2019-06-04] MEDS: Folic Acid 1 MG Tablet PO (08:13)
[2019-06-04] MEDS: Thiamine Hydrochloride 100 MG Tablet PO (08:13)
[2019-06-04] MEDS: Lisinopril 40 MG Tablet PO (08:13)
[2019-06-04] MEDS: amLODIPine 10 MG Tablet PO (08:13)
[2019-06-04] MEDS: Aspirin E.C. 81 MG Tablet PO (08:13)
--- NOTE | 2019-06-04 08:13 | PCM.PROGNOTE ---
Subjective: The date of this injury is 06/03/2019: Patient was seen and examined today in the ICU, he was transferred down to the ICU from PCU due to low blood sugars. Patient's blood sugars this morning have stabilized, he is alert, I have instructed him to make sure that he maintains his oral intake today. Patient appears stable for transfer back to PCU today - Physical Exam Vitals/I&O's: Vital Signs Temp Pulse Resp BP Pulse Ox 97.9 F 92 18 142/80 H 97 06/04/19 02:09 06/04/19 02:09 06/04/19 02:09 06/04/19 02:09 06/04/19 02:09 Oxygen Flow Rate (L/min) 2 Oxygen Delivery Method Room Air Weight: 70.5 kg Body Mass Index (BMI) 22.9 Finger Stick Blood Glucose 324 Intake and Output for Last 24 Hours 06/02/19 06/03/19 06/04/19 23:59 23:59 23:59 Intake Total 3368.00 / 3368.00 1289.17 / 1889.17 840 / 840 Output Total 1850 / 1850 800 / 1200 800 / 800 Balance 1518.00 / 1518.00 489.17 / 689.17 40 / 40 General: Alert, Oriented x3, Cooperative, No apparent distress, Well developed HEENT: Atraumatic, PERRLA, EOMI, Normocephalic Oral: Moist Mucosa Neck: Supple, No JVD, Trachea Midline, Thyroid Normal Size and Texture Lungs: Clear to auscultation, Normal air movement, No rhonchi, No wheeze, No rales Cardiovascular: Regular rate, Regular Rhythm, Normal S1, Normal S2, No murmurs Abdomen: Bowel Sounds Present, Soft, Non Tender, Non-Distended Extremities: No clubbing, No cyanosis, No edema, Capillary Refill Less than 3 Seconds Skin: No rashes, No breakdown Musculoskeletal: No Tenderness to Palpation of Joints or Extremities Neurological: Cranial nerves II-XII grossly intact, Neuro grossly intact, Sensory exam intact to light touch and pain, Coordination normal Psych/Mental Status: Normal Affect, Appropriate, Alert and oriented to time, place, person, mood and affect Laboratory Results 06/02/19 20:13: POC Glucose 13 L* 06/02/19 20:18: POC Glucose 227 H 06/02/19 20:24: POC Glucose 193 H 06/02/19 20:50: POC Glucose 80 06/03/19 08:10: POC Glucose 90 06/03/19 09:00: POC Glucose 205 H 06/03/19 10:38: POC Glucose 130 H 06/03/19 13:26: POC Glucose 156 H 06/03/19 15:55: POC Glucose 226 H 06/03/19 21:46: POC Glucose 297 H 06/04/19 01:54: POC Glucose 129 H 06/04/19 06:26: POC Glucose 199 H Current Medications Amlodipine Besylate (Norvasc) 10 mg PO DAILY [facility] Last Admin: 06/03/19 09:26 Dose: 10 mg Documented by: Aspirin (Ecotrin) 81 mg PO DAILY@0800 [facility] Last Admin: 06/03/19 09:25 Dose: 81 mg Documented by: Atorvastatin Calcium (Lipitor) 40 mg PO QHS [facility] Last Admin: 06/03/19 21:50 Dose: 40 mg Documented by: Dextrose (D50w Syringe) 0 gm IV X1 PRN; Protocol PRN Reason: Hypoglycemia Last Admin: 06/02/19 22:54 Dose: 25 gm Documented by: Enoxaparin Sodium (Lovenox) 40 mg SC DAILY [facility] Last Admin: 06/03/19 09:26 Dose: 40 mg Documented by: F[facility] ([facility] Acid) [facility] Last Admin: 06/03/19 09:25 Dose: 1 mg Documented by: Gabapentin (Neurontin) 200 mg PO DAILY [facility] Last Admin: 06/03/19 09:25 Dose: 200 mg Documented by: Gabapentin (Neurontin) 300 mg PO Q8H PRN PRN PRN Reason: moderate to severe anxiety Glucagon () 1 mg IM .X1 PRN PRN Reason: Hypoglycemia Insulin Human Lispro (Humalog Kwikpen (Bkc)) 0 unit SC ACHS [facility]; Protocol Last Admin: 06/04/19 06:29 Dose: 2 u Documented by: Lisinopril (Zestril) 40 mg PO DAILY [facility] Last Admin: 06/03/19 09:26 Dose: 40 mg Documented by: Loperamide HCl (Imodium) 2 mg PO Q4H PRN PRN PRN Reason: LOOSE STOOLS Lorazepam (Ativan) 1 mg PO Q8H [facility] Last Admin: 06/04/19 01:55 Dose: 1 mg Documented by: Nicotine (Nicoderm Cq (Pbkc)) 21 mg TRANSDERM. DAILY [facility] Last Admin: 06/03/19 09:26 Dose: Not Given Documented by: Nutritional Formula (Lactose Free) (Glucerna Shake) 120 ml PO TIDCM [facility] Last Admin: 06/03/19 17:30 Dose: 120 ml Documented by: Ondansetron HCl (Zofran) 8 mg PO Q8H PRN PRN PRN Reason: NAUSEA Last Admin: 06/02/19 07:09 Dose: 8 mg Documented by: Oxycodone HCl (Oxyir) 5 mg PO Q4H PRN PRN PRN Reason: Pain Score 4-5/10 Last Admin: 06/02/19 15:48 Dose: 5 mg Documented by: Promethazine HCl (Phenergan Tablet) 12.5 mg PO Q6H PRN PRN PRN Reason: NAUSEA/VOMITING Sodium Chloride () 10 - 40 ml IV UD PRN PRN Reason: SALINE FLUSH Last Admin: 06/02/19 21:13 Dose: 10 ml Documented by: Thiamine HCl (Vitamin B1) 100 mg PO DAILYCM [facility] Last Admin: 06/03/19 09:26 Dose: 100 mg Documented by: Ticagrelor (Brilinta) 90 mg PO BID [facility] Last Admin: 06/03/19 21:50 Dose: 90 mg Documented by: Medical Necessity - Tobacco Use Smoking Status: Current every day smoker Tobacco Use: Cigarettes Assessment/Plan All Active Problems (Last Updated 06/04/19 @ 08:[address] Paco Kim, DO) Sinus tachycardia by electrocardiography (Resolved) Acute hyperactive alcohol withdrawal delirium (Resolved) Suicide attempt (Resolved) Suicide attempt (Resolved) NSVT (nonsustained ventricular tachycardia) (Resolved) Alcohol abuse (Resolved) Non-ST elevation (NSTEMI) myocardial infarction (Resolved) Overdose of insulin (Resolved) Suicidal ideation (Resolved) #1 acute alcohol withdrawal-I will place the patient on Ativan taper, 180 will see the patient, patient stable for transfer to PCU #2 hypoglycemia-patient will be maintained on sliding scale insulin only, I will make a determination tomorrow concerning programmed insulin #3 chronic alcoholism #4 Coronary artery disease-stable #5 chronic depression Inpatient E&M: [id number] [facility] L[facility]
[2019-06-04] MEDS: Enoxaparin 40 MG/0.4 ML Syringe SC (08:14)
[2019-06-04] MEDS: Glucerna Shake 120 ML LIQUID PO ×3 (08:16→17:21)
--- NOTE | 2019-06-04 10:57 | CASEMGMT ---
Physician indicated patient will not need to be on insulin at discharge. WILLY called Josefa with [facility] and let her know this information. She said she will be in around 2p to see patient and work on getting him to the original facility she was working on for patient. Charito MELENDREZ SEWING MACHINE REPAIRER
[2019-06-04 11:51] LABS: Bedside Glucose 265 mg/dL (70-110)
--- NOTE | 2019-06-04 13:15 | CASEMGMT ---
WILLY received a call from Josefa at [facility]. She said she is dealing with a crisis right now and will not be in to see patient today. She asked WILLY to assist patient in completing a pre-screening with [facility] Shultz. Georgina is the contact center assistant and her number is [phone]. WILLY asked what happens after that and she did not know. She said SW will need to see what Georgina says and we can go from there. WILLY attempted to see patient and he is snoring and did not wake up. WILLY will try again. Charito MELENDREZ MSW
--- NOTE | 2019-06-04 13:34 | CASEMGMT ---
Addendum entered by Charito Adames 06/04/19 14:11: WILLY called Josefa at [facility] and let her know about patient's response to WILLY regarding inpatient facility. She will be in to see him tomorrow. Charito JULIAN Original Note: WILLY received a call from Josefa at [facility]. She said she is dealing with a crisis right now and will not be in to see patient today. She asked SW to assist patient in completing a pre-screening with [facility] Shultz. Georgina is the field contact person and her number is [phone]. WILLY asked what happens after that and she did not know. She said SW will need to see what Georgina says and we can go from there. SW woke patient up by loudly saying his name and shaking his arm. SW introduced self and let patient know Josefa was not going to be able to come in today. WILLY told him that she has a facility that may be able to take him, but they need to talk with him first. SW asked him if he is awake enough to talk with someone. He told SW he is not feeling well today so it is not a good time. SW told him the physician would like to get him into treatment today. Patient became irritated and said he knows what the physician wants, but he does not feel good. WILLY then left the room. Charito MELENDREZ STORE PROTECTION SPECIALIST
[2019-06-04 15:25] VITALS: BP 137/75; PULSE 92; RESP 18; TEMP 36.7; O2SAT 96
[2019-06-04 15:30] LABS: Bedside Glucose 190 mg/dL (70-110)
--- NOTE | 2019-06-04 15:49 | PCM.PROGNOTE ---
Subjective: Patient was seen and examined today, he is resting quietly, he does not appear to be anxious or tremors. I made the decision to stop the patient's Ativan except for the Ativan he has been given for increased CIWA score. Patient's blood sugars have not been highly elevated, he is just getting insulin as needed for elevated blood sugars. - Physical Exam Vitals/I&O's: Vital Signs Temp Pulse Resp BP Pulse Ox 98.1 F 92 18 137/75 H 96 06/04/19 15:25 06/04/19 15:25 06/04/19 15:25 06/04/19 15:25 06/04/19 15:25 Oxygen Flow Rate (L/min) 2 Oxygen Delivery Method Room Air Weight: 70.5 kg Body Mass Index (BMI) 22.9 Finger Stick Blood Glucose 324 Intake and Output for Last 24 Hours 06/02/19 06/03/19 06/04/19 23:59 23:59 23:59 Intake Total 3368.00 / 3368.00 1289.17 / 1889.17 1140 / 1140 Output Total 1850 / 1850 800 / 1200 1175 / 1175 Balance 1518.00 / 1518.00 489.17 / 689.17 -35 / -35 General: Alert, Oriented x3, Cooperative, No apparent distress, Well developed, Well nourished HEENT: Atraumatic, PERRLA, EOMI, Normocephalic Oral: Moist Mucosa Neck: Supple, No JVD, Trachea Midline, Thyroid Normal Size and Texture Lungs: Clear to auscultation, Normal air movement, No rhonchi, No wheeze, No rales, Diminished Cardiovascular: Regular rate, Regular Rhythm, Normal S1, Normal S2, No murmurs, PMI Normal, No rub noted Abdomen: Bowel Sounds Present, Soft, Non Tender, Non-Distended Extremities: No clubbing, No cyanosis, No edema, Capillary Refill Less than 3 Seconds Skin: No rashes, No breakdown Musculoskeletal: No Tenderness to Palpation of Joints or Extremities Neurological: Cranial nerves II-XII grossly intact, Neuro grossly intact, Sensory exam intact to light touch and pain, Coordination normal Psych/Mental Status: Normal Affect, Appropriate, Alert and oriented to time, place, person, mood and affect Laboratory Results 06/03/19 15:55: POC Glucose 226 H 06/03/19 21:46: POC Glucose 297 H 06/04/19 01:54: POC Glucose 129 H 06/04/19 06:26: POC Glucose 199 H 06/04/19 11:39: POC Glucose 265 H 06/04/19 15:26: POC Glucose 190 H Current Medications Amlodipine Besylate (Norvasc) 10 mg PO DAILY [facility] Last Admin: 06/04/19 08:13 Dose: 10 mg Documented by: Aspirin (Ecotrin) 81 mg PO DAILY@0800 [facility] Last Admin: 06/04/19 08:13 Dose: 81 mg Documented by: Atorvastatin Calcium (Lipitor) 40 mg PO QHS [facility] Last Admin: 06/03/19 21:50 Dose: 40 mg Documented by: Dextrose (D50w Syringe) 0 gm IV X1 PRN; Protocol PRN Reason: Hypoglycemia Last Admin: 06/02/19 22:54 Dose: 25 gm Documented by: Enoxaparin Sodium (Lovenox) 40 mg SC DAILY [facility] Last Admin: 06/04/19 08:14 Dose: 40 mg Documented by: Folic Acid ([facility]olic Acid) [facility] Last Admin: 06/04/19 08:13 Dose: 1 mg Documented by: Gabapentin (Neurontin) 200 mg PO DAILY [facility] Last Admin: 06/04/19 08:13 Dose: 200 mg Documented by: Gabapentin (Neurontin) 300 mg PO Q8H PRN PRN PRN Reason: moderate to severe anxiety Glucagon () 1 mg IM .X1 PRN PRN Reason: Hypoglycemia Insulin Human Lispro (Humalog Kwikpen (Bkc)) 0 unit SC [facility]; Protocol Last Admin: 06/04/19 11:43 Dose: 6 u Documented by: Lisinopril (Zestril) 40 mg PO DAILY [facility] Last Admin: 06/04/19 08:13 Dose: 40 mg Documented by: Loperamide HCl (Imodium) 2 mg PO Q4H PRN PRN PRN Reason: LOOSE STOOLS Nicotine (Nicoderm Cq (Pbkc)) 21 mg TRANSDERM. DAILY [facility] Last Admin: 06/04/19 08:14 Dose: Not Given Documented by: Nutritional Formula (Lactose Free) (Gluceretienne Thomas) 120 ml PO TIDCM [facility] Last Admin: 06/04/19 11:43 Dose: 120 ml Documented by: Ondansetron HCl (Zofran) 8 mg PO Q8H PRN PRN PRN Reason: NAUSEA Last Admin: 06/02/19 07:09 Dose: 8 mg Documented by: Oxycodone HCl (Oxyir) 5 mg PO Q4H PRN PRN PRN Reason: Pain Score 4-5/10 Last Admin: 06/02/19 15:48 Dose: 5 mg Documented by: Promethazine HCl (Phenergan Tablet) 12.5 mg PO Q6H PRN PRN PRN Reason: NAUSEA/VOMITING Sodium Chloride () 10 - 40 ml IV UD PRN PRN Reason: SALINE FLUSH Last Admin: 06/02/19 21:13 Dose: 10 ml Documented by: Thiamine HCl (Vitamin B1) 100 mg PO DAILYCM [facility] Last Admin: 06/04/19 08:13 Dose: 100 mg Documented by: Ticagrelor (Brilinta) 90 mg PO BID [facility] Last Admin: 06/04/19 08:13 Dose: 90 mg Documented by: Medical Necessity - Tobacco Use Smoking Status: Current every day smoker Tobacco Use: Cigarettes Assessment/Plan All Active Problems (Last Updated 06/04/19 @ 08:[address] Paco Kim, DO) Sinus tachycardia by electrocardiography (Resolved) Acute hyperactive alcohol withdrawal delirium (Resolved) Suicide attempt (Resolved) Suicide attempt (Resolved) NSVT (nonsustained ventricular tachycardia) (Resolved) Alcohol abuse (Resolved) Non-ST elevation (NSTEMI) myocardial infarction (Resolved) Overdose of insulin (Resolved) Suicidal ideation (Resolved) #1 acute alcohol withdrawal-again I have stopped the patient's programmed Ativan, he will receive Ativan and as needed, geriatric social work professor attempted to have the patient talk with 180 on the phone today but the patient became argumentative and refused to talk stating he did not feel well. Again I have my doubts that the patient is really sincere about getting help for his alcoholism. If the patient does not follow through with talking to 180 about going to a rehab facility tomorrow, I feel he should be discharged home to follow-up as an outpatient as he chooses. #2 hypoglycemia-resolved at this time #3 chronic alcoholism #4 Coronary artery disease-stable #5 chronic depression #6 type 2 diabetes-we will place the patient on metformin, continue with sliding scale insulin, rehab facility that was contacted regarding the patient will not take the patient if he is on subcu insulin. Inpatient E&M: 46631 Subs Hosp L2
[2019-06-04] MEDS: metFORMIN HCl 1,000 MG Tablet 1000 MG PO (17:20)
[2019-06-04 17:30] LABS: Bedside Glucose 182 mg/dL (70-110)
[2019-06-04 18:50] VITALS: PULSE 92
[2019-06-04] MEDS: Metoprolol Tartrate 25 MG Tablet PO (18:50)
[2019-06-04] MEDS: Venlafaxine XR 75 MG Capsule 225 MG PO (18:50)
[2019-06-04 18:51] VITALS: PULSE 92
[2019-06-04 20:58] VITALS: BP 118/64; PULSE 98; RESP 18; TEMP 36.6; O2SAT 97
[2019-06-04] MEDS: Mirtazapine 30 MG Tablet PO (21:09)
[2019-06-04] MEDS: busPIRone 15 MG TABLET PO (21:09)
[2019-06-04] MEDS: Atorvastatin Calcium 40 MG Tablet PO (21:09)
[2019-06-04 21:16] LABS: Bedside Glucose 375 mg/dL (70-110)
[2019-06-05] VITALS (13 sets, daily range): BP systolic 110–137; BP diastolic 70–89; PULSE 88–99; RESP 16–18; TEMP 36.4–36.9; O2SAT 94–100
[2019-06-05] MEDS: LORazepam 1 MG Tablet 2 MG PO ×6 (00:08→23:22)
[2019-06-05] MEDS: busPIRone 15 MG TABLET PO ×3 (05:58→23:03)
[2019-06-05] MEDS: Insulin Lispro 100 UNIT/ML INSULN.PEN SC ×4 (06:07→23:09)
[2019-06-05 06:11] LABS: Bedside Glucose 205 mg/dL (70-110)
[2019-06-05] MEDS: Metoprolol Tartrate 25 MG Tablet PO ×2 (07:51→23:04)
[2019-06-05] MEDS: Glucerna Shake 120 ML LIQUID PO ×3 (07:51→17:09)
[2019-06-05] MEDS: Lisinopril 40 MG Tablet PO (07:52)
[2019-06-05] MEDS: Gabapentin 100 MG Capsule 200 MG PO (07:52)
[2019-06-05] MEDS: Venlafaxine XR 75 MG Capsule 225 MG PO (07:52)
[2019-06-05] MEDS: Enoxaparin 40 MG/0.4 ML Syringe SC (07:52)
[2019-06-05] MEDS: Aspirin E.C. 81 MG Tablet PO (07:53)
[2019-06-05] MEDS: metFORMIN HCl 1,000 MG Tablet 1000 MG PO ×2 (07:54→17:09)
[2019-06-05] MEDS: Thiamine Hydrochloride 100 MG Tablet PO (07:54)
[2019-06-05] MEDS: Folic Acid 1 MG Tablet PO (07:54)
[2019-06-05] MEDS: TICAGRELOR 90 MG TABLET PO ×2 (07:54→23:04)
[2019-06-05] MEDS: amLODIPine 10 MG Tablet PO (09:56)
--- NOTE | 2019-06-05 10:21 | CASEMGMT ---
Physician would like to discharge patient today. WILLY called Josefa at [facility] and she said she will not be able to come in until 2p. WILLY notified charge operator. Charito MELENDREZ MSW
[2019-06-05 11:50] LABS: Bedside Glucose 180 mg/dL (70-110)
[2019-06-05] MEDS: Ondansetron 8 MG Tablet PO ×2 (12:21→23:22)
[2019-06-05] MEDS: Gabapentin 300 MG Capsule PO (12:27)
--- NOTE | 2019-06-05 13:42 | ADDICTION ---
This advertising writer presented to [facility] to process discharge planning with patient. Patient was not oriented to person, place, time or situation. He was focused on someone stealing my sandwich and was unable to effectively process discharge planning at this time. Patient was not able to complete prescreen phone call for admission into [facility] for Residential treatment. This advertising writer collaborated with [facility] Charito AGUILERA, regarding client's current barriers. SW to call this advertising writer when client appears appropriate for discharge.
--- NOTE | 2019-06-05 16:06 | PCM.PN.HOSP ---
Subjective: Seems little bit out of it today, but was able to have a normal conversation with him. Vitals/I&O's: Vital Signs Temp Pulse Resp BP Pulse Ox 98.1 F 95 18 134/83 H 99 06/05/19 14:00 06/05/19 14:00 06/05/19 14:00 06/05/19 14:00 06/05/19 14:00 Oxygen Flow Rate (L/min) 2 Oxygen Delivery Method Room Air Weight: 155 lb 6.814 oz Body Mass Index (BMI) 22.9 Finger Stick Blood Glucose 324 Intake and Output for Last 24 Hours 06/03/19 06/04/19 06/05/19 23:59 23:59 23:59 Intake Total 1289.17 / 1889.17 1290 / 1290 500 / 500 Output Total 800 / 1200 1625 / 1625 450 / 450 Balance 489.17 / 689.17 -335 / -335 50 / 50 General: Alert, Cooperative, No apparent distress, - - Seems a little out of it HEENT: Atraumatic, PERRLA, EOMI, Normocephalic Oral: Dry Mucosa Neck: Supple, No JVD Lungs: Clear to auscultation, Normal air movement, No rhonchi, No wheeze, No rales Cardiovascular: Regular rate, Regular Rhythm, Normal S1, Normal S2, No murmurs Abdomen: Soft, Non Tender, Non-Distended, No Hepato-splenomegaly Extremities: No edema, Capillary Refill Less than 3 Seconds Skin: No rashes, No breakdown Neurological: Neuro grossly intact, Sensory exam intact to light touch and pain Psych/Mental Status: Normal Affect, Appropriate Laboratory Results 06/04/19 17:19: POC Glucose 182 H 06/04/19 21:06: POC Glucose 375 H 06/05/19 06:05: POC Glucose 205 H 06/05/19 11:46: POC Glucose 180 H Current Medications Amlodipine Besylate (Norvasc) 10 mg PO DAILY [facility] Last Admin: 06/05/19 09:56 Dose: 10 mg Documented by: Aspirin (Ecotrin) 81 mg PO DAILY@0800 [facility] Last Admin: 06/05/19 07:53 Dose: 81 mg Documented by: Atorvastatin Calcium (Lipitor) 40 mg PO QHS [facility] Last Admin: 06/04/19 21:09 Dose: 40 mg Documented by: Buspirone HCl (Buspar) 15 mg PO TID [facility] Last Admin: 06/05/19 15:23 Dose: 15 mg Documented by: Dextrose (D50w Syringe) 0 gm IV X1 PRN; Protocol PRN Reason: Hypoglycemia Last Admin: 06/02/19 22:54 Dose: 25 gm Documented by: Enoxaparin Sodium (Lovenox) 40 mg SC DAILY [facility] Last Admin: 06/05/19 07:52 Dose: 40 mg Documented by: [facility] Last Admin: 06/05/19 07:54 Dose: 1 mg Documented by: Gabapentin (Neurontin) 200 mg PO DAILY [facility] Last Admin: 06/05/19 07:52 Dose: 200 mg Documented by: Gabapentin (Neurontin) 300 mg PO Q8H PRN PRN PRN Reason: moderate to severe anxiety Last Admin: 06/05/19 12:27 Dose: 300 mg Documented by: Glucagon () 1 mg IM .X1 PRN PRN Reason: Hypoglycemia Insulin Human Lispro (Humalog Kwikpen (Bkc)) 0 unit SC [facility]; Protocol Last Admin: 06/05/19 12:21 Dose: 2 u Documented by: Lisinopril (Zestril) 40 mg PO DAILY [facility] Last Admin: 06/05/19 07:52 Dose: 40 mg Documented by: Loperamide HCl (Imodium) 2 mg PO Q4H PRN PRN PRN Reason: LOOSE STOOLS Lorazepam (Ativan) 2 mg PO Q2H PRN PRN; Protocol PRN Reason: CIWA score > 8 but <15 Last Admin: 06/05/19 14:08 Dose: 2 mg Documented by: Lorazepam (Ativan) 2 mg PO UD PRN; Protocol PRN Reason: CIWA score >/=15. Lorazepam (Ativan) 2 mg IV Q2H PRN PRN; Protocol PRN Reason: CIWA score > 8 but <15 Lorazepam (Ativan) 2 mg IV UD PRN; Protocol PRN Reason: CIWA score >/=15. Metformin [facility] ([facility]uc[facility]) [facility] Last Admin: 06/05/19 07:54 Dose: 1,000 mg Documented by: Metoprolol Tartrate (Lopressor (Beta Ana)) 25 mg PO BID [facility] Last Admin: 06/05/19 07:51 Dose: 25 mg Documented by: Mirtazapine (Remeron) 30 mg PO QHS [facility] Last Admin: 06/04/19 21:09 Dose: 30 mg Documented by: Nicotine (Nicoderm Cq (Pbkc)) 21 mg TRANSDERM. DAILY [facility] Last Admin: 06/05/19 07:53 Dose: Not Given Documented by: Nutritional Formula (Lactose Free) (Glucerna Shake) 120 ml PO TIDCM [facility] Last Admin: 06/05/19 12:21 Dose: 120 ml Documented by: Ondansetron HCl (Zofran) 8 mg PO Q8H PRN PRN PRN Reason: NAUSEA Last Admin: 06/05/19 12:21 Dose: 8 mg Documented by: Oxycodone HCl (Oxyir) 5 mg PO Q4H PRN PRN PRN Reason: Pain Score 4-5/10 Last Admin: 06/02/19 15:48 Dose: 5 mg Documented by: Promethazine HCl (Phenergan Tablet) 12.5 mg PO Q6H PRN PRN PRN Reason: NAUSEA/VOMITING Sodium Chloride () 10 - 40 ml IV UD PRN PRN Reason: SALINE FLUSH Last Admin: 06/02/19 21:13 Dose: 10 ml Documented by: Thiamine [facility] (Vitamin B1) [facility] Last Admin: 06/05/19 07:54 Dose: 100 mg Documented by: Ticagrelor (Brilinta) 90 mg PO BID [facility] Last Admin: 06/05/19 07:54 Dose: 90 mg Documented by: Venlafaxine HCl (Effexor Xr) 225 mg PO DAILY [facility] Last Admin: 06/05/19 07:52 Dose: 225 mg Documented by: STROKE Vital Signs/Narrative: Vital Signs Temp Pulse Resp BP Pulse Ox 06/05/19 14:00 98.1 F 95 18 134/83 H 99 Medical Necessity - Tobacco Use Smoking Status: Current every day smoker Tobacco Use: Cigarettes Assessment/Plan All Active Problems (Last Updated 06/04/19 @ 08:[address] Paco Kim, DO) Sinus tachycardia by electrocardiography (Resolved) Acute hyperactive alcohol withdrawal delirium (Resolved) Suicide attempt (Resolved) Suicide attempt (Resolved) NSVT (nonsustained ventricular tachycardia) (Resolved) Alcohol abuse (Resolved) Non-ST elevation (NSTEMI) myocardial infarction (Resolved) Overdose of insulin (Resolved) Suicidal ideation (Resolved) 1. Alcohol withdrawal/anxiety/depression -We will continue with Ativan -We will continue with alcohol withdrawal protocol -Continue with his BuSpar, Remeron, Effexor -Alcohol level on admission was 208 2. DM 2 -He did have a rapid response called on him for a very low blood sugar of 13. His insulin has been discontinued and he is only on the medium dose sliding scale -Continue with his metformin 3. CAD status post stents/HTN/HLD -We will continue with his lisinopril, metoprolol, Brilinta, Lipitor -Blood pressure is stable DVT: Lovenox Inpatient E&M: 72739 Subs Hosp L2
[2019-06-05 17:11] LABS: Bedside Glucose 157 mg/dL (70-110)
[2019-06-05] MEDS: Atorvastatin Calcium 40 MG Tablet PO (23:03)
[2019-06-05] MEDS: Mirtazapine 30 MG Tablet PO (23:04)
[2019-06-05 23:26] LABS: Bedside Glucose 191 mg/dL (70-110)
[2019-06-06] MEDS: busPIRone 15 MG TABLET PO ×3 (06:52→20:41)
[2019-06-06] MEDS: Insulin Lispro 100 UNIT/ML INSULN.PEN SC ×3 (07:02→20:50)
[2019-06-06 07:48] LABS: Bedside Glucose 184 mg/dL (70-110)
[2019-06-06 08:57] LABS: Anion Gap 10 (5-15); BUN 13 mg/dL (7-18); BUN/Creat Ratio 16.3 RATIO (10-20); Calcium,Total 8.8 mg/dL (8.5-10.1); Chloride 97 mmol/L (98-107); EST Glomerular Filtration Rate 106 mL/min (>60); Est Glom Filt Rate - Afr Amer 128 mL/min (>60); Estimated Creatinine Clearance 100.36 ml/min; Glucose 193 mg/dL (74-106); Potassium 4.1 mmol/L (3.5-5.1); Sodium Level 133 mmol/L (136-145)
[2019-06-06 09:00] VITALS: PULSE 110
[2019-06-06] MEDS: Folic Acid 1 MG Tablet PO (09:00)
[2019-06-06] MEDS: TICAGRELOR 90 MG TABLET PO ×2 (09:00→20:41)
[2019-06-06] MEDS: Metoprolol Tartrate 25 MG Tablet PO ×2 (09:00→20:42)
[2019-06-06] MEDS: metFORMIN HCl 1,000 MG Tablet 1000 MG PO ×2 (09:00→18:42)
[2019-06-06] MEDS: Thiamine Hydrochloride 100 MG Tablet PO (09:00)
[2019-06-06] MEDS: Gabapentin 100 MG Capsule 200 MG PO (09:00)
[2019-06-06] MEDS: amLODIPine 10 MG Tablet PO (09:00)
[2019-06-06] MEDS: Aspirin E.C. 81 MG Tablet PO (09:00)
[2019-06-06] MEDS: Venlafaxine XR 75 MG Capsule 225 MG PO (09:00)
[2019-06-06] MEDS: Lisinopril 40 MG Tablet PO (09:00)
[2019-06-06] MEDS: Enoxaparin 40 MG/0.4 ML Syringe SC (09:00)
--- NOTE | 2019-06-06 09:22 | CASEMGMT ---
Addendum entered by Charito Adames 06/06/19 14:47: Josefa from [facility] called WILLY back and said she will still be coming to [facility] when necessary. WILLY told her she will not need to see patient today as he is still going through withdrawal and is confused. SW told her SW will update her tomorrow. Charito JULIAN Addendum entered by Charito Adames 06/06/19 09:54: Received a return call from Josefa at [facility] and she said she is not coming into the hospital anymore since the hospital has positive COVID cases. WILLY will continue to follow and assist patient with placement in an inpatient ETOH rehab if he is still interested. Charito JULIAN Original Note: WILLY spoke with physician and he said patient is still actively going through withdrawal and he is not ready for discharge today. WILLY called Josefa with [facility] and left her a voice mail to call WILLY back. Charito JULIAN
--- NOTE | 2019-06-06 09:38 | PCM.PN.HOSP ---
Subjective: More agitated today and confused. He got out of bed on his own and tried to pick something up on the floor that was not there. Vitals/I&O's: Vital Signs Temp Pulse Resp BP Pulse Ox 97.5 F L 98 18 125/89 H 96 06/05/19 23:14 06/05/19 23:32 06/05/19 23:14 06/05/19 23:14 06/05/19 23:14 Oxygen Flow Rate (L/min) 2 Oxygen Delivery Method Room Air Weight: 155 lb 6.814 oz Body Mass Index (BMI) 22.9 Finger Stick Blood Glucose 324 Intake and Output for Last 24 Hours 06/04/19 06/05/19 06/06/19 23:59 23:59 23:59 Intake Total 1290 / 1290 500 / 700 200 / 200 Output Total 1625 / 1625 450 / 450 Balance -335 / -335 50 / 250 200 / 200 General: Alert, Cooperative, Confused, - - He knows he is at [facility] HEENT: Atraumatic, PERRLA, EOMI, Normocephalic Oral: Moist Mucosa Neck: Supple, No JVD Lungs: Clear to auscultation, Normal air movement, No rhonchi, No wheeze, No rales Cardiovascular: Regular rate, Regular Rhythm, Normal S1, Normal S2, No murmurs Abdomen: Soft, Non Tender, Non-Distended, No Hepato-splenomegaly Extremities: No edema, Capillary Refill Less than 3 Seconds Skin: No rashes, No breakdown Neurological: Neuro grossly intact, Sensory exam intact to light touch and pain Psych/Mental Status: Impulsive, Restless Laboratory Results 06/05/19 11:46: POC Glucose 180 H 06/05/19 17:05: POC Glucose 157 H 06/05/19 23:08: POC Glucose 191 H 06/06/19 04:42: WBC Pending, RBC Pending, Hgb Pending, Hct Pending, MCV Pending, MCH Pending, MCHC Pending, RDW Std Deviation Pending, RDW Coeff of Kaye Pending, Plt Count Pending, Neut % (Auto) Pending, Absolute Neuts (auto) Pending 06/06/19 04:42: Sodium Pending, Potassium Pending, Chloride Pending, Carbon Dioxide Pending, Anion Gap Pending, BUN Pending, Creatinine Pending, Est GFR (MDRD) Af Amer Pending, Est GFR (MDRD) Non-Af Pending, BUN/Creatinine Ratio Pending, Glucose Pending, Calcium Pending 06/06/19 07:01: POC Glucose 184 H Current Medications Amlodipine Besylate (Norvasc) 10 mg PO DAILY [facility] Last Admin: 06/05/19 09:56 Dose: 10 mg Documented by: Aspirin (Ecotrin) 81 mg PO DAILY@0800 [facility] Last Admin: 06/05/19 07:53 Dose: 81 mg Documented by: Atorvastatin Calcium (Lipitor) 40 mg PO QHS [facility] Last Admin: 06/05/19 23:03 Dose: 40 mg Documented by: Buspirone HCl (Buspar) 15 mg PO TID [facility] Last Admin: 06/05/19 23:03 Dose: 15 mg Documented by: Dextrose (D50w Syringe) 0 gm IV X1 PRN; Protocol PRN Reason: Hypoglycemia Last Admin: 06/02/19 22:54 Dose: 25 gm Documented by: Enoxaparin Sodium (Lovenox) 40 mg SC DAILY [facility] Last Admin: 06/05/19 07:52 Dose: 40 mg Documented by: Folic Acid (Folic Acid) 1 mg PO DAILYCM [facility] Last Admin: 06/05/19 07:54 Dose: 1 mg Documented by: Gabapentin (Neurontin) 200 mg PO DAILY [facility] Last Admin: 06/05/19 07:52 Dose: 200 mg Documented by: Gabapentin (Neurontin) 300 mg PO Q8H PRN PRN PRN Reason: moderate to severe anxiety Last Admin: 06/05/19 12:27 Dose: 300 mg Documented by: Glucagon () 1 mg IM .X1 PRN PRN Reason: Hypoglycemia Insulin Human Lispro (Humalog Kwikpen (Bkc)) 0 unit SC [facility]; Protocol Last Admin: 06/05/19 23:09 Dose: 2 u Documented by: Lisinopril (Zestril) 40 mg PO DAILY [facility] Last Admin: 06/05/19 07:52 Dose: 40 mg Documented by: Loperamide HCl (Imodium) 2 mg PO Q4H PRN PRN PRN Reason: LOOSE STOOLS Lorazepam (Ativan) 2 mg PO Q2H PRN PRN; Protocol PRN Reason: CIWA score > 8 but <15 Last Admin: 06/05/19 23:22 Dose: 2 mg Documented by: Lorazepam (Ativan) 2 mg PO UD PRN; Protocol PRN Reason: CIWA score >/=15. Lorazepam (Ativan) 2 mg IV Q2H PRN PRN; Protocol PRN Reason: CIWA score > 8 but <15 Lorazepam (Ativan) 2 mg IV UD PRN; Protocol PRN Reason: CIWA score >/=15. Met[facility] ([facility] Last Admin: 06/05/19 17:09 Dose: 1,000 mg Documented by: Metoprolol Tartrate (Lopressor (Beta Ana)) 25 mg PO BID [facility] Last Admin: 06/05/19 23:04 Dose: 25 mg Documented by: Mirtazapine (Remeron) 30 mg PO QHS [facility] Last Admin: 06/05/19 23:04 Dose: 30 mg Documented by: Nicotine (Nicoderm Cq (Pbkc)) 21 mg TRANSDERM. DAILY [facility] Last Admin: 06/05/19 07:53 Dose: Not Given Documented by: Nutritional Formula (Lactose Free) (Glucerna Shake) 120 ml PO TIDCM [facility] Last Admin: 06/06/19 09:23 Dose: Not Given Documented by: Ondansetron HCl (Zofran) 8 mg PO Q8H PRN PRN PRN Reason: NAUSEA Last Admin: 06/05/19 23:22 Dose: 8 mg Documented by: Oxycodone HCl (Oxyir) 5 mg PO Q4H PRN PRN PRN Reason: Pain Score 4-5/10 Last Admin: 06/02/19 15:48 Dose: 5 mg Documented by: Promethazine HCl (Phenergan Tablet) 12.5 mg PO Q6H PRN PRN PRN Reason: NAUSEA/VOMITING Sodium Chloride () 10 - 40 ml IV UD PRN PRN Reason: SALINE FLUSH Last Admin: 06/02/19 21:13 Dose: 10 ml Documented by: Thiamine HCl (Vitamin B1) [facility] Last Admin: 06/05/19 07:54 Dose: 100 mg Documented by: Ticagrelor (Brilinta) 90 mg PO BID [facility] Last Admin: 06/05/19 23:04 Dose: 90 mg Documented by: Venlafaxine HCl (Effexor Xr) 225 mg PO DAILY [facility] Last Admin: 06/05/19 07:52 Dose: 225 mg Documented by: Medical Necessity - Tobacco Use Smoking Status: Current every day smoker Tobacco Use: Cigarettes Assessment/Plan All Active Problems (Last Updated 06/04/19 @ 08:[address] Paco Kim, DO) Sinus tachycardia by electrocardiography (Resolved) Acute hyperactive alcohol withdrawal delirium (Resolved) Suicide attempt (Resolved) Suicide attempt (Resolved) NSVT (nonsustained ventricular tachycardia) (Resolved) Alcohol abuse (Resolved) Non-ST elevation (NSTEMI) myocardial infarction (Resolved) Overdose of insulin (Resolved) Suicidal ideation (Resolved) 1. Alcohol withdrawal/anxiety/depression -We will continue with Ativan -We will continue with alcohol withdrawal protocol -Continue with his BuSpar, Remeron, Effexor -Alcohol level on admission was 208 2. DM 2 -He did have a rapid response called on him for a very low blood sugar of 13. His insulin has been discontinued and he is only on the medium dose sliding scale -Continue with his metformin 3. CAD status post stents/HTN/HLD -We will continue with his lisinopril, metoprolol, Brilinta, Lipitor -Blood pressure is stable DVT: Lovenox Inpatient E&M: 47708 Subs Hosp L2 OBSV E&M: 68264 Observation care discharge
[2019-06-06 11:53] LABS: Absolute Lymphocyte Count 2.01 X10^3/uL (0.83-4.51); Absolute Neutrophil Count 5.5 X10^3/uL (2.0-7.7); Basophil# 0.04 X10^3/uL; Basophil% 0.5 % (0-1); Eosinophil# 0.01 X10^3/uL; Eosinophils% 0.1 % (0-5); Hematocrit 46.3 % (40-54); Hemoglobin 15.6 g/dL (13.0-16.5); Lymphocyte # 2.01 X10^3/ul (4.0); Lymphocyte % 24.5 % (19-41); Mean Corp Hgb Conc 33.7 g/dL (32-36); Mean Corpuscular Hgb 28.9 pg (27.0-32.0); Mean Corpuscular Volume 85.9 fL (80-94); Mean Platelet Vol. 8.4 fl (6.2-12.0); Monocyte# 0.58 X10^3/uL; Monocyte% 7.1 % (0-10); NRBC Flagged by Analyzer 0 % (0-5); Neutrophil # 5.51 X10^3/uL (2.7-7.7); Neutrophil % 66.9 % (47-70); Platelet Count 273 K/mm3 (150-450); RBC Distribution Width CV 14.3 % (11.6-14.6); RBC Distribution Width SD 44.1 fl (35.1-43.9); Red Blood Count 5.39 M/mm3 (4.6-6.2); White Blood Count 8.2 K/mm3 (4.4-11.0)
[2019-06-06] MEDS: Glucerna Shake 120 ML LIQUID PO (11:53)
[2019-06-06 12:00] LABS: Bedside Glucose 208 mg/dL (70-110)
[2019-06-06 14:26] VITALS: BP 140/75; PULSE 88; RESP 16; TEMP 35.8; O2SAT 99
--- NOTE | 2019-06-06 16:02 | CHAPLAIN ---
made attempt yesterday and today to visit patient; today the patient was sleeping and did not arouse to speaking of his name by the hospital sitter assigned to his room; yesterday the patient was being helped into the bathroom when this childcare administrator came to see him; it appears pt is not yet oriented
[2019-06-06 16:50] LABS: Bedside Glucose 122 mg/dL (70-110)
[2019-06-06 20:13] VITALS: BP 132/89; PULSE 101; RESP 18; TEMP 36.4; O2SAT 98
[2019-06-06 20:25] VITALS: BP 132/89; PULSE 101; RESP 18; TEMP 36.4; O2SAT 98
[2019-06-06] MEDS: Ondansetron 8 MG Tablet PO (20:40)
[2019-06-06] MEDS: LORazepam 2 MG/ML Syringe IV (20:41)
[2019-06-06] MEDS: 0.9% Saline Lock 10 ML Syringe IV (20:41)
[2019-06-06 20:42] VITALS: BP 132/89; PULSE 101
[2019-06-06] MEDS: Atorvastatin Calcium 40 MG Tablet PO (20:42)
[2019-06-06] MEDS: Mirtazapine 30 MG Tablet PO (20:42)
[2019-06-06 21:01] LABS: Bedside Glucose 179 mg/dL (70-110)
[2019-06-06 21:02] VITALS: PULSE 101; RESP 18; O2SAT 98
[2019-06-06] MEDS: Gabapentin 300 MG Capsule PO (22:13)
[2019-06-07] VITALS (8 sets, daily range): BP systolic 108–131; BP diastolic 64–79; PULSE 91–99; RESP 14–18; TEMP 36.1–36.7; O2SAT 97–99
[2019-06-07] MEDS: busPIRone 15 MG TABLET PO ×2 (05:19→21:28)
[2019-06-07] MEDS: Gabapentin 300 MG Capsule PO (05:46)
[2019-06-07 06:41] LABS: Bedside Glucose 119 mg/dL (70-110)
[2019-06-07] MEDS: Lisinopril 40 MG Tablet PO (09:03)
[2019-06-07] MEDS: metFORMIN HCl 1,000 MG Tablet 1000 MG PO ×3 (09:03→17:44)
[2019-06-07] MEDS: Folic Acid 1 MG Tablet PO (09:03)
[2019-06-07] MEDS: Thiamine Hydrochloride 100 MG Tablet PO (09:03)
[2019-06-07] MEDS: TICAGRELOR 90 MG TABLET PO ×2 (09:04→21:27)
[2019-06-07] MEDS: amLODIPine 10 MG Tablet PO (09:04)
[2019-06-07] MEDS: Metoprolol Tartrate 25 MG Tablet PO ×2 (09:04→21:27)
[2019-06-07] MEDS: Aspirin E.C. 81 MG Tablet PO (09:04)
[2019-06-07] MEDS: Gabapentin 100 MG Capsule 200 MG PO (09:04)
[2019-06-07] MEDS: Venlafaxine XR 75 MG Capsule 225 MG PO (09:04)
[2019-06-07] MEDS: Enoxaparin 40 MG/0.4 ML Syringe SC (09:05)
--- NOTE | 2019-06-07 09:22 | PN_ITS ---
Subjective: Still says that he feels little bit shaky though he is looking better and more coherent. He does not seem to be hallucinating and he knows where he is, what the year is and what the month is. Vitals/I&O's: Vital Signs Temp Pulse Resp BP Pulse Ox 98.0 F 99 14 112/69 98 06/07/19 09:02 06/07/19 09:04 06/07/19 09:02 06/07/19 09:02 06/07/19 09:02 Oxygen Flow Rate (L/min) 2 Oxygen Delivery Method Room Air Weight: 155 lb 6.814 oz Body Mass Index (BMI) 22.9 Finger Stick Blood Glucose 324 Intake and Output for Last 24 Hours 06/05/19 06/06/19 06/07/19 23:59 23:59 23:59 Intake Total 500 / 700 320 / 420 200 / 200 Output Total 450 / 450 420 / 470 350 / 350 Balance 50 / 250 -100 / -50 -150 / -150 General: Alert, Oriented, Cooperative HEENT: Atraumatic, PERRLA, EOMI, Normocephalic Oral: Moist Mucosa Neck: Supple, No JVD Lungs: Clear to auscultation, Normal air movement, No rhonchi, No wheeze, No rales Cardiovascular: Regular rate, Regular Rhythm, Normal S1, Normal S2, No murmurs Abdomen: Soft, Non Tender, Non-Distended, No Hepato-splenomegaly Extremities: No edema, Capillary Refill Less than 3 Seconds Skin: No rashes, No breakdown Neurological: Neuro grossly intact, Sensory exam intact to light touch and pain Psych/Mental Status: Normal Affect, Appropriate Laboratory Results 06/06/19 04:42: WBC 8.2, RBC 5.39, Hgb 15.6, Hct 46.3, MCV 85.9, MCH 28.9, MCHC 33.7, RDW Std Deviation 44.1 H, RDW Coeff of Kaye 14.3, Plt Count 273, MPV 8.4, Immature Gran % (Auto) 0.900, Neut % (Auto) 66.9, Lymph % (Auto) 24.5, Starke % (Auto) 7.1, Eos % (Auto) 0.1, Baso % (Auto) 0.5, Absolute Neuts (auto) 5.5, Absolute Lymphs (auto) 2.01, Nucleated RBC % 0 06/06/19 04:42: Sodium 133 L, Potassium 4.1, Chloride 97 L, Carbon Dioxide 26.0, Anion Gap 10, BUN 13, Creatinine 0.80, Estim Creat Clear Calc 100.36, Est GFR (MDRD) Af Amer 128, Est GFR (MDRD) Non-Af 106, BUN/Creatinine Ratio 16.3, Glucose 193 H, Calcium 8.8 06/06/19 11:50: POC Glucose 208 H 06/06/19 16:44: POC Glucose 122 H 06/06/19 20:49: POC Glucose 179 H 06/07/19 06:32: POC Glucose 119 H Current Medications Amlodipine Besylate (Norvasc) 10 mg PO DAILY [facility] Last Admin: 06/07/19 09:04 Dose: 10 mg Documented by: Aspirin (Ecotrin) 81 mg PO DAILY@0800 [facility] Last Admin: 06/07/19 09:04 Dose: 81 mg Documented by: Atorvastatin Calcium (Lipitor) 40 mg PO QHS [facility] Last Admin: 06/06/19 20:42 Dose: 40 mg Documented by: Buspirone HCl (Buspar) 15 mg PO TID [facility] Last Admin: 06/07/19 05:19 Dose: 15 mg Documented by: Dextrose (D50w Syringe) 0 gm IV X1 PRN; Protocol PRN Reason: Hypoglycemia Last Admin: 06/02/19 22:54 Dose: 25 gm Documented by: Enoxaparin Sodium (Lovenox) 40 mg SC DAILY [facility] Last Admin: 06/07/19 09:05 Dose: 40 mg Documented by: Folic Acid (Folic Acid) 1 mg PO DAILYCM [facility] Last Admin: 06/07/19 09:03 Dose: 1 mg Documented by: Gabapentin (Neurontin) 200 mg PO DAILY [facility] Last Admin: 06/07/19 09:04 Dose: 200 mg Documented by: Gabapentin (Neurontin) 300 mg PO Q8H PRN PRN PRN Reason: moderate to severe anxiety Last Admin: 06/07/19 05:46 Dose: 300 mg Documented by: Glucagon () 1 mg IM .X1 PRN PRN Reason: Hypoglycemia Insulin Human Lispro (Humalog Kwikpen (Bkc)) 0 unit SC ACHS [facility]; Protocol Last Admin: 06/07/19 06:33 Dose: Not Given Documented by: Lisinopril (Zestril) 40 mg PO DAILY [facility] Last Admin: 06/07/19 09:03 Dose: 40 mg Documented by: Loperamide HCl (Imodium) 2 mg PO Q4H PRN PRN PRN Reason: LOOSE STOOLS Lorazepam (Ativan) 2 mg PO Q2H PRN PRN; Protocol PRN Reason: CIWA score > 8 but <15 Last Admin: 06/05/19 23:22 Dose: 2 mg Documented by: Lorazepam (Ativan) 2 mg PO UD PRN; Protocol PRN Reason: CIWA score >/=15. Lorazepam (Ativan) 2 mg IV Q2H PRN PRN; Protocol PRN Reason: CIWA score > 8 but <15 Last Admin: 06/06/19 20:41 Dose: 2 mg Documented by: Lorazepam (Ativan) 2 mg IV UD PRN; Protocol PRN Reason: CIWA score >/=15. [facility] Last Admin: 06/07/19 09:03 Dose: 1,000 mg Documented by: Metoprolol Tartrate (Lopressor (Beta Ana)) 25 mg PO BID [facility] Last Admin: 06/07/19 09:04 Dose: 25 mg Documented by: Mirtazapine (Remeron) 30 mg PO QHS [facility] Last Admin: 06/06/19 20:42 Dose: 30 mg Documented by: Nicotine (Nicoderm Cq (Pbkc)) 21 mg TRANSDERM. DAILY [facility] Last Admin: 06/07/19 09:05 Dose: 21 mg Documented by: Nutritional Formula (Lactose Free) (Glucerna Shake) 120 ml PO TIDCM [facility] Last Admin: 06/07/19 09:05 Dose: Not Given Documented by: Ondansetron HCl (Zofran) 8 mg PO Q8H PRN PRN PRN Reason: NAUSEA Last Admin: 06/06/19 20:40 Dose: 8 mg Documented by: Oxycodone HCl (Oxyir) 5 mg PO Q4H PRN PRN PRN Reason: Pain Score 4-5/10 Last Admin: 06/02/19 15:48 Dose: 5 mg Documented by: Promethazine HCl (Phenergan Tablet) 12.5 mg PO Q6H PRN PRN PRN Reason: NAUSEA/VOMITING Sodium Chloride () 10 - 40 ml IV UD PRN PRN Reason: SALINE FLUSH Last Admin: 06/06/19 20:41 Dose: 10 ml Documented by: Thiamine HCl (Vitamin B1) [facility] Last Admin: 06/07/19 09:03 Dose: 100 mg Documented by: Ticagrelor (Brilinta) 90 mg PO BID [facility] Last Admin: 06/07/19 09:04 Dose: 90 mg Documented by: Venlafaxine HCl (Effexor Xr) 225 mg PO DAILY [facility] Last Admin: 06/07/19 09:04 Dose: 225 mg Documented by: STROKE Vital Signs/Narrative: Vital Signs Temp Pulse Resp BP Pulse Ox 06/07/19 09:04 99 06/07/19 09:02 98.0 F 99 14 112/69 98 Medical Necessity - Tobacco Use Smoking Status: Current every day smoker Tobacco Use: Cigarettes Assessment/Plan All Active Problems (Last Updated 06/04/19 @ 08:[address] Paco Kim, DO) Sinus tachycardia by electrocardiography (Resolved) Acute hyperactive alcohol withdrawal delirium (Resolved) Suicide attempt (Resolved) Suicide attempt (Resolved) NSVT (nonsustained ventricular tachycardia) (Resolved) Alcohol abuse (Resolved) Non-ST elevation (NSTEMI) myocardial infarction (Resolved) Overdose of insulin (Resolved) Suicidal ideation (Resolved) 1. Alcohol withdrawal/anxiety/depression -We will continue with Ativan -We will continue with alcohol withdrawal protocol -Continue with his BuSpar, Remeron, Effexor -Alcohol level on admission was 208 -See if he can talk on the phone with the inpatient facility to set up possible transfer today or tomorrow 2. DM 2 -He did have a rapid response called on him for a very low blood sugar of 13. His insulin has been discontinued and he is only on the medium dose sliding scale -Continue with his metformin -Blood sugar this morning is 119 3. CAD status post stents/HTN/HLD -We will continue with his lisinopril, metoprolol, Brilinta, Lipitor -Blood pressure is stable DVT: Lovenox Inpatient E&M: 74799 Subs Hosp L2
--- NOTE | 2019-06-07 10:50 | ADDICTION ---
This fiction writer met with patient to process discharge planning. He was alert but refused to answer questions to indicate orientation status. atient stated that I just want to drink. He refused to answer this fiction writer's questions regarding how he is feeling, physically,
--- NOTE | 2019-06-07 10:53 | ADDICTION ---
Addendum entered by Josefa Guy 06/07/19 11:10: This parts data writer spoke with [facility] licensed social worker, asking if long-term care would be an option. Hospital licensed social worker to speak with patient's nurse to inquire about therapy referral. Hospital licensed social worker to follow up with this parts data writer. Addendum entered by Josefa Guy 06/07/19 11:06: Hospital licensed social worker stated that she will inform patient's physician about [facility] and will follow-up with this parts data writer. Original Note: This parts data writer met with patient in his room. He was alert but unwilling to answer orientation questions including what is your name do you know where you are do you know why you're here. This parts data writer facilitated screening phone call with [facility], cab worker (Georgina) reported that client's insurance does not cover their services. This parts data writer contacted Zen Arrieta ([facility]) who stated that they need patient's assessment, H&P and medication list before approving and also stated that they are looking at a Monday admission if he is accepted. This parts data writer will fax this information to [facility]. This parts data writer communicated to hospital licensed social worker, [facility], that [facility] may accept patient. S This parts data writer also contacted [facility] who stated they do not accept Medicare insurance.
[2019-06-07] MEDS: Insulin Lispro 100 UNIT/ML INSULN.PEN SC ×2 (12:09→21:35)
[2019-06-07 12:16] LABS: Bedside Glucose 272 mg/dL (70-110)
--- NOTE | 2019-06-07 12:28 | CASEMGMT ---
Social Work WILLY spoke with Josefa at 180 regarding pt alcohol recovery plan post d/c. Josefa states that [facility] is not in network with pt insurance and that only other option at this time that accepts pt insurance is [facility] in [place]. They have not accepted pt yet but referral has been made and if they are able to accept pt it would not be until Monday. WILLY spoke with physician who states if pt is agreeable to go to [facility] pt will remain in hospital until admission can be worked out. Physician does not feel SNF is appropriate LOC a this time. SW spoke with OT/PT who agree SNF is not needed at this time. SW met with pt in room and introduced self. Pt awake and able to talk with SW. SW presented options of staying in hospital and pursuing admission at [facility] for inpatient alcohol treatment vs. returning home. Pt became tearful stating he does not want to return home because he is scared. When WILLY asked pt to clarify he stated he is scared of himself because he knows if he returns home he will not be able to resist the urge to drink and he does not want to drink any longer. Pt stating he does want to go to an inpatient facility for alcohol recovery and he is willing to go to [facility] on Monday if he is accepted. CLINTON left for Josefa at 180 to request she pursues placement at [facility]. FERCHO Myrick
--- NOTE | 2019-06-07 14:24 | CHAPLAIN ---
patient is sleeping and did not awaken to calling his name
[2019-06-07 18:31] LABS: Bedside Glucose 148 mg/dL (70-110)
[2019-06-07 18:46] LABS: Bedside Glucose 84 mg/dL (70-110)
[2019-06-07] MEDS: LORazepam 1 MG Tablet 2 MG PO (21:25)
[2019-06-07] MEDS: Atorvastatin Calcium 40 MG Tablet PO (21:26)
[2019-06-07] MEDS: Mirtazapine 30 MG Tablet PO (21:28)
[2019-06-07 21:46] LABS: Bedside Glucose 277 mg/dL (70-110)
[2019-06-08] MEDS: busPIRone 15 MG TABLET PO ×3 (06:52→21:42)
[2019-06-08 07:00] LABS: Bedside Glucose 145 mg/dL (70-110)
[2019-06-08] MEDS: Folic Acid 1 MG Tablet PO (07:57)
[2019-06-08] MEDS: Aspirin E.C. 81 MG Tablet PO (07:58)
[2019-06-08] MEDS: Thiamine Hydrochloride 100 MG Tablet PO (07:58)
[2019-06-08] MEDS: Glucerna Shake 120 ML LIQUID PO ×3 (08:00→17:10)
[2019-06-08 08:06] LABS: Bedside Glucose 151 mg/dL (70-110)
--- NOTE | 2019-06-08 09:13 | PCM.PN.HOSP ---
Subjective: Alert and oriented and states that he would like to go to rehab on Monday when they can accept him. Vitals/I&O's: Vital Signs Temp Pulse Resp BP Pulse Ox 97.9 F 96 16 119/77 99 06/07/19 21:38 06/07/19 21:38 06/07/19 21:38 06/07/19 21:38 06/07/19 21:38 Oxygen Flow Rate (L/min) 2 Oxygen Delivery Method Room Air Weight: 155 lb 6.814 oz Body Mass Index (BMI) 22.9 Finger Stick Blood Glucose 324 Intake and Output for Last 24 Hours 06/06/19 06/07/19 06/08/19 23:59 23:59 23:59 Intake Total 320 / 420 1040 / 1040 240 / 240 Output Total 420 / 470 700 / 700 300 / 300 Balance -100 / -50 340 / 340 -60 / -60 General: Alert, Oriented, Cooperative HEENT: Atraumatic, PERRLA, EOMI, Normocephalic Oral: Moist Mucosa Neck: Supple, No JVD Lungs: Clear to auscultation, Normal air movement, No rhonchi, No wheeze, No rales Cardiovascular: Regular rate, Regular Rhythm, Normal S1, Normal S2, No murmurs Abdomen: Soft, Non Tender, Non-Distended, No Hepato-splenomegaly Extremities: No edema, Capillary Refill Less than 3 Seconds Skin: No rashes, No breakdown Neurological: Neuro grossly intact, Sensory exam intact to light touch and pain Psych/Mental Status: Normal Affect, Appropriate Laboratory Results 06/02/19 20:58: POC Glucose 84 06/07/19 12:06: POC Glucose 272 H 06/07/19 17:43: POC Glucose 148 H 06/07/19 21:33: POC Glucose 277 H 06/08/19 06:51: POC Glucose 145 H 06/08/19 07:54: POC Glucose 151 H Current Medications Amlodipine Besylate (Norvasc) 10 mg PO DAILY [facility] Last Admin: 06/07/19 09:04 Dose: 10 mg Documented by: Aspirin (Ecotrin) 81 mg PO DAILY@0800 [facility] Last Admin: 06/08/19 07:58 Dose: 81 mg Documented by: Atorvastatin Calcium (Lipitor) 40 mg PO QHS [facility] Last Admin: 06/07/19 21:26 Dose: 40 mg Documented by: Buspirone HCl (Buspar) 15 mg PO TID [facility] Last Admin: 06/08/19 06:52 Dose: 15 mg Documented by: Dextrose (D50w Syringe) 0 gm IV X1 PRN; Protocol PRN Reason: Hypoglycemia Last Admin: 06/02/19 22:54 Dose: 25 gm Documented by: Enoxaparin Sodium (Lovenox) 40 mg SC DAILY [facility] Last Admin: 06/07/19 09:05 Dose: 40 mg Documented by: [facility]) [facility] Last Admin: 06/08/19 07:57 Dose: 1 mg Documented by: Gabapentin (Neurontin) 200 mg PO DAILY [facility] Last Admin: 06/07/19 09:04 Dose: 200 mg Documented by: Gabapentin (Neurontin) 300 mg PO Q8H PRN PRN PRN Reason: moderate to severe anxiety Last Admin: 06/07/19 05:46 Dose: 300 mg Documented by: Glucagon () 1 mg IM .X1 PRN PRN Reason: Hypoglycemia Insulin Human Lispro (Humalog Kwikpen (Bkc)) 0 unit SC ACHS [facility]; Protocol Last Admin: 06/08/19 06:52 Dose: Not Given Documented by: Lisinopril (Zestril) 40 mg PO DAILY [facility] Last Admin: 06/07/19 09:03 Dose: 40 mg Documented by: Loperamide HCl (Imodium) 2 mg PO Q4H PRN PRN PRN Reason: LOOSE STOOLS Lorazepam (Ativan) 2 mg PO Q2H PRN PRN; Protocol PRN Reason: CIWA score > 8 but <15 Last Admin: 06/07/19 21:25 Dose: 2 mg Documented by: Lorazepam (Ativan) 2 mg PO UD PRN; Protocol PRN Reason: CIWA score >/=15. Lorazepam (Ativan) 2 mg IV Q2H PRN PRN; Protocol PRN Reason: CIWA score > 8 but <15 Last Admin: 06/06/19 20:41 Dose: 2 mg Documented by: Lorazepam (Ativan) 2 mg IV UD PRN; Protocol PRN Reason: CIWA score >/=15. Metformin [facility] (Gluc[facility]) [facility] Last Admin: 06/07/19 17:44 Dose: 1,000 mg Documented by: Metoprolol Tartrate (Lopressor (Beta Ana)) 25 mg PO BID [facility] Last Admin: 06/07/19 21:27 Dose: 25 mg Documented by: Mirtazapine (Remeron) 30 mg PO QHS [facility] Last Admin: 06/07/19 21:28 Dose: 30 mg Documented by: Nicotine (Nicoderm Cq (Pbkc)) 21 mg TRANSDERM. DAILY [facility] Last Admin: 06/07/19 09:05 Dose: 21 mg Documented by: Nutritional Formula (Lactose Free) (Glucerna Shake) 120 ml PO TIDCM [facility] Last Admin: 06/08/19 08:00 Dose: 120 ml Documented by: Ondansetron HCl (Zofran) 8 mg PO Q8H PRN PRN PRN Reason: NAUSEA Last Admin: 06/06/19 20:40 Dose: 8 mg Documented by: Oxycodone HCl (Oxyir) 5 mg PO Q4H PRN PRN PRN Reason: Pain Score 4-5/10 Last Admin: 06/02/19 15:48 Dose: 5 mg Documented by: Promethazine HCl (Phenergan Tablet) 12.5 mg PO Q6H PRN PRN PRN Reason: NAUSEA/VOMITING Sodium Chloride () 10 - 40 ml IV UD PRN PRN Reason: SALINE FLUSH Last Admin: 06/06/19 20:41 Dose: 10 ml Documented by: Thiamine HCl (Vitamin B1) [facility] Last Admin: 06/08/19 07:58 Dose: 100 mg Documented by: Ticagrelor (Brilinta) 90 mg PO BID [facility] Last Admin: 06/07/19 21:27 Dose: 90 mg Documented by: Venlafaxine HCl (Effexor Xr) 225 mg PO DAILY [facility] Last Admin: 06/07/19 09:04 Dose: 225 mg Documented by: Medical Necessity - Tobacco Use Smoking Status: Current every day smoker Tobacco Use: Cigarettes Assessment/Plan All Active Problems (Last Updated 06/04/19 @ 08:[address] Paco Kim, DO) Sinus tachycardia by electrocardiography (Resolved) Acute hyperactive alcohol withdrawal delirium (Resolved) Suicide attempt (Resolved) Suicide attempt (Resolved) NSVT (nonsustained ventricular tachycardia) (Resolved) Alcohol abuse (Resolved) Non-ST elevation (NSTEMI) myocardial infarction (Resolved) Overdose of insulin (Resolved) Suicidal ideation (Resolved) 1. Alcohol withdrawal/anxiety/depression -We will continue with Ativan -We will continue with alcohol withdrawal protocol -Continue with his Shalonda Shields Effexor -Alcohol level on admission was 208 -See if he can talk on the phone with the inpatient facility to set up possible transfer today or tomorrow 2. DM 2 -He did have a rapid response called on him for a very low blood sugar of 13. His insulin has been discontinued and he is only on the medium dose sliding scale -Continue with his metformin -Blood sugar this morning is 119 3. CAD status post stents/HTN/HLD -We will continue with his lisinopril, metoprolol, Brilinta, Lipitor -Blood pressure is stable DVT: Lovenox Inpatient E&M: 82287 Subs Hosp L2
[2019-06-08 09:37] VITALS: BP 120/76; PULSE 92; RESP 16; TEMP 36.9; O2SAT 99
[2019-06-08] MEDS: Gabapentin 100 MG Capsule 200 MG PO (09:44)
[2019-06-08] MEDS: Venlafaxine XR 75 MG Capsule 225 MG PO (09:44)
[2019-06-08] MEDS: LORazepam 1 MG Tablet 2 MG PO ×2 (09:44→21:42)
[2019-06-08 09:45] VITALS: PULSE 92
[2019-06-08] MEDS: Metoprolol Tartrate 25 MG Tablet PO ×2 (09:45→21:44)
[2019-06-08] MEDS: TICAGRELOR 90 MG TABLET PO ×2 (09:45→21:42)
[2019-06-08] MEDS: Enoxaparin 40 MG/0.4 ML Syringe SC (09:46)
[2019-06-08] MEDS: amLODIPine 10 MG Tablet PO (09:46)
[2019-06-08] MEDS: Lisinopril 40 MG Tablet PO (09:47)
[2019-06-08] MEDS: Insulin Lispro 100 UNIT/ML INSULN.PEN SC ×3 (12:27→21:43)
[2019-06-08 12:36] LABS: Bedside Glucose 256 mg/dL (70-110)
[2019-06-08 16:00] VITALS: BP 128/64; PULSE 90; RESP 16; TEMP 36.8; O2SAT 98
[2019-06-08] MEDS: metFORMIN HCl 1,000 MG Tablet 1000 MG PO (17:11)
[2019-06-08 17:16] LABS: Bedside Glucose 247 mg/dL (70-110)
[2019-06-08 21:44] VITALS: PULSE 89
[2019-06-08] MEDS: Atorvastatin Calcium 40 MG Tablet PO (21:44)
[2019-06-08] MEDS: Mirtazapine 30 MG Tablet PO (21:44)
[2019-06-08 21:56] LABS: Bedside Glucose 174 mg/dL (70-110)
[2019-06-09 02:24] VITALS: BP 130/79; PULSE 85; RESP 18; TEMP 36.9; O2SAT 94
[2019-06-09] MEDS: busPIRone 15 MG TABLET PO ×3 (06:41→20:50)
[2019-06-09] MEDS: Insulin Lispro 100 UNIT/ML INSULN.PEN SC ×4 (06:42→20:50)
[2019-06-09 06:50] LABS: Bedside Glucose 174 mg/dL (70-110)
[2019-06-09 07:34] VITALS: BP 122/68; PULSE 83; RESP 16; TEMP 36.6; O2SAT 98
[2019-06-09] MEDS: Aspirin E.C. 81 MG Tablet PO (07:47)
[2019-06-09] MEDS: Folic Acid 1 MG Tablet PO (07:47)
[2019-06-09] MEDS: metFORMIN HCl 1,000 MG Tablet 1000 MG PO ×2 (07:47→16:02)
[2019-06-09] MEDS: Thiamine Hydrochloride 100 MG Tablet PO (07:48)
[2019-06-09] MEDS: Glucerna Shake 120 ML LIQUID PO ×3 (07:49→16:05)
--- NOTE | 2019-06-09 09:57 | PCM.PN.HOSP ---
Subjective: No issues overnight, still states that he wants to go to rehab on Monday Vitals/I&O's: Vital Signs Temp Pulse Resp BP Pulse Ox 97.8 F 83 16 122/68 H 98 06/09/19 07:34 06/09/19 07:34 06/09/19 07:34 06/09/19 07:34 06/09/19 07:34 Oxygen Flow Rate (L/min) 2 Oxygen Delivery Method Room Air Weight: 155 lb 6.814 oz Body Mass Index (BMI) 22.9 Finger Stick Blood Glucose 324 Intake and Output for Last 24 Hours 06/07/19 06/08/19 06/09/19 23:59 23:59 23:59 Intake Total 1040 / 1040 1410 / 1410 420 / 420 Output Total 700 / 700 750 / 750 Balance 340 / 340 660 / 660 420 / 420 General: Alert, Oriented, Cooperative HEENT: Atraumatic, PERRLA, EOMI, Normocephalic Oral: Moist Mucosa Neck: Supple, No JVD Lungs: Clear to auscultation, Normal air movement, No rhonchi, No wheeze, No rales Cardiovascular: Regular rate, Regular Rhythm, Normal S1, Normal S2, No murmurs Abdomen: Soft, Non Tender, Non-Distended, No Hepato-splenomegaly Extremities: No edema, Capillary Refill Less than 3 Seconds Skin: No rashes, No breakdown Neurological: Neuro grossly intact, Sensory exam intact to light touch and pain Psych/Mental Status: Normal Affect, Appropriate Laboratory Results 06/08/19 12:26: POC Glucose 256 H 06/08/19 17:08: POC Glucose 247 H 06/08/19 21:35: POC Glucose 174 H 06/09/19 06:38: POC Glucose 174 H Current Medications Amlodipine Besylate (Norvasc) 10 mg PO DAILY [facility] Last Admin: 06/08/19 09:46 Dose: 10 mg Documented by: Aspirin (Ecotrin) 81 mg PO DAILY@0800 [facility] Last Admin: 06/09/19 07:47 Dose: 81 mg Documented by: Atorvastatin Calcium (Lipitor) 40 mg PO QHS [facility] Last Admin: 06/08/19 21:44 Dose: 40 mg Documented by: Buspirone HCl (Buspar) 15 mg PO TID [facility] Last Admin: 06/09/19 06:41 Dose: 15 mg Documented by: Dextrose (D50w Syringe) 0 gm IV X1 PRN; Protocol PRN Reason: Hypoglycemia Last Admin: 06/02/19 22:54 Dose: 25 gm Documented by: Enoxaparin Sodium (Lovenox) 40 mg SC DAILY [facility] Last Admin: 06/08/19 09:46 Dose: 40 mg Documented by: [facility]) [facility] Last Admin: 06/09/19 07:47 Dose: 1 mg Documented by: Gabapentin (Neurontin) 200 mg PO DAILY [facility] Last Admin: 06/08/19 09:44 Dose: 200 mg Documented by: Gabapentin (Neurontin) 300 mg PO Q8H PRN PRN PRN Reason: moderate to severe anxiety Last Admin: 06/07/19 05:46 Dose: 300 mg Documented by: Glucagon () 1 mg IM .X1 PRN PRN Reason: Hypoglycemia Insulin Human Lispro (Humalog Kwikpen (Bkc)) 0 unit SC [facility]; Protocol Last Admin: 06/09/19 06:42 Dose: 2 units Documented by: Lisinopril (Zestril) 40 mg PO DAILY [facility] Last Admin: 06/08/19 09:47 Dose: 40 mg Documented by: Loperamide HCl (Imodium) 2 mg PO Q4H PRN PRN PRN Reason: LOOSE STOOLS Lorazepam (Ativan) 2 mg PO Q2H PRN PRN; Protocol PRN Reason: CIWA score > 8 but <15 Last Admin: 06/08/19 21:42 Dose: 2 mg Documented by: Lorazepam (Ativan) 2 mg PO UD PRN; Protocol PRN Reason: CIWA score >/=15. Lorazepam (Ativan) 2 mg IV Q2H PRN PRN; Protocol PRN Reason: CIWA score > 8 but <15 Last Admin: 06/06/19 20:41 Dose: 2 mg Documented by: Lorazepam (Ativan) 2 mg IV UD PRN; Protocol PRN Reason: CIWA score >/=15. Metformin [facility] (Gluc[facility]) [facility] Last Admin: 06/09/19 07:47 Dose: 1,000 mg Documented by: Metoprolol Tartrate (Lopressor (Beta Ana)) 25 mg PO BID [facility] Last Admin: 06/08/19 21:44 Dose: 25 mg Documented by: Mirtazapine (Remeron) 30 mg PO QHS [facility] Last Admin: 06/08/19 21:44 Dose: 30 mg Documented by: Nicotine (Nicoderm Cq (Pbkc)) 21 mg TRANSDERM. DAILY [facility] Last Admin: 06/08/19 09:46 Dose: 21 mg Documented by: Nutritional Formula (Lactose Free) (Glucerna Shake) 120 ml PO TIDCM [facility] Last Admin: 06/09/19 07:49 Dose: 120 ml Documented by: Ondansetron HCl (Zofran) 8 mg PO Q8H PRN PRN PRN Reason: NAUSEA Last Admin: 06/06/19 20:40 Dose: 8 mg Documented by: Oxycodone HCl (Oxyir) 5 mg PO Q4H PRN PRN PRN Reason: Pain Score 4-5/10 Last Admin: 06/02/19 15:48 Dose: 5 mg Documented by: Promethazine HCl (Phenergan Tablet) 12.5 mg PO Q6H PRN PRN PRN Reason: NAUSEA/VOMITING Sodium Chloride () 10 - 40 ml IV UD PRN PRN Reason: SALINE FLUSH Last Admin: 06/06/19 20:41 Dose: 10 ml Documented by: Thiamine HCl (Vitamin B1) [facility] Last Admin: 06/09/19 07:48 Dose: 100 mg Documented by: Ticagrelor (Brilinta) 90 mg PO BID [facility] Last Admin: 06/08/19 21:42 Dose: 90 mg Documented by: Venlafaxine HCl (Effexor Xr) 225 mg PO DAILY [facility] Last Admin: 06/08/19 09:44 Dose: 225 mg Documented by: STROKE Vital Signs/Narrative: Vital Signs Temp Pulse Resp BP Pulse Ox 06/09/19 07:34 97.8 F 83 16 122/68 H 98 Medical Necessity - Tobacco Use Smoking Status: Current every day smoker Tobacco Use: Cigarettes Assessment/Plan All Active Problems (Last Updated 06/04/19 @ 08:[address] Paco Kim, DO) Sinus tachycardia by electrocardiography (Resolved) Acute hyperactive alcohol withdrawal delirium (Resolved) Suicide attempt (Resolved) Suicide attempt (Resolved) NSVT (nonsustained ventricular tachycardia) (Resolved) Alcohol abuse (Resolved) Non-ST elevation (NSTEMI) myocardial infarction (Resolved) Overdose of insulin (Resolved) Suicidal ideation (Resolved) 1. Alcohol withdrawal/anxiety/depression -We will continue with Ativan -We will continue with alcohol withdrawal protocol -Continue with his BuSpar, Remeron, Effexor -Alcohol level on admission was 208 -Rehab placement on Monday 2. DM 2 -He did have a rapid response called on him for a very low blood sugar of 13. His insulin has been discontinued and he is only on the medium dose sliding scale -Continue with his metformin -Blood sugar this morning is 119 3. CAD status post stents/HTN/HLD -We will continue with his lisinopril, metoprolol, Brilinta, Lipitor -Blood pressure is stable DVT: Lovenox Inpatient E&M: 70341 Subs Hosp L2
[2019-06-09] MEDS: TICAGRELOR 90 MG TABLET PO ×2 (10:03→20:50)
[2019-06-09] MEDS: Venlafaxine XR 75 MG Capsule 225 MG PO (10:03)
[2019-06-09 10:04] VITALS: PULSE 83
[2019-06-09] MEDS: Metoprolol Tartrate 25 MG Tablet PO ×2 (10:04→20:49)
[2019-06-09] MEDS: Gabapentin 100 MG Capsule 200 MG PO (10:05)
[2019-06-09] MEDS: Lisinopril 40 MG Tablet PO (10:06)
[2019-06-09] MEDS: amLODIPine 10 MG Tablet PO (10:07)
[2019-06-09] MEDS: Enoxaparin 40 MG/0.4 ML Syringe SC (10:08)
[2019-06-09 11:55] LABS: Bedside Glucose 214 mg/dL (70-110)
[2019-06-09 14:45] VITALS: BP 147/86; PULSE 92; RESP 16; TEMP 36.7; O2SAT 97
[2019-06-09 16:31] LABS: Bedside Glucose 167 mg/dL (70-110)
[2019-06-09 20:42] VITALS: BP 144/73; PULSE 87; RESP 17; TEMP 37; O2SAT 98
[2019-06-09 20:49] VITALS: PULSE 92
[2019-06-09] MEDS: Mirtazapine 30 MG Tablet PO (20:49)
[2019-06-09] MEDS: Atorvastatin Calcium 40 MG Tablet PO (20:50)
[2019-06-09] MEDS: Gabapentin 300 MG Capsule PO (20:54)
[2019-06-09 23:01] LABS: Bedside Glucose 190 mg/dL (70-110)
[2019-06-10] MEDS: Ondansetron 8 MG Tablet PO ×2 (03:02→15:26)
[2019-06-10] MEDS: oxyCODONE 5 MG Tablet PO (03:02)
[2019-06-10 03:06] VITALS: BP 137/75; PULSE 90; RESP 18; TEMP 36.8; O2SAT 98
[2019-06-10] MEDS: Insulin Lispro 100 UNIT/ML INSULN.PEN SC ×3 (05:49→22:00)
[2019-06-10] MEDS: busPIRone 15 MG TABLET PO ×3 (05:49→21:55)
[2019-06-10 07:06] LABS: Bedside Glucose 265 mg/dL (70-110)
[2019-06-10 08:56] VITALS: BP 135/78; PULSE 95; RESP 18; TEMP 36.8; O2SAT 99
[2019-06-10] MEDS: Enoxaparin 40 MG/0.4 ML Syringe SC (09:05)
[2019-06-10 09:06] VITALS: PULSE 95
[2019-06-10] MEDS: amLODIPine 10 MG Tablet PO (09:06)
[2019-06-10] MEDS: Gabapentin 100 MG Capsule 200 MG PO (09:06)
[2019-06-10] MEDS: Lisinopril 40 MG Tablet PO (09:06)
[2019-06-10] MEDS: Metoprolol Tartrate 25 MG Tablet PO ×2 (09:06→21:55)
[2019-06-10] MEDS: TICAGRELOR 90 MG TABLET PO ×2 (09:06→21:55)
[2019-06-10] MEDS: metFORMIN HCl 1,000 MG Tablet 1000 MG PO ×2 (09:06→17:32)
[2019-06-10] MEDS: Folic Acid 1 MG Tablet PO (09:06)
[2019-06-10] MEDS: Thiamine Hydrochloride 100 MG Tablet PO (09:06)
[2019-06-10] MEDS: Venlafaxine XR 75 MG Capsule 225 MG PO (09:07)
[2019-06-10] MEDS: Aspirin E.C. 81 MG Tablet PO (09:07)
[2019-06-10] MEDS: Glucerna Shake 120 ML LIQUID PO ×3 (09:13→16:53)
[2019-06-10] MEDS: hydrOXYzine PAM 25 MG Capsule 50 MG PO ×2 (09:13→21:55)
--- NOTE | 2019-06-10 10:26 | PCM.PROGNOTE ---
Subjective: Patient was seen and examined today, I took him off Ativan-patient has been in the hospital for 9 days-I do not think it is in his best interest to remain on Ativan at this time, we are continuing to wait for placement in an inpatient alcohol detox center. - Physical Exam Vitals/I&O's: Vital Signs Temp Pulse Resp BP Pulse Ox 98.2 F 95 18 135/78 H 99 06/10/19 08:56 06/10/19 09:06 06/10/19 08:56 06/10/19 08:56 06/10/19 08:56 Oxygen Flow Rate (L/min) 2 Oxygen Delivery Method Room Air Weight: 70.5 kg Body Mass Index (BMI) 22.9 Finger Stick Blood Glucose 324 Intake and Output for Last 24 Hours 06/08/19 06/09/19 06/10/19 23:59 23:59 23:59 Intake Total 1410 / 1410 770 / 770 300 / 300 Output Total 750 / 750 300 / 300 Balance 660 / 660 470 / 470 300 / 300 General: Alert, Oriented x3, Cooperative, No apparent distress, Well developed, Well nourished HEENT: Atraumatic, PERRLA, EOMI, Normocephalic Oral: Moist Mucosa Neck: Supple, No JVD, Trachea Midline, Thyroid Normal Size and Texture Lungs: Clear to auscultation, Normal air movement, No rhonchi, No wheeze, No rales Cardiovascular: Regular rate, Regular Rhythm, Normal S1, Normal S2, No murmurs Abdomen: Bowel Sounds Present, Soft, Non Tender, Non-Distended Extremities: No clubbing, No cyanosis, No edema, Capillary Refill Less than 3 Seconds Skin: No rashes, No breakdown Musculoskeletal: No Tenderness to Palpation of Joints or Extremities, No Muscle Wasting Neurological: Cranial nerves II-XII grossly intact, Neuro grossly intact, Sensory exam intact to light touch and pain, Coordination normal Psych/Mental Status: Normal Affect, Appropriate, Alert and oriented to time, place, person, mood and affect Laboratory Results 06/09/19 11:48: POC Glucose 214 H 06/09/19 15:57: POC Glucose 167 H 06/09/19 20:49: POC Glucose 190 H 06/10/19 05:48: POC Glucose 265 H Current Medications Amlodipine Besylate (Norvasc) 10 mg PO DAILY [facility] Last Admin: 06/10/19 09:06 Dose: 10 mg Documented by: Aspirin (Ecotrin) 81 mg PO DAILY@0800 [facility] Last Admin: 06/10/19 09:07 Dose: 81 mg Documented by: Atorvastatin Calcium (Lipitor) 40 mg PO QHS [facility] Last Admin: 06/09/19 20:50 Dose: 40 mg Documented by: Buspirone HCl (Buspar) 15 mg PO TID [facility] Last Admin: 06/10/19 05:49 Dose: 15 mg Documented by: Dextrose (D50w Syringe) 0 gm IV X1 PRN; Protocol PRN Reason: Hypoglycemia Last Admin: 06/02/19 22:54 Dose: 25 gm Documented by: Enoxaparin Sodium (Lovenox) 40 mg SC DAILY [facility] Last Admin: 06/10/19 09:05 Dose: 40 mg Documented by: [facility]) [facility] Last Admin: 06/10/19 09:06 Dose: 1 mg Documented by: Gabapentin (Neurontin) 200 mg PO DAILY [facility] Last Admin: 06/10/19 09:06 Dose: 200 mg Documented by: Gabapentin (Neurontin) 300 mg PO Q8H PRN PRN PRN Reason: moderate to severe anxiety Last Admin: 06/09/19 20:54 Dose: 300 mg Documented by: Glucagon () 1 mg IM .X1 PRN PRN Reason: Hypoglycemia Hydroxyzine Pamoate (Vistaril Pamoate Capsule) 50 mg PO 4X/DAY PRN PRN PRN Reason: ANXIETY Last Admin: 06/10/19 09:13 Dose: 50 mg Documented by: Insulin Human Lispro (Humalog Kwikpen (Bkc)) 0 unit SC ACHS [facility]; Protocol Last Admin: 06/10/19 05:49 Dose: 6 units Documented by: Lisinopril (Zestril) 40 mg PO DAILY [facility] Last Admin: 06/10/19 09:06 Dose: 40 mg Documented by: Loperamide HCl (Imodium) 2 mg PO Q4H PRN PRN PRN Reason: LOOSE STOOLS Lorazepam (Ativan) 2 mg PO Q2H PRN PRN; Protocol PRN Reason: CIWA score > 8 but <15 Last Admin: 06/08/19 21:42 Dose: 2 mg Documented by: Metformin HCl (Glucophage) 1,000 mg PO BIDCM [facility] Last Admin: 06/10/19 09:06 Dose: 1,000 mg Documented by: Metoprolol Tartrate (Lopressor (Beta Ana)) 25 mg PO BID [facility] Last Admin: 06/10/19 09:06 Dose: 25 mg Documented by: Mirtazapine (Remeron) 30 mg PO QHS [facility] Last Admin: 06/09/19 20:49 Dose: 30 mg Documented by: Nicotine (Nicoderm Cq (Pbkc)) 21 mg TRANSDERM. DAILY [facility] Last Admin: 06/10/19 09:05 Dose: 21 mg Documented by: Nutritional Formula (Lactose Free) (Glucerna Shake) 120 ml PO TIDCM [facility] Last Admin: 06/10/19 09:13 Dose: 120 ml Documented by: Ondansetron HCl (Zofran) 8 mg PO Q8H PRN PRN PRN Reason: NAUSEA Last Admin: 06/10/19 03:02 Dose: 8 mg Documented by: Oxycodone HCl (Oxyir) 5 mg PO Q4H PRN PRN PRN Reason: Pain Score 4-5/10 Last Admin: 06/10/19 03:02 Dose: 5 mg Documented by: Promethazine HCl (Phenergan Tablet) 12.5 mg PO Q6H PRN PRN PRN Reason: NAUSEA/VOMITING Sodium Chloride () 10 - 40 ml IV UD PRN PRN Reason: SALINE FLUSH Last Admin: 06/06/19 20:41 Dose: 10 ml Documented by: Thiamine HCl (Vitamin B1) [facility] Last Admin: 06/10/19 09:06 Dose: 100 mg Documented by: Ticagrelor (Brilinta) 90 mg PO BID [facility] Last Admin: 06/10/19 09:06 Dose: 90 mg Documented by: Venlafaxine HCl (Effexor Xr) 225 mg PO DAILY [facility] Last Admin: 06/10/19 09:07 Dose: 225 mg Documented by: Medical Necessity - Tobacco Use Smoking Status: Current every day smoker Tobacco Use: Cigarettes Assessment/Plan All Active Problems (Last Updated 06/04/19 @ 08:[address] Paco Kim, DO) Sinus tachycardia by electrocardiography (Resolved) Acute hyperactive alcohol withdrawal delirium (Resolved) Suicide attempt (Resolved) Suicide attempt (Resolved) NSVT (nonsustained ventricular tachycardia) (Resolved) Alcohol abuse (Resolved) Non-ST elevation (NSTEMI) myocardial infarction (Resolved) Overdose of insulin (Resolved) Suicidal ideation (Resolved) #1 acute alcohol withdrawal-patient appears stable at this time does not appear to exhibit any signs of alcohol withdrawal, again I discontinued his Ativan #2 hypoglycemia-resolved at this time #3 chronic alcoholism #4 Coronary artery disease-stable #5 chronic depression #6 type 2 diabetes-patient will be placed on Amaryl 2 mg daily to see if this will get better control of his blood sugar. #7 essential hypertension #8 hyperlipidemia-patient will be placed on Lipitor 20 mg daily Inpatient E&M: 33319 Subs Hosp L2
[2019-06-10] MEDS: Glimepiride 2 MG Tablet PO (10:53)
--- NOTE | 2019-06-10 11:43 | CASEMGMT ---
WILLY spoke with Josefa at [facility] and she is working on getting patient to [facility] [place]. She asked WILLY to fax her a release of information, H&P, and doctor's notes. WILLY spoke with patient and explained the release. He signed the form. WILLY let him know Josefa will be in later today. WILLY faxed this information to Josefa at [facility]. Charito MELENDREZ MSW
[2019-06-10 12:35] LABS: Bedside Glucose 138 mg/dL (70-110)
--- NOTE | 2019-06-10 12:37 | ADDICTION ---
This typewriter operator automatic met with patient in his room. Patient was alert and oriented and meeting with hospital tactical debriefer officer. This typewriter operator automatic informed patient that there has been no report of acceptance into [facility] for residential, despite this writers attempts to follow up. This typewriter operator automatic encouraged client to sign CRISTINO for [facility] as they may potentially be a resource for him upon discharge from hospital as well. Client was reluctant but did sign CRISTINO. Patient stated that he wants treatment in [place], [place]. This typewriter operator automatic informed patient that due to COVID19 and his insurance, not a lot of residential treatment facilities are willing to accept him at this time. Patient was very upset and provided this typewriter operator automatic with permission to fax information to [facility] [place]. Patient shared that he feels forced to engage with [facility]. This typewriter operator automatic assured patient that he is not being forced to do anything, however, if he wants ongoing, residential treatment, he will need to be flexible and open to options outside of [place]. This typewriter operator automatic faxed relevant information to [facility]. This typewriter operator automatic attemtped to contact [facility], not successful. Left message for Barb with Admissions. Patient requested that this typewriter operator automatic contact [facility] and [facility] to [place] as he would be interested in doing sober living there. This typewriter operator automatic stated that he is recommended to Residential treatment and sober living is different, however, attempted to contact both agencies. [facility] [place] is not accepting clients at this time due to COVID19. [facility] real estate representative Eric spoke with client via telephone and stated that he will be able to admit to their program tomorrow (06/11/2019) at 10 am. Eric stated that he will pick patient up from the hospital at 10 am and will complete admit paperwork for [facility]. Patient reported that he was so happy to be engaging in this program. Plan: Patient will discharge from [facility] at 10 am 06/11/2019 Patient will be picked up by Eric from [facility] who will provide transportation to the [facility] facility in [place], [place].
--- NOTE | 2019-06-10 14:54 | CHAPLAIN ---
Type of Pastoral Visit _x__ Initial Visit ___ Follow-up Visit ___ On-call Visit ___ General Patient Visit ___ Spiritual Assessment ___ Family Conference ___ Bereavement ___ Rapid Response ___ Code Blue ___ Other (describe below) Pastoral Care Referral From _x__ Patient ___ Family ___ Nurse ___ Physician ___ Digital Project Manager ___ Watch Train Inspector ___ Other (describe below) Sacrament/Intervention _x__ Active listening ___ Anointing ___ Holiness ___ Bereavement ___ Communion ___ Eloise exploration ___ _x__ Life review _x__ Prayer ___ Reconciliation ___ Sacrament of Sick _x__ Supportive presence ___ Wedding ___ Other (describe below) Pastoral Comments patient requested this meeting which was conveyed by STEVEDORING SUPERINTENDENT through phone call to irrigator office; pt was awake and alert at this time; pt stated that he is having difficulty hearing due to battery in hearing aid; pt describes his desire to start over and even move away from [place]; pt says that he is waiting on word about being accepted into rehab program; pt had protestant TV program on and said this is all that I am listening to and I really want to get back to God; pt has made similar statements in previous admissions to this hospital; addiction counselor Josefa entered room and presented pt with updates on rehab programs but there has not been a definite word yet on acceptance; pt states that he is willing to go to [facility] based sober living houses; counselor makes phone calls in presence of pt and this irrigator to several facilities including [facility] based programs but no definite answer; irrigator tells pt that he will return later to see what transpires
--- NOTE | 2019-06-10 15:00 | CHAPLAIN ---
Type of Pastoral Visit ___ Initial Visit _x__ Follow-up Visit ___ On-call Visit ___ General Patient Visit ___ Spiritual Assessment ___ Family Conference ___ Bereavement ___ Rapid Response ___ Code Blue ___ Other (describe below) Pastoral Care Referral From _x__ Patient ___ Family ___ Nurse ___ Physician ___ Damage Appraiser ___ Cad Designer Drafter ___ Other (describe below) Sacrament/Intervention _x__ Active listening ___ Anointing ___ Caodaism ___ Bereavement ___ Communion _x__ Eloise exploration ___ _x__ Life review _x__ Prayer ___ Reconciliation ___ Sacrament of Sick _x__ Supportive presence ___ Wedding ___ Other (describe below) Pastoral Comments patient is awake and alert and tells this ditch rider that [facility] in [place] returned call and they will accept patient into their program and sober minded living house; pt states that [facility] addiction counselor is aware of that; pt is very happy for this development he says; pt states that God is working; pt asks this ditch rider to sit and talk with him stating I have been so lonely for a long time and have no one to talk to; pt gives some life history; pt restates his desire to get his life back on track with God; pt requests a large print Bible because I need glasses;
[2019-06-10 15:08] VITALS: BP 112/68; PULSE 90; RESP 18; TEMP 36.8; O2SAT 95
[2019-06-10 17:01] LABS: Bedside Glucose 166 mg/dL (70-110)
[2019-06-10 20:15] VITALS: BP 121/71; PULSE 89; RESP 18; TEMP 36.6; O2SAT 99
[2019-06-10] MEDS: Atorvastatin Calcium 40 MG Tablet PO (21:54)
[2019-06-10 21:55] VITALS: BP 121/71; PULSE 89
[2019-06-10] MEDS: Gabapentin 300 MG Capsule PO (21:55)
[2019-06-10] MEDS: Mirtazapine 30 MG Tablet PO (22:02)
[2019-06-10 22:41] LABS: Bedside Glucose 154 mg/dL (70-110)
[2019-06-11 06:17] VITALS: BP 148/81; PULSE 94; RESP 18; TEMP 36.7; O2SAT 99
[2019-06-11] MEDS: busPIRone 15 MG TABLET PO (06:17)
[2019-06-11] MEDS: hydrOXYzine PAM 25 MG Capsule 50 MG PO (06:26)
[2019-06-11] MEDS: Insulin Lispro 100 UNIT/ML INSULN.PEN SC (06:30)
[2019-06-11 06:50] LABS: Bedside Glucose 179 mg/dL (70-110)
--- NOTE | 2019-06-11 08:03 | PCM.DC ---
You will use the following diet at home:: Calorie/Carbohydrate Controlled (specify 1200, 1400, etc) - 1800 ramana Your food should be the consistency of: Regular Your liquids should be the consistency of: Regular/Thin Discharge Activity: Return to Normal Activity Weight Bearing Status: Full weight bearing Additional Instructions: NO ALCOHOL Allergies/Adverse Reactions: Allergies No Known Allergies Allergy (Verified 06/02/19 04:02) Medications to take at Discharge Amlodipine [Norvasc] 10 mg PO DAILY #30 tab 06/11/19 Aspirin E.C. [Ecotrin] 81 mg PO DAILY@0800 #30 tab 06/11/19 Atorvastatin Calcium [Lipitor] 40 mg PO QHS #30 tab 06/11/19 Clopidogrel Bisulfate [Plavix] 75 mg PO DAILY #30 tab 06/11/19 Gabapentin [Neurontin] 200 mg PO DAILY #60 cap 06/11/19 Glimepiride [Amaryl] 2 mg PO DAILY@0800 #30 tab 06/11/19 Lisinopril [Zestril] 40 mg PO DAILY #30 tab 06/11/19 Metoprolol Tartrate 25 mg PO BID #60 tab 06/11/19 Mirtazapine 15 mg PO QHS #30 tab 06/11/19 Nicotine [Nicoderm Cq] 21 mg TRANSDERM. DAILY #30 patch 06/11/19 Venlafaxine HCl [Effexor Xr] 75 mg PO UD 30 Days #90 cap.er.24h 06/11/19 busPIRone [Buspar] 15 mg PO TID #90 tab 06/11/19 metFORMIN HCl [Glucophage] 1,000 mg PO BIDCM #60 tab 06/11/19 The following prescriptions were given: Glimepiride [Amaryl] 2 mg PO DAILY@0800 #30 tab Transmission Status: Received by [facility] busPIRone [Buspar] 15 mg PO TID #90 tab Transmission Status: Received by [facility] Aspirin E.C. [Ecotrin] 81 mg PO DAILY@0800 #30 tab Transmission Status: Received by [facility] Venlafaxine HCl [Effexor Xr] 75 mg PO UD 30 Days #90 cap.er.24h Transmission [id number] metFORMIN HCl [Glucophage] 1,000 mg PO BIDCM #60 tab Transmission Status: Received by [facility] Atorvastatin Calcium [Lipitor] 40 mg PO QHS #30 tab Transmission Status: Received by [facility] Metoprolol Tartrate 25 mg PO BID #60 tab Transmission Status: Received by [facility] Mirtazapine 15 mg PO QHS #30 tab Transmission Status: Received by [facility] Gabapentin [Neurontin] 200 mg PO DAILY #60 cap Transmission Status: Received by [facility] Nicotine [Nicoderm Cq] 21 mg TRANSDERM. DAILY #30 patch Transmission Status: Received by [facility] Amlodipine [Norvasc] 10 mg PO DAILY #30 tab Transmission Status: Received by [facility] Clopidogrel Bisulfate [Plavix] 75 mg PO DAILY #30 tab Transmission Status: Sent to [facility] Lisinopril [Zestril] 40 mg PO DAILY #30 tab Transmission Status: Received by [facility] Primary Care Physician: Elijah Plascencia MD [Primary Care Provider] - Please follow up with your Primary Care Physician in: IN 1 MONTH Test Results: Test results from this visit will be discussed in further detail at your follow-up appointment, if applicable.
[2019-06-11 08:23] VITALS: BP 136/78; PULSE 81; RESP 16; TEMP 35.8; O2SAT 97
[2019-06-11] MEDS: Aspirin E.C. 81 MG Tablet PO (08:29)
[2019-06-11] MEDS: Venlafaxine XR 75 MG Capsule 225 MG PO (08:29)
[2019-06-11] MEDS: Glimepiride 2 MG Tablet PO (08:30)
[2019-06-11] MEDS: metFORMIN HCl 1,000 MG Tablet 1000 MG PO (08:30)
[2019-06-11] MEDS: Lisinopril 40 MG Tablet PO (08:30)
[2019-06-11] MEDS: Enoxaparin 40 MG/0.4 ML Syringe SC (08:31)
[2019-06-11] MEDS: Folic Acid 1 MG Tablet PO (08:31)
[2019-06-11] MEDS: TICAGRELOR 90 MG TABLET PO (08:31)
[2019-06-11] MEDS: amLODIPine 10 MG Tablet PO (08:32)
[2019-06-11 08:33] VITALS: PULSE 81
[2019-06-11] MEDS: Metoprolol Tartrate 25 MG Tablet PO (08:33)
[2019-06-11] MEDS: Gabapentin 100 MG Capsule 200 MG PO (08:33)
[2019-06-11] MEDS: Thiamine Hydrochloride 100 MG Tablet PO (08:35)
--- NOTE | 2019-06-11 12:45 | ADDICTION ---
This underwriter solicitation director met with patient this morning and coordinated warm handoff to [facility] with [facility]. Patient was alert and oriented and reported that he was looking forward to ongoing treatment and support with a Sabianism focus which he will receive from [facility]. This underwriter solicitation director accompanied client to pharmacy to get his medication and walked patient to [facility] with [facility] vehicle outside of hospital. This underwriter solicitation director provided warm handoff to [facility] successfully.
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
== END 2019-06-11 10:20 | disposition home or self-care (01) | DRG 897 ==
LOC: ED 04:39 → PCU 05:58 → ICU 20:49 → PCU 06-03 11:31
PROVIDERS: Family Medicine; Admitting Provider Internal Medicine; Emergency Provider Emergency Medicine; PCP Internal Medicine; Visit Provider Internal Medicine
DX: F10.239 Alcohol dependence with withdrawal, unspecified (principal); Y90.7 Blood alcohol level of 200-239 mg/100 ml; K70.10 Alcoholic hepatitis without ascites; E11.649 Type 2 diabetes mellitus with hypoglycemia without coma; E11.65 Type 2 diabetes mellitus with hyperglycemia; E11.40 Type 2 diabetes mellitus with diabetic neuropathy, unspecified; I25.10 Atherosclerotic heart disease of native coronary artery without angina pectoris; I10 Essential (primary) hypertension; E78.5 Hyperlipidemia, unspecified; K21.9 Gastro-esophageal reflux disease without esophagitis; F32.2 Major depressive disorder, single episode, severe without psychotic features; F41.9 Anxiety disorder, unspecified; F17.210 Nicotine dependence, cigarettes, uncomplicated; Z79.82 Long term (current) use of aspirin; Z79.4 Long term (current) use of insulin; Z79.02 Long term (current) use of antithrombotics/antiplatelets; Z79.899 Other long term (current) drug therapy; I25.2 Old myocardial infarction; Z95.5 Presence of coronary angioplasty implant and graft
CPT/HCPCS: 36415; 71045; 80048; 80053; 80307; 80320; 81001; 82962; 83605; 83690; 83735; 84100; 84443; 84484; 85025; 93005; 97116; 97162; 97166; 99251; 99285; 99406; J7030; J7120; A4216; G0463; G0480; J7799

== ENCOUNTER → 2020-03-02 15:08 | Outpatient (CLI) | payer MEDICARE, SELFPAY ==
[2020-03-02 14:21] VITALS: BMI 25.2
[2020-03-02 17:00] LABS: Absolute Lymphocyte Count 3.01 X10^3/uL (0.83-4.51); Absolute Neutrophil Count 6.5 X10^3/uL (2.0-7.7); Basophil# 0.08 X10^3/uL; Basophil% 0.8 % (0-1); Eosinophil# 0.07 X10^3/uL; Eosinophils% 0.7 % (0-5); Hematocrit 48.8 % (40-54); Lymphocyte # 3.01 X10^3/ul (4.0); Lymphocyte % 28.6 % (19-41); Mean Corp Hgb Conc 32.8 g/dL (32-36); Mean Corpuscular Hgb 28.4 pg (27.0-32.0); Mean Corpuscular Volume 86.5 fL (80-94); Mean Platelet Vol. 9.5 fl (6.2-12.0); Monocyte# 0.84 X10^3/uL; NRBC Flagged by Analyzer 0 % (0-5); Neutrophil # 6.49 X10^3/uL (2.7-7.7); Neutrophil % 61.4 % (47-70); Platelet Count 343 K/mm3 (150-450); RBC Distribution Width CV 12.7 % (11.6-14.6); RBC Distribution Width SD 39.6 fl (35.1-43.9); Red Blood Count 5.64 M/mm3 (4.6-6.2); White Blood Count 10.5 K/mm3 (4.4-11.0)
[2020-03-02 17:11] LABS: AST(SGOT) 14 U/L (15-37); Alanine Aminotransfer ALT/SGPT 37 U/L (16-61); Albumin, Serum 4.1 g/dL (3.2-5.0); Alkaline Phosphatase 121 U/L (45-117); Anion Gap 5 (5-15); BUN 23 mg/dL (7-18); BUN/Creat Ratio 19.5 RATIO (10-20); Calcium,Total 9.6 mg/dL (8.5-10.1); Chloride 99 mmol/L (98-107); Creatinine, Serum 1.18 mg/dL (0.70-1.30); EST Glomerular Filtration Rate 67 mL/min (>60); Est Glom Filt Rate - Afr Amer 81 mL/min (>60); Glucose 177 mg/dL (74-106); Potassium 4.8 mmol/L (3.5-5.1); Protein, Total 8.1 g/dL (6.4-8.2); Sodium Level 135 mmol/L (136-145)
[2020-03-02 17:43] LABS: Microalbumin:Creatinine Ratio 244.3 mg/g CRE (<30 mg/g CRE)
== END ==
PROVIDERS: PCP Internal Medicine; Referring Provider Internal Medicine; Visit Provider Internal Medicine
DX: E11.9 Type 2 diabetes mellitus without complications (principal); I10 Essential (primary) hypertension
CPT/HCPCS: 36415; 80053; 82043; 82570; 85025

== ENCOUNTER → 2020-07-14 14:36 | Outpatient (CLI) | payer MEDICARE, SELFPAY ==
[2020-06-26 09:52] VITALS: BMI 27.1
--- NOTE | 2020-07-14 14:41 | RAD_ITS ---
STUDY: X-RAY - PELVIS AND RIGHT HIP REASON FOR EXAM: Right hip pain. TECHNIQUE: 2 views of the pelvis and hip. COMPARISON: None. FINDINGS: There is mild vascular calcification. Normal bilateral iliac wings, sacroiliac joints and visualized sacrum. Normal bilateral superior and inferior pubic rami. Normal pubic symphysis. Normal bilateral ischial tuberosities. Normal visualized femoral head. There is a bone island in the base of the right femoral neck. Normal acetabulum. There is mild joint space narrowing of the right superior medial hip joint. RAD/HIP, UNI W/ Pelvis 2-3 Views IMPRESSION: Mild right hip arthrosis. Electronically Signed: Darnell Roland MD at 13:21 EDT Tel , Service support ,
--- NOTE | 2020-07-14 14:41 | RAD_ITS ---
STUDY: X-RAY - LUMBAR SPINE REASON FOR EXAM: Male, 60 years old. Chronic back pain TECHNIQUE: 3 view(s) of the lumbar spine were obtained. COMPARISON: None FINDINGS: Normal lumbar lordosis. There is no substantial scoliosis. There is a normal alignment of the vertebrae. Normal vertebral bodies and endplates. Disc spaces are well preserved except for mild narrowing at L5/S1. There is no demonstrated fracture. There is atherosclerotic calcification of the abdominal aorta without a demonstrated aneurysm. RAD/Lumbar Spine 2 or 3 Views IMPRESSION: Degenerative changes at L5/S1, otherwise unremarkable lumbar spine Electronically Signed: Dionte Cross MD at 9:41 EDT , Service support ,
== END ==
LOC: RAD 14:39
PROVIDERS: PCP Internal Medicine; Referring Provider Internal Medicine; Visit Provider Internal Medicine
DX: M25.551 Pain in right hip (principal); M54.5 Low back pain; G89.29 Other chronic pain
CPT/HCPCS: 72100; 73502

== ENCOUNTER → 2020-07-21 20:07 | Outpatient (CLI) | payer MEDICARE, SELFPAY ==
[2020-06-26 09:52] VITALS: BMI 27.1
== END ==
PROVIDERS: PCP Internal Medicine; Visit Provider Internal Medicine
DX: G47.33 Obstructive sleep apnea (adult) (pediatric) (principal)
CPT/HCPCS: 95810

== ENCOUNTER 2020-08-11 15:54 | Emergency (ER) | payer MEDICARE, SELFPAY ==
[2020-08-10 10:27] VITALS: BMI 27.1
[2020-08-11] VITALS (9 sets, daily range): BP systolic 105–125; BP diastolic 50–71; PULSE 103–112; RESP 16–24; TEMP 35.8–36.4; O2SAT 94–98; BMI 25.0
--- NOTE | 2020-08-11 16:01 | EKG12_ITS ---
Test Reason : ETOH Blood Pressure : / mmHG Vent. Rate : 105 BPM Atrial Rate : 105 BPM P-R Int : 178 ms QRS Dur : 094 ms QT Int : 368 ms P-R-T Axes : 068 -15 044 degrees QTc Int : 486 ms Sinus tachycardia Possible Left atrial enlargement Inferior infarct , age undetermined Abnormal ECG Confirmed by ANA MARIA CLARK, ALVERTO ([id number]), editor city KESHIA BLANCO ([id number]) on 08/14/2020 8:25:30 AM Referred By: ADILENE Confirmed By:ALVERTO RODGERS MD
--- NOTE | 2020-08-11 16:03 | EX.ED.DYSGE1 ---
HPI History of Present Illness Chief Complaint: ETOH Intox Informant: friend and police/performance improvement analyst Narrative Narrative: 60-year-old male reportedly was unable to continue to afford staying at a motel. An acquaintance of his offered to let him rented room at their house. Apparently they did not have the room so he has been sleeping on the couch. Today he has been drinking all day and they did not feel that his alcoholism would be conducive to their sobriety. So not knowing what to do with him they put him in the backseat of their car where he proceeded to vomit and urinate on himself and they drove him to the emergency department. They did refund his money reportedly. Patient can offer minimal conversation. [facility] Medical History Anxiety Atherosclerosis of coronary artery of [place] heart without angina pectoris Chronic back pain Depression Diabetes type 2, uncontrolled Erectile dysfunction Fracture of wrist Hypertension, uncontrolled Neuropathy Non-ST elevation (NSTEMI) myocardial infarction NSVT (nonsustained ventricular tachycardia) ECTOR (obstructive sleep apnea) Suicide attempt Home Medications aspirin 81 mg tablet,delayed release 81 mg PO DAILY@0800 #30 tab 07/25/19 [Rx Last Taken Unknown] blood sugar diagnostic #200 ea 12/13/19 [Rx Last Taken Unknown] lancets #200 ea 12/13/19 [Rx Last Taken Unknown] glimepiride 2 mg tablet 2 mg PO DAILY@0800 #30 tab 12/18/19 [Rx Last Taken Unknown] pantoprazole 20 mg tablet,delayed release 20 mg PO DAILY #30 tab 12/18/19 [Rx Last Taken Unknown] clopidogrel 75 mg tablet 75 mg PO DAILY #30 tab 02/14/20 [Rx Last Taken Unknown] venlafaxine 150 mg tablet,extended release 24 hr 150 mg PO QAM #90 tab 04/03/20 [Rx Last Taken Unknown] folic acid 1 mg tablet 1 mg PO DAILY #90 tab 04/22/20 [Rx Last Taken Unknown] thiamine HCl (vitamin B1) 100 mg tablet 100 mg PO DAILY #90 tab 04/22/20 [Rx Last Taken Unknown] metoprolol tartrate 25 mg tablet See Rx Instructions .ROUTE .COMPLEX #56 tab 05/15/20 [Rx Last Taken Unknown] amlodipine 10 mg tablet 10 mg PO DAILY #90 tab 06/30/20 [Rx Last Taken Unknown] atorvastatin 40 mg tablet 40 mg PO QHS #90 tab 06/30/20 [Rx Last Taken Unknown] buspirone 15 mg tablet 15 mg PO TID #90 tab 06/30/20 [Rx Last Taken Unknown] lisinopril 40 mg tablet 40 mg PO DAILY #90 tab 06/30/20 [Rx Last Taken Unknown] metformin 1,000 mg tablet 1,000 mg PO BIDCM 90 Days #180 tab 06/30/20 [Rx Last Taken Unknown] insulin NPH-regular 70-30 U-100 insulin 100 unit/mL subcutaneous pen 15 unit SC BID 90 Days #27 ml 07/14/20 [Rx Last Taken Unknown] insulin needles (disposable) 30 X 3/4 #1 07/14/20 [History Last Taken Unknown] pen needle, diabetic 31 gauge x 5/16 #100 ea 07/21/20 [Rx Last Taken Unknown] gabapentin 100 mg capsule 200 mg PO BID #120 cap 07/22/20 [Rx Last Taken Unknown] mirtazapine 15 mg tablet 15 mg PO QHS #90 tab 08/07/20 [Rx Last Taken Unknown] Allergy/AdvReac Type Severity Reaction Status Date / Time No Known Allergies Allergy Verified 08/11/20 16:01 Family History Aunt Diabetes Father Alcoholism Aunt Diabetes 2 Aunts on father's side had diabetes Father Alcoholism Surgical History H/O right coronary artery stent placement (~09/08/16) History of left cataract extraction Social History Smoking Status: Current every day smoker tobacco type: cigarettes alcohol intake: former year quit: 2019 details: hx of alcohol abuse substance use type: does not use what type of physical activity do you participate in: none, aerobics and weight training frequency: 3-4 times per week ROS ROS ED Review of Systems ROS Unobtainable: due to mental status EXAM Physical Exam Narrative Exam Narrative: Disheveled male sitting up in the bed with urine stained pants. He has some emesis in the perioral region Const Vital Signs: 08/11/20 15:55 08/11/20 17:00 08/11/20 17:48 Temperature 97.6 F L 96.5 F L Temperature Source Temporal Temporal Pulse Rate 112 H 103 H 104 H Respiratory Rate 24 H 19 H 18 Blood Pressure 115/70 125/50 H 105/54 L Blood Pressure Mean 85 75 71 Pulse Ox 98 96 Oxygen Delivery Method Room Air Room Air 08/11/20 18:00 08/11/20 19:11 08/11/20 20:22 Temperature 96.5 F L Temperature Source Temporal Pulse Rate 104 H 106 H 111 H Respiratory Rate 18 18 16 Blood Pressure 105/54 L 124/71 H Blood Pressure Mean 71 88 Pulse Ox 98 97 Oxygen Delivery Method Room Air Room Air 08/11/20 21:07 08/11/20 22:06 08/11/20 22:55 Temperature 97.5 F L Temperature Source Pulse Rate 107 H 107 H Respiratory Rate 21 H 16 21 H Blood Pressure 124/71 H Blood Pressure Mean 88 Pulse Ox 94 94 Oxygen Delivery Method Positive well nourished and well developed General Appearance ED: well developed HEENT Reports normocephalic, head/scalp atraumatic and moist mucous membranes Negative for trauma Eyes PERRL and EOMs intact bilaterally Eyes Narrative: Pupils 4-2 bilaterally. Neck no lymphadenopathy, supple and no JVD Resp normal respiratory effort and clear to auscultation bilaterally Cardio regular rate and no murmurs Rate: tachycardic GI normal to inspection, nondistended, normoactive bowel sounds and non-tender Palpation: soft Back/Spine no CVA tenderness and normal ROM Cervical Spine: Negative for cervical spine tenderness Thoracic Spine / Upper Back: Negative for thoracic spinal tenderness Lumbar Spine / Lower Back: Negative for lumbar spinal tenderness Extremity normal to inspection General Extremety ED: Negative for edema General Extremity: Negative for edema Neuro Sensorium / Orientation: orientation impaired and lethargic Motor Exam: general weakness Psych Psych Narrative: Patient appears clinically intoxicated. Patient currently denies psuicidal or homicidal ideation Mood & Affect: Negative for depressed or tearful Skin no rashes or lesions noted and no wounds MDM MDM MDM Narrative Medical decision making narrative: Patient has a complex acid-base disturbance. Gap of 41 but pH is 7.47. Glucose 605. He has evidence of acute kidney injury. Serum osmolality is significantly elevated. White count 15.9. His alcohol level is 283. He has a lactic acidosis of 4.8. He has small ketones in the blood. My interpretation of the plain film chest x-ray is no acute process Patient received 2 L of IV fluids. He received 10 units of insulin. During this time I spoke with our heating and refrigeration inspector here and we are both concerned about the potential for methanol or ethylene glycol ingestion. If that would be the case we are not able to care for him here. I spoke with [facility] heating and refrigeration inspector who recommended completing the fluids and repeating the BMP. I did this. At this point I think the patient would be best served at a tertiary care facility. We will do an ER to ER transfer at the heating and refrigeration inspector request. Patient was becoming agitated in the room. chief analytics officer spoke with the patient. He continued to be agitated. I gave him some Haldol. He became more redirectable Lab Data Attestation: I reviewed the patient's lab results. Labs: Laboratory Results - last 24 hr 08/11/20 08/11/20 08/11/20 16:15 16:15 16:15 WBC 15.9 H RBC 6.11 Hgb 16.7 H Hct 48.7 MCV 79.7 L MCH 27.3 MCHC 34.3 RDW Std Deviation 35.4 RDW Coeff of Kaye 12.6 Plt Count 406 MPV 9.6 Immature Gran % (Auto) 0.500 Neut % (Auto) 82.9 H Lymph % (Auto) 7.8 L [place] % (Auto) 8.2 Eos % (Auto) 0.1 Baso % (Auto) 0.5 Absolute Neuts (auto) 13.2 H Absolute Lymphs (auto) 1.25 Nucleated RBC % 0 PT 12.5 INR 1.0 APTT 25.7 Sodium 119 L* Potassium 3.4 L Chloride 57 L* Carbon Dioxide 21.0 Anion Gap 41 H BUN 56 H Creatinine 2.51 H Estim Creat Clear Calc 31.69 Est GFR (MDRD) Af Amer 34 L Est GFR (MDRD) Non-Af 28 L BUN/Creatinine Ratio 22.3 H Glucose 605 H* Serum Osmolality Lactic Acid Calcium 10.0 Magnesium 2.8 H Total Bilirubin 1.00 AST 14 L ALT 21 Alkaline Phosphatase 187 H Total Protein 7.9 Albumin 3.6 Globulin 4.3 H Albumin/Globulin Ratio 0.8 L Lipase 113 Urine Color Urine Clarity Urine pH Ur Specific [place] Urine Protein Urine Glucose (UA) Urine Ketones Urine Occult Blood Urine Nitrite Urine Bilirubin Urine Urobilinogen Ur Leukocyte Esterase Urine RBC Urine WBC Ur Squamous Epith Cells Urine Bacteria Urine Mucus Salicylates Urine Opiates Screen Urine Methadone Screen Acetaminophen Ur Barbiturates Screen Ur Phencyclidine Scrn Ur Amphetamines Screen U Methamphetamin-MDMA U Benzodiazepines Scrn Urine Cocaine Screen U Cannabinoids Screen Ur Drug Screen Comment Ethyl Alcohol Acetone Level POC Glucose 08/11/20 08/11/20 08/11/20 16:15 16:15 17:25 WBC RBC Hgb Hct MCV MCH MCHC RDW Std Deviation RDW Coeff of Kaye Plt Count MPV Immature Gran % (Auto) Neut % (Auto) Lymph % (Auto) [place] % (Auto) Eos % (Auto) Baso % (Auto) Absolute Neuts (auto) Absolute Lymphs (auto) Nucleated RBC % PT INR APTT Sodium Potassium Chloride Carbon Dioxide Anion Gap BUN Creatinine Estim Creat Clear Calc Est GFR (MDRD) Af Amer Est GFR (MDRD) Non-Af BUN/Creatinine Ratio Glucose Serum Osmolality 378 H Lactic Acid Calcium Magnesium Total Bilirubin AST ALT Alkaline Phosphatase Total Protein Albumin Globulin Albumin/Globulin Ratio Lipase Urine Color Urine Clarity Urine pH Ur Specific [place] Urine Protein Urine Glucose (UA) Urine Ketones Urine Occult Blood Urine Nitrite Urine Bilirubin Urine Urobilinogen Ur Leukocyte Esterase Urine RBC Urine WBC Ur Squamous Epith Cells Urine Bacteria Urine Mucus Salicylates < 1.7 L Urine Opiates Screen Urine Methadone Screen Acetaminophen < 2.0 L Ur Barbiturates Screen Ur Phencyclidine Scrn Ur Amphetamines Screen U Methamphetamin-MDMA U Benzodiazepines Scrn Urine Cocaine Screen U Cannabinoids Screen Ur Drug Screen Comment Ethyl Alcohol 283.0 Acetone Level SMALL H POC Glucose 08/11/20 08/11/20 08/11/20 17:25 17:33 19:00 WBC RBC Hgb Hct MCV MCH MCHC RDW Std Deviation RDW Coeff of Kaye Plt Count MPV Immature Gran % (Auto) Neut % (Auto) Lymph % (Auto) [place] % (Auto) Eos % (Auto) Baso % (Auto) Absolute Neuts (auto) Absolute Lymphs (auto) Nucleated RBC % PT INR APTT Sodium Potassium Chloride Carbon Dioxide Anion Gap BUN Creatinine Estim Creat Clear Calc Est GFR (MDRD) Af Amer Est GFR (MDRD) Non-Af BUN/Creatinine Ratio Glucose Serum Osmolality Lactic Acid 4.8 H* Calcium Magnesium Total Bilirubin AST ALT Alkaline Phosphatase Total Protein Albumin Globulin Albumin/Globulin Ratio Lipase Urine Color Urine Clarity Urine pH Ur Specific [place] Urine Protein Urine Glucose (UA) Urine Ketones Urine Occult Blood Urine Nitrite Urine Bilirubin Urine Urobilinogen Ur Leukocyte Esterase Urine RBC Urine WBC Ur Squamous Epith Cells Urine Bacteria Urine Mucus Salicylates Urine Opiates Screen Urine Methadone Screen Acetaminophen Ur Barbiturates Screen Ur Phencyclidine Scrn Ur Amphetamines Screen U Methamphetamin-MDMA U Benzodiazepines Scrn Urine Cocaine Screen U Cannabinoids Screen Ur Drug Screen Comment Ethyl Alcohol Acetone Level POC Glucose > 500 H* > 500 H* 08/11/20 08/11/20 08/11/20 19:05 19:05 20:26 WBC RBC Hgb Hct MCV MCH MCHC RDW Std Deviation RDW Coeff of Kaye Plt Count MPV Immature Gran % (Auto) Neut % (Auto) Lymph % (Auto) [place] % (Auto) Eos % (Auto) Baso % (Auto) Absolute Neuts (auto) Absolute Lymphs (auto) Nucleated RBC % PT INR APTT Sodium 126 L Potassium 2.7 L* Chloride 69 L* Carbon Dioxide 28.0 Anion Gap 29 H BUN 56 H Creatinine 2.29 H Estim Creat Clear Calc 34.73 Est GFR (MDRD) Af Amer 38 L Est GFR (MDRD) Non-Af 31 L BUN/Creatinine Ratio 24.5 H Glucose 397 H Serum Osmolality Lactic Acid Calcium 9.3 Magnesium Total Bilirubin AST ALT Alkaline Phosphatase Total Protein Albumin Globulin Albumin/Globulin Ratio Lipase Urine Color Yellow Urine Clarity Clear Urine pH 5.0 Ur Specific [place] 1.020 Urine Protein 30 H Urine Glucose (UA) 1000 H Urine Ketones 150 A* Urine Occult Blood 25 H Urine Nitrite Negative Urine Bilirubin Negative Urine Urobilinogen Normal Ur Leukocyte Esterase Negative Urine RBC 0 SEEN Urine WBC 0 SEEN Ur Squamous Epith Cells 0 SEEN Urine Bacteria 0 SEEN Urine Mucus 0 SEEN Salicylates Urine Opiates Screen NEGATIVE Urine Methadone Screen NEGATIVE Acetaminophen Ur Barbiturates Screen NEGATIVE Ur Phencyclidine Scrn NEGATIVE Ur Amphetamines Screen NEGATIVE U Methamphetamin-MDMA NEGATIVE U Benzodiazepines Scrn NEGATIVE Urine Cocaine Screen NEGATIVE U Cannabinoids Screen NEGATIVE Ur Drug Screen Comment Ethyl Alcohol Acetone Level POC Glucose ABG Data ABG results: ABG 08/11/20 18:11 Specimen Type ART Sample Site R Radial pH 7.47 H Bicarbonate Actual 22.8 Total CO2 24 Base Excess -1 O2 Saturation 95 O2 % 21 ABG pCO2 31.1 L ABG pO2 67 L Joaquim Test Positive Radiography Diagnostic Testing: Radiology Impression Chest X-Ray 08/11/20 18:13 IMPRESSION: No radiographic evidence of acute cardiopulmonary disease. at 1856 Reported and signed by: Joshua Amezcua MD Electronically Signed: Joshua Amezcua MD at 18:55 EDT Tel , Service support , Critical Care Time Critical care time (excluding procedures): 30-74 minutes ( 35 minutes), Discussing w/Patient &/or Family/Hotel Associate, Discussing w/Consultants, Arranging Admission or Transfer and Performing Direct Patient Care at Bedside Discharge Plan Triage Chief Complaint: ETOH Intox ED Provider: Ric Quintanilla Dx/Rx/DC Orders Clinical Impression: Alcohol abuse, Type 2 diabetes mellitus, Hyperosmolar hyperglycemic state (HHS), Acute hyponatremia, Acute kidney injury, Alcohol intoxication, Acid-base disorder, mixed Prescriptions: No Action (DME) insulin needles (disposable) 30 X 3/4 30 X 3/4 needle See Rx Instructions .ROUTE .MEDSUPPLY Qty: 1 RF: 0 aspirin 81 mg tablet,delayed release (DR/EC) 81 mg PO DAILY@0800 Qty: 30 RF: 0 (DME) Accu-Chek Guide test strips Strip See Rx Instructions .ROUTE .MEDSUPPLY Qty: 200 RF: 0 (DME) lancets [Accu-Chek Softclix Lancets] Misc See Rx Instructions .ROUTE .MEDSUPPLY Qty: 200 RF: 1 glimepiride 2 mg tablet 2 mg PO DAILY@0800 Qty: 30 RF: 0 pantoprazole 20 mg tablet,delayed release (DR/EC) 20 mg PO DAILY Qty: 30 RF: 0 clopidogrel 75 mg tablet 75 mg PO DAILY Qty: 30 RF: 0 venlafaxine 150 mg tablet extended release 24hr 150 mg PO QAM Qty: 90 RF: 3 folic acid 1 mg tablet 1 mg PO DAILY Qty: 90 RF: 2 thiamine HCl (vitamin B1) 100 mg tablet 100 mg PO DAILY Qty: 90 RF: 3 metoprolol tartrate 25 mg tablet See Rx Instructions .ROUTE .COMPLEX Qty: 56 RF: 0 amlodipine 10 mg tablet 10 mg PO DAILY Qty: 90 RF: 1 atorvastatin 40 mg tablet 40 mg PO QHS Qty: 90 RF: 1 buspirone 15 mg tablet 15 mg PO TID Qty: 90 RF: 3 metformin 1,000 mg tablet 1,000 mg PO BIDCM 90 Days Qty: 180 RF: 1 lisinopril 40 mg tablet 40 mg PO DAILY Qty: 90 RF: 1 insulin NPH and regular human 100 unit/mL (70-30) insulin pen 15 unit SC BID 90 Days Qty: 27 RF: 3 (DME) pen needle, diabetic [UltiCare Pen Needle] 31 gauge x 5/16 needle See Rx Instructions .ROUTE .MEDSUPPLY Qty: 100 RF: 3 gabapentin 100 mg capsule 200 mg PO BID Qty: 120 RF: 0 mirtazapine 15 mg tablet 15 mg PO QHS Qty: 90 RF: 1 Primary Care Provider: Elijah Plascencia Referrals: Elijah Plascencia MD [Primary Care Provider] - Disposition Disposition: Acute Care Hospital Discharge Location: [facility] Discharge Date/Time: 08/11/20 22:55
[2020-08-11] MEDS: 0.9% Normal Saline 1,000 ML 1000 ML IV ×2 (16:26→19:50)
[2020-08-11 16:38] LABS: Absolute Lymphocyte Count 1.25 X10^3/uL (0.83-4.51); Absolute Neutrophil Count 13.2 X10^3/uL (2.0-7.7); Basophil# 0.08 X10^3/uL; Basophil% 0.5 % (0-1); Eosinophil# 0.01 X10^3/uL; Eosinophils% 0.1 % (0-5); Hematocrit 48.7 % (40-54); Hemoglobin 16.7 g/dL (13.0-16.5); Lymphocyte # 1.25 X10^3/ul (0.83-4.51); Lymphocyte % 7.8 % (19-41); Mean Corp Hgb Conc 34.3 g/dL (32-36); Mean Corpuscular Hgb 27.3 pg (27.0-32.0); Mean Corpuscular Volume 79.7 fL (80-94); Mean Platelet Vol. 9.6 fl (6.2-12.0); Monocyte# 1.31 X10^3/uL; Monocyte% 8.2 % (0-10); NRBC Flagged by Analyzer 0 % (0-5); Neutrophil % 82.9 % (47-70); Platelet Count 406 K/mm3 (150-450); RBC Distribution Width CV 12.6 % (11.6-14.6); RBC Distribution Width SD 35.4 fl (35.1-43.9); Red Blood Count 6.11 M/mm3 (4.6-6.2); White Blood Count 15.9 K/mm3 (4.4-11.0)
[2020-08-11 16:51] LABS: Prothrombin Time (Protime)PT. 12.5 SECONDS (11.7-14.9)
[2020-08-11 16:52] LABS: Partial Thromboplast Time 25.7 Seconds (24.1-36.2)
[2020-08-11 16:59] LABS: ALB/GLOB Ratio 0.8 RATIO (0.9-2.4); AST(SGOT) 14 U/L (15-37); Alanine Aminotransfer ALT/SGPT 21 U/L (16-61); Albumin, Serum 3.6 g/dL (3.2-5.0); Alkaline Phosphatase 187 U/L (45-117); Anion Gap 41 (5-15); BUN 56 mg/dL (7-18); BUN/Creat Ratio 22.3 RATIO (10-20); Chloride 57 mmol/L (98-107); Creatinine, Serum 2.51 mg/dL (0.70-1.30); EST Glomerular Filtration Rate 28 mL/min (>60); Est Glom Filt Rate - Afr Amer 34 mL/min (>60); Estimated Creatinine Clearance 31.69 ml/min; Globulin 4.3 g/dL (2.2-4.2); Glucose 605 mg/dL (74-106); Lipase 113 U/L (73-393); Magnesium 2.8 mg/dL (1.6-2.6); Potassium 3.4 mmol/L (3.5-5.1); Protein, Total 7.9 g/dL (6.4-8.2); Sodium Level 119 mmol/L (136-145)
[2020-08-11] MEDS: 0.9% Normal Saline 1,000 ML 150 ML IV (17:26)
[2020-08-11 17:40] LABS: Bedside Glucose > 500 mg/dL (70-110)
--- NOTE | 2020-08-11 18:13 | RAD_ITS ---
HISTORY: hypertension EXAMINATION/TECHNIQUE: XR Chest 1 View: Portable upright AP chest x-ray COMPARISON: 06/02/19 FINDINGS: LINES/DEVICES: None. LUNGS: No consolidation, edema or effusion. No pneumothorax. MEDIASTINUM AND CARDIOVASCULAR STRUCTURES: Cardiac silhouette not enlarged. Central airways and mediastinal contour are unremarkable. BONES AND SOFT TISSUES: No acute bony abnormalities. RAD/Chest 1 View (Portable) IMPRESSION: No radiographic evidence of acute cardiopulmonary disease. at 1856 Reported and signed by: Joshua Amezcua MD Electronically Signed: Joshua Amezcua MD at 18:55 EDT Tel , Service support ,
[2020-08-11 18:15] LABS: Allen Test Positive; Base Excess -1 mmol/L (-2 to +2); Bicarbonate 22.8 mmol/L (22-26); Blood Gas Specimen Type ART; FI02 21; PO2 67 mmHG (75-100); SITE R Radial; SO2 95 % (95-99); Total Carbon Dioxide 24 mmol/L; pCO2 31.1 mmHg (35-45); pH 7.47 (7.35-7.45)
[2020-08-11 18:20] LABS: Lactic Acid 4.8 mmol/L (0.4-1.9)
[2020-08-11 18:34] LABS: Osmolality, Serum 378 mOsm/KG (275-295)
[2020-08-11 18:58] LABS: Acetaminophen (Tylenol) Level < 2.0 ug/mL (10.0-30.0); Salicylate < 1.7 mg/dL (2.8-20.0)
[2020-08-11 19:05] LABS: Bedside Glucose > 500 mg/dL (70-110)
[2020-08-11] MEDS: Insulin Lispro 10 UNIT in Syringe 0 ML 6 UNIT IV (19:14)
[2020-08-11 19:24] LABS: Bacteria 0 SEEN /hpf (None Seen); Mucous, Urine 0 SEEN /hpf (<or=2+); Red Blood Cells-Urine 0 SEEN /hpf (0-5); Squamous Epithelial Cells - UA 0 SEEN /hpf (0-5); White Blood Cells 0 SEEN /hpf (0-5)
[2020-08-11 19:33] LABS: Color, Urine Yellow (Yellow); Glucose, Dipstick 1000 mg/dl (Normal); Leukocyte Esterase-Dipstick Negative /ul (Negative); Nitrite-Dipstick Negative (Negative); Occult Blood-Urine 25 /ul (Negative); Protein-Dipstick 30 mg/dl (Negative); Urine Bilirubin Dipstick Negative (Negative); Urine Clarity Clear (Clear); Urine Urobilinogen Normal (Normal)
[2020-08-11 19:43] LABS: Ketone-Dipstick 150 mg/dl (Negative)
[2020-08-11 19:49] LABS: Amphetamine Urine VISTA NEGATIVE (<1000 ng/mL); Barbiturate Urine VISTA NEGATIVE (< 200 ng/mL); Benzodiazepine Urine VISTA NEGATIVE (< 200 ng/mL); Cocaine Urine VISTA NEGATIVE (< 300 ng/mL); Ecstacy Urine VISTA NEGATIVE (< 500 ng/mL); Methadone Urine VISTA NEGATIVE (< 300 ng/mL); PCP Urine VISTA NEGATIVE (< 25 ng/mL); THC Urine VISTA NEGATIVE (< 50 ng/mL); Vista UDS pH Range 5
[2020-08-11 21:39] LABS: Reflex Lactate? Y
[2020-08-11 21:49] LABS: Anion Gap 29 (5-15); BUN 56 mg/dL (7-18); BUN/Creat Ratio 24.5 RATIO (10-20); Calcium,Total 9.3 mg/dL (8.5-10.1); Chloride 69 mmol/L (98-107); Creatinine, Serum 2.29 mg/dL (0.70-1.30); EST Glomerular Filtration Rate 31 mL/min (>60); Est Glom Filt Rate - Afr Amer 38 mL/min (>60); Estimated Creatinine Clearance 34.73 ml/min; Glucose 397 mg/dL (74-106); Potassium 2.7 mmol/L (3.5-5.1); Sodium Level 126 mmol/L (136-145)
[2020-08-11] MEDS: Haloperidol Lactate 5 MG/ML Vial 10 MG IM (22:14)
== END 2020-08-11 22:55 | disposition short-term general hospital (02) ==
PROVIDERS: Emergency Provider Emergency Medicine; PCP Internal Medicine
DX: F10.129 Alcohol abuse with intoxication, unspecified (principal); Y90.8 Blood alcohol level of 240 mg/100 ml or more; E11.00 Type 2 diabetes mellitus with hyperosmolarity without nonketotic hyperglycemic-hyperosmolar coma (NKHHC); E11.40 Type 2 diabetes mellitus with diabetic neuropathy, unspecified; E11.65 Type 2 diabetes mellitus with hyperglycemia; N17.9 Acute kidney failure, unspecified; E87.2 Acidosis; R45.1 Restlessness and agitation; I47.2 Ventricular tachycardia; I25.10 Atherosclerotic heart disease of native coronary artery without angina pectoris; I10 Essential (primary) hypertension; M54.9 Dorsalgia, unspecified; G47.33 Obstructive sleep apnea (adult) (pediatric); F32.9 Major depressive disorder, single episode, unspecified; F41.9 Anxiety disorder, unspecified; F17.210 Nicotine dependence, cigarettes, uncomplicated; Z79.82 Long term (current) use of aspirin; Z79.4 Long term (current) use of insulin; I25.2 Old myocardial infarction
CPT/HCPCS: 36415; 36600; 71045; 80048; 80053; 80307; 80329; 81001; 82009; 82077; 82803; 82962; 83605; 83690; 83735; 83930; 85025; 85610; 85730; 93005; 96360; 96361; 96372; 99285; J7030; A4216; G0480

== ENCOUNTER 2020-09-02 15:42 | Observation (INO) | payer MEDICARE, MEDICAID, SELFPAY ==
[2020-08-11 15:55] VITALS: BMI 25.0
[2020-09-02] VITALS (9 sets, daily range): BP systolic 109–156; BP diastolic 65–83; PULSE 96–113; RESP 16–22; TEMP 36.6–37.1; O2SAT 92–97; BMI 23.6
--- NOTE | 2020-09-02 16:06 | EKG12_ITS ---
Test Reason : CP Blood Pressure : / mmHG Vent. Rate : 101 BPM Atrial Rate : 101 BPM P-R Int : 186 ms QRS Dur : 076 ms QT Int : 366 ms P-R-T Axes : 055 012 061 degrees QTc Int : 474 ms Sinus tachycardia Low voltage QRS (Limb Leads) Confirmed by SHAZIA CLARK, PARVIN ([id number]), international editorial producer KESHIA BLANCO ([id number]) on 09/09/2020 1:06:43 PM Referred By: JUAN PABLO/TOYA Confirmed By:PARVIN MCCRAY MD
--- NOTE | 2020-09-02 16:07 | EDS_ITS ---
HPI History of Present Illness Chief Complaint: Weakness Narrative Narrative: 60-year-old male with history of CAD, hypertension, diabetes presenting with lightheadedness. He states when he gets up to walk he starts to get lightheaded. He states that at times he gets clammy. Yesterday he states that he was getting chest pain that radiated to his back while he was ambulating. He again claims he was clammy at this time. Patient states that since he was recently discharged from [facility] he has felt this way. He feels as if he is unable to care for himself or get around his home. He states he is unable to take his meds correctly. Patient called his PCP who told him to come to the ER to be seen. His PCP stated that after he was evaluated if he was discharged home she would try to help him get placed. Patient states that he has not had any alcohol since his recent discharge from [facility]. He denies any drugs. [facility] Medical History Anxiety Atherosclerosis of coronary artery of [place] heart without angina pectoris Chronic back pain Depression Diabetes type 2, uncontrolled Erectile dysfunction Fracture of wrist Hypertension, uncontrolled Neuropathy Non-ST elevation (NSTEMI) myocardial infarction NSVT (nonsustained ventricular tachycardia) ECTOR (obstructive sleep apnea) Suicide attempt Home Medications aspirin 81 mg tablet,delayed release 81 mg PO DAILY@0800 #30 tab 07/25/19 [Rx Last Taken Unknown] blood sugar diagnostic #200 ea 12/13/19 [Rx Last Taken Unknown] lancets #200 ea 12/13/19 [Rx Last Taken Unknown] glimepiride 2 mg tablet 2 mg PO DAILY@0800 #30 tab 12/18/19 [Rx Last Taken Unknown] pantoprazole 20 mg tablet,delayed release 20 mg PO DAILY #30 tab 12/18/19 [Rx Last Taken Unknown] clopidogrel 75 mg tablet 75 mg PO DAILY #30 tab 02/14/20 [Rx Last Taken Unknown] venlafaxine 150 mg tablet,extended release 24 hr 150 mg PO QAM #90 tab 04/03/20 [Rx Last Taken Unknown] folic acid 1 mg tablet 1 mg PO DAILY #90 tab 04/22/20 [Rx Last Taken Unknown] thiamine HCl (vitamin B1) 100 mg tablet 100 mg PO DAILY #90 tab 04/22/20 [Rx Last Taken Unknown] metoprolol tartrate 25 mg tablet See Rx Instructions .ROUTE .COMPLEX #56 tab 05/15/20 [Rx Last Taken Unknown] amlodipine 10 mg tablet 10 mg PO DAILY #90 tab 06/30/20 [Rx Last Taken Unknown] atorvastatin 40 mg tablet 40 mg PO QHS #90 tab 06/30/20 [Rx Last Taken Unknown] buspirone 15 mg tablet 15 mg PO TID #90 tab 06/30/20 [Rx Last Taken Unknown] lisinopril 40 mg tablet 40 mg PO DAILY #90 tab 06/30/20 [Rx Last Taken Unknown] metformin 1,000 mg tablet 1,000 mg PO BIDCM 90 Days #180 tab 06/30/20 [Rx Last Taken Unknown] insulin NPH-regular 70-30 U-100 insulin 100 unit/mL subcutaneous pen 15 unit SC BID 90 Days #27 ml 07/14/20 [Rx Last Taken Unknown] insulin needles (disposable) 30 X 3/4 #1 07/14/20 [History Last Taken Unknown] pen needle, diabetic 31 gauge x 5/16 #100 ea 07/21/20 [Rx Last Taken Unknown] gabapentin 100 mg capsule 200 mg PO BID #120 cap 07/22/20 [Rx Last Taken Unknown] mirtazapine 15 mg tablet 15 mg PO QHS #90 tab 08/07/20 [Rx Last Taken Unknown] Allergy/AdvReac Type Severity Reaction Status Date / Time No Known Allergies Allergy Verified 09/02/20 15:43 Family History (Updated 09/02/20 @ 20:28 by JERRI Rhodes) Aunt Diabetes Father Alcoholism Hypertension Aunt No problems noted. Father No problems noted. Mother No problems noted. Surgical History H/O right coronary artery stent placement (~09/08/16) History of left cataract extraction Social History (Updated 09/02/20 @ 20:29 by JERRI Rhodes) household members: none housing: apartment Smoking Status: Current every day smoker tobacco type: cigarettes Smoking packs per day: 1 Smoking cigarettes per day: 20.0 alcohol intake: former year quit: 2018 details: hx of alcohol abuse, sober since last hospital admission 1 week ago substance use type: marijuana what type of physical activity do you participate in: none ROS ROS ED Constitutional Constitutional ED: Reports other Details: Lightheaded with ambulation ; Denies chills or fever(s) Eyes Eyes: Denies blurry vision or diplopia ENT ENT ED: Denies rhinorrhea or sore throat Cardiovascular Cardiovascular: Reports chest pain and racing heartbeat Respiratory/Chest Respiratory/Chest: Reports dyspnea and dyspnea on exertion Gastrointestinal Gastrointestinal: Denies abdominal pain, nausea or vomiting Genitourinary Genitourinary ED: Denies dysuria or hematuria Musculoskeletal Musculoskeletal: Denies arthralgias or myalgias Integumentary Denies abscess or rash Neurologic Neurologic: Denies headache(s), paresthesias or weakness Psychiatric Psychiatric: Denies suicidal thoughts EXAM Physical Exam Const Vital Signs: 09/02/20 15:43 09/02/20 16:08 09/02/20 16:22 Temperature 97.9 F Temperature Source Temporal Pulse Rate 113 H 104 H Pulse Rate [Lying] Pulse Rate [Sitting] Pulse Rate [Standing] Respiratory Rate 16 22 H Respiratory Effort Normal Non-Labored Respiratory Pattern Normal Blood Pressure 118/66 114/74 Blood Pressure [Lying] Blood Pressure [Sitting] Blood Pressure [Standing] Blood Pressure Mean 83 87 Blood Pressure Mean [Lying] Blood Pressure Mean [Sitting] Blood Pressure Mean [Standing] Pulse Ox 93 93 Oxygen Delivery Method Room Air Room Air 09/02/20 19:12 09/02/20 19:30 Temperature Temperature Source Pulse Rate 96 Pulse Rate [Lying] 97 Pulse Rate [Sitting] 97 Pulse Rate [Standing] 105 H Respiratory Rate 20 H Respiratory Effort Respiratory Pattern Blood Pressure 140/78 H Blood Pressure [Lying] 144/83 H Blood Pressure [Sitting] 126/70 H Blood Pressure [Standing] 109/65 Blood Pressure Mean 98 Blood Pressure Mean [Lying] 103 Blood Pressure Mean [Sitting] 88 Blood Pressure Mean [Standing] 79 Pulse Ox 93 Oxygen Delivery Method Room Air Positive well nourished General Appearance ED: NAD HEENT Reports moist mucous membranes Negative for trauma Eyes PERRL and EOMs intact bilaterally General Eye ED: Negative for scleral icterus Chest Wall inspection of chest normal and palpation of chest normal Resp normal respiratory effort and clear to auscultation bilaterally Cardio regular rate and regular rhythm GI normal to inspection, nondistended, normoactive bowel sounds Extremity normal to inspection General Extremety ED: Negative for edema or tenderness General Extremity: Negative for edema Neuro oriented x3 and CN's II-XII intact bilaterally Sensorium / Orientation: alert Psych mental status grossly normal Skin no rashes or lesions noted and no wounds MDM MDM MDM Narrative Medical decision making narrative: Patient presenting with lightheadedness and stating that he is unable to care for himself at home. He states he was sent to the ER by his primary care physician. Initially stated he would go home if everything was okay but now states he is too afraid to go home because he cannot care for himself. Patient did complain of some chest pain with exertion as well. EKG performed on arrival shows sinus tachycardia at 101 bpm on my interpretation without sign of ischemic change or dysrhythmia. Lab work shows a slight leuko cytosis at 12.4. Hemoglobin hematocrit stable. Patient slightly hyponatremic at 127. His creatinine is actually improved at 1.25. LFTs unremarkable. EtOH negative. Troponin is also negative. D-dimer is negative. Chest x-ray is interpreted by myself shows no acute cardiopulmonary process and the radiologist does agree. Patient is also hyperglycemic but does not have an anion gap. I did test patient's orthostatics and he is orthostatic positive. He is given IV fluids. Given his generalized weakness is patient was discussed with the hospitalist who is amenable to admission for placement in halfway. Patient stable on transfer Impression: 1. Chest pain 2. Lightheadedness 3. Hyponatremia 4. Orthostatic hypotension Lab Data Attestation: I reviewed the patient's lab results. Labs: Laboratory Results - last 24 hr 09/02/20 09/02/20 09/02/20 16:19 16:19 16:19 WBC 12.4 H RBC 4.73 Hgb 13.0 Hct 40.3 MCV 85.2 MCH 27.5 MCHC 32.3 RDW Std Deviation 43.8 RDW Coeff of Kaye 14.2 Plt Count 633 H MPV 8.2 Immature Gran % (Auto) 1.200 H Neut % (Auto) 72.1 H Lymph % (Auto) 15.5 L [place] % (Auto) 7.2 Eos % (Auto) 2.6 Baso % (Auto) 1.4 H Absolute Neuts (auto) 9.0 H Absolute Lymphs (auto) 1.92 Nucleated RBC % 0 D-Dimer Quant (PE/DVT) Sodium 127 L Potassium 3.7 Chloride 87 L Carbon Dioxide 30.0 Anion Gap 10 BUN 26 H Creatinine 1.35 H Estim Creat Clear Calc 58.92 Est GFR (MDRD) Af Amer 70 Est GFR (MDRD) Non-Af 57 L BUN/Creatinine Ratio 19.3 Glucose 426 H Calcium 8.8 Troponin I High Sens 3.8 Ethyl Alcohol < 3.0 09/02/20 16:19 WBC RBC Hgb Hct MCV MCH MCHC RDW Std Deviation RDW Coeff of Kaye Plt Count MPV Immature Gran % (Auto) Neut % (Auto) Lymph % (Auto) [place] % (Auto) Eos % (Auto) Baso % (Auto) Absolute Neuts (auto) Absolute Lymphs (auto) Nucleated RBC % D-Dimer Quant (PE/DVT) 0.44 Sodium Potassium Chloride Carbon Dioxide Anion Gap BUN Creatinine Estim Creat Clear Calc Est GFR (MDRD) Af Amer Est GFR (MDRD) Non-Af BUN/Creatinine Ratio Glucose Calcium Troponin I High Sens Ethyl Alcohol Radiography Diagnostic Testing: Radiology Impression Chest X-Ray 09/02/20 16:20 IMPRESSION: Normal x-ray examination of the chest. Electronically Signed: Fransisco Lynch MD at 16:43 EDT Tel , Service support , Discharge Plan Triage Chief Complaint: Weakness ED Provider: Benito Spence Dx/Rx/DC Orders Primary Care Provider: Elijah Plascencia
--- NOTE | 2020-09-02 16:20 | RAD_ITS ---
STUDY: X-RAY CHEST REASON FOR EXAM: Male, 60 years old. chest pain TECHNIQUE: Single AP portable view of the chest. COMPARISON: 08/11/2020 FINDINGS: The lungs are clear and expanded. There is no demonstrated pleural abnormality. Normal size heart. Normal mediastinum and nataliya. Normal visualized pulmonary arteries. Normal visualized aortic arch and descending thoracic aorta. Normal visualized thoracic spine. Normal visualized ribs, clavicles, and shoulders. There is no demonstrated abnormality of the visualized soft tissue structures of the upper abdomen. RAD/Chest 1 View (Portable) IMPRESSION: Normal x-ray examination of the chest. Electronically Signed: Fransisco Lynch MD at 16:43 EDT Tel , Service support ,
[2020-09-02] MEDS: Aspirin 81 MG TAB.CHEW 324 MG PO (16:23)
[2020-09-02 16:32] LABS: Absolute Lymphocyte Count 1.92 X10^3/uL (0.83-4.51); Basophil# 0.17 X10^3/uL; Basophil% 1.4 % (0-1); Eosinophil# 0.32 X10^3/uL; Eosinophils% 2.6 % (0-5); Hematocrit 40.3 % (40-54); Lymphocyte # 1.92 X10^3/ul (0.83-4.51); Lymphocyte % 15.5 % (19-41); Mean Corp Hgb Conc 32.3 g/dL (32-36); Mean Corpuscular Hgb 27.5 pg (27.0-32.0); Mean Corpuscular Volume 85.2 fL (80-94); Mean Platelet Vol. 8.2 fl (6.2-12.0); Monocyte# 0.89 X10^3/uL; Monocyte% 7.2 % (0-10); NRBC Flagged by Analyzer 0 % (0-5); Neutrophil # 8.96 X10^3/uL (2.7-7.7); Neutrophil % 72.1 % (47-70); Platelet Count 633 K/mm3 (150-450); RBC Distribution Width CV 14.2 % (11.6-14.6); RBC Distribution Width SD 43.8 fl (35.1-43.9); Red Blood Count 4.73 M/mm3 (4.6-6.2); White Blood Count 12.4 K/mm3 (4.4-11.0)
[2020-09-02 16:50] LABS: Anion Gap 10 (5-15); BUN 26 mg/dL (7-18); BUN/Creat Ratio 19.3 RATIO (10-20); Calcium,Total 8.8 mg/dL (8.5-10.1); Chloride 87 mmol/L (98-107); Creatinine, Serum 1.35 mg/dL (0.70-1.30); D-Dimer Quantitative (DVT/PE) 0.44 FEU/ug/m (0.27-0.49); EST Glomerular Filtration Rate 57 mL/min (>60); Est Glom Filt Rate - Afr Amer 70 mL/min (>60); Estimated Creatinine Clearance 58.92 ml/min; Glucose 426 mg/dL (74-106); Potassium 3.7 mmol/L (3.5-5.1); Sodium Level 127 mmol/L (136-145); Troponin-I HS 3.8 pg/mL (3.0-78.5)
[2020-09-02 17:19] LABS: Alcohol, Blood (Medical)-Serum < 3.0 mg/dL
--- NOTE | 2020-09-02 19:45 | CM.ED ---
SOCIAL WORK Referral Source: Dr. Spence Reason for Consult: Discharge Planning Patient presents to ER for weakness. Patient reports to be unable to care for self at home. Patient states rents a room from young couple that live in the basement. Patient reports does not have/use an assistive device for ambulation. Patient adamant unable to return home and believes would benefit from rehab and possibility of assisted living after rehab. Patient reports history of depression and anxiety that is not treated. Patient recently admitted for detox from alcohol. Patient denied current use. Patient provided with list of SNF's and Assisted Living. Patient to review list. Informed Dr. Spence of the above. Hospitalist paged. SW to follow up with patient tomorrow. Plan: Admit patient requesting snf Adriane Parker MSW, ELIGIBILITY CLERK
--- NOTE | 2020-09-02 20:24 | PCM.HP.STD ---
Documented by User: JERRI Rhodes 09/02/20 20:53 HPI - General HPI Narrative BETZAIDA CARBAJAL, is a 60 M who presents with complaints of weakness, dizziness and chest pain. Patient states that he was discharged from [facility] 6 days ago and since then feels like he has been getting weaker and has been more dizzy. Patient states that he is concerned that he is not able to care for himself at home due to the weakness and dizziness. Patient also reports intermittent chest pain and feeling anxious. Patient states chest pain comes and goes and is a 7 out of 10. Patient denies syncopal episodes or falls. [facility] Medical History Anxiety Atherosclerosis of coronary artery of [place] heart without angina pectoris Chronic back pain Depression Diabetes type 2, uncontrolled Erectile dysfunction Fracture of wrist Hypertension, uncontrolled Neuropathy Non-ST elevation (NSTEMI) myocardial infarction NSVT (nonsustained ventricular tachycardia) ECTOR (obstructive sleep apnea) Suicide attempt Home Medications aspirin 81 mg tablet,delayed release 81 mg PO DAILY@0800 #30 tab 07/25/19 [Rx Last Taken Unknown] blood sugar diagnostic #200 ea 12/13/19 [Rx Last Taken Unknown] lancets #200 ea 12/13/19 [Rx Last Taken Unknown] glimepiride 2 mg tablet 2 mg PO DAILY@0800 #30 tab 12/18/19 [Rx Last Taken Unknown] pantoprazole 20 mg tablet,delayed release 20 mg PO DAILY #30 tab 12/18/19 [Rx Last Taken Unknown] clopidogrel 75 mg tablet 75 mg PO DAILY #30 tab 02/14/20 [Rx Last Taken Unknown] venlafaxine 150 mg tablet,extended release 24 hr 150 mg PO QAM #90 tab 04/03/20 [Rx Last Taken Unknown] folic acid 1 mg tablet 1 mg PO DAILY #90 tab 04/22/20 [Rx Last Taken Unknown] thiamine HCl (vitamin B1) 100 mg tablet 100 mg PO DAILY #90 tab 04/22/20 [Rx Last Taken Unknown] metoprolol tartrate 25 mg tablet See Rx Instructions .ROUTE .COMPLEX #56 tab 05/15/20 [Rx Last Taken Unknown] amlodipine 10 mg tablet 10 mg PO DAILY #90 tab 06/30/20 [Rx Last Taken Unknown] atorvastatin 40 mg tablet 40 mg PO QHS #90 tab 06/30/20 [Rx Last Taken Unknown] buspirone 15 mg tablet 15 mg PO TID #90 tab 06/30/20 [Rx Last Taken Unknown] lisinopril 40 mg tablet 40 mg PO DAILY #90 tab 06/30/20 [Rx Last Taken Unknown] metformin 1,000 mg tablet 1,000 mg PO BIDCM 90 Days #180 tab 06/30/20 [Rx Last Taken Unknown] insulin NPH-regular 70-30 U-100 insulin 100 unit/mL subcutaneous pen 15 unit SC BID 90 Days #27 ml 07/14/20 [Rx Last Taken Unknown] insulin needles (disposable) 30 X 3/4 #1 07/14/20 [History Last Taken Unknown] pen needle, diabetic 31 gauge x 5/16 #100 ea 07/21/20 [Rx Last Taken Unknown] gabapentin 100 mg capsule 200 mg PO BID #120 cap 07/22/20 [Rx Last Taken Unknown] mirtazapine 15 mg tablet 15 mg PO QHS #90 tab 08/07/20 [Rx Last Taken Unknown] Allergy/AdvReac Type Severity Reaction Status Date / Time No Known Allergies Allergy Verified 09/02/20 15:43 Family History (Updated 09/02/20 @ 20:28 by JERRI Rhodes) Aunt Diabetes Father Alcoholism Hypertension Aunt No problems noted. Father No problems noted. Mother No problems noted. Surgical History H/O right coronary artery stent placement (~09/08/16) History of left cataract extraction Social History (Updated 09/02/20 @ 20:29 by JERRI Rhodes) household members: none housing: apartment Smoking Status: Current every day smoker tobacco type: cigarettes Smoking packs per day: 1 Smoking cigarettes per day: 20.0 alcohol intake: former year quit: 2019 details: hx of alcohol abuse, sober since last hospital admission 1 week ago substance use type: marijuana what type of physical activity do you participate in: none ROS Constitutional Constitutional: Reports fatigue and weakness; Denies anorexia, chills or fever(s) Cardiovascular Cardiovascular: Reports chest pain; Denies edema, palpitations or syncope Respiratory/Chest Respiratory/Chest: Denies cough, shortness of breath at rest or shortness of breath with exertion Gastrointestinal Gastrointestinal: Denies abdominal pain, constipation, diarrhea, nausea or vomiting Genitourinary Genitourinary: Denies dysuria Musculoskeletal Musculoskeletal: Denies back pain, extremity pain, joint pain or joint stiffness Integumentary Integumentary: Denies dry skin Neurologic Neurologic: Denies abnormal gait, abnormal speech, confusion, dizziness or focal weakness Psychiatric Psychiatric: Reports anxiety; Denies depression Endocrine Endocrinology: Denies change in body appearance Hematologic/Lymphatic Hematologic/Lymphatic: Denies easy bleeding or easy bruising Vital Signs Vital Signs Vital Signs: 09/02/20 15:43 09/02/20 16:08 09/02/20 16:22 Temperature 97.9 F Temperature Source Temporal Pulse Rate 113 H 104 H Pulse Rate [Lying] Pulse Rate [Sitting] Pulse Rate [Standing] Respiratory Rate 16 22 H Respiratory Effort Normal Non-Labored Respiratory Pattern Normal Blood Pressure 118/66 114/74 Blood Pressure [Lying] Blood Pressure [Sitting] Blood Pressure [Standing] Blood Pressure Mean 83 87 Blood Pressure Mean [Lying] Blood Pressure Mean [Sitting] Blood Pressure Mean [Standing] Pulse Ox 93 93 Oxygen Delivery Method Room Air Room Air 09/02/20 19:12 09/02/20 19:30 Temperature Temperature Source Pulse Rate 96 Pulse Rate [Lying] 97 Pulse Rate [Sitting] 97 Pulse Rate [Standing] 105 H Respiratory Rate 20 H Respiratory Effort Respiratory Pattern Blood Pressure 140/78 H Blood Pressure [Lying] 144/83 H Blood Pressure [Sitting] 126/70 H Blood Pressure [Standing] 109/65 Blood Pressure Mean 98 Blood Pressure Mean [Lying] 103 Blood Pressure Mean [Sitting] 88 Blood Pressure Mean [Standing] 79 Pulse Ox 93 Oxygen Delivery Method Room Air Weight Weight: 160 lb Body Mass Index (BMI) 23.6 Physical Exam Const alert and oriented x3 General Appearance: cooperative HEENT normocephalic and head/scalp atraumatic Eyes conjunctivae normal and no scleral icterus Neck no lymphadenopathy, supple and no JVD General: trachea midline Resp normal respiratory effort, normal air movement and clear to auscultation bilaterally Cardio regular rate, regular rhythm, S1 normal heart sound and S2 normal heart sound Rate: tachycardic GI normal to inspection, nondistended, normoactive bowel sounds, soft to palpation and non-tender Extremity normal capillary refill and no clubbing, cyanosis or edema General Extremity: no tenderness to palpation of joints or extremities Skin General Skin Exam: no breakdown and turgor normal Lesions: no lesions Rashes: no rashes Neuro no focal motor deficits and no sensory deficits noted Speech: speech normal Motor Exam: general weakness Psych thought process normal and cooperative Mood & Affect: anxious Results Lab / Micro Data Result Diagrams: 09/02/20 16:19 09/02/20 16:19 Labs: Laboratory Results - last 24 hr 09/02/20 09/02/20 09/02/20 16:19 16:19 16:19 WBC 12.4 H RBC 4.73 Hgb 13.0 Hct 40.3 MCV 85.2 MCH 27.5 MCHC 32.3 RDW Std Deviation 43.8 RDW Coeff of Kaye 14.2 Plt Count 633 H MPV 8.2 Immature Gran % (Auto) 1.200 H Neut % (Auto) 72.1 H Lymph % (Auto) 15.5 L [place] % (Auto) 7.2 Eos % (Auto) 2.6 Baso % (Auto) 1.4 H Absolute Neuts (auto) 9.0 H Absolute Lymphs (auto) 1.92 Nucleated RBC % 0 D-Dimer Quant (PE/DVT) Sodium 127 L Potassium 3.7 Chloride 87 L Carbon Dioxide 30.0 Anion Gap 10 BUN 26 H Creatinine 1.35 H Estim Creat Clear Calc 58.92 Est GFR (MDRD) Af Amer 70 Est GFR (MDRD) Non-Af 57 L BUN/Creatinine Ratio 19.3 Glucose 426 H Calcium 8.8 Troponin I High Sens 3.8 Ethyl Alcohol < 3.0 09/02/20 16:19 WBC RBC Hgb Hct MCV MCH MCHC RDW Std Deviation RDW Coeff of Kaye Plt Count MPV Immature Gran % (Auto) Neut % (Auto) Lymph % (Auto) [place] % (Auto) Eos % (Auto) Baso % (Auto) Absolute Neuts (auto) Absolute Lymphs (auto) Nucleated RBC % D-Dimer Quant (PE/DVT) 0.44 Sodium Potassium Chloride Carbon Dioxide Anion Gap BUN Creatinine Estim Creat Clear Calc Est GFR (MDRD) Af Amer Est GFR (MDRD) Non-Af BUN/Creatinine Ratio Glucose Calcium Troponin I High Sens Ethyl Alcohol Radiology Impression Chest X-Ray 09/02/20 16:20 IMPRESSION: Normal x-ray examination of the chest. Electronically Signed: Fransisco Lynch MD at 16:43 EDT Tel , Service support , Assessment & Plan Assessment/Plan (1) Chest pain: QUALIFIERS: Chest pain type: unspecified Qualified Code(s): R07.9 - Chest pain, unspecified PLAN: 1. Chest pain -Admit to PCU for cardiac monitoring -Trend cardiac enzymes -Vital signs per protocol trend BP and heart rate -Cardiac calorie controlled diet -PT and OT to eval and treat for reported weakness -CBC, CMP, lipid profile ordered for a.m. -Chemical stress test ordered for a.m. -O2 per protocol -As needed nitroglycerin ordered 2. Hyponatremia -Likely secondary to dehydration due to concurrent acute kidney injury -Normal saline 100 ml/hr -Daily CMP is ordered, trend 3. Acute kidney injury -Likely secondary to dehydration as patient states he has had a hard time caring for himself and has not been eating or drinking properly -Normal saline 100 ml/hr -Daily CMP ordered, trend BUN/creatinine. Elevated from baseline but improved from previous admission. 4. Hypertension -Continue current regimen including metoprolol amlodipine and lisinopril. -Vital signs per protocol trend BP and heart rate -As needed hydralazine ordered -Patient currently mildly hypertensive in ER 5. Uncontrolled diabetes mellitus type 2 -Current glucose 426, patient states he has not been taking his medications as directed at home as he is unable to keep them organized -Will hold Metformin and glimepiride at this time due to impaired kidney function, continue insulin 70/30 -AC at bedtime blood sugars ordered with sliding scale insulin 6. Diabetic neuropathy -Patient reports improved pain control since starting gabapentin, will continue 7. Obstructive sleep apnea -Patient had sleep study 07/28/2020 and was prescribed a auto PAP per his PCP however patient states he has not received machine yet. -Will order CPAP here 8. Tobacco abuse -Inpatient smoking cessation ordered DVT prophylaxis-subcu Lovenox and SCDs This patient was seen by ÁNGEL RhodesC under the supervision of Dr. Jordan. Documented by User: Dr. Janina Jordan MD 09/02/20 20:57 HPI - General General Date of Admission: 09/02/20 Date of Service: 09/02/20 Chief Complaint: Chest pain, Lightheadedness, Failure to Thrive Adult [facility] Medical History Anxiety Atherosclerosis of coronary artery of [place] heart without angina pectoris Chronic back pain Depression Diabetes type 2, uncontrolled Erectile dysfunction Fracture of wrist Hypertension, uncontrolled Neuropathy Non-ST elevation (NSTEMI) myocardial infarction NSVT (nonsustained ventricular tachycardia) ECTOR (obstructive sleep apnea) Suicide attempt Home Medications aspirin 81 mg tablet,delayed release 81 mg PO DAILY@0800 #30 tab 07/25/19 [Rx Last Taken Unknown] blood sugar diagnostic #200 ea 12/13/19 [Rx Last Taken Unknown] lancets #200 ea 12/13/19 [Rx Last Taken Unknown] glimepiride 2 mg tablet 2 mg PO DAILY@0800 #30 tab 12/18/19 [Rx Last Taken Unknown] pantoprazole 20 mg tablet,delayed release 20 mg PO DAILY #30 tab 12/18/19 [Rx Last Taken Unknown] clopidogrel 75 mg tablet 75 mg PO DAILY #30 tab 02/14/20 [Rx Last Taken Unknown] venlafaxine 150 mg tablet,extended release 24 hr 150 mg PO QAM #90 tab 04/03/20 [Rx Last Taken Unknown] folic acid 1 mg tablet 1 mg PO DAILY #90 tab 04/22/20 [Rx Last Taken Unknown] thiamine HCl (vitamin B1) 100 mg tablet 100 mg PO DAILY #90 tab 04/22/20 [Rx Last Taken Unknown] metoprolol tartrate 25 mg tablet See Rx Instructions .ROUTE .COMPLEX #56 tab 05/15/20 [Rx Last Taken Unknown] amlodipine 10 mg tablet 10 mg PO DAILY #90 tab 06/30/20 [Rx Last Taken Unknown] atorvastatin 40 mg tablet 40 mg PO QHS #90 tab 06/30/20 [Rx Last Taken Unknown] buspirone 15 mg tablet 15 mg PO TID #90 tab 06/30/20 [Rx Last Taken Unknown] lisinopril 40 mg tablet 40 mg PO DAILY #90 tab 06/30/20 [Rx Last Taken Unknown] metformin 1,000 mg tablet 1,000 mg PO BIDCM 90 Days #180 tab 06/30/20 [Rx Last Taken Unknown] insulin NPH-regular 70-30 U-100 insulin 100 unit/mL subcutaneous pen 15 unit SC BID 90 Days #27 ml 07/14/20 [Rx Last Taken Unknown] insulin needles (disposable) 30 X 3/4 #1 07/14/20 [History Last Taken Unknown] pen needle, diabetic 31 gauge x 5/16 #100 ea 07/21/20 [Rx Last Taken Unknown] gabapentin 100 mg capsule 200 mg PO BID #120 cap 07/22/20 [Rx Last Taken Unknown] mirtazapine 15 mg tablet 15 mg PO QHS #90 tab 08/07/20 [Rx Last Taken Unknown] Allergy/AdvReac Type Severity Reaction Status Date / Time No Known Allergies Allergy Verified 09/02/20 15:43 Family History (Updated 09/02/20 @ 20:28 by JERRI Rhodes) Aunt Diabetes Father Alcoholism Hypertension Aunt No problems noted. Father No problems noted. Mother No problems noted. Surgical History H/O right coronary artery stent placement (~09/08/16) History of left cataract extraction Social History (Updated 09/02/20 @ 20:29 by ÁNGEL RhodesC) household members: none housing: apartment Smoking Status: Current every day smoker tobacco type: cigarettes Smoking packs per day: 1 Smoking cigarettes per day: 20.0 alcohol intake: former year quit: 2018 details: hx of alcohol abuse, sober since last hospital admission 1 week ago substance use type: marijuana what type of physical activity do you participate in: none Results Lab / Micro Data Result Diagrams: 09/02/20 16:19 09/02/20 16:19
--- NOTE | 2020-09-02 21:02 | EKG12_ITS ---
Test Reason : CP ADMIT Blood Pressure : / mmHG Vent. Rate : 095 BPM Atrial Rate : 095 BPM P-R Int : 218 ms QRS Dur : 074 ms QT Int : 362 ms P-R-T Axes : 057 017 051 degrees QTc Int : 454 ms Sinus rhythm with 1st degree A-V block Otherwise normal ECG When compared with ECG of 02-SEP-2020 16:19, MANUAL COMPARISON REQUIRED, DATA IS UNCONFIRMED Confirmed by JARON CLARK, WESTLEY ([id number]), scientific publications editor GOLDIE REDMAN ([id number]) on 09/03/2020 12:57:24 PM Referred By: DR MUHAMMAD Confirmed By:MENA SALMERON MD
[2020-09-02 21:06] LABS: Magnesium 1.4 mg/dL (1.6-2.6); Phosphorus 3.1 mg/dL (2.5-4.9)
[2020-09-02] MEDS: 0.9% Normal Saline 1,000 ML 100 ML IV (21:22)
[2020-09-02 22:32] LABS: Troponin-I HS 4.7 pg/mL (3.0-78.5)
[2020-09-02] MEDS: Magnesium Sulfate 4gm/100mL 4 GM/100 ML IV.SOLN. IV (22:33)
[2020-09-02] MEDS: Metoprolol Tartrate 25 MG Tablet PO (22:39)
[2020-09-02] MEDS: busPIRone 15 MG TABLET PO (22:39)
[2020-09-02] MEDS: Mirtazapine 15 MG Tablet PO (22:39)
[2020-09-02] MEDS: Gabapentin 100 MG Capsule 200 MG PO (22:39)
[2020-09-02] MEDS: Atorvastatin Calcium 40 MG Tablet PO (22:40)
[2020-09-02] MEDS: Insulin Human 75/25 Kwickpen 15 UNIT SC (22:46)
[2020-09-02] MEDS: Insulin Lispro 100 UNIT/ML INSULN.PEN SC (22:47)
[2020-09-02 22:55] LABS: Bedside Glucose 332 mg/dL (70-110)
[2020-09-02] MEDS: Acetaminophen 325 MG Tablet 650 MG PO (23:34)
[2020-09-02] MEDS: oxyCODONE 5 MG Tablet PO (23:34)
[2020-09-02] MEDS: Zolpidem Tartrate 5 MG Tablet PO (23:49)
[2020-09-03] VITALS (16 sets, daily range): BP systolic 123–148; BP diastolic 73–85; PULSE 72–94; RESP 15–18; TEMP 36.7–36.9; O2SAT 96–100; BMI 23.6
[2020-09-03 00:02] LABS: Magnesium 1.7 mg/dL (1.6-2.6); Troponin-I HS 5.4 pg/mL (3.0-78.5)
[2020-09-03 05:13] LABS: Absolute Lymphocyte Count 2.33 X10^3/uL (0.83-4.51); Absolute Neutrophil Count 4.3 X10^3/uL (2.0-7.7); Basophil# 0.16 X10^3/uL; Eosinophil# 0.49 X10^3/uL; Eosinophils% 6.2 % (0-5); Hematocrit 39.6 % (40-54); Hemoglobin 12.7 g/dL (13.0-16.5); Lymphocyte # 2.33 X10^3/ul (0.83-4.51); Lymphocyte % 29.4 % (19-41); Mean Corp Hgb Conc 32.1 g/dL (32-36); Mean Corpuscular Hgb 27.3 pg (27.0-32.0); Mean Platelet Vol. 8.3 fl (6.2-12.0); Monocyte# 0.48 X10^3/uL; Monocyte% 6.1 % (0-10); NRBC Flagged by Analyzer 0 % (0-5); Neutrophil # 4.33 X10^3/uL (2.7-7.7); Neutrophil % 54.5 % (47-70); Platelet Count 501 K/mm3 (150-450); RBC Distribution Width CV 14.2 % (11.6-14.6); RBC Distribution Width SD 43.4 fl (35.1-43.9); Red Blood Count 4.66 M/mm3 (4.6-6.2); White Blood Count 7.9 K/mm3 (4.4-11.0)
[2020-09-03 05:43] LABS: ALB/GLOB Ratio 0.6 RATIO (0.9-2.4); AST(SGOT) 14 U/L (15-37); Alanine Aminotransfer ALT/SGPT 15 U/L (16-61); Albumin, Serum 2.8 g/dL (3.2-5.0); Alkaline Phosphatase 127 U/L (45-117); Anion Gap 9 (5-15); BUN 24 mg/dL (7-18); BUN/Creat Ratio 24.7 RATIO (10-20); Calcium,Total 8.8 mg/dL (8.5-10.1); Chloride 94 mmol/L (98-107); Cholesterol 113 mg/dL (200); Creatinine, Serum 0.97 mg/dL (0.70-1.30); EST Glomerular Filtration Rate 84 mL/min (>60); Est Glom Filt Rate - Afr Amer 102 mL/min (>60); Globulin 4.4 g/dL (2.2-4.2); Glucose 321 mg/dL (74-106); High Density Lipoprotein 51 mg/dL; Potassium 4.2 mmol/L (3.5-5.1); Protein, Total 7.2 g/dL (6.4-8.2); Sodium Level 131 mmol/L (136-145); Triglycerides 166 mg/dL; Troponin-I HS 6.6 pg/mL (3.0-78.5); Very Low Density Lipoprotein 33 mg/dL (5-40)
--- NOTE | 2020-09-03 05:55 | EKG12_ITS ---
Test Reason : AM EKG Blood Pressure : / mmHG Vent. Rate : 080 BPM Atrial Rate : 080 BPM P-R Int : 230 ms QRS Dur : 078 ms QT Int : 404 ms P-R-T Axes : 072 022 061 degrees QTc Int : 465 ms Sinus rhythm with 1st degree A-V block Otherwise normal ECG When compared with ECG of 02-SEP-2020 22:00, MANUAL COMPARISON REQUIRED, DATA IS UNCONFIRMED Confirmed by JARON CLARK, WESTLEY ([id number]), mapping editor GOLDIE REDMAN ([id number]) on 09/03/2020 12:57:52 PM Referred By: DR MUHAMMAD Confirmed By:MENA SALMERON MD
[2020-09-03] MEDS: 0.9% Normal Saline 1,000 ML 100 ML IV (06:30)
[2020-09-03] MEDS: Lisinopril 40 MG Tablet PO (06:31)
[2020-09-03] MEDS: busPIRone 15 MG TABLET PO ×3 (06:31→21:22)
[2020-09-03] MEDS: Aspirin E.C. 81 MG Tablet PO (06:32)
[2020-09-03] MEDS: Clopidogrel Bisulfate 75 MG Tablet PO (06:32)
[2020-09-03 06:55] LABS: Bedside Glucose 292 mg/dL (70-110)
[2020-09-03] MEDS: Insulin Lispro 100 UNIT/ML INSULN.PEN SC ×3 (10:44→21:23)
[2020-09-03] MEDS: Venlafaxine XR 150 MG Capsule PO (10:45)
[2020-09-03] MEDS: Pantoprazole Sodium 20 MG Tablet PO (10:45)
[2020-09-03] MEDS: Thiamine Hydrochloride 100 MG Tablet PO (10:45)
[2020-09-03] MEDS: amLODIPine 10 MG Tablet PO (10:45)
[2020-09-03] MEDS: Multivitamins,Therapeutic Tablet 1 TABLET PO (10:45)
[2020-09-03] MEDS: Metoprolol Tartrate 25 MG Tablet PO ×2 (10:45→21:21)
[2020-09-03] MEDS: Folic Acid 1 MG Tablet PO (10:46)
[2020-09-03] MEDS: Gabapentin 100 MG Capsule 200 MG PO ×2 (10:46→21:21)
[2020-09-03 10:51] LABS: Bedside Glucose 343 mg/dL (70-110)
[2020-09-03] MEDS: Insulin Human 75/25 Kwickpen 15 UNIT SC ×2 (10:55→21:22)
--- NOTE | 2020-09-03 11:56 | PCM.PN.HOSP ---
Documented by User: Wandy Weinberg NP, BIOANALYST-C 09/03/20 12:21 Subjective Subjective Patient seen and examined. Denies further chest pain. Awaiting stress test results. Patient requesting SNF placement. Objective Data Objective Data Vital Signs: Vital Signs Temp Pulse Resp BP Pulse Ox 98.2 F 87 18 147/76 H 99 09/03/20 10:36 09/03/20 10:45 09/03/20 10:36 09/03/20 10:36 09/03/20 10:36 Oxygen Delivery Method Room Air Weight: 160 lb 0.889 oz Body Mass Index (BMI) 23.6 Intake & Output: Intake and Output for Last 24 Hours 09/01/20 09/02/20 09/03/20 23:59 23:59 23:59 Intake Total 734.77 / 734.77 765.92 / 765.92 Balance 734.77 / 734.77 765.92 / 765.92 Lab / Micro Data Result Diagrams: 09/03/20 04:44 09/03/20 04:44 Labs: Laboratory Results - last 24 hr 09/02/20 09/02/20 09/02/20 16:19 16:19 16:19 WBC 12.4 H RBC 4.73 Hgb 13.0 Hct 40.3 MCV 85.2 MCH 27.5 MCHC 32.3 RDW Std Deviation 43.8 RDW Coeff of Kaye 14.2 Plt Count 633 H MPV 8.2 Immature Gran % (Auto) 1.200 H Neut % (Auto) 72.1 H Lymph % (Auto) 15.5 L [place] % (Auto) 7.2 Eos % (Auto) 2.6 Baso % (Auto) 1.4 H Absolute Neuts (auto) 9.0 H Absolute Lymphs (auto) 1.92 Nucleated RBC % 0 D-Dimer Quant (PE/DVT) Sodium 127 L Potassium 3.7 Chloride 87 L Carbon Dioxide 30.0 Anion Gap 10 BUN 26 H Creatinine 1.35 H Estim Creat Clear Calc 58.92 Est GFR (MDRD) Af Amer 70 Est GFR (MDRD) Non-Af 57 L BUN/Creatinine Ratio 19.3 Glucose 426 H Calcium 8.8 Phosphorus Magnesium Total Bilirubin AST ALT Alkaline Phosphatase Troponin I High Sens 3.8 Total Protein Albumin Globulin Albumin/Globulin Ratio Triglycerides Cholesterol LDL Cholesterol VLDL Cholesterol HDL Cholesterol Ethyl Alcohol < 3.0 POC Glucose 09/02/20 09/02/20 09/02/20 16:19 16:19 21:53 WBC RBC Hgb Hct MCV MCH MCHC RDW Std Deviation RDW Coeff of Kaye Plt Count MPV Immature Gran % (Auto) Neut % (Auto) Lymph % (Auto) [place] % (Auto) Eos % (Auto) Baso % (Auto) Absolute Neuts (auto) Absolute Lymphs (auto) Nucleated RBC % D-Dimer Quant (PE/DVT) 0.44 Sodium Potassium Chloride Carbon Dioxide Anion Gap BUN Creatinine Estim Creat Clear Calc Est GFR (MDRD) Af Amer Est GFR (MDRD) Non-Af BUN/Creatinine Ratio Glucose Calcium Phosphorus 3.1 Magnesium 1.4 L Total Bilirubin AST ALT Alkaline Phosphatase Troponin I High Sens 4.7 Total Protein Albumin Globulin Albumin/Globulin Ratio Triglycerides Cholesterol LDL Cholesterol VLDL Cholesterol HDL Cholesterol Ethyl Alcohol POC Glucose 09/02/20 09/02/20 09/03/20 22:45 23:23 04:44 WBC 7.9 RBC 4.66 Hgb 12.7 L Hct 39.6 L MCV 85.0 MCH 27.3 MCHC 32.1 RDW Std Deviation 43.4 RDW Coeff of Kaye 14.2 Plt Count 501 H MPV 8.3 Immature Gran % (Auto) 1.800 H Neut % (Auto) 54.5 Lymph % (Auto) 29.4 [place] % (Auto) 6.1 Eos % (Auto) 6.2 H Baso % (Auto) 2.0 H Absolute Neuts (auto) 4.3 Absolute Lymphs (auto) 2.33 Nucleated RBC % 0 D-Dimer Quant (PE/DVT) Sodium Potassium Chloride Carbon Dioxide Anion Gap BUN Creatinine Estim Creat Clear Calc Est GFR (MDRD) Af Amer Est GFR (MDRD) Non-Af BUN/Creatinine Ratio Glucose Calcium Phosphorus Magnesium 1.7 Total Bilirubin AST ALT Alkaline Phosphatase Troponin I High Sens 5.4 Total Protein Albumin Globulin Albumin/Globulin Ratio Triglycerides Cholesterol LDL Cholesterol VLDL Cholesterol HDL Cholesterol Ethyl Alcohol POC Glucose 332 H 09/03/20 09/03/20 09/03/20 04:44 04:44 06:38 WBC RBC Hgb Hct MCV MCH MCHC RDW Std Deviation RDW Coeff of Kaye Plt Count MPV Immature Gran % (Auto) Neut % (Auto) Lymph % (Auto) [place] % (Auto) Eos % (Auto) Baso % (Auto) Absolute Neuts (auto) Absolute Lymphs (auto) Nucleated RBC % D-Dimer Quant (PE/DVT) Sodium 131 L Potassium 4.2 Chloride 94 L Carbon Dioxide 28.0 Anion Gap 9 BUN 24 H Creatinine 0.97 Estim Creat Clear Calc 82.00 Est GFR (MDRD) Af Amer 102 Est GFR (MDRD) Non-Af 84 BUN/Creatinine Ratio 24.7 H Glucose 321 H Calcium 8.8 Phosphorus Magnesium Total Bilirubin 0.40 AST 14 L ALT 15 L Alkaline Phosphatase 127 H Troponin I High Sens 6.6 Total Protein 7.2 Albumin 2.8 L Globulin 4.4 H Albumin/Globulin Ratio 0.6 L Triglycerides 166 Cholesterol 113 LDL Cholesterol 29 VLDL Cholesterol 33 HDL Cholesterol 51 Ethyl Alcohol POC Glucose 292 H 09/03/20 10:41 WBC RBC Hgb Hct MCV MCH MCHC RDW Std Deviation RDW Coeff of Kaye Plt Count MPV Immature Gran % (Auto) Neut % (Auto) Lymph % (Auto) [place] % (Auto) Eos % (Auto) Baso % (Auto) Absolute Neuts (auto) Absolute Lymphs (auto) Nucleated RBC % D-Dimer Quant (PE/DVT) Sodium Potassium Chloride Carbon Dioxide Anion Gap BUN Creatinine Estim Creat Clear Calc Est GFR (MDRD) Af Amer Est GFR (MDRD) Non-Af BUN/Creatinine Ratio Glucose Calcium Phosphorus Magnesium Total Bilirubin AST ALT Alkaline Phosphatase Troponin I High Sens Total Protein Albumin Globulin Albumin/Globulin Ratio Triglycerides Cholesterol LDL Cholesterol VLDL Cholesterol HDL Cholesterol Ethyl Alcohol POC Glucose 343 H Radiography Diagnostic Testing: Radiology Impression Chest X-Ray 09/02/20 16:20 IMPRESSION: Normal x-ray examination of the chest. Electronically Signed: Fransisco Lynch MD at 16:43 EDT Tel , Service support , Physical Exam Const alert, oriented x3 and no apparent distress Orientation / Consciousness: awake, oriented to person, oriented to place and oriented to time HEENT normocephalic and moist oral mucous membranes Eyes PERRL, EOMs intact bilaterally and conjunctivae normal Neck no lymphadenopathy Resp normal respiratory effort and clear to auscultation bilaterally Cardio regular rate, regular rhythm and no murmurs Peripheral Pulses: pulses 2+ throughout GI normal to inspection, nondistended, normoactive bowel sounds, non-tender and non-distended Extremity normal to inspection Skin no rashes or lesions noted Lesions: no lesions Rashes: no rashes Trauma: no lacerations or abrasions Neuro CN's II-XII intact bilaterally, no focal motor deficits, no sensory deficits noted and deep tendon reflexes 2+ bilaterally Psych mental status grossly normal and affect normal Assessment & Plan Assessment/Plan (1) Chest pain: QUALIFIERS: Chest pain type: unspecified Qualified Code(s): R07.9 - Chest pain, unspecified PLAN: 1. Atypical chest pain, ACS ruled out-troponin negative. Patient underwent nuclear stress test which was negative for ischemia. 2. Adult failure to thrive-patient requesting SNF. Awaiting pre-cert/acceptance. PT/OT. 3. Chronic hyponatremia-IV fluids, trend BMP. Improved from prior. 4. Acute kidney injury-suspect secondary to poor oral intake. ALEJANDRO resolved. 5. History of alcohol dependence- follows with [facility]. Encouraged cessation/continued follow up. 6. CAD with history of PCI-continue aspirin, Plavix, statin, beta-haydee. 7. Type 2 diabetes mellitus-continue home insulin regimen. Accu-Cheks with sliding scale insulin. 8. Hypertension-stable, continue amlodipine, metoprolol, lisinopril. 9. Hyperlipidemia-continue statin 10. Anxiety/depression-on buspirone, mirtazapine, venlafaxine. 11. GERD-on PPI. 12. ECTOR-continue home CPAP regimen. 13. Tobacco dependence-encouraged cessation. Nicotine replacement patch. DVT prophylaxis-Lovenox subcu. Discharge planning: Await SNF acceptance. This patient was seen by JERRI Dumont under the supervision of Dr. Whitt. Documented by User: Dr. Vale Whitt MD 09/03/20 16:37 Objective Data Lab / Micro Data Result Diagrams: 09/03/20 04:44 09/03/20 04:44 Charges/Coding Addendum Addendum: Patient seen by Wandy GUTHRIE under my supervision Patient seen and examined. He was admitted with complaint of dizziness, weakness and chest pain. He had recently been discharged from [facility] about 6 days ago and said he had been progressively getting weaker. Chest pain was rated about 7/10. He was admitted to manage for chest pain rule out ACS. Troponins x3 were negative and EKG showed no acute ST changes. He had a stress test on 09/03/2020 which was negative for any evidence of ischemia. O/E: Const alert, oriented x3 and no apparent distress Orientation / Consciousness: awake, oriented to person, oriented to place and oriented to time HEENT normocephalic and moist oral mucous membranes Eyes PERRL, EOMs intact bilaterally and conjunctivae normal Neck no lymphadenopathy Resp normal respiratory effort and clear to auscultation bilaterally Cardio regular rate, regular rhythm and no murmurs Peripheral Pulses: pulses 2+ throughout GI normal to inspection, nondistended, normoactive bowel sounds, non-tender and non-distended Extremity normal to inspection Skin no rashes or lesions noted Lesions: no lesions Rashes: no rashes Trauma: no lacerations or abrasions Neuro CN's II-XII intact bilaterally, no focal motor deficits, no sensory deficits noted and deep tendon reflexes 2+ bilaterally Psych mental status grossly normal and affect normal Patient had a stress test done today which was negative. Patient is requesting placement in SNF as he doesnt feel able to care for himself at home. Case management on board. Sublingual nitroglycerin as needed for chest pain. PT OT on board. Of note, patient was also hyponatremic but this is chronic. Sodium was 131. Baseline is around 132 from May 2019. Rest as per JERRI Dumont's note which I have reviewed and endorsed. Multi [facility] Codes Visit Charges Observation E&M Codin Subsequent observation care L2
--- NOTE | 2020-09-03 12:00 | STRESSREP ---
Stress Test Report Date: 09/03/2020 Procedure: Pharmacologic stress nuclear imaging study Indications: [chest pain] Consent: Per the patient Procedure: The patient underwent pharmacologic (Regadenoson) evaluation with a peak heart rate of 96 beats per minute (59%predicted maximal heart rate) and a peak blood pressure of 142/78 mmHg. The baseline ECG demonstrated normal sinus rhythm, first-degree AV block. EKG during lexiscan infusion revealed no significant ischemic changes. EKG post infusion revealed no significant ischemic changes [There were no cardiac dysrhythmias pretest, during pharmacologic infusion, or recovery]. [There was no complaint of chest discomfort during pharmacologic infusion or recovery]. The examination was discontinued secondary to completion of protocol. Impression: 1. Lexiscan stress test test is negative for Lexiscan infusion induced EKG changes of ischemia. 2. Lexiscan stress test test is negative for Lexiscan infusion induced chest pain. 3. Results of the nuclear portion of the test is as below Myocardial perfusion imaging study: Technique: The patient was injected with 11.6 millicuries of technetium 99m Cardiolite and subsequently rest SPECT Cardiolite nuclear imaging was obtained in the horizontal long, vertical long, and short axis views. The patient underwent pharmacologic [Regadenoson 0.4mg] evaluation. Please see above for details. The patient was injected with 32.9 millicuries of technetium 99m Cardiolite and subsequently stress SPECT Cardiolite nuclear imaging was obtained in the horizontal long, vertical long, and short axis views. A gated Cardiolite study at peak stress was obtained. Interpretation: Rest and stress SPECT Cardiolite nuclear imaging status post realignment, normalization, and attenuation correction demonstrate overall normal myocardial radioisotope uptake after attenuation correction. Prior to attenuation correction there is mild decrease in radioisotope uptake in the inferior wall on both the rest and stress images suggestive of diaphragmatic attenuation artifact. Gated images reveal no significant regional wall motion abnormalities. The reported LVEF is 71%. Impression: 1. There is no evidence of significant ischemia or infarction. 2. Estimated ejection fraction is 71%. This note was generated with Sightlog[employer]ation software. It may contain incorrect words, spelling, and punctuation that were not noted in checking the note before signing.
--- NOTE | 2020-09-03 12:36 | CASEMGMT ---
WILLY and RN HARDEEP Dawkins met with patient. Introduced selves and role at [facility]. SW asked patient about his situation. He said he was in a sober living house for 6 months. Then one day they told him he has been there for 6 months and he needs to leave. Per patient they never helped him find a place or anything. He was renting a room at a couple's home. They stayed in the basement. He said they did nothing to help him. They made their own food and went back to basement. They never helped him with anything. He said he probably could have laid on the floor for days and they wouldn't know, that is how much they paid attention to him. He said he can't even go to the kitchen to make himself anything. SW asked him to explain this. He said he gets dizzy and lightheaded and has to sit down. He said he has not been thinking clearly. He can't make decisions. He said he cannot care for himself. He can't manage his medications. He wants to go to a senior care to get his mind back on track and get stronger physically. He wanted to know if they will help him find a place. SW told him they will work with him, but SW cannot promise him they will find an apartment etc. He asked about his disability check. WILLY told him if he is at a SNF short term he will not lose his money, but if he stays fdc he will get a small amount of money, around $50 and the rest will go to the facility to care for him. SW gave patient a list of SNF providers including quality and resource use data and consistent with the patient?s preferred geographic region, medical needs, and insurance network. WILLY explained to him that the facilities that are highlighted in pink are the ones he has to choose from. SW told him the sooner he can let SW know the better as SW will have to work on making referrals. WILLY told him SW will check back a little later. Charito MELENDREZ
--- NOTE | 2020-09-03 13:17 | NT.THERAPY_ITS ---
Medical Nutrition Therapy - History Nutrition Services has been consulted to:: Manage nutrient details of diet order Current diet/nutrition support order:: NPO. Gl[facility] 120[facility] - Anthropometric Measurements Height:: 5 ft 9 in Weight:: 72.6 kg Body Mass Index (BMI):: 23.6 - Relevant Labs Relevant Labs:: WBC 12.4 K/mm3 (4.4-11.0) H 09/02/20 16:19 Hgb 12.7 g/dL (13.0-16.5) L 09/03/20 04:44 Hct 39.6 % (40-54) L 09/03/20 04:44 Plt Count 501 K/mm3 (150-450) H 09/03/20 04:44 Immature Gran % (Auto) 1.800 % (0.0-0.9) H 09/03/20 04:44 Neut % (Auto) 72.1 % (47-70) H 09/02/20 16:19 Lymph % (Auto) 15.5 % (19-41) L 09/02/20 16:19 Eos % (Auto) 6.2 % (0-5) H 09/03/20 04:44 Baso % (Auto) 2.0 % (0-1) H 09/03/20 04:44 Absolute Neuts (auto) 9.0 X10^3/uL (2.0-7.7) H 09/02/20 16:19 Sodium 131 mmol/L (136-145) L 09/03/20 04:44 Chloride 94 mmol/L (98-107) L 09/03/20 04:44 BUN 24 mg/dL (7-18) H 09/03/20 04:44 Creatinine 1.35 mg/dL (0.70-1.30) H 09/02/20 16:19 Est GFR (MDRD) Non-Af 57 mL/min (>60) L 09/02/20 16:19 BUN/Creatinine Ratio 24.7 RATIO (10-20) H 09/03/20 04:44 Glucose 321 mg/dL (74-106) H 09/03/20 04:44 Magnesium 1.4 mg/dL (1.6-2.6) L 09/02/20 16:19 AST 14 U/L (15-37) L 09/03/20 04:44 ALT 15 U/L (16-61) L 09/03/20 04:44 Alkaline Phosphatase 127 U/L (45-117) H 09/03/20 04:44 Albumin 2.8 g/dL (3.2-5.0) L 09/03/20 04:44 Globulin 4.4 g/dL (2.2-4.2) H 09/03/20 04:44 Albumin/Globulin Ratio 0.6 RATIO (0.9-2.4) L 09/03/20 04:44 - Assessment Food and Nutrient Intake: Pt reports that he lives alone at home and is unable to make food for himself because he can't stand for long periods of time. Reports that he has a good appetite. Pt reports that he doesn't check his BG levels because he is unable to take care of himself. Pt states I don't feel safe at home. States that he has lost weight unintentionally over 1 month. Pt's UBW is 178# and CBW is 160# representing 18#/10% weight loss in one month. - Nutrition Diagnosis: Clinical Problem Acute Disease or Injury Related Malnutrition Clinical Problem - Etiology: severe malnutrition in context of social/environmental circumstances r/t inadequate oral intake d/t inability to prepare own meals Clinical Problem - Signs/Symptoms: as evidenced by pt consuming </= 50% of estimated energy requirement x1 month, and unintended wt loss of 18#/10% x1 month. Status: Active Problem - Protein Calorie Malnutrition Evidence of Malnutrition Exists: Yes Severe Protein Calorie Malnutrition:: Social/Behavioral/Environmental - Nutrition Intervention Nutrition Prescription: 2,000-2,100kcal/day (RMR x 1.3). Protein 80-90g/day (1.2g/kg). Fluid 2,200-2,300mL/day (30mL/kg) - Food / Nutrient Delivery Interventions Nutrition support ordered as / adjusted to:: Advance diet to cardiac - consistent carbohydrate when medically appropriate. Continue glucerna 120mL PO 4x/day at [facility]. Coordination of Nutrition Care: Talked to case management about pt's expressed concern of not being able to take care of himself. Hopeful for SNF placement when ready for discharge. - MNT Monitoring Active Nutrition Patient: Yes Nutrition Status: Requires Follow Up 3-5 Days
--- NOTE | 2020-09-03 13:26 | CASEMGMT ---
WILLY went to ask patient if he decided which facility he would like. He then had a question about how to get a new license plate for his new car. WILLY told him it will probably have to wait until he leaves the long term since no one will be driving it. He said he prefers [facility]. WILLY told him he will probably be here awhile waiting for insurance etc. WILLY called Chantel with [facility] and made a referral as well as faxed referral. Charito MELENDREZ
--- NOTE | 2020-09-03 13:48 | CASEMGMT ---
MARIETTA CM in to complete MADRID form with patient. MARIETTA MEIER explained MADRID form, patient voiced understanding. Patient signed MADRID form and filed in chart. Patient provided with copy of signed MADRID form. Patient had no further questions or concerns at this time.
--- NOTE | 2020-09-03 16:21 | CHAPLAIN ---
Type of Pastoral Visit _x__ Initial Visit ___ Follow-up Visit ___ On-call Visit ___ General Patient Visit ___ Spiritual Assessment ___ Family Conference ___ Bereavement ___ Rapid Response ___ Code Blue ___ Other (describe below) Pastoral Care Referral From _x__ Patient ___ Family ___ Nurse ___ Physician ___ Hospital Pharmacy Technician ___ Fusing Furnace Loader ___ Other (describe below) Sacrament/Intervention _x__ Active listening ___ Anointing ___ Holiness ___ Bereavement ___ Communion ___ Eloise exploration ___ _x__ Life review _x__ Prayer ___ Reconciliation ___ Sacrament of Sick _x__ Supportive presence ___ Wedding ___ Other (describe below) Pastoral Comments patient makes his goal clear that he is unable to care for himself, that his living arrangement is not healthy, that he has no family, and that he wants therefore to go to SNF at least for a time until I can get on my feet and better again; pt states that he is not drinking alcohol anymore and that has been good; pt would like a Bible and one is provided to him
[2020-09-03 16:46] LABS: Bedside Glucose 375 mg/dL (70-110)
[2020-09-03] MEDS: 0.9% Saline Lock 10 ML Syringe IV (20:38)
[2020-09-03] MEDS: Mirtazapine 15 MG Tablet PO (21:20)
[2020-09-03] MEDS: Atorvastatin Calcium 40 MG Tablet PO (21:22)
[2020-09-03 21:46] LABS: Bedside Glucose 335 mg/dL (70-110)
--- NOTE | 2020-09-03 23:23 | CPS ---
Patient on Sleep Lab PAP machine. Settings AutoPAP with pressures min 7 max 20 with no oxygen added. Full Face Mask F20 used.
[2020-09-03] MEDS: Zolpidem Tartrate 5 MG Tablet PO (23:54)
[2020-09-03] MEDS: oxyCODONE 5 MG Tablet PO (23:54)
[2020-09-04] VITALS (14 sets, daily range): BP systolic 107–148; BP diastolic 61–80; PULSE 68–98; RESP 8–18; TEMP 36.6–36.9; O2SAT 92–98
[2020-09-04 05:14] LABS: Anion Gap 8 (5-15); BUN 19 mg/dL (7-18); BUN/Creat Ratio 22.4 RATIO (10-20); Calcium,Total 8.1 mg/dL (8.5-10.1); Chloride 102 mmol/L (98-107); Creatinine, Serum 0.85 mg/dL (0.70-1.30); EST Glomerular Filtration Rate 98 mL/min (>60); Est Glom Filt Rate - Afr Amer 119 mL/min (>60); Estimated Creatinine Clearance 93.57 ml/min; Glucose 81 mg/dL (74-106); Potassium 3.7 mmol/L (3.5-5.1); Sodium Level 134 mmol/L (136-145)
[2020-09-04] MEDS: busPIRone 15 MG TABLET PO ×3 (05:19→21:09)
[2020-09-04] MEDS: Insulin Lispro 100 UNIT/ML INSULN.PEN SC ×4 (08:07→21:11)
[2020-09-04] MEDS: Thiamine Hydrochloride 100 MG Tablet PO (08:09)
[2020-09-04] MEDS: Multivitamins,Therapeutic Tablet 1 TABLET PO (08:09)
[2020-09-04] MEDS: Aspirin E.C. 81 MG Tablet PO (08:09)
[2020-09-04] MEDS: Folic Acid 1 MG Tablet PO (08:09)
[2020-09-04] MEDS: oxyCODONE 5 MG Tablet PO ×2 (08:12→22:28)
[2020-09-04 09:35] LABS: Bedside Glucose 153 mg/dL (70-110)
[2020-09-04] MEDS: Pantoprazole Sodium 20 MG Tablet PO (09:50)
[2020-09-04] MEDS: Clopidogrel Bisulfate 75 MG Tablet PO (09:50)
[2020-09-04] MEDS: Venlafaxine XR 150 MG Capsule PO (09:50)
[2020-09-04] MEDS: amLODIPine 10 MG Tablet PO (09:50)
[2020-09-04] MEDS: Gabapentin 100 MG Capsule 200 MG PO ×2 (09:50→21:07)
[2020-09-04] MEDS: Insulin Human 75/25 Kwickpen 15 UNIT SC (09:51)
[2020-09-04] MEDS: Lisinopril 40 MG Tablet PO (09:51)
[2020-09-04] MEDS: Metoprolol Tartrate 25 MG Tablet PO ×2 (09:51→21:07)
[2020-09-04] MEDS: Enoxaparin 40 MG/0.4 ML Syringe SC (09:51)
[2020-09-04 11:15] LABS: Bedside Glucose 327 mg/dL (70-110)
[2020-09-04] MEDS: Morphine 2 MG/ML Syringe IV ×2 (11:15→20:45)
--- NOTE | 2020-09-04 12:27 | PCM.PN.HOSP ---
Documented by User: Wandy Weinberg NP, CENTRIFUGAL DRIER OPERATOR-C 09/04/20 12:32 Subjective Subjective Patient seen and examined. Reports right leg discomfort which he states he has intermittently at baseline. Denies other symptoms or complaints. Objective Data Objective Data Vital Signs: Vital Signs Temp Pulse Resp BP Pulse Ox 97.8 F 98 18 148/80 H 97 09/04/20 09:49 09/04/20 09:51 09/04/20 09:49 09/04/20 09:49 09/04/20 09:49 Oxygen Delivery Method Room Air Weight: 159 lb 9.835 oz Body Mass Index (BMI) 23.6 Intake & Output: Intake and Output for Last 24 Hours 09/02/20 09/03/20 09/04/20 23:59 23:59 23:59 Intake Total 734.77 / 734.77 2885.92 / 2885.92 Balance 734.77 / 734.77 2885.92 / 2885.92 Lab / Micro Data Result Diagrams: 09/03/20 04:44 09/04/20 03:50 Labs: Laboratory Results - last 24 hr 09/03/20 09/03/20 09/04/20 16:39 21:18 03:50 Sodium 134 L Potassium 3.7 Chloride 102 Carbon Dioxide 24.0 Anion Gap 8 BUN 19 H Creatinine 0.85 Estim Creat Clear Calc 93.57 Est GFR (MDRD) Af Amer 119 Est GFR (MDRD) Non-Af 98 BUN/Creatinine Ratio 22.4 H Glucose 81 Calcium 8.1 L POC Glucose 375 H 335 H 09/04/20 09/04/20 08:06 11:07 Sodium Potassium Chloride Carbon Dioxide Anion Gap BUN Creatinine Estim Creat Clear Calc Est GFR (MDRD) Af Amer Est GFR (MDRD) Non-Af BUN/Creatinine Ratio Glucose Calcium POC Glucose 153 H 327 H Physical Exam Const alert, oriented x3 and no apparent distress Orientation / Consciousness: awake, oriented to person, oriented to place and oriented to time HEENT normocephalic and moist oral mucous membranes Eyes PERRL, EOMs intact bilaterally and conjunctivae normal Neck no lymphadenopathy Resp normal respiratory effort and clear to auscultation bilaterally Cardio regular rate, regular rhythm and no murmurs Peripheral Pulses: pulses 2+ throughout GI normal to inspection, nondistended, normoactive bowel sounds, non-tender and non-distended Extremity normal to inspection Skin no rashes or lesions noted Lesions: no lesions Rashes: no rashes Trauma: no lacerations or abrasions Neuro CN's II-XII intact bilaterally, no focal motor deficits, no sensory deficits noted and deep tendon reflexes 2+ bilaterally Psych mental status grossly normal and affect normal Assessment & Plan Assessment/Plan (1) Chest pain: QUALIFIERS: Chest pain type: unspecified Qualified Code(s): R07.9 - Chest pain, unspecified PLAN: 1. Atypical chest pain, ACS ruled out-troponin negative. Patient underwent nuclear stress test which was negative for ischemia. 2. Adult failure to thrive-patient requesting SNF. Awaiting pre-cert/acceptance. PT/OT. 3. Chronic hyponatremia- Improved from prior. 4. Acute kidney injury-suspect secondary to poor oral intake. ALEJANDRO resolved. 5. [facility] of [facility] dependence- [facility] Encouraged cessation/continued follow up. 6. CAD with history of PCI-continue aspirin, Plavix, statin, beta-haydee. 7. Type 2 diabetes mellitus-continue home insulin regimen. Accu-Cheks with sliding scale insulin. Increased insulin dosing. 8. Hypertension-stable, continue amlodipine, metoprolol, lisinopril. 9. Hyperlipidemia-continue statin 10. Anxiety/depression-on buspirone, mirtazapine, venlafaxine. 11. GERD-on PPI. 12. ECTOR-continue home CPAP regimen. 13. Tobacco dependence-encouraged cessation. Nicotine replacement patch. DVT prophylaxis-Lovenox subcu. Discharge planning: Await SNF acceptance. This patient was seen by JERRI Dumont under the supervision of Dr. Whitt. Documented by User: Dr. Vale Whitt MD 09/04/20 16:17 Objective Data Lab / Micro Data Result Diagrams: 09/03/20 04:44 09/04/20 03:50 Charges/Coding Addendum Addendum: Patient seen by Wandy GUTHRIE under my supervision Patient seen and examined. He has no complaints this morning but states he does not feel he will be able to go home because he is too weak and unable to take care of himself. He also states his housemates use a lot of drugs and so he is not comfortable in the house with them. Review of systems is otherwise negative. O/E: Const alert, oriented x3 and no apparent distress Orientation / Consciousness: awake, oriented to person, oriented to place and oriented to time HEENT normocephalic and moist oral mucous membranes Eyes PERRL, EOMs intact bilaterally and conjunctivae normal Neck no lymphadenopathy Resp normal respiratory effort and clear to auscultation bilaterally Cardio regular rate, regular rhythm and no murmurs Peripheral Pulses: pulses 2+ throughout GI normal to inspection, nondistended, normoactive bowel sounds, non-tender and non-distended Extremity normal to inspection Skin no rashes or lesions noted Lesions: no lesions Rashes: no rashes Trauma: no lacerations or abrasions Neuro CN's II-XII intact bilaterally, no focal motor deficits, no sensory deficits noted and deep tendon reflexes 2+ bilaterally Psych mental status grossly normal and affect normal Stress test was negative for any evidence of stress induced ischemia. Continue amlodipine, metoprolol and lisinopril. Patient awaiting placement in SNF, pending precert. Lovenox for DVT prophylaxis. Rest as per Wandy GUTHRIE's note, which I have reviewed and endorsed. Visit Charges Inpatient E&M: 20000 Subs Hosp L2
--- NOTE | 2020-09-04 12:36 | CASEMGMT ---
[facility] can take patient. SW completed PASRR for patient as he is observation status. He tripped the screen as he has had emergency mental health services in the last 2 years. Therefore SW has to fax clinicals to [facility] to get approval to send him to a penitentiary. This is in place by the [facility] in order to prevent patient's being sent to nursing homes just because they have a mental illness. WILLY faxed all information to [facility] ([phone] and [phone]). WILLY also called and notified them that faxed information for review. Plan: [place] pending insurance approval and approval by [facility] and the state. Charito MELENDREZ
--- NOTE | 2020-09-04 15:45 | CASEMGMT ---
WILLY received a message from Stefanie with [facility] and they did receive WILLY's paperwork for patient. WILLY let patient know that [facility] can take him. WILLY explained he will be here a little while we wait on insurance and some other paperwork. Plan: [facility] under intermediate level of care pending pre-cert and the [facility]'s approval. Charito Adames ROVING TELLER SENIOR HOUSEKEEPER
[2020-09-04 16:46] LABS: Bedside Glucose 257 mg/dL (70-110)
[2020-09-04] MEDS: Atorvastatin Calcium 40 MG Tablet PO (21:07)
[2020-09-04] MEDS: Mirtazapine 15 MG Tablet PO (21:07)
[2020-09-04] MEDS: Insulin Human 75/25 Kwickpen 25 UNIT SC (21:12)
[2020-09-04 21:21] LABS: Bedside Glucose 214 mg/dL (70-110)
[2020-09-05] VITALS (12 sets, daily range): BP systolic 127–146; BP diastolic 74–84; PULSE 71–93; RESP 14–18; TEMP 36.6–36.7; O2SAT 94–100
--- NOTE | 2020-09-05 00:35 | CPS ---
Sleep lab's AutoPAP; Max P = 20 & Min P = 7
[2020-09-05] MEDS: busPIRone 15 MG TABLET PO ×3 (05:55→21:31)
[2020-09-05 07:10] LABS: Bedside Glucose 136 mg/dL (70-110)
[2020-09-05] MEDS: oxyCODONE 5 MG Tablet PO ×2 (09:29→19:36)
[2020-09-05] MEDS: Metoprolol Tartrate 25 MG Tablet PO ×2 (09:30→21:30)
[2020-09-05] MEDS: Thiamine Hydrochloride 100 MG Tablet PO (09:30)
[2020-09-05] MEDS: Lisinopril 40 MG Tablet PO (09:30)
[2020-09-05] MEDS: Gabapentin 100 MG Capsule 200 MG PO ×2 (09:30→21:30)
[2020-09-05] MEDS: Pantoprazole Sodium 20 MG Tablet PO (09:30)
[2020-09-05] MEDS: Folic Acid 1 MG Tablet PO (09:31)
[2020-09-05] MEDS: Aspirin E.C. 81 MG Tablet PO (09:31)
[2020-09-05] MEDS: Multivitamins,Therapeutic Tablet 1 TABLET PO (09:31)
[2020-09-05] MEDS: amLODIPine 10 MG Tablet PO (09:31)
[2020-09-05] MEDS: Enoxaparin 40 MG/0.4 ML Syringe SC (09:32)
[2020-09-05] MEDS: Clopidogrel Bisulfate 75 MG Tablet PO (09:32)
[2020-09-05] MEDS: Venlafaxine XR 150 MG Capsule PO (09:32)
[2020-09-05] MEDS: Insulin Human 75/25 Kwickpen 25 UNIT SC ×2 (09:33→21:33)
[2020-09-05] MEDS: Insulin Lispro 100 UNIT/ML INSULN.PEN SC ×2 (11:38→21:33)
[2020-09-05 12:00] LABS: Bedside Glucose 277 mg/dL (70-110)
--- NOTE | 2020-09-05 12:11 | PN.HOSP_ITS ---
Documented by User: Wandy Weinberg NP, ICE CREAM MAKER-C 09/05/20 12:13 Subjective Subjective Patient seen and examined. No acute events overnight. Denies current symptoms or complaints. Objective Data Objective Data Vital Signs: Vital Signs Temp Pulse Resp BP Pulse Ox 97.9 F 87 14 146/79 H 98 09/05/20 09:22 09/05/20 09:30 09/05/20 09:22 09/05/20 09:22 09/05/20 09:22 Oxygen Delivery Method Room Air Weight: 163 lb 12.8 oz Body Mass Index (BMI) 23.6 Intake & Output: Intake and Output for Last 24 Hours 09/03/20 09/04/20 09/05/20 23:59 23:59 23:59 Intake Total 2885.92 / 2885.92 1200 / 1200 400 / 400 Balance 2885.92 / 2885.92 1200 / 1200 400 / 400 Lab / Micro Data Result Diagrams: 09/03/20 04:44 09/04/20 03:50 Labs: Laboratory Results - last 24 hr 09/04/20 09/04/20 09/05/20 16:36 21:11 07:05 POC Glucose 257 H 214 H 136 H 09/05/20 11:37 POC Glucose 277 H Physical Exam Const alert, oriented x3 and no apparent distress Orientation / Consciousness: awake, oriented to person, oriented to place and oriented to time HEENT normocephalic and moist oral mucous membranes Eyes PERRL, EOMs intact bilaterally and conjunctivae normal Neck no lymphadenopathy Resp normal respiratory effort and clear to auscultation bilaterally Cardio regular rate, regular rhythm and no murmurs Peripheral Pulses: pulses 2+ throughout GI normal to inspection, nondistended, normoactive bowel sounds, non-tender and non-distended Extremity normal to inspection Skin no rashes or lesions noted Lesions: no lesions Rashes: no rashes Trauma: no lacerations or abrasions Neuro CN's II-XII intact bilaterally, no focal motor deficits, no sensory deficits noted and deep tendon reflexes 2+ bilaterally Psych mental status grossly normal and affect normal Assessment & Plan Assessment/Plan (1) Chest pain: QUALIFIERS: Chest pain type: unspecified Qualified Code(s): R07.9 - Chest pain, unspecified PLAN: 1. Atypical chest pain, ACS ruled out-troponin negative. Patient underwent nuclear stress test which was negative for ischemia. 2. Adult failure to thrive-patient requesting SNF. Awaiting pre- cert/acceptance. PT/OT. 3. Chronic hyponatremia- Improved from prior. 4. Acute kidney injury-suspect secondary to poor oral intake. ALEJANDRO resolved. 5. History of alcohol dependence- follows with [facility]. Encouraged javy sation/continued follow up. 6. CAD with history of PCI-continue aspirin, Plavix, statin, beta-haydee. 7. Type 2 diabetes mellitus-continue home insulin regimen. Accu-Cheks with sliding scale insulin. Glucose improved with increased insulin dosing. 8. Hypertension-stable, continue amlodipine, metoprolol, lisinopril. 9. Hyperlipidemia-continue statin 10. Anxiety/depression-on buspirone, mirtazapine, venlafaxine. 11. GERD-on PPI. 12. ECTOR-continue home CPAP regimen. 13. Tobacco dependence-encouraged cessation. Nicotine replacement patch. DVT prophylaxis-Lovenox subcu. Discharge planning: Await SNF acceptance. This patient was seen by JERRI Dumont under the supervision of Dr. Mike. Documented by User: Dr. Ramírez Mike MD 09/05/20 14:57 Objective Data Lab / Micro Data Result Diagrams: 09/03/20 04:44 09/04/20 03:50 Charges/Coding Addendum Addendum: Dr. Mike: I personally reviewed the chart and examined the patient, and agree with the above findings. 60-year-old male presents with dizziness and weakness from home and and inability to care for himself. He currently remained stable and all of his symptoms have resolved however he is awaiting SNF placement. Visit Charges OBSV E&M: 09107 Subsequent observation care L2
[2020-09-05 18:26] LABS: Bedside Glucose 77 mg/dL (70-110)
[2020-09-05] MEDS: Mirtazapine 15 MG Tablet PO (21:30)
[2020-09-05] MEDS: Atorvastatin Calcium 40 MG Tablet PO (21:30)
[2020-09-05 21:40] LABS: Bedside Glucose 197 mg/dL (70-110)
[2020-09-06] VITALS (11 sets, daily range): BP systolic 107–165; BP diastolic 58–83; PULSE 71–93; RESP 14–18; TEMP 36.4–37; O2SAT 97–98
[2020-09-06] MEDS: busPIRone 15 MG TABLET PO ×3 (06:26→22:16)
[2020-09-06 07:46] LABS: Bedside Glucose 119 mg/dL (70-110)
[2020-09-06] MEDS: Clopidogrel Bisulfate 75 MG Tablet PO (09:55)
[2020-09-06] MEDS: Venlafaxine XR 150 MG Capsule PO (09:55)
[2020-09-06] MEDS: amLODIPine 10 MG Tablet PO (09:55)
[2020-09-06] MEDS: Pantoprazole Sodium 20 MG Tablet PO (09:56)
[2020-09-06] MEDS: Metoprolol Tartrate 25 MG Tablet PO ×2 (09:56→22:13)
[2020-09-06] MEDS: Aspirin E.C. 81 MG Tablet PO (09:56)
[2020-09-06] MEDS: Gabapentin 100 MG Capsule 200 MG PO ×2 (09:56→22:13)
[2020-09-06] MEDS: Lisinopril 40 MG Tablet PO (09:56)
[2020-09-06] MEDS: Multivitamins,Therapeutic Tablet 1 TABLET PO (09:57)
[2020-09-06] MEDS: Folic Acid 1 MG Tablet PO (09:57)
[2020-09-06] MEDS: Thiamine Hydrochloride 100 MG Tablet PO (09:57)
[2020-09-06] MEDS: Enoxaparin 40 MG/0.4 ML Syringe SC (09:58)
[2020-09-06] MEDS: Insulin Human 75/25 Kwickpen 25 UNIT SC ×2 (09:58→22:12)
[2020-09-06] MEDS: oxyCODONE 5 MG Tablet PO ×3 (10:05→22:16)
[2020-09-06] MEDS: Insulin Lispro 100 UNIT/ML INSULN.PEN SC ×3 (12:20→22:12)
[2020-09-06 12:25] LABS: Bedside Glucose 354 mg/dL (70-110)
--- NOTE | 2020-09-06 13:03 | PCM.PN.HOSP ---
Documented by User: Wandy Weinberg NP, RAILROAD YARD WORKER-C 09/06/20 13:08 Subjective Subjective Subjective: Patient seen and examined. No acute events overnight. Denies chest pain. Awaiting placement. Physical Exam Const alert, oriented x3 and no apparent distress Orientation / Consciousness: awake, oriented to person, oriented to place and oriented to time HEENT normocephalic and moist oral mucous membranes Eyes PERRL, EOMs intact bilaterally and conjunctivae normal Neck no lymphadenopathy Resp normal respiratory effort and clear to auscultation bilaterally Cardio regular rate, regular rhythm and no murmurs Peripheral Pulses: pulses 2+ throughout GI normal to inspection, nondistended, normoactive bowel sounds, non-tender and non-distended Extremity normal to inspection Skin no rashes or lesions noted Lesions: no lesions Rashes: no rashes Trauma: no lacerations or abrasions Neuro CN's II-XII intact bilaterally, no focal motor deficits, no sensory deficits noted and deep tendon reflexes 2+ bilaterally Psych mental status grossly normal and affect normal Assessment & Plan (1) Chest pain: QUALIFIERS: Chest pain type: unspecified Qualified Code(s): R07.9 - Chest pain, unspecified PLAN: 1. Atypical chest pain, ACS ruled out-troponin negative. Patient underwent nuclear stress test which was negative for ischemia. 2. Adult failure to thrive-patient requesting SNF. Awaiting pre-cert/acceptance. PT/OT. 3. Chronic hyponatremia- Improved from prior. 4. Acute kidney injury-suspect secondary to poor oral intake. ALEJANDRO resolved. 5. History of alcohol dependence- follows with [facility]. Encouraged cessation/continued follow up. 6. CAD with history of PCI-continue aspirin, Plavix, statin, beta-haydee. 7. Type 2 diabetes mellitus-continue home insulin regimen. Accu-Cheks with sliding scale insulin. Glucose improved with increased insulin dosing. 8. Hypertension-stable, continue amlodipine, metoprolol, lisinopril. 9. Hyperlipidemia-continue statin 10. Anxiety/depression-on buspirone, mirtazapine, venlafaxine. 11. GERD-on PPI. 12. ECTOR-continue home CPAP regimen. 13. Tobacco dependence-encouraged cessation. Nicotine replacement patch. DVT prophylaxis-Lovenox subcu. Discharge planning: Await SNF acceptance. This patient was seen by Wandy Weinberg NP-C under the supervision of Dr. Mike. Objective Data Objective Data Vital Signs: Vital Signs Temp Pulse Resp BP Pulse Ox 97.6 F L 85 16 165/83 H 98 09/06/20 09:53 09/06/20 09:56 09/06/20 09:53 09/06/20 09:53 09/06/20 09:53 Oxygen Delivery Method Room Air Weight: 163 lb 12.8 oz Body Mass Index (BMI) 23.6 Intake & Output: Intake and Output for Last 24 Hours 09/04/20 09/05/20 09/06/20 23:59 23:59 23:59 Intake Total 1200 / 1200 400 / 600 200 / 200 Balance 1200 / 1200 400 / 600 200 / 200 Lab / Micro Data Result Diagrams: 09/03/20 04:44 09/04/20 03:50 Labs: Laboratory Results - last 24 hr 09/05/20 09/05/20 09/06/20 18:18 21:29 06:24 POC Glucose 77 197 H 119 H 09/06/20 12:19 POC Glucose 354 H Documented by User: Dr. Ramírez Mike MD 09/06/20 18:05 Objective Data Lab / Micro Data Result Diagrams: 09/03/20 04:44 09/04/20 03:50 Charges/Coding Addendum Addendum: Dr. Mike: I personally reviewed the chart and examined the patient, and agree with the above findings. 60-year-old male presents with dizziness and weakness from home and and inability to care for himself. He currently remained stable and all of his symptoms have resolved however he is awaiting SNF placement. 09/06/2020: Doing well, reports resolution in his symptoms however awaiting pre-CERT for SNF placement for continued rehab. He states that he is still unable to take care of himself at home and has inability to complete ADLs. Visit Charges OBSV E&M: 14219 Subsequent observation care L2
[2020-09-06 17:31] LABS: Bedside Glucose 185 mg/dL (70-110)
[2020-09-06] MEDS: Mirtazapine 15 MG Tablet PO (22:13)
[2020-09-06] MEDS: Atorvastatin Calcium 40 MG Tablet PO (22:13)
[2020-09-06 22:45] LABS: Bedside Glucose 249 mg/dL (70-110)
[2020-09-07] VITALS (10 sets, daily range): BP systolic 129–153; BP diastolic 65–82; PULSE 68–87; RESP 16–20; TEMP 36.3–37; O2SAT 97–100
[2020-09-07 00:56] LABS: Bedside Glucose 40 mg/dL (70-110)
[2020-09-07 01:10] LABS: Bedside Glucose 43 mg/dL (70-110)
[2020-09-07 01:20] LABS: Bedside Glucose 54 mg/dL (70-110)
--- NOTE | 2020-09-07 01:24 | NURSING ---
Addendum entered by Elisabethisidro Irene 09/07/20 02:11: Upon rechecking blood sugar before giving ordered x1 amp of D50, it was 154. Per , okay to hold amp for now. MARIETTA Milligan. Original Note: SUBSTANCE ABUSE PREVENTION COORDINATOR informed this RN that pt was up to the bathroom and requesting his blood sugar to be checked. Upon arrival to room, pt was on the toilet, extremely sweaty and shaky. This RN and SUBSTANCE ABUSE PREVENTION COORDINATOR assisted him back to bed and checked his blood sugar, which was 40 at 0050. Juice given, as well as PB&J sandwich and milk. Texted Dr. Jordan to call this RN when available. Rechecked blood sugar at 0105 and it was 43. More juice given. Rechecked at 0110, blood sugar was 54. Spoke w/ and obtained orders for PRN D50 and to give one amp now. Hypoglycemic protocol order set placed per Dr. Jordan. MARIETTA Milligan.
[2020-09-07 01:36] LABS: Bedside Glucose 154 mg/dL (70-110)
[2020-09-07 04:21] LABS: Bedside Glucose 187 mg/dL (70-110)
[2020-09-07] MEDS: 0.9% Saline Lock 10 ML Syringe IV ×2 (06:05→09:28)
[2020-09-07] MEDS: busPIRone 15 MG TABLET PO ×3 (06:05→21:15)
[2020-09-07] MEDS: Insulin Lispro 100 UNIT/ML INSULN.PEN SC ×4 (06:39→21:16)
[2020-09-07 07:00] LABS: Bedside Glucose 237 mg/dL (70-110)
[2020-09-07] MEDS: Glucerna Shake 120 ML LIQUID PO (09:23)
[2020-09-07] MEDS: Aspirin E.C. 81 MG Tablet PO (09:23)
[2020-09-07] MEDS: Folic Acid 1 MG Tablet PO (09:23)
[2020-09-07] MEDS: Multivitamins,Therapeutic Tablet 1 TABLET PO (09:24)
[2020-09-07] MEDS: Thiamine Hydrochloride 100 MG Tablet PO (09:24)
[2020-09-07] MEDS: Metoprolol Tartrate 25 MG Tablet PO ×2 (09:25→21:17)
[2020-09-07] MEDS: Enoxaparin 40 MG/0.4 ML Syringe SC (09:25)
[2020-09-07] MEDS: Venlafaxine XR 150 MG Capsule PO (09:25)
[2020-09-07] MEDS: Clopidogrel Bisulfate 75 MG Tablet PO (09:26)
[2020-09-07] MEDS: Pantoprazole Sodium 20 MG Tablet PO (09:26)
[2020-09-07] MEDS: amLODIPine 10 MG Tablet PO (09:26)
[2020-09-07] MEDS: Lisinopril 40 MG Tablet PO (09:26)
[2020-09-07] MEDS: Gabapentin 100 MG Capsule 200 MG PO ×2 (09:26→21:17)
[2020-09-07] MEDS: oxyCODONE 5 MG Tablet PO ×3 (09:27→21:22)
[2020-09-07] MEDS: Magnesium Hydroxide 30 ML UDC PO (09:28)
--- NOTE | 2020-09-07 11:23 | PN.HOSP_ITS ---
Documented by User: Wandy Weinberg NP, COLOR DIPPER-C 09/07/20 11:34 Hospitalist Note Subjective: Patient seen and examined. Reports right hip pain which radiates down his right leg. States he had a fall recently onto his right side prior to admission. Able to bear weight on right lower extremity. Denies chest pain. Denies other symptoms or complaints. Objective: Labs and vitals reviewed. Unremarkable. Right hip x-ray ordered, pending. Physical Exam: Const alert, oriented x3 and no apparent distress Orientation / Consciousness: awake, oriented to person, oriented to place and oriented to time HEENT normocephalic and moist oral mucous membranes Eyes PERRL, EOMs intact bilaterally and conjunctivae normal Neck no lymphadenopathy Resp normal respiratory effort and clear to auscultation bilaterally Cardio regular rate, regular rhythm and no murmurs Peripheral Pulses: pulses 2+ throughout GI normal to inspection, nondistended, normoactive bowel sounds, non-tender and non-distended Extremity normal to inspection Skin no rashes or lesions noted Lesions: no lesions Rashes: no rashes Trauma: no lacerations or abrasions Neuro CN's II-XII intact bilaterally, no focal motor deficits, no sensory deficits noted and deep tendon reflexes 2+ bilaterally Psych mental status grossly normal and affect normal Assessment & Plan Chest pain type: unspecified Qualified Code(s): R07.9 - Chest pain, unspecified PLAN: 1. Atypical chest pain, ACS ruled out-troponin negative. Patient underwent nuclear stress test which was negative for ischemia. 2. Adult failure to thrive-patient requesting SNF. Awaiting pre- cert/acceptance. PT/OT. 3. Chronic hyponatremia- Improved from prior. 4. Acute kidney injury-suspect secondary to poor oral intake. ALEJANDRO resolved. 5. History of alcohol dependence- follows with [facility]. Encouraged cessati on/continued follow up. 6. CAD with history of PCI-continue aspirin, Plavix, statin, beta-haydee. 7. Type 2 diabetes mellitus-continue home insulin regimen. Accu-Cheks with sliding scale insulin. Glucose improved with increased insulin dosing. 8. Hypertension-stable, continue amlodipine, metoprolol, lisinopril. 9. Hyperlipidemia-continue statin 10. Anxiety/depression-on buspirone, mirtazapine, venlafaxine. 11. GERD-on PPI. 12. ECTOR-continue home CPAP regimen. 13. Tobacco dependence-encouraged cessation. Nicotine replacement patch. DVT prophylaxis-Lovenox subcu. Discharge planning: Await SNF acceptance. This patient was seen by JERRI Dumont under the supervision of Dr. Mike. Documented by User: Dr. Ramírez Mike MD 09/07/20 17:19 Addendum Addendum: Dr. Mike: I personally reviewed the chart and examined the patient, and agree with the above findings. 60-year-old male presents with dizziness and weakness from home and and inability to care for himself. He currently remained stable and all of his symptoms have resolved however he is awaiting SNF placement. 09/06/2020: Doing well, reports resolution in his symptoms however awaiting pre- CERT for SNF placement for continued rehab. He states that he is still unable to take care of himself at home and has inability to complete ADLs. 09/07/2020: Had a complaint of right hip pain imaging was unremarkable. Continue with PT/OT and pre-CERT for SNF placement. Visit Charges OBSV E&M: 88367 Subsequent observation care L2
--- NOTE | 2020-09-07 11:25 | RAD_ITS ---
STUDY: X-RAY - PELVIS AND RIGHT HIP REASON FOR EXAM: Male, 60 years old. right hip pain, recent fall TECHNIQUE: 3 views of the pelvis and hip. COMPARISON: None. FINDINGS: No acute fracture, dislocation or osseous destruction. Mild degenerative changes at the hips and pelvis. Stable right femoral neck bone island. Greater trochanteric calcific peritendinitis. Vascular calcifications. RAD/Hip Min 2 Views (Portable) IMPRESSION: Right hip and pelvis intact Electronically Signed: Royal Jurado DO at 12:23 EDT Tel , Service support ,
[2020-09-07 12:05] LABS: Bedside Glucose 314 mg/dL (70-110)
--- NOTE | 2020-09-07 17:05 | CHAPLAIN ---
Type of Pastoral Visit ___ Initial Visit _x__ Follow-up Visit ___ On-call Visit ___ General Patient Visit ___ Spiritual Assessment ___ Family Conference ___ Bereavement ___ Rapid Response ___ Code Blue ___ Other (describe below) Pastoral Care Referral From _x__ Patient ___ Family ___ Nurse ___ Physician ___ Investment Specialist ___ School Cafeteria Cook ___ Other (describe below) Sacrament/Intervention _x__ Active listening ___ Anointing ___ Sabianism ___ Bereavement ___ Communion ___ Eloise exploration ___ ___ Life review _x__ Prayer ___ Reconciliation ___ Sacrament of Sick ___ Supportive presence ___ Wedding ___ Other (describe below) Pastoral Comments patient gives update on his care plan;
[2020-09-07 17:56] LABS: Bedside Glucose 294 mg/dL (70-110)
[2020-09-07] MEDS: Insulin Human 75/25 Kwickpen 15 UNIT SC (21:16)
[2020-09-07] MEDS: Atorvastatin Calcium 40 MG Tablet PO (21:17)
[2020-09-07] MEDS: Mirtazapine 15 MG Tablet PO (21:17)
[2020-09-07] MEDS: Acetaminophen 325 MG Tablet 650 MG PO (21:22)
[2020-09-07 21:31] LABS: Bedside Glucose 244 mg/dL (70-110)
[2020-09-08] VITALS (14 sets, daily range): BP systolic 102–158; BP diastolic 55–79; PULSE 65–89; RESP 16–18; TEMP 36.3–36.8; O2SAT 94–100
[2020-09-08] MEDS: busPIRone 15 MG TABLET PO ×3 (05:20→21:22)
[2020-09-08] MEDS: oxyCODONE 5 MG Tablet PO ×2 (05:22→14:51)
[2020-09-08] MEDS: Acetaminophen 325 MG Tablet 650 MG PO (05:22)
[2020-09-08] MEDS: Senna/Docusate Sodium 1 Tablet 2 TABLET PO (05:23)
[2020-09-08] MEDS: Insulin Lispro 100 UNIT/ML INSULN.PEN SC ×4 (06:46→22:32)
[2020-09-08 06:51] LABS: Bedside Glucose 181 mg/dL (70-110)
[2020-09-08 06:54] LABS: Absolute Lymphocyte Count 2.21 X10^3/uL (0.83-4.51); Absolute Neutrophil Count 3.1 X10^3/uL (2.0-7.7); Basophil# 0.09 X10^3/uL; Basophil% 1.4 % (0-1); Eosinophil# 0.57 X10^3/uL; Eosinophils% 8.8 % (0-5); Hematocrit 38.9 % (40-54); Hemoglobin 12.3 g/dL (13.0-16.5); Lymphocyte # 2.21 X10^3/ul (0.83-4.51); Lymphocyte % 34.1 % (19-41); Mean Corp Hgb Conc 31.6 g/dL (32-36); Mean Corpuscular Hgb 27.6 pg (27.0-32.0); Mean Corpuscular Volume 87.2 fL (80-94); Monocyte# 0.46 X10^3/uL; Monocyte% 7.1 % (0-10); NRBC Flagged by Analyzer 0 % (0-5); Neutrophil # 3.07 X10^3/uL (2.7-7.7); Neutrophil % 47.4 % (47-70); Platelet Count 309 K/mm3 (150-450); RBC Distribution Width CV 14.6 % (11.6-14.6); RBC Distribution Width SD 45.9 fl (35.1-43.9); Red Blood Count 4.46 M/mm3 (4.6-6.2); White Blood Count 6.5 K/mm3 (4.4-11.0)
[2020-09-08 07:20] LABS: Anion Gap 4 (5-15); BUN 22 mg/dL (7-18); BUN/Creat Ratio 23.7 RATIO (10-20); Calcium,Total 8.5 mg/dL (8.5-10.1); Chloride 103 mmol/L (98-107); Creatinine, Serum 0.93 mg/dL (0.70-1.30); EST Glomerular Filtration Rate 88 mL/min (>60); Est Glom Filt Rate - Afr Amer 107 mL/min (>60); Estimated Creatinine Clearance 85.52 ml/min; Glucose 176 mg/dL (74-106); Potassium 4.2 mmol/L (3.5-5.1); Sodium Level 134 mmol/L (136-145)
--- NOTE | 2020-09-08 10:00 | NURSING ---
Patient yelling at staff regarding limited diet. Spoke to patient regarding not yelling at staff and being kind. Informed him that his diet was changed to regular diet.
[2020-09-08] MEDS: amLODIPine 10 MG Tablet PO (10:09)
[2020-09-08] MEDS: Pantoprazole Sodium 20 MG Tablet PO (10:10)
[2020-09-08] MEDS: Folic Acid 1 MG Tablet PO (10:10)
[2020-09-08] MEDS: Lisinopril 40 MG Tablet PO (10:10)
[2020-09-08] MEDS: Multivitamins,Therapeutic Tablet 1 TABLET PO (10:10)
[2020-09-08] MEDS: Venlafaxine XR 150 MG Capsule PO (10:10)
[2020-09-08] MEDS: Aspirin E.C. 81 MG Tablet PO (10:10)
[2020-09-08] MEDS: Clopidogrel Bisulfate 75 MG Tablet PO (10:10)
[2020-09-08] MEDS: Thiamine Hydrochloride 100 MG Tablet PO (10:10)
[2020-09-08] MEDS: Metoprolol Tartrate 25 MG Tablet PO ×2 (10:10→21:23)
[2020-09-08] MEDS: Gabapentin 100 MG Capsule 200 MG PO ×2 (10:10→21:22)
[2020-09-08] MEDS: Enoxaparin 40 MG/0.4 ML Syringe SC (10:14)
--- NOTE | 2020-09-08 10:53 | CASEMGMT ---
SW checked the [employer] system, no results have been processed yet for pt. SW spoke w/Chantel at [facility], she states his insurance takes about a day to get precert. WILLY will send updates when appropriate, it is not anticipated we will hear back from [facility] today, will send updates and have [facility] start precert closer to when we anticipate results back from the further review w/Edgardo. KARLI Mora
--- NOTE | 2020-09-08 11:29 | PN.HOSP_ITS ---
Documented by User: Wandy Weinberg NP, FOUNTAIN WAITRESS/WAITER-C 09/08/20 11:35 Subjective Subjective Patient seen and examined. Persistently yelling at staff this morning. Upset that his diet was changed to a carb control diet. Patient has a meal tray in front of him however states he is not being fed. Objective Data Objective Data Vital Signs: Vital Signs Temp Pulse Resp BP Pulse Ox 97.6 F L 88 18 158/64 H 100 09/08/20 08:55 09/08/20 10:10 09/08/20 08:55 09/08/20 10:10 09/08/20 08:55 Oxygen Delivery Method Room Air Weight: 166 lb 3.657 oz Body Mass Index (BMI) 23.6 Intake & Output: Intake and Output for Last 24 Hours 09/06/20 09/07/20 09/08/20 23:59 23:59 23:59 Intake Total 200 / 440 1640 / 1840 260 / 260 Balance 200 / 440 1640 / 1840 260 / 260 Lab / Micro Data Result Diagrams: 09/08/20 06:07 09/08/20 06:07 Labs: Laboratory Results - last 24 hr 09/07/20 09/07/20 09/07/20 11:56 17:45 21:14 WBC RBC Hgb Hct MCV MCH MCHC RDW Std Deviation RDW Coeff of Kaye Plt Count MPV Immature Gran % (Auto) Neut % (Auto) Lymph % (Auto) [place] % (Auto) Eos % (Auto) Baso % (Auto) Absolute Neuts (auto) Absolute Lymphs (auto) Nucleated RBC % Sodium Potassium Chloride Carbon Dioxide Anion Gap BUN Creatinine Estim Creat Clear Calc Est GFR (MDRD) Af Amer Est GFR (MDRD) Non-Af BUN/Creatinine Ratio Glucose Calcium POC Glucose 314 H 294 H 244 H 09/08/20 09/08/20 09/08/20 06:07 06:07 06:45 WBC 6.5 RBC 4.46 L Hgb 12.3 L Hct 38.9 L MCV 87.2 MCH 27.6 MCHC 31.6 L RDW Std Deviation 45.9 H RDW Coeff of Kaye 14.6 Plt Count 309 MPV 9.0 Immature Gran % (Auto) 1.200 H Neut % (Auto) 47.4 Lymph % (Auto) 34.1 [place] % (Auto) 7.1 Eos % (Auto) 8.8 H Baso % (Auto) 1.4 H Absolute Neuts (auto) 3.1 Absolute Lymphs (auto) 2.21 Nucleated RBC % 0 Sodium 134 L Potassium 4.2 Chloride 103 Carbon Dioxide 27.0 Anion Gap 4 L BUN 22 H Creatinine 0.93 Estim Creat Clear Calc 85.52 Est GFR (MDRD) Af Amer 107 Est GFR (MDRD) Non-Af 88 BUN/Creatinine Ratio 23.7 H Glucose 176 H Calcium 8.5 POC Glucose 181 H Radiography Diagnostic Testing: Radiology Impression Hip X-Ray 09/07/20 11:25 IMPRESSION: Right hip and pelvis intact Electronically Signed: Royal Jurado DO at 12:23 EDT Tel , Service support , Physical Exam Const alert, oriented x3 and no apparent distress Orientation / Consciousness: awake, oriented to person, oriented to place and oriented to time HEENT normocephalic and moist oral mucous membranes Eyes PERRL, EOMs intact bilaterally and conjunctivae normal Neck no lymphadenopathy Resp normal respiratory effort and clear to auscultation bilaterally Cardio regular rate, regular rhythm and no murmurs Peripheral Pulses: pulses 2+ throughout GI normal to inspection, nondistended, normoactive bowel sounds, non-tender and non-distended Extremity normal to inspection Skin no rashes or lesions noted Lesions: no lesions Rashes: no rashes Trauma: no lacerations or abrasions Neuro CN's II-XII intact bilaterally, no focal motor deficits, no sensory deficits noted and deep tendon reflexes 2+ bilaterally Psych mental status grossly normal and affect normal Assessment & Plan Assessment/Plan (1) Chest pain: QUALIFIERS: Chest pain type: unspecified Qualified Code(s): R07.9 - Chest pain, unspecified PLAN: 1. Atypical chest pain, ACS ruled out-troponin negative. Patient underwent nuclear stress test which was negative for ischemia. 2. Adult failure to thrive-patient requesting SNF. Awaiting pre-cert/acceptance. PT/OT. 3. Chronic hyponatremia- Improved from prior. 4. Acute kidney injury-suspect secondary to poor oral intake. ALEJANDRO resolved. 5. History of alcohol dependence- follows with [facility]. Encouraged cessation/continued follow up. 6. CAD with history of PCI-continue aspirin, Plavix, statin, beta-haydee. 7. Type 2 diabetes mellitus-continue home insulin regimen. Accu-Cheks with sliding scale insulin. Patient refusing carb controlled diet, will need to follow glucose and adjust insulin appropriately. 8. Hypertension-stable, continue amlodipine, metoprolol, lisinopril. 9. Hyperlipidemia-continue statin 10. Anxiety/depression-on buspirone, mirtazapine, venlafaxine. 11. GERD-on PPI. 12. ECTOR-continue home CPAP regimen. 13. Tobacco dependence-encouraged cessation. Nicotine replacement patch. DVT prophylaxis-Lovenox subcu. Discharge planning: Await SNF acceptance. This patient was seen by JERRI Dumont under the supervision of Dr. Mike. Documented by User: Dr. Ramírez Mike MD 09/08/20 13:47 Objective Data Lab / Micro Data Result Diagrams: 09/08/20 06:07 09/08/20 06:07 Charges/Coding Addendum Addendum: Dr. Mike: I personally reviewed the chart and examined the patient, and agree with the above findings. 60-year-old male presents with dizziness and weakness from home and and inability to care for himself. He currently remained stable and all of his symptoms have resolved however he is awaiting SNF placement. 09/06/2020: Doing well, reports resolution in his symptoms however awaiting pre- CERT for SNF placement for continued rehab. He states that he is still unable to take care of himself at home and has inability to complete ADLs. 09/07/2020: Had a complaint of right hip pain imaging was unremarkable. Continue with PT/OT and pre-CERT for SNF placement. 09/08/2020: Still awaiting pre-CERT for SNF placement otherwise stable and no new issues overnight. Visit Charges OBSV E&M: 82587 Subsequent observation care L2
[2020-09-08] MEDS: Insulin Human 75/25 Kwickpen 15 UNIT SC ×2 (11:48→22:32)
[2020-09-08 11:55] LABS: Bedside Glucose 351 mg/dL (70-110)
[2020-09-08] MEDS: Psyllium 1 PACKET PO (15:12)
[2020-09-08 17:01] LABS: Bedside Glucose 200 mg/dL (70-110)
[2020-09-08] MEDS: Atorvastatin Calcium 40 MG Tablet PO (21:22)
[2020-09-08] MEDS: Mirtazapine 15 MG Tablet PO (21:23)
[2020-09-08 22:41] LABS: Bedside Glucose 311 mg/dL (70-110)
[2020-09-09] VITALS (11 sets, daily range): BP systolic 129–157; BP diastolic 68–83; PULSE 74–98; RESP 18; TEMP 36.4–36.8; O2SAT 96–100
[2020-09-09] MEDS: busPIRone 15 MG TABLET PO ×3 (05:39→22:37)
[2020-09-09 06:41] LABS: Bedside Glucose 142 mg/dL (70-110)
--- NOTE | 2020-09-09 08:09 | CASEMGMT ---
Addendum entered by Patti Rob 09/09/20 14:18: SW called [facility] to see where they are at in the process of the further review. Message left. KARLI Mora Original Note: SW checked the [employer] system, it shows pt's case has been referred to the [place] [facility]. SW will continue to check for updates. KARLI Mora
[2020-09-09] MEDS: Multivitamins,Therapeutic Tablet 1 TABLET PO (09:21)
[2020-09-09] MEDS: Venlafaxine XR 150 MG Capsule PO (09:21)
[2020-09-09] MEDS: amLODIPine 10 MG Tablet PO (09:21)
[2020-09-09] MEDS: Clopidogrel Bisulfate 75 MG Tablet PO (09:21)
[2020-09-09] MEDS: Thiamine Hydrochloride 100 MG Tablet PO (09:21)
[2020-09-09] MEDS: Lisinopril 40 MG Tablet PO (09:21)
[2020-09-09] MEDS: Aspirin E.C. 81 MG Tablet PO (09:21)
[2020-09-09] MEDS: Pantoprazole Sodium 20 MG Tablet PO (09:22)
[2020-09-09] MEDS: Enoxaparin 40 MG/0.4 ML Syringe SC (09:22)
[2020-09-09] MEDS: Metoprolol Tartrate 25 MG Tablet PO ×2 (09:22→22:37)
[2020-09-09] MEDS: Folic Acid 1 MG Tablet PO (09:22)
[2020-09-09] MEDS: Gabapentin 100 MG Capsule 200 MG PO ×2 (09:22→22:37)
--- NOTE | 2020-09-09 11:02 | PN.HOSP_ITS ---
Documented by User: Wandy Weinberg NP, DIRECTOR MEDICAL SAFETY-C 09/09/20 11:05 Subjective Subjective Patient seen and examined. No acute events overnight. Patient calm this morning. Denies complaints. Objective Data Objective Data Vital Signs: Vital Signs Temp Pulse Resp BP Pulse Ox 98.0 F 74 18 142/72 H 100 09/09/20 09:20 09/09/20 09:22 09/09/20 09:20 09/09/20 09:22 09/09/20 09:20 Oxygen Delivery Method Room Air Weight: 168 lb 10.458 oz Body Mass Index (BMI) 23.6 Intake & Output: Intake and Output for Last 24 Hours 09/07/20 09/08/20 09/09/20 23:59 23:59 23:59 Intake Total 1640 / 1840 980 / 1340 405 / 405 Balance 1640 / 1840 980 / 1340 405 / 405 Lab / Micro Data Result Diagrams: 09/08/20 06:07 09/08/20 06:07 Labs: Laboratory Results - last 24 hr 09/08/20 09/08/20 09/08/20 11:45 16:51 22:32 POC Glucose 351 H 200 H 311 H 09/09/20 06:38 POC Glucose 142 H Physical Exam Const alert, oriented x3 and no apparent distress Orientation / Consciousness: awake, oriented to person, oriented to place and oriented to time HEENT normocephalic and moist oral mucous membranes Eyes PERRL, EOMs intact bilaterally and conjunctivae normal Neck no lymphadenopathy Resp normal respiratory effort and clear to auscultation bilaterally Cardio regular rate, regular rhythm and no murmurs Peripheral Pulses: pulses 2+ throughout GI normal to inspection, nondistended, normoactive bowel sounds, non-tender and non-distended Extremity normal to inspection Skin no rashes or lesions noted Lesions: no lesions Rashes: no rashes Trauma: no lacerations or abrasions Neuro CN's II-XII intact bilaterally, no focal motor deficits, no sensory deficits noted and deep tendon reflexes 2+ bilaterally Psych mental status grossly normal and affect normal Assessment & Plan Assessment/Plan (1) Chest pain: QUALIFIERS: Chest pain type: unspecified Qualified Code(s): R07.9 - Chest pain, unspecified PLAN: 1. Atypical chest pain, ACS ruled out-troponin negative. Patient underwent nuclear stress test which was negative for ischemia. 2. Adult failure to thrive-patient requesting SNF. Awaiting pre- cert/acceptance. PT/OT. 3. Chronic hyponatremia- Improved from prior. 4. Acute kidney injury-suspect secondary to poor oral intake. ALEJANDRO resolved. 5. History of alcohol dependence- follows with [facility]. Encouraged cessatio n/continued follow up. 6. CAD with history of PCI-continue aspirin, Plavix, statin, beta-haydee. 7. Type 2 diabetes mellitus-continue home insulin regimen. Accu-Cheks with sliding scale insulin. Patient refusing carb controlled diet, will need to follow glucose and adjust insulin appropriately. 8. Hypertension-stable, continue amlodipine, metoprolol, lisinopril. 9. Hyperlipidemia-continue statin 10. Anxiety/depression-on buspirone, mirtazapine, venlafaxine. 11. GERD-on PPI. 12. ECTOR-continue home CPAP regimen. 13. Tobacco dependence-encouraged cessation. Nicotine replacement patch. DVT prophylaxis-Lovenox subcu. Discharge planning: Await SNF acceptance. This patient was seen by JERRI Dumont under the supervision of Dr. Mike. Documented by User: Dr. Ramírez Mike MD 09/09/20 13:43 Objective Data Lab / Micro Data Result Diagrams: 09/08/20 06:07 09/08/20 06:07 Charges/Coding Addendum Addendum: Dr. Mike: I personally reviewed the chart and examined the patient, and agree with the above findings. 60-year-old male presents with dizziness and weakness from home and and inability to care for himself. He currently remained stable and all of his symptoms have resolved however he is awaiting SNF placement. 09/06/2020: Doing well, reports resolution in his symptoms however awaiting pre- CERT for SNF placement for continued rehab. He states that he is still unable to take care of himself at home and has inability to complete ADLs. 09/07/2020: Had a complaint of right hip pain imaging was unremarkable. Continue with PT/OT and pre-CERT for SNF placement. 09/08/2020: Still awaiting pre-CERT for SNF placement otherwise stable and no new issues overnight. 09/09/2020: Awaiting pre-CERT no new issues Visit Charges OBSV E&M: [id number] Subsequent observation care L2
[2020-09-09] MEDS: Insulin Lispro 100 UNIT/ML INSULN.PEN SC ×3 (13:10→22:38)
[2020-09-09] MEDS: Insulin Human 75/25 Kwickpen 15 UNIT SC ×2 (13:12→22:37)
[2020-09-09 13:20] LABS: Bedside Glucose 341 mg/dL (70-110)
--- NOTE | 2020-09-09 13:48 | CASEMGMT ---
Social Work Clinical updates faxed to Chantel torres [place]. Gael Rogers [facility]
--- NOTE | 2020-09-09 15:08 | CASEMGMT ---
SW spoke w/[facility], SW informed it will be several days before they get to pt's case. WILLY called Chantel at [facility] to let her know, and to hold off on starting precert until the end of the week. KARLI Mora
[2020-09-09 19:11] LABS: Bedside Glucose 180 mg/dL (70-110)
[2020-09-09] MEDS: Atorvastatin Calcium 40 MG Tablet PO (22:37)
[2020-09-09] MEDS: Mirtazapine 15 MG Tablet PO (22:38)
[2020-09-09 22:51] LABS: Bedside Glucose 277 mg/dL (70-110)
[2020-09-10] VITALS (12 sets, daily range): BP systolic 126–161; BP diastolic 67–79; PULSE 75–94; RESP 16–20; TEMP 36.2–36.8; O2SAT 96–100
[2020-09-10] MEDS: busPIRone 15 MG TABLET PO ×3 (06:26→22:19)
[2020-09-10] MEDS: Insulin Lispro 100 UNIT/ML INSULN.PEN SC ×4 (06:31→22:19)
[2020-09-10 06:41] LABS: Bedside Glucose 207 mg/dL (70-110)
--- NOTE | 2020-09-10 09:59 | PN.HOSP_ITS ---
Documented by User: Paul DEMPSEY 09/10/20 10:09 Subjective Subjective who is resting comfortably in a chair, alert and orient x3.Patient is a 60-year-old male change or progressi Denies chest pain, shortness of breath,on in symptoms in the past 24 hours. Patient denies any palpitations, sputum production, hemoptysis, fever, chills, N/V/D. Objective Data Objective Data Vital Signs: Vital Signs Temp Pulse Resp BP Pulse Ox 97.1 F L 78 16 161/79 H 97 09/10/20 06:38 09/10/20 07:00 09/10/20 06:38 09/10/20 06:38 09/10/20 06:38 Oxygen Delivery Method Room Air Weight: 209 lb 14.081 oz Body Mass Index (BMI) 23.6 Intake & Output: Intake and Output for Last 24 Hours 09/08/20 09/09/20 09/10/20 23:59 23:59 23:59 Intake Total 980 / 1340 1005 / 1005 Balance 980 / 1340 1005 / 1005 Lab / Micro Data Result Diagrams: 09/08/20 06:07 09/08/20 06:07 Labs: Laboratory Results - last 24 hr 09/09/20 09/09/20 09/09/20 13:09 19:00 22:34 POC Glucose 341 H 180 H 277 H 09/10/20 06:28 POC Glucose 207 H Physical Exam Const alert, oriented x3 and no apparent distress HEENT head/scalp atraumatic and moist oral mucous membranes Head and Scalp: normocephalic Eyes EOMs intact bilaterally and conjunctivae normal Neck no lymphadenopathy, supple and no JVD Resp normal respiratory effort, no retractions and no use of accessory muscles Cardio regular rate, regular rhythm, no murmurs and no JVD GI normal to inspection, nondistended, normoactive bowel sounds, soft to palpation and non-tender Extremity normal to inspection, full ROM and no clubbing, cyanosis or edema Skin no rashes or lesions noted, no wounds and skin turgor normal Neuro CN's II-XII intact bilaterally Psych affect normal Assessment & Plan Assessment/Plan (1) Chest pain: QUALIFIERS: Chest pain type: unspecified Qualified Code(s): R07.9 - Chest pain, unspecified PLAN: Day 9: See subjective for patient presentation. Discharge planning: Pending insurance approval then pre-CERT to [facility]. 1) chest pain/ACS rule out No elevation in high-sensitivity troponins. Nuclear stress test was negative for any evidence of ischemia. 2) failure to thrive Discharge planning as above. 3) chronic hyponatremia Stable, improved from admission. 4) ALEJANDRO Resolved 5) history of alcohol abuse Cessation encouraged and for patient to follow-up with [facility] as an outpatient, where he is already established. 6) CAD s/p PCI Continue aspirin, Plavix, statin and beta-haydee. 7) DM2 Continue home insulin regimen, continue Accu-Cheks with sliding scale insulin. 8) HTN Stable, continue amlodipine, metoprolol and lisinopril. 9) hyperlipidemia Continue statin 10) anxiety/depression Continue bupropion, mirtazapine and venlafaxine. 11) GERD Continue PPI 12) ECTOR Continue use of CPAP. Patient requests discharge with CPAP machine, as he already has had a sleep study however has not been prescribed a CPAP machine. Recommended patient to follow-up with PCP. 13) tobacco dependence Cessation encouraged, nicotine patch ordered. DVT prophylax - Lovenox Patient seen by Paul Sargent PA-C, under the supervision of Dr. Mike. Documented by User: Dr. Ramírez Mike MD 09/10/20 14:24 Objective Data Lab / Micro Data Result Diagrams: 09/08/20 06:07 09/08/20 06:07 Charges/Coding Addendum Addendum: Dr. Mike: I personally reviewed the chart and examined the patient, and agree with the above findings. 60-year-old male presents with dizziness and weakness from home and and inability to care for himself. He currently remained stable and all of his symptoms have resolved however he is awaiting SNF placement. 09/06/2020: Doing well, reports resolution in his symptoms however awaiting pre- CERT for SNF placement for continued rehab. He states that he is still unable to take care of himself at home and has inability to complete ADLs. 09/07/2020: Had a complaint of right hip pain imaging was unremarkable. Continue with PT/OT and pre-CERT for SNF placement. 09/08/2020: Still awaiting pre-CERT for SNF placement otherwise stable and no new issues overnight. 09/09/2020: Awaiting pre-CERT no new issues 09/10/2020: Awaiting pre-CERT no new issues. He is happier now that we change the diet back to regular diet. Visit Charges OBSV E&M: [id number] Subsequent observation care L2
[2020-09-10] MEDS: Metoprolol Tartrate 25 MG Tablet PO ×2 (11:18→22:22)
[2020-09-10] MEDS: Folic Acid 1 MG Tablet PO (11:18)
[2020-09-10] MEDS: Gabapentin 100 MG Capsule 200 MG PO ×2 (11:19→22:18)
[2020-09-10] MEDS: Clopidogrel Bisulfate 75 MG Tablet PO (11:19)
[2020-09-10] MEDS: Lisinopril 40 MG Tablet PO (11:19)
[2020-09-10] MEDS: Enoxaparin 40 MG/0.4 ML Syringe SC (11:19)
[2020-09-10] MEDS: Thiamine Hydrochloride 100 MG Tablet PO (11:19)
[2020-09-10] MEDS: Venlafaxine XR 150 MG Capsule PO (11:19)
[2020-09-10] MEDS: Multivitamins,Therapeutic Tablet 1 TABLET PO (11:19)
[2020-09-10] MEDS: Aspirin E.C. 81 MG Tablet PO (11:20)
[2020-09-10] MEDS: Pantoprazole Sodium 20 MG Tablet PO (11:20)
[2020-09-10] MEDS: amLODIPine 10 MG Tablet PO (11:20)
--- NOTE | 2020-09-10 11:28 | NURSING ---
Addendum entered by Oanh Manrique 09/10/20 11:28: All pt medication late due to pt refusing staff to disturb him until he awoke this morning. Original Note: pt refused 1100 glucose check due to just finishing breakfast.
[2020-09-10] MEDS: Insulin Human 75/25 Kwickpen 15 UNIT SC ×2 (14:02→22:21)
[2020-09-10 14:36] LABS: Bedside Glucose 317 mg/dL (70-110)
[2020-09-10 18:31] LABS: Bedside Glucose 245 mg/dL (70-110)
[2020-09-10] MEDS: Mirtazapine 15 MG Tablet PO (22:19)
[2020-09-10] MEDS: Atorvastatin Calcium 40 MG Tablet PO (22:23)
[2020-09-10] MEDS: 0.9% Saline Lock 10 ML Syringe IV (22:33)
[2020-09-10 23:26] LABS: Bedside Glucose 257 mg/dL (70-110)
[2020-09-11] VITALS (13 sets, daily range): BP systolic 132–150; BP diastolic 72–86; PULSE 68–92; RESP 18; TEMP 36.5–36.9; O2SAT 96–100
[2020-09-11 06:45] LABS: Absolute Lymphocyte Count 1.98 X10^3/uL (0.83-4.51); Absolute Neutrophil Count 3.7 X10^3/uL (2.0-7.7); Basophil# 0.08 X10^3/uL; Basophil% 1.2 % (0-1); Eosinophils% 5.9 % (0-5); Hematocrit 40.7 % (40-54); Hemoglobin 12.2 g/dL (13.0-16.5); Lymphocyte # 1.98 X10^3/ul (0.83-4.51); Lymphocyte % 29.2 % (19-41); Mean Corpuscular Hgb 27.2 pg (27.0-32.0); Mean Corpuscular Volume 90.8 fL (80-94); Mean Platelet Vol. 8.7 fl (6.2-12.0); Monocyte% 8.8 % (0-10); NRBC Flagged by Analyzer 0 % (0-5); Neutrophil # 3.67 X10^3/uL (2.7-7.7); Neutrophil % 54.2 % (47-70); Platelet Count 249 K/mm3 (150-450); RBC Distribution Width CV 14.4 % (11.6-14.6); RBC Distribution Width SD 47.8 fl (35.1-43.9); Red Blood Count 4.48 M/mm3 (4.6-6.2); White Blood Count 6.8 K/mm3 (4.4-11.0)
[2020-09-11] MEDS: busPIRone 15 MG TABLET PO ×3 (06:46→22:47)
[2020-09-11 06:56] LABS: Bedside Glucose 104 mg/dL (70-110)
[2020-09-11 06:57] LABS: Anion Gap 8 (5-15); BUN 27 mg/dL (7-18); BUN/Creat Ratio 32.4 RATIO (10-20); Calcium,Total 8.6 mg/dL (8.5-10.1); Chloride 105 mmol/L (98-107); Creatinine, Serum 0.83 mg/dL (0.70-1.30); EST Glomerular Filtration Rate 100 mL/min (>60); Est Glom Filt Rate - Afr Amer 121 mL/min (>60); Estimated Creatinine Clearance 95.83 ml/min; Glucose 103 mg/dL (74-106); Sodium Level 137 mmol/L (136-145)
[2020-09-11] MEDS: Gabapentin 100 MG Capsule 200 MG PO ×2 (09:30→22:47)
[2020-09-11] MEDS: Multivitamins,Therapeutic Tablet 1 TABLET PO (09:30)
[2020-09-11] MEDS: Clopidogrel Bisulfate 75 MG Tablet PO (09:30)
[2020-09-11] MEDS: Folic Acid 1 MG Tablet PO (09:30)
[2020-09-11] MEDS: Lisinopril 40 MG Tablet PO (09:30)
[2020-09-11] MEDS: Thiamine Hydrochloride 100 MG Tablet PO (09:30)
[2020-09-11] MEDS: Metoprolol Tartrate 25 MG Tablet PO ×2 (09:30→22:47)
[2020-09-11] MEDS: Aspirin E.C. 81 MG Tablet PO (09:30)
[2020-09-11] MEDS: Enoxaparin 40 MG/0.4 ML Syringe SC (09:31)
[2020-09-11] MEDS: Venlafaxine XR 150 MG Capsule PO (09:31)
[2020-09-11] MEDS: Pantoprazole Sodium 20 MG Tablet PO (09:31)
[2020-09-11] MEDS: amLODIPine 10 MG Tablet PO (09:31)
--- NOTE | 2020-09-11 09:53 | CASEMGMT ---
WILLY spoke with Chantel with [facility]. WILLY asked if patient does not qualify for skilled could we try for intermediate. She said she thinks we can. WILLY faxed her updated information and she will start the pre-cert process. Hopefully by next week we will have a decision from the state and get pre-cert. Plan: [facility] Adames MSW LIFESTYLE CONSULTANT
--- NOTE | 2020-09-11 10:08 | PN.HOSP_ITS ---
Documented by User: Paul DEMPSEY 09/11/20 10:11 Subjective Subjective Patient is a 60-year-old male comfortably resting in bed eating breakfast, alert and orient x3. Denies chest pain, shortness of breath, palpitations, hemoptysis, sputum production, fever, chills, N/V/D. Objective Data Objective Data Vital Signs: Vital Signs Temp Pulse Resp BP Pulse Ox 98.3 F 75 18 135/86 H 98 09/11/20 09:23 09/11/20 09:30 09/11/20 09:23 09/11/20 09:23 09/11/20 09:23 Oxygen Flow Rate (L/min) 5 Oxygen Delivery Method Room Air Weight: 168 lb 3.403 oz Body Mass Index (BMI) 23.6 Intake & Output: Intake and Output for Last 24 Hours 09/09/20 09/10/20 09/11/20 23:59 23:59 23:59 Intake Total 1005 / 1005 850 / 1400 650 / 650 Balance 1005 / 1005 850 / 1400 650 / 650 Lab / Micro Data Result Diagrams: 09/11/20 06:04 09/11/20 06:04 Labs: Laboratory Results - last 24 hr 09/10/20 09/10/20 09/10/20 14:01 18:21 22:16 WBC RBC Hgb Hct MCV MCH MCHC RDW Std Deviation RDW Coeff of Kaye Plt Count MPV Immature Gran % (Auto) Neut % (Auto) Lymph % (Auto) [place] % (Auto) Eos % (Auto) Baso % (Auto) Absolute Neuts (auto) Absolute Lymphs (auto) Nucleated RBC % Sodium Potassium Chloride Carbon Dioxide Anion Gap BUN Creatinine Estim Creat Clear Calc Est GFR (MDRD) Af Amer Est GFR (MDRD) Non-Af BUN/Creatinine Ratio Glucose Calcium POC Glucose 317 H 245 H 257 H 09/11/20 09/11/20 09/11/20 06:04 06:04 06:49 WBC 6.8 RBC 4.48 L Hgb 12.2 L Hct 40.7 MCV 90.8 MCH 27.2 MCHC 30.0 L D RDW Std Deviation 47.8 H RDW Coeff of Kaye 14.4 Plt Count 249 MPV 8.7 Immature Gran % (Auto) 0.700 Neut % (Auto) 54.2 Lymph % (Auto) 29.2 [place] % (Auto) 8.8 Eos % (Auto) 5.9 H Baso % (Auto) 1.2 H Absolute Neuts (auto) 3.7 Absolute Lymphs (auto) 1.98 Nucleated RBC % 0 Sodium 137 Potassium 4.0 Chloride 105 Carbon Dioxide 24.0 Anion Gap 8 BUN 27 H Creatinine 0.83 Estim Creat Clear Calc 95.83 Est GFR (MDRD) Af Amer 121 Est GFR (MDRD) Non-Af 100 BUN/Creatinine Ratio 32.4 H Glucose 103 Calcium 8.6 POC Glucose 104 Physical Exam Const alert, oriented x3 and no apparent distress HEENT head/scalp atraumatic, moist oral mucous membranes and oropharynx normal Head and Scalp: normocephalic Eyes EOMs intact bilaterally and conjunctivae normal Neck no lymphadenopathy, supple and no JVD Resp normal respiratory effort, no retractions and no use of accessory muscles Cardio regular rate, regular rhythm, no murmurs and no JVD GI normal to inspection, nondistended, normoactive bowel sounds, soft to palpation and non-tender Extremity normal to inspection, full ROM and no clubbing, cyanosis or edema Skin no rashes or lesions noted, no wounds and skin turgor normal Neuro CN's II-XII intact bilaterally Psych affect normal Assessment & Plan Assessment/Plan (1) Chest pain: QUALIFIERS: Chest pain type: unspecified Qualified Code(s): R07.9 - Chest pain, unspecified PLAN: Day 10: See subjective for patient presentation. Discharge planning: Pending pre-CERT to [facility], CM/SW is antcipating approval some time next week. 1) chest pain/ACS rule out No elevation in high-sensitivity troponins. Nuclear stress test was negative for any evidence of ischemia. 2) failure to thrive Discharge planning as above. 3) chronic hyponatremia Stable, improved from admission. 4) ALEJANDRO Resolved 5) history of alcohol abuse Cessation encouraged and for patient to follow-up with 180 as an outpatient, where he is already established. 6) CAD s/p PCI Continue aspirin, Plavix, statin and beta-haydee. 7) DM2 Continue home insulin regimen, continue Accu-Cheks with sliding scale insulin. 8) HTN Stable, continue amlodipine, metoprolol and lisinopril. 9) hyperlipidemia Continue statin 10) anxiety/depression Continue bupropion, mirtazapine and venlafaxine. 11) GERD Continue PPI 12) ECTOR Continue use of CPAP. Patient requests discharge with CPAP machine, as he already has had a sleep study however has not been prescribed a CPAP machine. Recommended patient to follow-up with PCP. 13) tobacco dependence Cessation encouraged, nicotine patch ordered. DVT prophylax - Lovenox Patient seen by Paul Sargent PA-C, under the supervision of Dr. Mike. Documented by User: Dr. Ramírez Mike MD 09/11/20 11:38 Objective Data Lab / Micro Data Result Diagrams: 09/11/20 06:04 09/11/20 06:04 Charges/Coding Addendum Addendum: Dr. Mike: I personally reviewed the chart and examined the patient, and agree with the above findings. 60-year-old male presents with dizziness and weakness from home and and inability to care for himself. He currently remained stable and all of his symptoms have resolved however he is awaiting SNF placement. 09/06/2020: Doing well, reports resolution in his symptoms however awaiting pre- CERT for SNF placement for continued rehab. He states that he is still unable to take care of himself at home and has inability to complete ADLs. 09/07/2020: Had a complaint of right hip pain imaging was unremarkable. Continue with PT/OT and pre-CERT for SNF placement. 09/08/2020: Still awaiting pre-CERT for SNF placement otherwise stable and no new issues overnight. 09/09/2020: Awaiting pre-CERT no new issues 09/10/2020: Awaiting pre-CERT no new issues. He is happier now that we change the diet back to regular diet. 09/11/2020: No change awaiting pre-CERT Visit Charges Inpatient E&M: 27544 Subs Hosp L1
--- NOTE | 2020-09-11 11:08 | CASEMGMT ---
Addendum entered by Charito Adames 09/11/20 11:32: SW received a return call from [facility] and patient's case is 3rd in line to be assigned today. He said there will not be an answer today, but rather next week. Charito MELENDREZ Original Note: WILLY called [facility] and left a message requesting a return call regarding an update. Charito MELENDREZ
[2020-09-11] MEDS: Insulin Lispro 100 UNIT/ML INSULN.PEN SC ×3 (12:08→22:47)
[2020-09-11] MEDS: Insulin Human 75/25 Kwickpen 15 UNIT SC ×2 (12:09→22:47)
[2020-09-11 12:16] LABS: Bedside Glucose 348 mg/dL (70-110)
[2020-09-11 14:56] LABS: Bedside Glucose 242 mg/dL (70-110)
[2020-09-11] MEDS: Atorvastatin Calcium 40 MG Tablet PO (22:47)
[2020-09-11] MEDS: Mirtazapine 15 MG Tablet PO (22:47)
[2020-09-11 22:56] LABS: Bedside Glucose 279 mg/dL (70-110)
[2020-09-12] VITALS (14 sets, daily range): BP systolic 129–172; BP diastolic 64–84; PULSE 66–89; RESP 16–18; TEMP 36.4–36.8; O2SAT 96–100
[2020-09-12] MEDS: busPIRone 15 MG TABLET PO ×3 (06:39→22:52)
[2020-09-12] MEDS: Insulin Lispro 100 UNIT/ML INSULN.PEN SC ×4 (06:39→22:47)
[2020-09-12 06:46] LABS: Bedside Glucose 157 mg/dL (70-110)
[2020-09-12] MEDS: Lisinopril 40 MG Tablet PO (09:11)
[2020-09-12] MEDS: Metoprolol Tartrate 25 MG Tablet PO ×2 (09:11→22:50)
[2020-09-12] MEDS: Folic Acid 1 MG Tablet PO (09:11)
[2020-09-12] MEDS: Thiamine Hydrochloride 100 MG Tablet PO (09:12)
[2020-09-12] MEDS: amLODIPine 10 MG Tablet PO (09:12)
[2020-09-12] MEDS: Clopidogrel Bisulfate 75 MG Tablet PO (09:12)
[2020-09-12] MEDS: Enoxaparin 40 MG/0.4 ML Syringe SC (09:12)
[2020-09-12] MEDS: Gabapentin 100 MG Capsule 200 MG PO ×2 (09:12→22:51)
[2020-09-12] MEDS: Venlafaxine XR 150 MG Capsule PO (09:12)
[2020-09-12] MEDS: Aspirin E.C. 81 MG Tablet PO (09:13)
[2020-09-12] MEDS: Pantoprazole Sodium 20 MG Tablet PO (09:13)
[2020-09-12] MEDS: Multivitamins,Therapeutic Tablet 1 TABLET PO (09:13)
[2020-09-12] MEDS: Morphine 2 MG/ML Syringe IV (09:17)
[2020-09-12] MEDS: 0.9% Saline Lock 10 ML Syringe IV (09:17)
--- NOTE | 2020-09-12 10:57 | PN.HOSP_ITS ---
Documented by User: Paul DEMPSEY 09/12/20 11:00 Subjective Subjective Patient is a 60-year-old male comfortably resting in bed eating breakfast, alert and oriented x3. Denies chest pain, shortness of breath, palpitations, hemoptysis, sputum production, fever, chills, N/V/D. Objective Data Objective Data Vital Signs: Vital Signs Temp Pulse Resp BP Pulse Ox 97.5 F L 75 16 172/84 H 100 09/12/20 09:30 09/12/20 09:30 09/12/20 09:30 09/12/20 09:30 09/12/20 09:30 Oxygen Flow Rate (L/min) 5 Oxygen Delivery Method Room Air Weight: 165 lb 2.02 oz Body Mass Index (BMI) 23.6 Intake & Output: Intake and Output for Last 24 Hours 09/10/20 09/11/20 09/12/20 23:59 23:59 23:59 Intake Total 850 / 1400 2190 / 2190 Balance 850 / 1400 2190 / 2190 Lab / Micro Data Result Diagrams: 09/11/20 06:04 09/11/20 06:04 Labs: Laboratory Results - last 24 hr 09/11/20 09/11/20 09/11/20 12:07 14:48 22:42 POC Glucose 348 H 242 H 279 H 09/12/20 06:39 POC Glucose 157 H Physical Exam Const alert, oriented x3 and no apparent distress HEENT head/scalp atraumatic and moist oral mucous membranes Head and Scalp: normocephalic Eyes EOMs intact bilaterally and conjunctivae normal Neck no lymphadenopathy, supple and no JVD Resp normal respiratory effort, no retractions, no use of accessory muscles and clear to auscultation bilaterally Cardio regular rate, regular rhythm, no murmurs and no JVD GI normal to inspection, nondistended, normoactive bowel sounds, soft to palpation and non-tender Extremity normal to inspection, full ROM and no clubbing, cyanosis or edema Peripheral Pulses: Yes pulses 2+ throughout Skin no rashes or lesions noted, no wounds and skin turgor normal Neuro CN's II-XII intact bilaterally Psych affect normal Assessment & Plan Assessment/Plan (1) Chest pain: QUALIFIERS: Chest pain type: unspecified Qualified Code(s): R07.9 - Chest pain, unspecified PLAN: Day 11: See subjective for patient presentation. Discharge planning: Pending pre-CERT to [facility], CM/SW is antcipating approval some time next week. 1) chest pain/ACS rule out No elevation in high-sensitivity troponins. Nuclear stress test was negative for any evidence of ischemia. 2) failure to thrive Discharge planning as above. 3) chronic hyponatremia Stable, improved from admission. 4) ALEJANDRO Resolved 5) history of alcohol abuse Cessation encouraged and for patient to follow-up with 180 as an outpatient, where he is already established. 6) CAD s/p PCI Continue aspirin, Plavix, statin and beta-haydee. 7) DM2 Continue home insulin regimen, continue Accu-Cheks with sliding scale insulin. 8) HTN Stable, continue amlodipine, metoprolol and lisinopril. 9) hyperlipidemia Continue statin 10) anxiety/depression Continue bupropion, mirtazapine and venlafaxine. 11) GERD Continue PPI 12) ECTOR Continue use of CPAP. Patient requests discharge with CPAP machine, as he already has had a sleep study however has not been prescribed a CPAP machine. Recommended patient to follow-up with PCP. 13) tobacco dependence Cessation encouraged, nicotine patch ordered. DVT prophylax - Lovenox Patient seen by Paul Sargent PA-C, under the supervision of Dr. Mike. Documented by User: Dr. Ramírez Mike MD 09/12/20 11:13 Objective Data Lab / Micro Data Result Diagrams: 09/11/20 06:04 09/11/20 06:04 Charges/Coding Addendum Addendum: Dr. Mike: I personally reviewed the chart and examined the patient, and agree with the above findings. 60-year-old male presents with dizziness and weakness from home and and inability to care for himself. He currently remained stable and all of his symptoms have resolved however he is awaiting SNF placement. 09/06/2020: Doing well, reports resolution in his symptoms however awaiting pre- CERT for SNF placement for continued rehab. He states that he is still unable to take care of himself at home and has inability to complete ADLs. 09/07/2020: Had a complaint of right hip pain imaging was unremarkable. Continue with PT/OT and pre-CERT for SNF placement. 09/08/2020: Still awaiting pre-CERT for SNF placement otherwise stable and no new issues overnight. 09/09/2020: Awaiting pre-CERT no new issues 09/10/2020: Awaiting pre-CERT no new issues. He is happier now that we change the diet back to regular diet. 09/11/2020: No change awaiting pre-CERT 09/12/2020: No change Visit Charges OBSV E&M: 82434 Subsequent observation care L1
[2020-09-12] MEDS: Insulin Human 75/25 Kwickpen 15 UNIT SC ×2 (11:00→22:49)
[2020-09-12 11:11] LABS: Bedside Glucose 304 mg/dL (70-110)
[2020-09-12] MEDS: oxyCODONE 5 MG Tablet PO ×2 (14:03→21:05)
[2020-09-12 16:30] LABS: Bedside Glucose 199 mg/dL (70-110)
[2020-09-12] MEDS: Mirtazapine 15 MG Tablet PO (22:52)
[2020-09-12] MEDS: Atorvastatin Calcium 40 MG Tablet PO (22:53)
[2020-09-12 23:11] LABS: Bedside Glucose 334 mg/dL (70-110)
[2020-09-13] VITALS (15 sets, daily range): BP systolic 126–149; BP diastolic 67–82; PULSE 73–92; RESP 10–16; TEMP 36.6–37; O2SAT 95–98
--- NOTE | 2020-09-13 05:00 | NURSING ---
Pt states he felt like his blood sugar is low, checked per request. Result was 126, offered pt snack, declined states I just want to go back to bed
[2020-09-13 05:06] LABS: Bedside Glucose 126 mg/dL (70-110)
[2020-09-13 06:24] LABS: Absolute Lymphocyte Count 2.27 X10^3/uL (0.83-4.51); Absolute Neutrophil Count 4.4 X10^3/uL (2.0-7.7); Basophil# 0.08 X10^3/uL; Eosinophil# 0.48 X10^3/uL; Eosinophils% 6.1 % (0-5); Hematocrit 38.4 % (40-54); Hemoglobin 12.4 g/dL (13.0-16.5); Lymphocyte # 2.27 X10^3/ul (0.83-4.51); Lymphocyte % 28.7 % (19-41); Mean Corp Hgb Conc 32.3 g/dL (32-36); Mean Corpuscular Hgb 27.7 pg (27.0-32.0); Mean Corpuscular Volume 85.9 fL (80-94); Mean Platelet Vol. 8.8 fl (6.2-12.0); Monocyte# 0.61 X10^3/uL; Monocyte% 7.7 % (0-10); NRBC Flagged by Analyzer 0 % (0-5); Neutrophil % 55.5 % (47-70); Platelet Count 261 K/mm3 (150-450); RBC Distribution Width CV 14.4 % (11.6-14.6); RBC Distribution Width SD 44.4 fl (35.1-43.9); Red Blood Count 4.47 M/mm3 (4.6-6.2); White Blood Count 7.9 K/mm3 (4.4-11.0)
[2020-09-13] MEDS: busPIRone 15 MG TABLET PO ×3 (06:32→22:47)
[2020-09-13 06:36] LABS: Anion Gap 7 (5-15); BUN 27 mg/dL (7-18); BUN/Creat Ratio 25.2 RATIO (10-20); Calcium,Total 8.6 mg/dL (8.5-10.1); Chloride 103 mmol/L (98-107); Creatinine, Serum 1.07 mg/dL (0.70-1.30); EST Glomerular Filtration Rate 75 mL/min (>60); Est Glom Filt Rate - Afr Amer 91 mL/min (>60); Estimated Creatinine Clearance 74.33 ml/min; Glucose 124 mg/dL (74-106); Potassium 3.5 mmol/L (3.5-5.1); Sodium Level 139 mmol/L (136-145)
[2020-09-13 06:40] LABS: Bedside Glucose 139 mg/dL (70-110)
[2020-09-13] MEDS: Multivitamins,Therapeutic Tablet 1 TABLET PO (08:21)
[2020-09-13] MEDS: Folic Acid 1 MG Tablet PO (08:21)
[2020-09-13] MEDS: Thiamine Hydrochloride 100 MG Tablet PO (08:21)
[2020-09-13] MEDS: Aspirin E.C. 81 MG Tablet PO (08:21)
--- NOTE | 2020-09-13 10:51 | PCM.PN.HOSP ---
Documented by User: Paul DEMPSEY 09/13/20 10:58 Subjective Subjective Patient is a 60-year-old male comfortably resting in bed eating breakfast, alert and orient x3. Denies chest pain, shortness of breath, palpitations, hemoptysis, sputum production, fever, chills, N/V/D. Objective Data Objective Data Vital Signs: Vital Signs Temp Pulse Resp BP Pulse Ox 97.9 F 75 16 149/77 H 95 09/13/20 08:13 09/13/20 08:13 09/13/20 08:13 09/13/20 08:13 09/13/20 08:15 Oxygen Flow Rate (L/min) 5 Oxygen Delivery Method Room Air Weight: 165 lb 12.602 oz Body Mass Index (BMI) 23.6 Intake & Output: Intake and Output for Last 24 Hours 09/11/20 09/12/20 09/13/20 23:59 23:59 23:59 Intake Total 2190 / 2190 1300 / 1800 800 / 800 Balance 2190 / 2190 1300 / 1800 800 / 800 Lab / Micro Data Result Diagrams: 09/13/20 04:57 09/13/20 04:57 Labs: Laboratory Results - last 24 hr 09/12/20 09/12/20 09/12/20 10:59 16:19 22:45 WBC RBC Hgb Hct MCV MCH MCHC RDW Std Deviation RDW Coeff of Kaye Plt Count MPV Immature Gran % (Auto) Neut % (Auto) Lymph % (Auto) [place] % (Auto) Eos % (Auto) Baso % (Auto) Absolute Neuts (auto) Absolute Lymphs (auto) Nucleated RBC % Sodium Potassium Chloride Carbon Dioxide Anion Gap BUN Creatinine Estim Creat Clear Calc Est GFR (MDRD) Af Amer Est GFR (MDRD) Non-Af BUN/Creatinine Ratio Glucose Calcium POC Glucose 304 H 199 H 334 H 09/13/20 09/13/20 09/13/20 04:57 04:57 04:57 WBC 7.9 RBC 4.47 L Hgb 12.4 L Hct 38.4 L MCV 85.9 D MCH 27.7 MCHC 32.3 D RDW Std Deviation 44.4 H RDW Coeff of Kaye 14.4 Plt Count 261 MPV 8.8 Immature Gran % (Auto) 1.000 H Neut % (Auto) 55.5 Lymph % (Auto) 28.7 [place] % (Auto) 7.7 Eos % (Auto) 6.1 H Baso % (Auto) 1.0 Absolute Neuts (auto) 4.4 Absolute Lymphs (auto) 2.27 Nucleated RBC % 0 Sodium 139 Potassium 3.5 Chloride 103 Carbon Dioxide 29.0 Anion Gap 7 BUN 27 H Creatinine 1.07 Estim Creat Clear Calc 74.33 Est GFR (MDRD) Af Amer 91 Est GFR (MDRD) Non-Af 75 BUN/Creatinine Ratio 25.2 H Glucose 124 H Calcium 8.6 POC Glucose 126 H 09/13/20 06:35 WBC RBC Hgb Hct MCV MCH MCHC RDW Std Deviation RDW Coeff of Kaye Plt Count MPV Immature Gran % (Auto) Neut % (Auto) Lymph % (Auto) [place] % (Auto) Eos % (Auto) Baso % (Auto) Absolute Neuts (auto) Absolute Lymphs (auto) Nucleated RBC % Sodium Potassium Chloride Carbon Dioxide Anion Gap BUN Creatinine Estim Creat Clear Calc Est GFR (MDRD) Af Amer Est GFR (MDRD) Non-Af BUN/Creatinine Ratio Glucose Calcium POC Glucose 139 H Physical Exam Const alert, oriented x3 and no apparent distress HEENT head/scalp atraumatic and moist oral mucous membranes Head and Scalp: normocephalic Eyes EOMs intact bilaterally and conjunctivae normal Neck no lymphadenopathy, supple and no JVD Resp normal respiratory effort, no retractions, no use of accessory muscles and clear to auscultation bilaterally Cardio regular rate, regular rhythm, no murmurs and no JVD GI normal to inspection, nondistended, normoactive bowel sounds, soft to palpation and non-tender Extremity normal to inspection and no clubbing, cyanosis or edema Skin no rashes or lesions noted, no wounds and skin turgor normal Neuro CN's II-XII intact bilaterally Psych affect normal Assessment & Plan Assessment/Plan (1) Chest pain: QUALIFIERS: Chest pain type: unspecified Qualified Code(s): R07.9 - Chest pain, unspecified PLAN: Day 12: See subjective for patient presentation. Discharge planning: Pending pre-CERT to [facility], CM/WILLY is anticipating approval some time next week. 1) chest pain/ACS rule out No elevation in high-sensitivity troponins. Nuclear stress test was negative for any evidence of ischemia. 2) failure to thrive Discharge planning as above. 3) chronic hyponatremia Stable, improved from admission. 4) ALEJANDRO Resolved 5) history of alcohol abuse Cessation encouraged and for patient to follow-up with 180 as an outpatient, where he is already established. 6) CAD s/p PCI Continue aspirin, Plavix, statin and beta-haydee. 7) DM2 w/ Neuropathy Continue home insulin regimen, continue Accu-Cheks with sliding scale insulin. Increase Gabapentin to 300mg PO BID due to reports of ongoing r. leg pain. 8) HTN Stable, continue amlodipine, metoprolol and lisinopril. 9) hyperlipidemia Continue statin 10) anxiety/depression Continue bupropion, mirtazapine and venlafaxine. 11) GERD Continue PPI 12) ECTOR Continue use of CPAP. Patient requests discharge with CPAP machine, as he already has had a sleep study however has not been prescribed a CPAP machine. Recommended patient to follow-up with PCP. 13) tobacco dependence Cessation encouraged, nicotine patch ordered. DVT prophylax - Lovenox Patient seen by Paul Sargent PA-C, under the supervision of Dr. Mike. Documented by User: Dr. Ramírez Mike MD 09/13/20 12:10 Objective Data Lab / Micro Data Result Diagrams: 09/13/20 04:57 09/13/20 04:57 Charges/Coding Addendum Addendum: Dr. Mike: I personally reviewed the chart and examined the patient, and agree with the above findings. 60-year-old male presents with dizziness and weakness from home and and inability to care for himself. He currently remained stable and all of his symptoms have resolved however he is awaiting SNF placement. 09/06/2020: Doing well, reports resolution in his symptoms however awaiting pre-CERT for SNF placement for continued rehab. He states that he is still unable to take care of himself at home and has inability to complete ADLs. 09/07/2020: Had a complaint of right hip pain imaging was unremarkable. Continue with PT/OT and pre-CERT for SNF placement. 09/08/2020: Still awaiting pre-CERT for SNF placement otherwise stable and no new issues overnight. 09/09/2020: Awaiting pre-CERT no new issues 09/10/2020: Awaiting pre-CERT no new issues. He is happier now that we change the diet back to regular diet. 09/11/2020: No change awaiting pre-CERT 09/12/2020: No change 09/13/2020: No change Visit Charges OBSV E&M: [id number] Subsequent observation care L1
[2020-09-13] MEDS: Venlafaxine XR 150 MG Capsule PO (11:02)
[2020-09-13] MEDS: amLODIPine 10 MG Tablet PO (11:03)
[2020-09-13] MEDS: Pantoprazole Sodium 20 MG Tablet PO (11:03)
[2020-09-13] MEDS: Metoprolol Tartrate 25 MG Tablet PO ×2 (11:03→22:46)
[2020-09-13] MEDS: Lisinopril 40 MG Tablet PO (11:03)
[2020-09-13] MEDS: Enoxaparin 40 MG/0.4 ML Syringe SC (11:04)
[2020-09-13] MEDS: Clopidogrel Bisulfate 75 MG Tablet PO (11:04)
[2020-09-13] MEDS: oxyCODONE 5 MG Tablet PO ×3 (11:13→20:21)
[2020-09-13] MEDS: Insulin Lispro 100 UNIT/ML INSULN.PEN SC ×3 (11:21→22:48)
[2020-09-13] MEDS: Insulin Human 75/25 Kwickpen 15 UNIT SC ×2 (11:22→22:47)
[2020-09-13 11:35] LABS: Bedside Glucose 242 mg/dL (70-110)
[2020-09-13] MEDS: Gabapentin 300 MG Capsule PO (16:17)
[2020-09-13 16:31] LABS: Bedside Glucose 165 mg/dL (70-110)
[2020-09-13] MEDS: Acetaminophen 325 MG Tablet 650 MG PO (20:20)
--- NOTE | 2020-09-13 20:23 | NURSING ---
Pt c/o rt thigh/hip pain medicated with tylenol and oxycodone together per request. States he has not had much relief with the medications separately.
[2020-09-13] MEDS: Mirtazapine 15 MG Tablet PO (22:47)
[2020-09-13] MEDS: Atorvastatin Calcium 40 MG Tablet PO (22:47)
[2020-09-13 23:00] LABS: Bedside Glucose 233 mg/dL (70-110)
[2020-09-14] VITALS (14 sets, daily range): BP systolic 130–155; BP diastolic 68–88; PULSE 75–87; RESP 10–16; TEMP 36.2–36.5; O2SAT 96–98
--- NOTE | 2020-09-14 01:45 | NURSING ---
Pt called out states he feels his blood sugar is low, glucose check was 62. Juice and ice cream was given.
[2020-09-14 01:51] LABS: Bedside Glucose 62 mg/dL (70-110)
--- NOTE | 2020-09-14 02:09 | NURSING ---
Glucose was rechecked following snack result was 161. Pt declined further snacks at this time.
[2020-09-14 02:10] LABS: Bedside Glucose 161 mg/dL (70-110)
[2020-09-14] MEDS: busPIRone 15 MG TABLET PO ×3 (06:50→21:04)
[2020-09-14] MEDS: Insulin Lispro 100 UNIT/ML INSULN.PEN SC ×4 (06:57→23:06)
[2020-09-14 07:05] LABS: Bedside Glucose 177 mg/dL (70-110)
--- NOTE | 2020-09-14 09:20 | CASEMGMT ---
WILLY received a call from Macrina Reynoso. She did a quick interview with SW over the phone. She will call patient's room later and interview him. She said she will then give all the information she gathered to her director and someone else makes the determination. Patient did not do therapy the ,, or . Therefore, we will need therapy notes from today to give to insurance in order to obtain pre-cert. Charito Adames EXPANDER MACHINE OPERATOR ANEESH
[2020-09-14] MEDS: Folic Acid 1 MG Tablet PO (09:31)
[2020-09-14] MEDS: Multivitamins,Therapeutic Tablet 1 TABLET PO (09:31)
[2020-09-14] MEDS: Thiamine Hydrochloride 100 MG Tablet PO (09:31)
[2020-09-14] MEDS: Aspirin E.C. 81 MG Tablet PO (09:31)
[2020-09-14] MEDS: Pantoprazole Sodium 20 MG Tablet PO (09:32)
[2020-09-14] MEDS: amLODIPine 10 MG Tablet PO (09:32)
[2020-09-14] MEDS: Lisinopril 40 MG Tablet PO (09:32)
[2020-09-14] MEDS: Venlafaxine XR 150 MG Capsule PO (09:32)
[2020-09-14] MEDS: Gabapentin 300 MG Capsule PO ×2 (09:32→18:04)
[2020-09-14] MEDS: Clopidogrel Bisulfate 75 MG Tablet PO (09:32)
[2020-09-14] MEDS: Enoxaparin 40 MG/0.4 ML Syringe SC (09:33)
[2020-09-14] MEDS: Metoprolol Tartrate 25 MG Tablet PO ×2 (09:33→21:03)
[2020-09-14] MEDS: oxyCODONE 5 MG Tablet PO ×3 (09:39→21:03)
[2020-09-14] MEDS: Acetaminophen 325 MG Tablet 650 MG PO ×3 (09:39→21:03)
[2020-09-14] MEDS: Insulin Human 75/25 Kwickpen 15 UNIT SC ×2 (11:16→23:07)
[2020-09-14 11:26] LABS: Bedside Glucose 225 mg/dL (70-110)
--- NOTE | 2020-09-14 11:28 | PCM.PN.HOSP ---
Documented by User: Paul DEMPSEY 09/14/20 11:31 Subjective Subjective Patient is a 60-year-old male comfortably resting in bed, alert and oriented x3. Denies chest pain, shortness of breath, palpitations, hemoptysis, sputum production, fever, chills, N/V/D. Objective Data Objective Data Vital Signs: Vital Signs Temp Pulse Resp BP Pulse Ox 97.6 F L 75 16 135/75 H 97 09/14/20 10:00 09/14/20 11:00 09/14/20 10:00 09/14/20 10:00 09/14/20 10:00 Oxygen Flow Rate (L/min) 5 Oxygen Delivery Method Room Air Weight: 167 lb 8.821 oz Body Mass Index (BMI) 23.6 Intake & Output: Intake and Output for Last 24 Hours 09/12/20 09/13/20 09/14/20 23:59 23:59 23:59 Intake Total 1300 / 1800 2080 / 2480 600 / 600 Balance 1300 / 1800 2080 / 2480 600 / 600 Lab / Micro Data Result Diagrams: 09/13/20 04:57 09/13/20 04:57 Labs: Laboratory Results - last 24 hr 09/13/20 11:19: POC Glucose 242 H 09/13/20 16:22: POC Glucose 165 H 09/13/20 22:44: POC Glucose 233 H 09/14/20 01:44: POC Glucose 62 L 09/14/20 02:05: POC Glucose 161 H 09/14/20 06:55: POC Glucose 177 H 09/14/20 11:13: POC Glucose 225 H Physical Exam Const alert, oriented x3 and no apparent distress HEENT head/scalp atraumatic and moist oral mucous membranes Head and Scalp: normocephalic Eyes PERRL, EOMs intact bilaterally and conjunctivae normal Neck no lymphadenopathy, supple and no JVD Resp normal respiratory effort, no retractions, no use of accessory muscles and clear to auscultation bilaterally Cardio regular rate, regular rhythm, no murmurs and no JVD GI normal to inspection, nondistended, normoactive bowel sounds, soft to palpation and non-tender Extremity normal to inspection, full ROM and no clubbing, cyanosis or edema Skin no rashes or lesions noted, no wounds and skin turgor normal Neuro CN's II-XII intact bilaterally Psych affect normal Assessment & Plan Assessment/Plan (1) Chest pain: QUALIFIERS: Chest pain type: unspecified Qualified Code(s): R07.9 - Chest pain, unspecified PLAN: Day 13: See subjective for patient presentation. Discharge planning: Pending pre-CERT to [facility], CM/SW is anticipating approval some time this week. 1) chest pain/ACS rule out No elevation in high-sensitivity troponins. Nuclear stress test was negative for any evidence of ischemia. 2) failure to thrive Discharge planning as above. 3) chronic hyponatremia Stable, improved from admission. 4) ALEJANDRO Resolved 5) history of alcohol abuse Cessation encouraged and for patient to follow-up with [facility] as an outpatient, where he is already established. 6) CAD s/p PCI Continue aspirin, Plavix, statin and beta-haydee. 7) DM2 w/ Neuropathy Continue home insulin regimen, continue Accu-Cheks with sliding scale insulin. Increase Gabapentin to 300mg PO BID due to reports of ongoing r. leg pain. 8) HTN Stable, continue amlodipine, metoprolol and lisinopril. 9) hyperlipidemia Continue statin 10) anxiety/depression Continue bupropion, mirtazapine and venlafaxine. 11) GERD Continue PPI 12) ECTOR Continue use of CPAP. Patient requests discharge with CPAP machine, as he already has had a sleep study however has not been prescribed a CPAP machine. Recommended patient to follow-up with PCP. 13) tobacco dependence Cessation encouraged, nicotine patch ordered. DVT prophylax - Lovenox Patient seen by Paul Sargent PA-C, under the supervision of Dr. Mike. Documented by User: Dr. Ramírez Mike MD 09/14/20 15:20 Objective Data Lab / Micro Data Result Diagrams: 09/13/20 04:57 09/13/20 04:57 Charges/Coding Addendum Addendum: Dr. Mike: I personally reviewed the chart and examined the patient, and agree with the above findings. 60-year-old male presents with dizziness and weakness from home and and inability to care for himself. He currently remained stable and all of his symptoms have resolved however he is awaiting SNF placement. 09/06/2020: Doing well, reports resolution in his symptoms however awaiting pre-CERT for SNF placement for continued rehab. He states that he is still unable to take care of himself at home and has inability to complete ADLs. 09/07/2020: Had a complaint of right hip pain imaging was unremarkable. Continue with PT/OT and pre-CERT for SNF placement. 09/08/2020: Still awaiting pre-CERT for SNF placement otherwise stable and no new issues overnight. 09/09/2020: Awaiting pre-CERT no new issues 09/10/2020: Awaiting pre-CERT no new issues. He is happier now that we change the diet back to regular diet. 09/11/2020: No change awaiting pre-CERT 09/12/2020: No change 09/13/2020: No change 09/14/2020: No change Visit Charges OBSV E&M: [id number] Subsequent observation care L1
--- NOTE | 2020-09-14 12:25 | CASEMGMT ---
WILLY received a call from [facility] with [facility] and patient was approved by insurance. His pre-cert is good through Monday09-15-20. WILLY did talk with Edgardo today. Hopefully we will get their answer by tomorrow so we do not have to get another pre-cert. Charito Adames TANK TENDER ANEESH
[2020-09-14] MEDS: Psyllium 1 PACKET PO (16:12)
[2020-09-14 18:10] LABS: Bedside Glucose 301 mg/dL (70-110)
[2020-09-14] MEDS: Mirtazapine 15 MG Tablet PO (21:03)
[2020-09-14] MEDS: Atorvastatin Calcium 40 MG Tablet PO (21:03)
[2020-09-14 23:16] LABS: Bedside Glucose 241 mg/dL (70-110)
[2020-09-15] VITALS (12 sets, daily range): BP systolic 139–150; BP diastolic 69–78; PULSE 67–86; RESP 7–16; TEMP 36.6–36.9; O2SAT 96–98
[2020-09-15] MEDS: Insulin Lispro 100 UNIT/ML INSULN.PEN SC ×3 (06:39→16:00)
[2020-09-15] MEDS: busPIRone 15 MG TABLET PO ×2 (06:39→15:57)
[2020-09-15 06:50] LABS: Bedside Glucose 226 mg/dL (70-110)
[2020-09-15] MEDS: Gabapentin 300 MG Capsule PO ×2 (08:01→16:00)
[2020-09-15] MEDS: Aspirin E.C. 81 MG Tablet PO (08:01)
[2020-09-15] MEDS: Multivitamins,Therapeutic Tablet 1 TABLET PO (08:01)
[2020-09-15] MEDS: Folic Acid 1 MG Tablet PO (08:01)
[2020-09-15] MEDS: Thiamine Hydrochloride 100 MG Tablet PO (08:01)
[2020-09-15] MEDS: Lisinopril 40 MG Tablet PO (10:13)
[2020-09-15] MEDS: Enoxaparin 40 MG/0.4 ML Syringe SC (10:13)
[2020-09-15] MEDS: Clopidogrel Bisulfate 75 MG Tablet PO (10:13)
[2020-09-15] MEDS: Venlafaxine XR 150 MG Capsule PO (10:13)
[2020-09-15] MEDS: Pantoprazole Sodium 20 MG Tablet PO (10:13)
[2020-09-15] MEDS: amLODIPine 10 MG Tablet PO (10:13)
[2020-09-15] MEDS: Metoprolol Tartrate 25 MG Tablet PO (10:13)
[2020-09-15] MEDS: oxyCODONE 5 MG Tablet PO ×2 (10:20→16:07)
[2020-09-15] MEDS: Acetaminophen 325 MG Tablet 650 MG PO ×2 (10:21→16:07)
--- NOTE | 2020-09-15 11:51 | PN.HOSP_ITS ---
Subjective Subjective Patient is a 60-year-old male comfortably resting in bed, alert and oriented x3. Patient denies any progression or change in symptoms from yesterday. Denies chest pain, shortness of breath, palpitations, hemoptysis, sputum production, fever, chills, N/V/D. Objective Data Objective Data Vital Signs: Vital Signs Temp Pulse Resp BP Pulse Ox 98.4 F 78 16 143/69 H 97 09/15/20 10:10 09/15/20 10:13 09/15/20 10:10 09/15/20 10:13 09/15/20 10:10 Oxygen Flow Rate (L/min) 5 Oxygen Delivery Method Room Air Weight: 169 lb 8.568 oz Body Mass Index (BMI) 23.6 Intake & Output: Intake and Output for Last 24 Hours 09/13/20 09/14/20 09/15/20 23:59 23:59 23:59 Intake Total 2080 / 2480 600 / 600 Balance 2080 / 2480 600 / 600 Lab / Micro Data Result Diagrams: 09/13/20 04:57 09/13/20 04:57 Labs: Laboratory Results - last 24 hr 09/14/20 18:01: POC Glucose 301 H 09/14/20 23:05: POC Glucose 241 H 09/15/20 06:38: POC Glucose 226 H Physical Exam Const alert, oriented x3 and no apparent distress HEENT head/scalp atraumatic and moist oral mucous membranes Head and Scalp: normocephalic Eyes EOMs intact bilaterally and conjunctivae normal Neck no lymphadenopathy, supple and no JVD Resp normal respiratory effort, no retractions, no use of accessory muscles and clear to auscultation bilaterally Cardio regular rate, regular rhythm, no murmurs and no JVD GI normal to inspection, nondistended, normoactive bowel sounds, soft to palpation and non-tender Extremity normal to inspection, full ROM and no clubbing, cyanosis or edema Skin no rashes or lesions noted, no wounds, skin turgor normal and no jaundice Neuro CN's II-XII intact bilaterally Psych affect normal Assessment & Plan Assessment/Plan (1) Chest pain: QUALIFIERS: Chest pain type: unspecified Qualified Code(s): R07.9 - Chest pain, unspecified PLAN: Day 14: See subjective for patient presentation. Discharge planning : Pending pre-CERT to [facility], CM/SW is anticipating approval some time this week. 1) chest pain/ACS rule out No elevation in high-sensitivity troponins. Nuclear stress test was negative for any evidence of ischemia. 2) failure to thrive Discharge planning as above. 3) chronic hyponatremia Stable, improved from admission. 4) ALEJANDRO Resolved 5) history of alcohol abuse Cessation encouraged and for patient to follow-up with 180 as an outpatient, where he is already established. 6) CAD s/p PCI Continue aspirin, Plavix, statin and beta-haydee. 7) DM2 w/ Neuropathy Continue home insulin regimen, continue Accu-Cheks with sliding scale insulin. Increase Gabapentin to 300mg PO BID due to reports of ongoing r. leg pain. 8) HTN Stable, continue amlodipine, metoprolol and lisinopril. 9) hyperlipidemia Continue statin 10) anxiety/depression Continue bupropion, mirtazapine and venlafaxine. 11) GERD Continue PPI 12) ECTOR Continue use of CPAP. Patient requests discharge with CPAP machine, as he already has had a sleep study however has not been prescribed a CPAP machine. Recommended patient to follow-up with PCP. 13) tobacco dependence Cessation encouraged, nicotine patch ordered. 14) Severe protein calorie malnutrition. Noted on dietary assessment due to low energy, weight loss and patient endorsement of poor oral intake prior to admission. Patient's current weight is 169 pounds with a BMI of 29.5. Plan: Regular diet initiated. DVT prophylax - Lovenox Patient seen by Paul Sargent PA-C, under the supervision of Dr. Kim.
[2020-09-15] MEDS: Insulin Human 75/25 Kwickpen 15 UNIT SC (11:59)
[2020-09-15 12:06] LABS: Bedside Glucose 321 mg/dL (70-110)
--- NOTE | 2020-09-15 14:31 | CASEMGMT ---
SW called [facility] as SW has not heard anything. SW left a voice mail requesting a return call regarding the status of patient's case. Charito MELENDREZ
--- NOTE | 2020-09-15 15:07 | CASEMGMT ---
WILLY received a phone call from Stefanie with [facility]. She said patient has been approved [facility]. Physician notified. WILLY also called Chantel with [facility] and let her know patient was approved. Await orders. Plan: d/c to [facility] under intermediate level of care on a PASRR as he was observation status in the hospital. Charito Adames FORENSIC TOXICOLOGIST METAL TECHNICIAN
--- NOTE | 2020-09-15 15:19 | PCM.TXEXTCAR ---
Documented by User: Paul DEMPSEY 09/15/20 15:24 Diet 09/08/20 09:48 Diet: Regular - General Is pt able to select menu?: Yes Therapies Physical Therapy: Eval and Treat Occupational Therapy: Eval and Treat Problem/Diagnosis (1) Chest pain: Status: Acute Allergies/Procedures Done in Hospital Allergies No Known Allergies Allergy (Verified 09/02/20 15:43) Procedures: Nuclear Stress Test Type of Care/Length of Stay Estimated LOS: Convalescent Care Less Than 30 days Type of Care Needed: Skilled Rehab Potential: Good Prognosis: Good Additional Orders/Day of Discharge Day of Discharge: 09/15/20 Dietary and Speech Recommendations Dietitian Recommendations/Changes: Carbohydrate-Controlled/Cardiac diet would better meet pt therapeutic nutrition needs however, pt refuses therapeutic diet restrictions--will continue regular diet as ordered to encourage PO at meals. ONS only if PO fails at meals; not indicated at this time. Discharge Plan Admission Admit Date/Time: 09/02/20 20:17 Primary Reason for Your Visit: Chest pain Attending Provider: Paco Kim Primary Care Provider: Elijah Plascencia Instructions Patient Instructions: ED Chest Pain, Noncardiac Discharge Orders/Prescriptions Prescriptions: Continued (DME) insulin needles (disposable) 30 X 3/4 30 X 3/4 needle See Rx Instructions .ROUTE .MEDSUPPLY Qty: 1 RF: 0 aspirin 81 mg tablet,delayed release (DR/EC) 81 mg PO DAILY@0800 Qty: 30 RF: 0 (DME) Accu-Chek Guide test strips Strip See Rx Instructions .ROUTE .MEDSUPPLY Qty: 200 RF: 0 (DME) lancets [Accu-Chek Softclix Lancets] Misc See Rx Instructions .ROUTE .MEDSUPPLY Qty: 200 RF: 1 glimepiride 2 mg tablet 2 mg PO DAILY@0800 Qty: 30 RF: 0 pantoprazole 20 mg tablet,delayed release (DR/EC) 20 mg PO DAILY Qty: 30 RF: 0 clopidogrel 75 mg tablet 75 mg PO DAILY Qty: 30 RF: 0 venlafaxine 150 mg tablet extended release 24hr 150 mg PO QAM Qty: 90 RF: 3 folic acid 1 mg tablet 1 mg PO DAILY Qty: 90 RF: 2 thiamine HCl (vitamin B1) 100 mg tablet 100 mg PO DAILY Qty: 90 RF: 3 metoprolol tartrate 25 mg tablet See Rx Instructions .ROUTE .COMPLEX Qty: 56 RF: 0 amlodipine 10 mg tablet 10 mg PO DAILY Qty: 90 RF: 1 atorvastatin 40 mg tablet 40 mg PO QHS Qty: 90 RF: 1 buspirone 15 mg tablet 15 mg PO TID Qty: 90 RF: 3 metformin 1,000 mg tablet 1,000 mg PO BIDCM 90 Days Qty: 180 RF: 1 lisinopril 40 mg tablet 40 mg PO DAILY Qty: 90 RF: 1 insulin NPH and regular human 100 unit/mL (70-30) insulin pen 15 unit SC BID 90 Days Qty: 27 RF: 3 (DME) pen needle, diabetic [UltiCare Pen Needle] 31 gauge x 5/16 needle See Rx Instructions .ROUTE .MEDSUPPLY Qty: 100 RF: 3 gabapentin 100 mg capsule 200 mg PO BID Qty: 120 RF: 0 mirtazapine 15 mg tablet 15 mg PO QHS Qty: 90 RF: 1 Referrals / Follow Up: Félix Mckay MD [STAFF PHYSICIAN] - Within 2 Weeks Elijah Plascencia MD [Primary Care Provider] - Within 2 Weeks Disposition Disposition (needs filled in before D/C Order can be placed): Home, Self Care Documented by User: Dr. Paco Kim DO 09/15/20 15:54 Problem/Diagnosis (1) Chest pain: Status: Acute (2) Acute hyponatremia: Status: Acute (3) Acute kidney injury: Status: Acute (4) ECTOR (obstructive sleep apnea): Status: Acute Allergies/Procedures Done in Hospital Allergies No Known Allergies Allergy (Verified 09/02/20 15:43) Discharge Plan Admission Admit Date/Time: 09/02/20 20:17 Primary Reason for Your Visit: Chest pain Attending Provider: Paco Kim Primary Care Provider: Elijah Plascencia Instructions Patient Instructions: ED Chest Pain, Noncardiac Discharge Orders/Prescriptions Prescriptions: Continued (DME) insulin needles (disposable) 30 X 3/4 30 X 3/4 needle See Rx Instructions .ROUTE .MEDSUPPLY Qty: 1 RF: 0 aspirin 81 mg tablet,delayed release (DR/EC) 81 mg PO DAILY@0800 Qty: 30 RF: 0 (DME) Accu-Chek Guide test strips Strip See Rx Instructions .ROUTE .MEDSUPPLY Qty: 200 RF: 0 (DME) lancets [Accu-Chek Softclix Lancets] Misc See Rx Instructions .ROUTE .MEDSUPPLY Qty: 200 RF: 1 glimepiride 2 mg tablet 2 mg PO DAILY@0800 Qty: 30 RF: 0 pantoprazole 20 mg tablet,delayed release (DR/EC) 20 mg PO DAILY Qty: 30 RF: 0 clopidogrel 75 mg tablet 75 mg PO DAILY Qty: 30 RF: 0 venlafaxine 150 mg tablet extended release 24hr 150 mg PO QAM Qty: 90 RF: 3 folic acid 1 mg tablet 1 mg PO DAILY Qty: 90 RF: 2 thiamine HCl (vitamin B1) 100 mg tablet 100 mg PO DAILY Qty: 90 RF: 3 metoprolol tartrate 25 mg tablet See Rx Instructions .ROUTE .COMPLEX Qty: 56 RF: 0 amlodipine 10 mg tablet 10 mg PO DAILY Qty: 90 RF: 1 atorvastatin 40 mg tablet 40 mg PO QHS Qty: 90 RF: 1 buspirone 15 mg tablet 15 mg PO TID Qty: 90 RF: 3 metformin 1,000 mg tablet 1,000 mg PO BIDCM 90 Days Qty: 180 RF: 1 lisinopril 40 mg tablet 40 mg PO DAILY Qty: 90 RF: 1 insulin NPH and regular human 100 unit/mL (70-30) insulin pen 15 unit SC BID 90 Days Qty: 27 RF: 3 (DME) pen needle, diabetic [UltiCare Pen Needle] 31 gauge x 5/16 needle See Rx Instructions .ROUTE .MEDSUPPLY Qty: 100 RF: 3 gabapentin 100 mg capsule 200 mg PO BID Qty: 120 RF: 0 mirtazapine 15 mg tablet 15 mg PO QHS Qty: 90 RF: 1 Referrals / Follow Up: Félix Mckay MD [STAFF PHYSICIAN] - Within 2 Weeks Elijah Plascencia MD [Primary Care Provider] - Within 2 Weeks Disposition Disposition (needs filled in before D/C Order can be placed): Home, Self Care
--- NOTE | 2020-09-15 15:24 | DS.PCM_ITS ---
Documented by User: Paul DEMPSEY 09/15/20 15:27 Providers Date of Admission: 09/02/20 Primary Care Physician: Dr. Elijah Plascencia MD Reason For Visit: CHEST PAIN, FTT ADULT Diagnosis Discharge Diagnosis (1) Chest pain: Status: Acute Code(s): R07.9 - Chest pain, unspecified Qualifiers: Chest pain type: unspecified Qualified Code(s): R07.9 - Chest pain, unspecified Medications at Discharge Home Medications aspirin 81 mg tablet,delayed release 81 mg PO DAILY@0800 #30 tab 07/25/19 blood sugar diagnostic #200 ea 12/13/19 lancets #200 ea 12/13/19 glimepiride 2 mg tablet 2 mg PO DAILY@0800 #30 tab 12/18/19 pantoprazole 20 mg tablet,delayed release 20 mg PO DAILY #30 tab 12/18/19 clopidogrel 75 mg tablet 75 mg PO DAILY #30 tab 02/14/20 venlafaxine 150 mg tablet,extended release 24 hr 150 mg PO QAM #90 tab 04/03/20 folic acid 1 mg tablet 1 mg PO DAILY #90 tab 04/22/20 thiamine HCl (vitamin B1) 100 mg tablet 100 mg PO DAILY #90 tab 04/22/20 metoprolol tartrate 25 mg tablet See Rx Instructions .ROUTE .COMPLEX #56 tab 05/15/20 amlodipine 10 mg tablet 10 mg PO DAILY #90 tab 06/30/20 atorvastatin 40 mg tablet 40 mg PO QHS #90 tab 06/30/20 buspirone 15 mg tablet 15 mg PO TID #90 tab 06/30/20 lisinopril 40 mg tablet 40 mg PO DAILY #90 tab 06/30/20 metformin 1,000 mg tablet 1,000 mg PO BIDCM 90 Days #180 tab 06/30/20 insulin NPH-regular 70-30 U-100 insulin 100 unit/mL subcutaneous pen 15 unit SC BID 90 Days #27 ml 07/14/20 insulin needles (disposable) 30 X 3/4 #1 07/14/20 pen needle, diabetic 31 gauge x 5/16 #100 ea 07/21/20 gabapentin 100 mg capsule 200 mg PO BID #120 cap 07/22/20 mirtazapine 15 mg tablet 15 mg PO QHS #90 tab 08/07/20 Hospital Course Summary of Care Provided Minutes Spent on Discharge: 35 Hospital Course: Disposition: Patient to be discharged to [facility] for ongoing therapy needs related to failure to thrive. 1) chest pain/ACS rule out No elevation in high-sensitivity troponins. Nuclear stress test was negative for any evidence of ischemia. 2) failure to thrive Discharge planning as above. 3) chronic hyponatremia Stable, improved from admission. 4) ALEJANDRO Resolved 5) history of alcohol abuse Cessation encouraged and for patient to follow-up with 180 as an outpatient, where he is already established. 6) CAD s/p PCI Continue aspirin, Plavix, statin and beta-haydee. 7) DM2 w/ Neuropathy Continue home insulin regimen, continue Accu-Cheks with sliding scale insulin. Increase Gabapentin to 300mg PO BID due to reports of ongoing r. leg pain. 8) HTN Stable, continue amlodipine, metoprolol and lisinopril. 9) hyperlipidemia Continue statin 10) anxiety/depression Continue bupropion, mirtazapine and venlafaxine. 11) GERD Continue PPI 12) ECTOR Continue use of CPAP. Patient requests discharge with CPAP machine, as he already has had a sleep study however has not been prescribed a CPAP machine. Recommended patient to follow-up with PCP. 13) tobacco dependence Cessation encouraged, nicotine patch ordered. 14) Severe protein calorie malnutrition. Noted on dietary assessment due to low energy, weight loss and patient endorsement of poor oral intake prior to admission. Patient's current weight is 169 pounds with a BMI of 29.5. Patient seen by Paul Sargent PA-C, under the supervision of Dr. Kim. Physical Exam Narrative Patient is a 60-year-old male comfortably resting in bed, alert and orient x3. Patient denies any change or progression of symptoms from yesterday. Denies chest pain, shortness of breath, palpitations, hemoptysis, sputum production, fever, chills, N/V/D. Const alert, oriented x3 and no apparent distress HEENT normocephalic, head/scalp atraumatic and hearing grossly normal bilaterally Eyes EOMs intact bilaterally and conjunctivae normal Neck no lymphadenopathy, supple and no JVD Resp normal respiratory effort, no retractions, no use of accessory muscles and clear to auscultation bilaterally Cardio regular rate, regular rhythm, no murmurs and no JVD GI normal to inspection, nondistended, normoactive bowel sounds, soft to palpation and non-tender Extremity normal to inspection, full ROM and no clubbing, cyanosis or edema Skin no rashes or lesions noted, no wounds and skin turgor normal Neuro CN's II-XII intact bilaterally Psych affect normal Weight / BMI Weight Weight: 169 lb 8.568 oz Body Mass Index (BMI) 23.6 ABG / Lab / Microbiology Data Result Diagrams: 09/13/20 04:57 09/13/20 04:57 Laboratory: Laboratory Results - last 24 hr 09/14/20 18:01: POC Glucose 301 H 09/14/20 23:05: POC Glucose 241 H 09/15/20 06:38: POC Glucose 226 H 09/15/20 11:54: POC Glucose 321 H Meaningful Use Info Meaningful Use Diagnoses (Choose all that apply): None applicable Discharge Plan Admission Admit Date/Time: 09/02/20 20:17 Primary Reason for Your Visit: Chest pain Attending Provider: Paco Kim Primary Care Provider: Elijah Plascencia Instructions Patient Instructions: ED Chest Pain, Noncardiac Discharge Orders/Prescriptions Prescriptions: Continued (DME) insulin needles (disposable) 30 X 3/4 30 X 3/4 needle See Rx Instructions .ROUTE .MEDSUPPLY Qty: 1 RF: 0 aspirin 81 mg tablet,delayed release (DR/EC) 81 mg PO DAILY@0800 Qty: 30 RF: 0 (DME) Accu-Chek Guide test strips Strip See Rx Instructions .ROUTE .MEDSUPPLY Qty: 200 RF: 0 (DME) lancets [Accu-Chek Softclix Lancets] Misc See Rx Instructions .ROUTE .MEDSUPPLY Qty: 200 RF: 1 glimepiride 2 mg tablet 2 mg PO DAILY@0800 Qty: 30 RF: 0 pantoprazole 20 mg tablet,delayed release (DR/EC) 20 mg PO DAILY Qty: 30 RF: 0 clopidogrel 75 mg tablet 75 mg PO DAILY Qty: 30 RF: 0 venlafaxine 150 mg tablet extended release 24hr 150 mg PO QAM Qty: 90 RF: 3 folic acid 1 mg tablet 1 mg PO DAILY Qty: 90 RF: 2 thiamine HCl (vitamin B1) 100 mg tablet 100 mg PO DAILY Qty: 90 RF: 3 metoprolol tartrate 25 mg tablet See Rx Instructions .ROUTE .COMPLEX Qty: 56 RF: 0 amlodipine 10 mg tablet 10 mg PO DAILY Qty: 90 RF: 1 atorvastatin 40 mg tablet 40 mg PO QHS Qty: 90 RF: 1 buspirone 15 mg tablet 15 mg PO TID Qty: 90 RF: 3 metformin 1,000 mg tablet 1,000 mg PO BIDCM 90 Days Qty: 180 RF: 1 lisinopril 40 mg tablet 40 mg PO DAILY Qty: 90 RF: 1 insulin NPH and regular human 100 unit/mL (70-30) insulin pen 15 unit SC BID 90 Days Qty: 27 RF: 3 (DME) pen needle, diabetic [UltiCare Pen Needle] 31 gauge x 5/16 needle See Rx Instructions .ROUTE .MEDSUPPLY Qty: 100 RF: 3 gabapentin 100 mg capsule 200 mg PO BID Qty: 120 RF: 0 mirtazapine 15 mg tablet 15 mg PO QHS Qty: 90 RF: 1 Referrals / Follow Up: Félix Mckay MD [STAFF PHYSICIAN] - Within 2 Weeks Elijah Plascencia MD [Primary Care Provider] - Within 2 Weeks Disposition Disposition (needs filled in before D/C Order can be placed): Home, Self Care Documented by User: Dr. Paco Kim DO 09/15/20 17:06 Providers Date of Admission: 09/02/20 Date of Discharge: 09/15/20 Reason For Visit: CHEST PAIN, FTT ADULT Medications at Discharge Home Medications aspirin 81 mg tablet,delayed release 81 mg PO DAILY@0800 #30 tab 07/25/19 blood sugar diagnostic #200 ea 12/13/19 lancets #200 ea 12/13/19 glimepiride 2 mg tablet 2 mg PO DAILY@0800 #30 tab 12/18/19 pantoprazole 20 mg tablet,delayed release 20 mg PO DAILY #30 tab 12/18/19 clopidogrel 75 mg tablet 75 mg PO DAILY #30 tab 02/14/20 venlafaxine 150 mg tablet,extended release 24 hr 150 mg PO QAM #90 tab 04/03/20 folic acid 1 mg tablet 1 mg PO DAILY #90 tab 04/22/20 thiamine HCl (vitamin B1) 100 mg tablet 100 mg PO DAILY #90 tab 04/22/20 metoprolol tartrate 25 mg tablet See Rx Instructions .ROUTE .COMPLEX #56 tab 05/15/20 amlodipine 10 mg tablet 10 mg PO DAILY #90 tab 06/30/20 atorvastatin 40 mg tablet 40 mg PO QHS #90 tab 06/30/20 buspirone 15 mg tablet 15 mg PO TID #90 tab 06/30/20 lisinopril 40 mg tablet 40 mg PO DAILY #90 tab 06/30/20 metformin 1,000 mg tablet 1,000 mg PO BIDCM 90 Days #180 tab 06/30/20 insulin NPH-regular 70-30 U-100 insulin 100 unit/mL subcutaneous pen 15 unit SC BID 90 Days #27 ml 07/14/20 insulin needles (disposable) 30 X 3/4 #1 07/14/20 pen needle, diabetic 31 gauge x 5/16 #100 ea 07/21/20 gabapentin 100 mg capsule 200 mg PO BID #120 cap 07/22/20 mirtazapine 15 mg tablet 15 mg PO QHS #90 tab 08/07/20 ABG / Lab / Microbiology Data Result Diagrams: 09/13/20 04:57 09/13/20 04:57 Discharge Plan Admission Admit Date/Time: 09/02/20 20:17 Primary Reason for Your Visit: Chest pain Attending Provider: Paco Kim Primary Care Provider: Elijah Plascencia Instructions Patient Instructions: ED Chest Pain, Noncardiac Discharge Orders/Prescriptions Prescriptions: Continued (DME) insulin needles (disposable) 30 X 3/4 30 X 3/4 needle See Rx Instructions .ROUTE .MEDSUPPLY Qty: 1 RF: 0 aspirin 81 mg tablet,delayed release (DR/EC) 81 mg PO DAILY@0800 Qty: 30 RF: 0 (DME) Accu-Chek Guide test strips Strip See Rx Instructions .ROUTE .MEDSUPPLY Qty: 200 RF: 0 (DME) lancets [Accu-Chek Softclix Lancets] Misc See Rx Instructions .ROUTE .MEDSUPPLY Qty: 200 RF: 1 glimepiride 2 mg tablet 2 mg PO DAILY@0800 Qty: 30 RF: 0 pantoprazole 20 mg tablet,delayed release (DR/EC) 20 mg PO DAILY Qty: 30 RF: 0 clopidogrel 75 mg tablet 75 mg PO DAILY Qty: 30 RF: 0 venlafaxine 150 mg tablet extended release 24hr 150 mg PO QAM Qty: 90 RF: 3 folic acid 1 mg tablet 1 mg PO DAILY Qty: 90 RF: 2 thiamine HCl (vitamin B1) 100 mg tablet 100 mg PO DAILY Qty: 90 RF: 3 metoprolol tartrate 25 mg tablet See Rx Instructions .ROUTE .COMPLEX Qty: 56 RF: 0 amlodipine 10 mg tablet 10 mg PO DAILY Qty: 90 RF: 1 atorvastatin 40 mg tablet 40 mg PO QHS Qty: 90 RF: 1 buspirone 15 mg tablet 15 mg PO TID Qty: 90 RF: 3 metformin 1,000 mg tablet 1,000 mg PO BIDCM 90 Days Qty: 180 RF: 1 lisinopril 40 mg tablet 40 mg PO DAILY Qty: 90 RF: 1 insulin NPH and regular human 100 unit/mL (70-30) insulin pen 15 unit SC BID 90 Days Qty: 27 RF: 3 (DME) pen needle, diabetic [UltiCare Pen Needle] 31 gauge x 5/16 needle See Rx Instructions .ROUTE .MEDSUPPLY Qty: 100 RF: 3 gabapentin 100 mg capsule 200 mg PO BID Qty: 120 RF: 0 mirtazapine 15 mg tablet 15 mg PO QHS Qty: 90 RF: 1 Referrals / Follow Up: Félix Mckay MD [STAFF PHYSICIAN] - Within 2 Weeks Elijah Plascencia MD [Primary Care Provider] - Within 2 Weeks Disposition Disposition (needs filled in before D/C Order can be placed): Home, Self Care Charges/Coding Addendum Addendum: Patient was seen and examined today independently of Paul Sargent, we received permission for the patient be transferred to an extended care facility for inpatient rehab services, patient has no complaints of any chest pain or shortness of breath to this examiner today. On examination he appeared in good health and spirits. Vital signs as documented. Skin warm and dry and without overt rashes. Neck without JVD, neck was supple, trachea midline, thyroid was normal. Lungs clear bilaterally, normal air movement was noted. Heart exam notable for regular rhythm, normal sounds and absence of murmurs, rubs or gallops. Abdomen unremarkable and without evidence of organomegaly, masses, or abdominal aortic enlargement. Bowel sounds are present, abdomen is not distended. Extremities nonedematous, no cyanosis was noted, no clubbing was noted. Neuro: Cranial nerves II through XII are grossly intact, no focal motor deficits were noted, sensation to light touch and pinprick intact, motor exam 5/5 throughout. Psych: Patient is alert and oriented x3, he does not appear anxious or depressed, he does not appear agitated. Patient appears stable for discharge at this time, I have reviewed Paul Arie's discharge summary including his medical assessment and plan of care and endorse it. Visit Charges Inpatient E&M: [id number] Disch Hosp
--- NOTE | 2020-09-15 15:43 | PHA.DC.MR ---
Pharmacy Service has performed discharge medication reconciliation for this patient. The patient's discharge medication list was reviewed for discrepancies and discrepancies were resolved. This [facility] spoke with Paul regarding gabapentin dosing. Home med list says gabapentin 200mg PO BID, patient has been getting 300mg PO BID since 09/13 which reflects his most recent outpatient fill. Paul chose to leave him on the 200mg dose instead of changing to 300mg. Reports patient did not have any relief with 300mg dose. Home Medications aspirin 81 mg tablet,delayed release 81 mg PO DAILY@0800 #30 tab 07/25/19 blood sugar diagnostic #200 ea 12/13/19 lancets #200 ea 12/13/19 glimepiride 2 mg tablet 2 mg PO DAILY@0800 #30 tab 12/18/19 pantoprazole 20 mg tablet,delayed release 20 mg PO DAILY #30 tab 12/18/19 clopidogrel 75 mg tablet 75 mg PO DAILY #30 tab 02/14/20 venlafaxine 150 mg tablet,extended release 24 hr 150 mg PO QAM #90 tab 04/03/20 folic acid 1 mg tablet 1 mg PO DAILY #90 tab 04/22/20 thiamine HCl (vitamin B1) 100 mg tablet 100 mg PO DAILY #90 tab 04/22/20 metoprolol tartrate 25 mg tablet See Rx Instructions .ROUTE .COMPLEX #56 tab 05/15/20 amlodipine 10 mg tablet 10 mg PO DAILY #90 tab 06/30/20 atorvastatin 40 mg tablet 40 mg PO QHS #90 tab 06/30/20 buspirone 15 mg tablet 15 mg PO TID #90 tab 06/30/20 lisinopril 40 mg tablet 40 mg PO DAILY #90 tab 06/30/20 metformin 1,000 mg tablet 1,000 mg PO BIDCM 90 Days #180 tab 06/30/20 insulin NPH-regular 70-30 U-100 insulin 100 unit/mL subcutaneous pen 15 unit SC BID 90 Days #27 ml 07/14/20 insulin needles (disposable) 30 X 3/4 #1 07/14/20 pen needle, diabetic 31 gauge x 5/16 #100 ea 07/21/20 gabapentin 100 mg capsule 200 mg PO BID #120 cap 07/22/20 mirtazapine 15 mg tablet 15 mg PO QHS #90 tab 08/07/20
[2020-09-15 16:35] LABS: Bedside Glucose 260 mg/dL (70-110)
--- NOTE | 2020-09-15 16:46 | CASEMGMT ---
WILLY faxed orders to [facility] and [facility] as well as negative COVID test. WILLY called [facility] and arranged for patient to get picked up between 630 and 645 via wc van by [facility]. WILLY notified patient and Natividad at [facility]. [employer] is also aware. Plan: d/c to [facility] under intermediate level of care on a PASRR as he was observation status in the hospital. He did trip the screen on his PASRR, but [facility]. Charito Adames ALLERGIST/MD ANEESH
--- NOTE | 2020-09-15 17:18 | NURSING ---
Report called to brian Flores at [phone].
== END 2020-09-15 17:35 | disposition intermediate care facility (04) ==
LOC: ED 16:26 → PCU 20:44
PROVIDERS: Family Medicine; Nurse Practitioner Family; Physician Assistant; Student in an Organized Health Care Education/Training Program; Admitting Provider Family Medicine; Emergency Provider Student in an Organized Health Care Education/Training Program; PCP Internal Medicine; Visit Provider Internal Medicine
DX: R07.89 Other chest pain (principal); R62.7 Adult failure to thrive; I25.10 Atherosclerotic heart disease of native coronary artery without angina pectoris; I10 Essential (primary) hypertension; F32.9 Major depressive disorder, single episode, unspecified; F41.9 Anxiety disorder, unspecified; G89.29 Other chronic pain; E11.40 Type 2 diabetes mellitus with diabetic neuropathy, unspecified; E78.5 Hyperlipidemia, unspecified; F10.21 Alcohol dependence, in remission; K21.9 Gastro-esophageal reflux disease without esophagitis; E43 Unspecified severe protein-calorie malnutrition; G47.33 Obstructive sleep apnea (adult) (pediatric); I25.2 Old myocardial infarction; F17.210 Nicotine dependence, cigarettes, uncomplicated; I47.2 Ventricular tachycardia; E11.65 Type 2 diabetes mellitus with hyperglycemia; E87.1 Hypo-osmolality and hyponatremia; I95.1 Orthostatic hypotension; N17.9 Acute kidney failure, unspecified; Z68.29 Body mass index [BMI] 29.0-29.9, adult; Z79.899 Other long term (current) drug therapy; Z79.4 Long term (current) use of insulin; Z79.82 Long term (current) use of aspirin; Z79.02 Long term (current) use of antithrombotics/antiplatelets
CPT/HCPCS: 36415; 71045; 73502; 78452; 80048; 80053; 80061; 82077; 82962; 83735; 84100; 84484; 85025; 85379; 87426; 93005; 93017; 94660; 96361; 96372; 96374; 96376; 97110; 97116; 97162; 97166; 97530; 97535; 97802; 97803; 99218; 99251; 99285; A9500; J7030; J7040; J7050; A4216; G0378; G0463; J2785